=== PATIENT | male | born 1935 | race Caucasian/White ===

== ENCOUNTER 2016-09-14 10:20 | Outpatient (CLI) | payer MEDICARE, OTHER | END 2016-09-14 10:21 | disposition home or self-care (01) | DX: I10 Essential (primary) hypertension (principal); R73.09 Other abnormal glucose; Z12.5 Encounter for screening for malignant neoplasm of prostate; E78.5 Hyperlipidemia, unspecified | CPT/HCPCS: 36415; 80053; 80061; 83036; G0103 ==

== ENCOUNTER 2017-01-28 09:53 | Emergency (ER) | payer MEDICARE, OTHER ==
[2017-01-28] MEDS ORDERED: OXYMETAZOLINE NASAL SPRAY NAS ONE (10:00)
[2017-01-28] MEDS ORDERED: LIDOCAINE-EPINEPH-TETRACAINE 3 ML SYRINGE TOP ONE (10:06)
--- NOTE | 2017-01-28 10:15 | ED Physician Documentation ---
PD HPI HEENT - Stated complaint Stated Complaint: NOSE BLEED - Chief complaint Chief Complaint: Heent - History obtained from History obtained from: Patient, Family - History of Present Illness Timing - onset: Enter time (854), Today Timing - duration: Hours Timing - details: Gradual onset, Still present Location: Nose Improves: Other (pressure) Worsens: Everything Associated symptoms: No: Fever, Congestion, Rhinorrhea, Trismus, Unable to swallow, Swollen nodes, Facial swelling, Headache, Cough Similar symptoms before: Has not had sx before Recently seen: Clinic (had a PT check last week.) - Additional information Additional information: 82 y/o male was straining to urinate and his nose started to bleed. He is on coumadin and the bleeding has been difficult to control. Review of Systems Constitutional: denies: Fever, Chills Eyes: denies: Decreased vision Ears: denies: Ear pain Nose: reports: Epistaxis. denies: Congestion Throat: denies: Sore throat Cardiac: denies: Chest pain / pressure Respiratory: denies: Dyspnea, Cough GI: denies: Nausea, Vomiting : denies: Dysuria Skin: denies: Rash Musculoskeletal: denies: Neck pain, Back pain PD PAST MEDICAL HISTORY - Past Medical History Cardiovascular: High cholesterol, Deep vein thrombosis, Pulmonary embolism Neuro: None GI: GERD : Other HEENT: Other Psych: Depression, Anxiety - Past Surgical History Past Surgical History: Yes Ortho: Other - Present Medications Home Medications: Ambulatory Orders Medication Instructions Recorded Confirmed Cholecalciferol (Vitamin D3) 5,000 unit PO DAILY 02/08/13 01/28/17 [Vitamin D] Gabapentin [Neurontin] 600 mg PO QPM 02/08/13 01/28/17 Simvastatin [Zocor] 20 mg PO HS 02/08/13 01/28/17 Warfarin Sodium [Coumadin] 4 mg PO DAILY 02/08/13 01/28/17 Anagrelide HCl 0.5 mg PO BID 06/19/13 01/28/17 Ascorbic Acid [Vitamin C] 100 mg PO DAILY 09/03/15 01/28/17 Ferrous Gluconate 256 mg PO DAILY 09/03/15 01/28/17 Fexofenadine HCl [Marlene Allergy] 180 mg PO DAILY 09/03/15 01/28/17 Fluticasone [Flonase] 1 spray LOUIS BID 09/03/15 01/28/17 - Allergies Allergies/Adverse Reactions: Allergies Allergy/AdvReac Type Severity Reaction Status Date / Time amoxicillin [Amoxicillin] Allergy Intermediate Rash Verified 01/28/17 10:04 cavilon Allergy Mild Rash Uncoded 01/28/17 10:04 - Social History Does the pt smoke?: No Smoking Status: Never smoker Does the pt drink ETOH?: Yes Does the pt have substance abuse?: No - Immunizations Immunizations are current?: No - POLST Patient has POLST: No PD ED PE NORMAL - Vitals Vital signs reviewed: Yes (hypertensive ) - General General: No acute distress, Well developed/nourished - HEENT HEENT: Atraumatic, PERRL, EOMI, Other (There is bleeding from the left anterior nares from the septum. There is oozing of blood ) - Neck Neck: Supple, no meningeal sign, No bony TTP - Respiratory Respiratory: No respiratory distress - Derm Derm: Normal color, Warm and dry, No rash - Extremities Extremities: No deformity, No edema - Neuro Neuro: No motor deficit, No sensory deficit - Psych Psych: Normal mood, Normal affect Results - Vitals Vitals: Vital Signs - 24 hr 01/28/17 01/28/17 09:59 11:33 Temperature 35.8 C L Heart Rate 80 81 Respiratory 16 12 Rate Blood Pressure 168/82 H 126/72 O2 Saturation 95 97 Oxygen O2 Source Room air - Labs Labs: Laboratory Tests 01/28/17 10:25 Whole Blood INR 2.1 H Whole blood INR is 2.1 Procedures - Epistaxis Site: Left, Anterior Preparation: Afrin, Clamp / pressure applied, Other (LET packing followed by unsuccessful AgNO3 cautery) Treatment: Silver Nitrate, Anterior rhinorocket Other: Observed - no bleeding, Pt tolerated well, O2 sat WNL PD MEDICAL DECISION MAKING - ED course Complexity details: reviewed results, re-evaluated patient, considered differential, d/w patient, d/w family ED course: 82 y/o male with left anterior septal epistaxis has failed AgNO3 cautery and a Rhino-rocket is placed. He will need this removed tomorrow. Departure - Departure Disposition: 01 Home, Self Care Clinical Impression: Epistaxis Condition: Stable Instructions: ED Nosebleed, ED Nasal Packing Anterior Removable Follow-Up: Michael Foley MD [Primary Care Provider] - Comments: Follow up tomorrow morning for removal of the packing. Discharge Date/Time: 01/28/17 11:48
[2017-01-28 11:33] VITALS: BP 126/72
== END 2017-01-28 11:48 | disposition home or self-care (01) ==
LOC: ED 09:53
DX: R04.0 Epistaxis (principal); Z86.711 Personal history of pulmonary embolism; Z86.718 Personal history of other venous thrombosis and embolism; Z79.01 Long term (current) use of anticoagulants; E78.00 Pure hypercholesterolemia, unspecified; K21.9 Gastro-esophageal reflux disease without esophagitis
CPT/HCPCS: 30903; 85610; 99283; A9270

== ENCOUNTER 2017-01-29 08:35 | Emergency (ER) | payer MEDICARE, OTHER ==
[2017-01-29 08:43] VITALS: BP 159/81
--- NOTE | 2017-01-29 08:45 | ED Physician Documentation ---
PD HPI HEENT - Stated complaint Stated Complaint: F/U NOSE BLEED - History obtained from History obtained from: Patient - Additional information Additional information: Patient is an 82-year-old male who was seen here yesterday with anterior epistaxis. An anterior pack was placed, and he was advised to return today for removal of the packing. The packing came out spontaneously last night, so he presents for reevaluation. He denies any bleeding since the packing dislodged. He is on Coumadin, and his INR yesterday was 2.1. Review of Systems Constitutional: denies: Fever Nose: denies: Congestion, Epistaxis Throat: denies: Sore throat Respiratory: denies: Dyspnea GI: denies: Nausea, Vomiting Neurologic: denies: Headache PD PAST MEDICAL HISTORY - Past Medical History Cardiovascular: High cholesterol, Deep vein thrombosis, Pulmonary embolism Neuro: None GI: GERD : Other HEENT: Other Psych: Depression, Anxiety - Past Surgical History Past Surgical History: Yes Ortho: Other - Present Medications Home Medications: Ambulatory Orders Medication Instructions Recorded Confirmed Cholecalciferol (Vitamin D3) 5,000 unit PO DAILY 02/08/13 01/28/17 [Vitamin D] Gabapentin [Neurontin] 600 mg PO QPM 02/08/13 01/28/17 Simvastatin [Zocor] 20 mg PO HS 02/08/13 01/28/17 Warfarin Sodium [Coumadin] 4 mg PO DAILY 02/08/13 01/28/17 Anagrelide HCl 0.5 mg PO BID 06/19/13 01/28/17 Ascorbic Acid [Vitamin C] 100 mg PO DAILY 09/03/15 01/28/17 Ferrous Gluconate 256 mg PO DAILY 09/03/15 01/28/17 Fexofenadine HCl [Marlene Allergy] 180 mg PO DAILY 09/03/15 01/28/17 Fluticasone [Flonase] 1 spray LOUIS BID 09/03/15 01/28/17 - Allergies Allergies/Adverse Reactions: Allergies Allergy/AdvReac Type Severity Reaction Status Date / Time amoxicillin [Amoxicillin] Allergy Intermediate Rash Verified 01/29/17 08:43 cavilon Allergy Mild Rash Uncoded 01/29/17 08:43 - Social History Does the pt smoke?: No Smoking Status: Never smoker Does the pt drink ETOH?: Yes Does the pt have substance abuse?: No - Immunizations Immunizations are current?: No - POLST Patient has POLST: No PD ED PE NORMAL - Vitals Vital signs reviewed: Yes (Hypertensive initially.) - General General: Alert and oriented X 3, Well developed/nourished - HEENT HEENT: Atraumatic, EOMI, Pharynx benign, Other (Nasal mucosa is intact with no bleeding or clots at this time.) - Cardiac Cardiac: RRR - Respiratory Respiratory: No respiratory distress Results - Vitals Vitals: Vital Signs - 24 hr 01/29/17 08:38 Temperature 36.1 C L Heart Rate 75 Respiratory 20 Rate Blood Pressure 159/81 H O2 Saturation 99 Oxygen O2 Source Room air PD MEDICAL DECISION MAKING - ED course Complexity details: considered differential, d/w patient ED course: Recheck of the patient's nasal mucosa after having a nasal pack placed yesterday for left anterior epistaxis, reveals no ongoing bleeding or any blood clots in the nares. No further treatment is clinically indicated at this time. I discussed with the patient ongoing care, as well as potentially worrisome signs or symptoms that should prompt reevaluation in the emergency department. Departure - Departure Disposition: 01 Home, Self Care Clinical Impression: Encounter for wound re-check Condition: Stable Instructions: Nosebleed Follow-Up: Michael Foley MD [Provider Admit Priv/Credential] - Comments: Avoid activity such as heavy lifting or straining, that can cause increase pressure in the blood vessels of your nose for the next 3 days. You can apply antibiotic ointment to the nasal mucosa, using a cotton-tipped swab. Return to the emergency department if you develop recurrent bleeding that does not stop within 15 minutes of applying pressure. You had high blood pressure while in the emergency department today. It is common for people to experience high blood pressure in the emergency department , and it does not necessarily mean that you need to be on antihypertensives medication. However it is advisable for you to follow up with your primary physician within the next week or 2 to have your blood pressure rechecked. Discharge Date/Time: 01/29/17 08:50
== END 2017-01-29 08:50 | disposition home or self-care (01) ==
LOC: ED 08:35
DX: Z09 Encounter for follow-up examination after completed treatment for conditions other than malignant neoplasm (principal); Z87.898 Personal history of other specified conditions; R03.0 Elevated blood-pressure reading, without diagnosis of hypertension; Z79.01 Long term (current) use of anticoagulants
CPT/HCPCS: 30903; 99282; 99283

== ENCOUNTER 2017-01-29 21:49 | Emergency (ER) | payer MEDICARE, OTHER ==
--- NOTE | 2017-01-29 21:53 | ED Physician Documentation ---
PD HPI HEENT - Stated complaint Stated Complaint: NOSE BLEED - History obtained from History obtained from: Patient - History of Present Illness Timing - onset: Yesterday Timing - details: Abrupt onset, Intermittant Pain level now: 0 Location: Nose Improves: Other (stopped subsequent to ED packing (placed yesterday), but restarted tonight) Worsens: Other (no apparent inciting or exacerbating factors) Similar symptoms before: Has not had sx before Recently seen: Emergency Dept - Additional information Additional information: spontaneous epistaxis left nare yesterday. He is on coumadin for h/o DVT and PE , recent INR was 2.1. He was T+R from this ED yesterday after the left nare was packed. He returned this morning for recheck, by which time the packing had dislodged. He had no bleeding on the f/u visit this morning, but left nare epistaxis restarted this evening and resumes as soon as he releases pressure. Review of Systems Nose: reports: Epistaxis. denies: Rhinorrhea / runny nose, Congestion, Sinus pressure / pain Throat: reports: Reviewed and negative PD PAST MEDICAL HISTORY - Past Medical History Cardiovascular: High cholesterol, Deep vein thrombosis, Pulmonary embolism Neuro: None GI: GERD : Other HEENT: Other Psych: Depression, Anxiety - Past Surgical History Past Surgical History: Yes Ortho: Other - Present Medications Home Medications: Ambulatory Orders Medication Instructions Recorded Confirmed Cholecalciferol (Vitamin D3) 5,000 unit PO DAILY 02/08/13 01/29/17 [Vitamin D] Gabapentin [Neurontin] 600 mg PO QPM 02/08/13 01/29/17 Simvastatin [Zocor] 20 mg PO HS 02/08/13 01/29/17 Warfarin Sodium [Coumadin] 4 mg PO DAILY 02/08/13 01/29/17 Anagrelide HCl 0.5 mg PO BID 06/19/13 01/29/17 Ascorbic Acid [Vitamin C] 100 mg PO DAILY 09/03/15 01/29/17 Ferrous Gluconate 256 mg PO DAILY 09/03/15 01/29/17 Fexofenadine HCl [Marlene Allergy] 180 mg PO DAILY 09/03/15 01/29/17 Fluticasone [Flonase] 1 spray LOUIS BID 09/03/15 01/29/17 - Allergies Allergies/Adverse Reactions: Allergies Allergy/AdvReac Type Severity Reaction Status Date / Time amoxicillin [Amoxicillin] Allergy Intermediate Rash Verified 01/29/17 08:43 cavilon Allergy Mild Rash Uncoded 01/29/17 08:43 - Social History Does the pt smoke?: No Smoking Status: Never smoker Does the pt drink ETOH?: Yes Does the pt have substance abuse?: No - Immunizations Immunizations are current?: No - POLST Patient has POLST: No PD ED PE NORMAL - Vitals Vital signs reviewed: Yes - General General: Alert and oriented X 3, No acute distress, Well developed/nourished PD ED PE EXPANDED - HEENT HEENT: Left nares epistaxis (active epistaxis with visualized source on anterior septum, pulsation to bleeding s/o arterial bleeding) Results - Vitals Vitals: Vital Signs - 24 hr 01/29/17 01/29/17 21:53 23:16 Temperature 36.1 C L Heart Rate 84 82 Respiratory 16 16 Rate Blood Pressure 187/86 H 164/87 H O2 Saturation 95 98 Oxygen O2 Source Room air Procedures - Epistaxis Site: Left Preparation: Afrin, Lidocaine, Clamp / pressure applied Treatment: Silver Nitrate, Anterior rhinorocket, Other (silver nitrate applied x 3 without hemostasis) Other: Observed - no bleeding, Pt tolerated well PD MEDICAL DECISION MAKING - ED course Complexity details: reviewed old records, re-evaluated patient (On reevaluation after packing, there is no evidence of ongoing bleeding and he was thus discharged with the packing in place. I d/w patient option of contacting PMD Wednesday and either being seen in the office (if feasable) or referred to ENT, but patient repeatedly says he prefers coming to ED for removal), considered differential, d/w patient Departure - Departure Disposition: 01 Home, Self Care Clinical Impression: Epistaxis Condition: Good Instructions: ED Nosebleed Follow-Up: Michael Foley MD [Primary Care Provider] - Comments: Return to the emergency department in 2-3 days for removal of the packing. Discharge Date/Time: 01/29/17 23:16
[2017-01-29] MEDS ORDERED: OXYMETAZOLINE NASAL SPRAY NAS STA (22:03)
[2017-01-29] MEDS ORDERED: LIDOCAINE VISCOUS 2% 15 ML UDC MM STA (22:03)
[2017-01-29] MEDS ORDERED: TRANEXAMIC ACID 1,000 MG/10 ML VIAL NAS STA (22:04)
[2017-01-29] MEDS ORDERED: LIDOCAINE VISCOUS 2% 15 ML UDC MM ONE (22:06)
[2017-01-29] MEDS ORDERED: OXYMETAZOLINE NASAL SPRAY NAS ONE (22:07)
[2017-01-29] MEDS ORDERED: TRANEXAMIC ACID 1,000 MG/10 ML VIAL ONE (22:07)
[2017-01-29 23:17] VITALS: BP 164/87
== END 2017-01-29 23:16 | disposition home or self-care (01) ==
LOC: ED 21:49
DX: R04.0 Epistaxis (principal); Z79.01 Long term (current) use of anticoagulants; Z86.718 Personal history of other venous thrombosis and embolism; Z86.711 Personal history of pulmonary embolism
CPT/HCPCS: 30903; 99283; A9270

== ENCOUNTER 2017-01-31 14:32 | Emergency (ER) | payer MEDICARE, OTHER ==
[2017-01-31 14:38] VITALS: BP 142/79
--- NOTE | 2017-01-31 14:54 | ED Physician Documentation ---
PD TRA HEENT - Stated complaint Stated Complaint: NOSE BALLOON REMOVAL - Chief complaint Chief Complaint: Heent - History obtained from History obtained from: Patient, Family - History of Present Illness Timing - onset: How many days ago (4) Timing - duration: Days (4) Timing - details: Gradual onset, Now resolved Location: Nose Improves: Other (Rhino Rocket) Associated symptoms: No: Fever, Congestion, Rhinorrhea, Trismus, Unable to swallow, Swollen nodes, Facial swelling, Headache, Cough Recently seen: Emergency Dept (This is the fourth visit for this patient for this nosebleed. He had a Rhino Rocket placed the first visit this came out and the bleeding was resolved on the second visit and then he had rebleeding later that day and had a third visit. He has now had the Rhino Rocket in place for 2 days and has not had any further bleeding.) - Additional information Additional information: 82-year-old male on Coumadin doing well with a Rhino Rocket in place for epistaxis. Review of Systems Constitutional: denies: Fever Eyes: denies: Decreased vision Ears: denies: Ear pain Nose: reports: Epistaxis Respiratory: denies: Cough GI: denies: Vomiting PD PAST MEDICAL HISTORY - Past Medical History Past Medical History: Yes Cardiovascular: High cholesterol, Deep vein thrombosis, Pulmonary embolism Neuro: None GI: GERD : Other HEENT: Other Psych: Depression, Anxiety - Past Surgical History Past Surgical History: Yes Ortho: Other - Present Medications Home Medications: Ambulatory Orders Medication Instructions Recorded Confirmed Cholecalciferol (Vitamin D3) 5,000 unit PO DAILY 02/08/13 01/31/17 [Vitamin D] Gabapentin [Neurontin] 600 mg PO QPM 02/08/13 01/31/17 Simvastatin [Zocor] 20 mg PO HS 02/08/13 01/31/17 Warfarin Sodium [Coumadin] 4 mg PO DAILY 02/08/13 01/31/17 Anagrelide HCl 0.5 mg PO BID 06/19/13 01/31/17 Ascorbic Acid [Vitamin C] 100 mg PO DAILY 09/03/15 01/31/17 Ferrous Gluconate 256 mg PO DAILY 09/03/15 01/31/17 Fexofenadine HCl [Marlene Allergy] 180 mg PO DAILY 09/03/15 01/31/17 Fluticasone [Flonase] 1 spray LOUIS BID 09/03/15 01/31/17 - Allergies Allergies/Adverse Reactions: Allergies Allergy/AdvReac Type Severity Reaction Status Date / Time amoxicillin [Amoxicillin] Allergy Intermediate Rash Verified 01/29/17 08:43 cavilon Allergy Mild Rash Uncoded 01/29/17 08:43 - Social History Does the pt smoke?: No Smoking Status: Never smoker Does the pt drink ETOH?: Yes Does the pt have substance abuse?: No - Immunizations Immunizations are current?: No - POLST Patient has POLST: No PD ED PE NORMAL - Vitals Vital signs reviewed: Yes (Hypertensive) - General General: No acute distress, Well developed/nourished - HEENT HEENT: Atraumatic, PERRL, Other (The Rhino Rocket is removed there is no blood on the rocket and the nasal mucosa is without signs of bleeding.) - Neck Neck: Supple, no meningeal sign - Respiratory Respiratory: No respiratory distress - Derm Derm: Normal color, Warm and dry, No rash - Extremities Extremities: No deformity, No edema - Neuro Neuro: No motor deficit, No sensory deficit - Psych Psych: Normal mood, Normal affect Results - Vitals Vitals: Vital Signs - 24 hr 01/31/17 01/31/17 14:36 14:40 Temperature 36.6 C Heart Rate 84 Respiratory 18 Rate Blood Pressure 142/79 H O2 Saturation 96 Oxygen O2 Source Room air PD MEDICAL DECISION MAKING - ED course Complexity details: reviewed old records, considered differential, d/w patient, d/w family ED course: 82-year-old male with anterior septal epistaxis has had a recent Rhino Rocket placed and bleeding is now resolved the Rhino Rocket is removed. Departure - Departure Disposition: 01 Home, Self Care Clinical Impression: Epistaxis Condition: Stable Instructions: ED Nosebleed Follow-Up: Michael Foley MD [Primary Care Provider] -
== END 2017-01-31 15:01 | disposition home or self-care (01) ==
LOC: ED 14:32
DX: R04.0 Epistaxis (principal); Z79.01 Long term (current) use of anticoagulants; Z86.718 Personal history of other venous thrombosis and embolism
CPT/HCPCS: 99282; 99283

== ENCOUNTER 2017-02-04 12:05 | Outpatient (CLI) | payer MEDICARE, OTHER ==
[2017-02-04 19:22] LABS: BASOPHILS # (AUTO) 0.2 10^3/uL (0.0-0.1); BASOPHILS % (AUTO) 1.2 %; EOSINOPHILS # (AUTO) 0.3 10^3/uL (0.0-0.7); EOSINOPHILS % (AUTO) 2.2 %; HCT - HEMATOCRIT 38.7 % (42.0-52.0); HGB - HEMOGLOBIN 12.5 g/dL (14.0-18.0); LYMPHOCYTES # (AUTO) 2.1 10^3/uL (1.5-3.5); LYMPHOCYTES % (AUTO) 14.4 %; MEAN CORPUSCULAR HEMOGLOBIN 31.4 pg (27.0-31.0); MEAN CORPUSCULAR HGB CONC 32.3 g/dL (32.0-36.0); MEAN CORPUSCULAR VOLUME 97.1 fL (80.0-94.0); MEAN PLATELET VOLUME 9.4 fL (7.4-11.4); MONOCYTES % (AUTO) 7.1 %; NEUTROPHILS # (AUTO) 10.9 10^3/uL (1.5-6.6); NEUTROPHILS % (AUTO) 75.1 %; NUCLEATED RED BLOOD CELLS AUTO 0.1 /100WBC; RED BLOOD COUNT 3.99 10^6/uL (4.70-6.10); RED CELL DISTRIBUTION WIDTH 17.5 % (12.0-15.0); UNCORRECTED WHITE BLOOD COUNT 14.4 x10^3/uL; WHITE BLOOD COUNT 14.4 x10^3/uL (4.8-10.8)
[2017-02-04 19:45] LABS: ALBUMIN/GLOBULIN RATIO 1.5 (1.0-2.2); BILIRUBIN,TOTAL 0.7 mg/dL (0.2-1.0); CALCIUM 8.9 mg/dL (8.5-10.3); CREATININE 1.5 mg/dL (0.6-1.2); TOTAL PROTEIN 6.8 g/dL (6.7-8.2)
[2017-02-04 19:51] LABS: PLATELET ESTIMATE, MANUAL INCREASED (>450,000) (NORMAL); PLATELET MORPHOLOGY NORMAL APPEARANCE (NORMAL)
== END 2017-02-04 12:06 | disposition home or self-care (01) ==
LOC: LAB.WCP 12:05
PROVIDERS: ATTEND Family Medicine
DX: D69.2 Other nonthrombocytopenic purpura (principal)
CPT/HCPCS: 36415; 80053; 81001; 85025

== ENCOUNTER 2017-09-07 21:33 | Emergency (ER) | payer MEDICARE, OTHER ==
--- NOTE | 2017-09-07 21:58 | ED Physician Documentation ---
PD HPI HEENT - Stated complaint Stated Complaint: NOSE BLEED - Chief complaint Chief Complaint: Heent - History obtained from History obtained from: Patient - History of Present Illness Timing - onset: How many hours ago (1-2), Today Timing - duration: Hours (1-2) Timing - details: Abrupt onset (just bent over in bathroom and started dripping blood. No noseblowing nor injury.) Location: Nose (bleeding right nostril) Associated symptoms: No: Fever, Congestion, Rhinorrhea, Headache, Cough Similar symptoms before: Diagnosis (nosebleed other side in the past year. No recent problem.) Recently seen: Not recently seen Review of Systems Constitutional: denies: Fever, Chills Nose: denies: Rhinorrhea / runny nose, Congestion Throat: denies: Sore throat Cardiac: denies: Chest pain / pressure Respiratory: denies: Dyspnea, Cough GI: denies: Vomiting, Diarrhea, Bloody / black stool Musculoskeletal: denies: Neck pain, Back pain Neurologic: denies: Generalized weakness, Near syncope Endocrine: reports: Easy bruising / bleeding. denies: Weight loss PD PAST MEDICAL HISTORY - Past Medical History Cardiovascular: High cholesterol, Deep vein thrombosis, Pulmonary embolism Neuro: None GI: GERD : Other HEENT: Other Psych: Depression, Anxiety - Past Surgical History Past Surgical History: Yes Ortho: Other - Present Medications Home Medications: Ambulatory Orders Medication Instructions Recorded Confirmed Cholecalciferol (Vitamin D3) 5,000 unit PO DAILY 02/08/13 03/15/17 [Vitamin D] Gabapentin [Neurontin] 600 mg PO QPM 02/08/13 03/15/17 Simvastatin [Zocor] 20 mg PO HS 02/08/13 03/15/17 Warfarin Sodium [Coumadin] 4 mg PO DAILY 02/08/13 03/15/17 Anagrelide HCl 0.5 mg PO BID 06/19/13 03/15/17 Ascorbic Acid [Vitamin C] 100 mg PO DAILY 09/03/15 03/15/17 Ferrous Gluconate 256 mg PO DAILY 09/03/15 03/15/17 Fexofenadine HCl [Marlene Allergy] 180 mg PO DAILY 09/03/15 03/15/17 Fluticasone [Flonase] 1 spray LOUIS BID 09/03/15 03/15/17 traMADol [Ultram] 50 mg PO Q4-6H PRN #15 tablet 09/09/17 - Allergies Allergies/Adverse Reactions: Allergies Allergy/AdvReac Type Severity Reaction Status Date / Time amoxicillin [Amoxicillin] Allergy Intermediate Rash Verified 09/09/17 16:38 cavilon Allergy Mild Rash Uncoded 09/07/17 21:42 - Social History Does the pt smoke?: No Smoking Status: Never smoker Does the pt drink ETOH?: Yes Does the pt have substance abuse?: No - Immunizations Immunizations are current?: No - POLST Patient has POLST: No PD ED PE NORMAL - Vitals Vital signs reviewed: Yes - General General: Alert and oriented X 3, No acute distress, Well developed/nourished - HEENT HEENT: Pharynx benign, Other (some blood from right nostril. Nose clamp in place. ) - Neck Neck: Supple, no meningeal sign, No adenopathy - Cardiac Cardiac: RRR, No murmur - Respiratory Respiratory: Clear bilaterally - Derm Derm: Normal color, Warm and dry - Extremities Extremities: No deformity, No tenderness to palpate, Normal ROM s pain, No edema - Neuro Neuro: Alert and oriented X 3, No motor deficit, Normal speech Results - Vitals Vitals: Oxygen O2 Source Room air - Labs Labs: Laboratory Tests 09/07/17 22:11 Whole Blood INR 1.9 H Procedures - Epistaxis Site: Right Preparation: Clots removed, Afrin, Lidocaine, Clamp / pressure applied Treatment: Silver Nitrate, Packing inserted Other: Pt tolerated well, O2 sat WNL, Other (did not stop completely so repacked and used TXA as well, with subsequent stopping of the bleeding.) PD MEDICAL DECISION MAKING - ED course Complexity details: reviewed results, considered differential, d/w patient Departure - Departure Disposition: Home, Self Care Clinical Impression: Epistaxis, Anticoagulant long-term use Condition: Stable Record reviewed to determine appropriate education?: Yes Instructions: ED Nosebleed Follow-Up: Michael Foley MD [Primary Care Provider] - [facility] [Provider Group] Comments: Leave the packing in until morning if he can. Return if persistent bleeding again. 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 Hold your Coumadin for a day. Discharge Date/Time: 09/08/17 00:20
[2017-09-07] MEDS ORDERED: OXYMETAZOLINE NASAL SPRAY NAS STA (22:02)
[2017-09-07] MEDS ORDERED: TRANEXAMIC ACID 1,000 MG/10 ML VIAL NAS STA (23:13)
[2017-09-08 00:20] VITALS: BP 163/79
== END 2017-09-08 00:20 | disposition home or self-care (01) ==
LOC: ED 21:33
DX: R04.0 Epistaxis (principal); Z86.711 Personal history of pulmonary embolism; Z86.718 Personal history of other venous thrombosis and embolism; Z79.01 Long term (current) use of anticoagulants; E78.00 Pure hypercholesterolemia, unspecified; K21.9 Gastro-esophageal reflux disease without esophagitis
CPT/HCPCS: 30901; 85610; 99283; A9270

== ENCOUNTER 2017-09-09 16:31 | Emergency (ER) | payer MEDICARE, OTHER ==
[2017-09-09 16:40] VITALS: BP 146/73
--- NOTE | 2017-09-09 17:00 | ED Physician Documentation ---
PD HPI HEENT FB - Chief complaint Chief Complaint: Heent - History obtained from History obtained from: Patient - History of Present Illness Timing - onset: Other (He is here as instructed for nasal tampon removal. He has no specific complaints except for chronic pain of the ball of the right foot , No sinus pain.) - Additional information Additional information: His only specific complaint is pain at the bottom of the right fifth metatarsal which is not new. He often takes Motrin for this and we discussed that he should probably not be taking Motrin frequently since he is on warfarin. There is no infectious symptoms to speak of, no rhinorrhea, sore throat, cough. Review of Systems Constitutional: denies: Fever, Chills Nose: denies: Rhinorrhea / runny nose, Congestion, Sinus pressure / pain Throat: denies: Sore throat Respiratory: denies: Cough PD PAST MEDICAL HISTORY - Past Medical History Cardiovascular: High cholesterol, Deep vein thrombosis, Pulmonary embolism Neuro: None GI: GERD : Other HEENT: Other Psych: Depression, Anxiety - Past Surgical History Past Surgical History: Yes Ortho: Other - Present Medications Home Medications: Ambulatory Orders Medication Instructions Recorded Confirmed Cholecalciferol (Vitamin D3) 5,000 unit PO DAILY 02/08/13 03/15/17 [Vitamin D] Gabapentin [Neurontin] 600 mg PO QPM 02/08/13 03/15/17 Simvastatin [Zocor] 20 mg PO HS 02/08/13 03/15/17 Warfarin Sodium [Coumadin] 4 mg PO DAILY 02/08/13 03/15/17 Anagrelide HCl 0.5 mg PO BID 06/19/13 03/15/17 Ascorbic Acid [Vitamin C] 100 mg PO DAILY 09/03/15 03/15/17 Ferrous Gluconate 256 mg PO DAILY 09/03/15 03/15/17 Fexofenadine HCl [Marlene Allergy] 180 mg PO DAILY 09/03/15 03/15/17 Fluticasone [Flonase] 1 spray [place] BID 09/03/15 03/15/17 traMADol [Ultram] 50 mg PO Q4-6H PRN #15 tablet 09/09/17 - Allergies Allergies/Adverse Reactions: Allergies Allergy/AdvReac Type Severity Reaction Status Date / Time amoxicillin [Amoxicillin] Allergy Intermediate Rash Verified 09/09/17 16:38 cavilon Allergy Mild Rash Uncoded 09/07/17 21:42 - Social History Does the pt smoke?: No Smoking Status: Never smoker Does the pt drink ETOH?: Yes Does the pt have substance abuse?: No - Immunizations Immunizations are current?: No - POLST Patient has POLST: No PD ED PE NORMAL - Vitals Vital signs reviewed: Yes - General General: Alert and oriented X 3, No acute distress - HEENT HEENT: Pharynx benign, Other (There is a Rhino Rocket in place in the right nares, it was removed without issue and there was no epistaxis) - Neck Neck: Supple, no meningeal sign, No bony TTP - Extremities Extremities: Other (Generally poor circulation in the feet, no evidence of gout or infection in the feet.) - Neuro Neuro: Alert and oriented X 3, Normal speech - Psych Psych: Normal mood, Normal affect Results - Vitals Vitals: Vital Signs - 24 hr 09/09/17 16:34 Temperature 38 C H Heart Rate 94 Respiratory 18 Rate Blood Pressure 146/73 H O2 Saturation 95 Oxygen O2 Source Room air PD MEDICAL DECISION MAKING - ED course ED course: Note made of a low-grade fever, however he does not have any infectious symptoms. Watchful waiting was advised. Departure - Departure Disposition: Home, Self Care Clinical Impression: Encounter for removal of nasal packing, Right foot pain Condition: Good Record reviewed to determine appropriate education?: Yes Instructions: Nosebleed Prescriptions: traMADol [Ultram] 50 mg PO Q4-6H PRN #15 tablet PRN Reason: Pain Comments: Follow-up with your physician on Wednesday for recheck. Return if worse or if your fever gets higher or if he develop new symptoms. Your blood pressure was elevated today on check into the emergency department. This does not mean that you have hypertension, it is a common phenomenon to come to the emergency department and have elevated blood pressure. I recommend that you see your primary care physician within the week to have it rechecked when you are feeling better.
== END 2017-09-09 17:07 | disposition home or self-care (01) ==
LOC: ED 16:31
DX: Z48.00 Encounter for change or removal of nonsurgical wound dressing (principal); M79.671 Pain in right foot; R03.0 Elevated blood-pressure reading, without diagnosis of hypertension; Z86.718 Personal history of other venous thrombosis and embolism; Z86.711 Personal history of pulmonary embolism
CPT/HCPCS: 99283

== ENCOUNTER 2018-01-21 16:13 | Outpatient (CLI) | payer MEDICARE, OTHER ==
--- NOTE | 2018-01-22 10:26 | Ultrasound Report ---
Procedure Date: 01/21/2018 Accession Number: [id number] / [id number] Procedure: US - Duplex Lwr Ext Arterial Bilat CPT Code: FULL RESULT: EXAM: Bilateral Lower Extremity Arterial Doppler Ultrasound EXAM DATE: 01/21/2018 05:48 PM. CLINICAL HISTORY: Peripheral vascular disease. COMPARISON: None. TECHNIQUE: Real-time sonographic vascular imaging was performed by the jazz singer, utilizing color-flow, Doppler flow, and spectral analysis. Multiple hotel services sales representative static images were saved for review. FINDINGS: Right and left lower extremity arteries are patent with normal Doppler wave patterns. No evidence of right or left lower extremity arterial occlusion or significant stenosis. Right Leg: Z OS MAINFRAME SYSTEMS PROGRAMMER: PSV 170 cm/sec. Triphasic waveform. PSFA: PSV 118 cm/sec. Triphasic waveform. MSFA: PSV 116 cm/sec. Triphasic waveform. DSFA: PSV 142 cm/sec. Triphasic waveform. PFA: PSV 107 cm/sec. Biphasic waveform. POP: PSV 75 cm/sec. Triphasic waveform. YUN: PSV 162 cm/sec. Triphasic waveform. MEDICINE TECHNOLOGIST: PSV 120 cm/sec. Triphasic waveform. PER: PSV 71 cm/sec. Biphasic waveform. DPA: PSV 71 cm/sec. Biphasic waveform. Left Leg: Z OS MAINFRAME SYSTEMS PROGRAMMER: PSV 195 cm/sec. Triphasic waveform. PSFA: PSV 186 cm/sec. Triphasic waveform. MSFA: PSV 120 cm/sec. Triphasic waveform. DSFA: PSV 124 cm/sec. Triphasic waveform. PFA: PSV 160 cm/sec. Biphasic waveform. POP: PSV 113 cm/sec. Triphasic waveform. YUN: PSV 138 cm/sec. Biphasic waveform. MEDICINE TECHNOLOGIST: PSV 108 cm/sec. Triphasic waveform. PER: PSV 69 cm/sec. Biphasic waveform. DPA: PSV 167 cm/sec. Biphasic waveform. IMPRESSION: 1. Normal lower extremity bilateral arterial Doppler study. No evidence of significant arterial stenosis or occlusion. RADIA
== END 2018-01-21 16:14 | disposition home or self-care (01) ==
LOC: DI 16:13
PROVIDERS: ATTEND Family Medicine
DX: I73.9 Peripheral vascular disease, unspecified (principal)
CPT/HCPCS: 93925

== ENCOUNTER 2018-03-16 08:00 | Outpatient (CLI) | payer MEDICARE, OTHER ==
[2018-03-16 19:22] LABS: BASOPHILS # (AUTO) 0.2 10^3/uL (0.0-0.1); BASOPHILS % (AUTO) 1.9 %; EOSINOPHILS # (AUTO) 0.2 10^3/uL (0.0-0.7); EOSINOPHILS % (AUTO) 1.9 %; HEMOGLOBIN A1C 0.52 g/dL; HEMOGLOBIN A1C % 5.8 % (4.6-6.2); HGB - HEMOGLOBIN 12.9 g/dL (14.0-18.0); LYMPHOCYTES # (AUTO) 1.5 10^3/uL (1.5-3.5); MEAN CORPUSCULAR HEMOGLOBIN 31.9 pg (27.0-31.0); MEAN CORPUSCULAR HGB CONC 33.4 g/dL (32.0-36.0); MEAN CORPUSCULAR VOLUME 95.7 fL (80.0-94.0); MEAN PLATELET VOLUME 9.7 fL (7.4-11.4); MONOCYTES # (AUTO) 0.7 10^3/uL (0.0-1.0); NEUTROPHILS % (AUTO) 73.2 %; PLT - PLATELET COUNT 396 10^3/uL (130-450); RED BLOOD COUNT 4.02 10^6/uL (4.70-6.10); RED CELL DISTRIBUTION WIDTH 17.9 % (12.0-15.0); WHITE BLOOD COUNT 9.6 x10^3/uL (4.8-10.8)
[2018-03-16 19:25] LABS: ALBUMIN 3.7 g/dL (3.2-5.5); ALBUMIN/GLOBULIN RATIO 1.3 (1.0-2.2); ALKALINE PHOSPHATASE 43 IU/L (42-121); ALT ALANINE AMINOTRANSFERASE 15 IU/L (10-60); AST ASPARTATE AMINOTRANSFERASE 17 IU/L (10-42); BILIRUBIN,TOTAL 0.9 mg/dL (0.2-1.0); BUN - BLOOD UREA NITROGEN 24 mg/dL (6-20); CALCIUM 8.7 mg/dL (8.5-10.3); CARBON DIOXIDE - CO2 23 mmol/L (21-32); CHLORIDE 108 mmol/L (101-111); CHOL/HDL RATIO 3.8 (<5.0); CHOLESTEROL 126 mg/dL; CREATININE 1.4 mg/dL (0.6-1.2); GFR - MDRD 48 (>89); GLUCOSE 99 mg/dL (70-100); HDL CHOLESTEROL 33 mg/dL; LDL CHOLESTEROL,CALCULATED 51 mg/dL; LDL/HDL RATIO 1.5 (<3.6); SODIUM 138 mmol/L (135-145); TOTAL PROTEIN 6.5 g/dL (6.7-8.2); VLDL CHOLESTEROL 42 mg/dL
== END 2018-03-16 08:01 | disposition home or self-care (01) ==
LOC: LAB.WCP 08:00
PROVIDERS: ATTEND Family Medicine
DX: D47.3 Essential (hemorrhagic) thrombocythemia (principal); C61 Malignant neoplasm of prostate; I80.209 Phlebitis and thrombophlebitis of unspecified deep vessels of unspecified lower extremity; R32 Unspecified urinary incontinence; R73.01 Impaired fasting glucose
CPT/HCPCS: 36415; 80053; 80061; 83036; 83721; 84153; 85025

== ENCOUNTER 2018-10-20 08:00 | Outpatient (CLI) | payer MEDICARE, OTHER | END 2018-10-20 23:59 | disposition home or self-care (01) | LOC: LAB.WCP 08:00 | PROVIDERS: ATTEND Family Medicine | DX: I80.209 Phlebitis and thrombophlebitis of unspecified deep vessels of unspecified lower extremity (principal); Z79.01 Long term (current) use of anticoagulants ==

== ENCOUNTER 2018-10-21 08:00 | Outpatient (CLI) | payer MEDICARE, OTHER ==
[2018-10-21 13:00] LABS: BASOPHILS # (AUTO) 0.1 10^3/uL (0.0-0.1); BASOPHILS % (AUTO) 1.4 %; EOSINOPHILS # (AUTO) 0.2 10^3/uL (0.0-0.7); EOSINOPHILS % (AUTO) 2.2 %; LYMPHOCYTES # (AUTO) 1.5 10^3/uL (1.5-3.5); LYMPHOCYTES % (AUTO) 16.3 %; MEAN CORPUSCULAR HEMOGLOBIN 31.9 pg (27.0-31.0); MEAN CORPUSCULAR HGB CONC 33.5 g/dL (32.0-36.0); MEAN CORPUSCULAR VOLUME 95.4 fL (80.0-94.0); MEAN PLATELET VOLUME 10.2 fL (7.4-11.4); MONOCYTES # (AUTO) 0.8 10^3/uL (0.0-1.0); MONOCYTES % (AUTO) 8.4 %; NEUTROPHILS # (AUTO) 6.5 10^3/uL (1.5-6.6); NEUTROPHILS % (AUTO) 71.7 %; PLT - PLATELET COUNT 364 10^3/uL (130-450); RED BLOOD COUNT 3.75 10^6/uL (4.70-6.10); RED CELL DISTRIBUTION WIDTH 17.9 % (12.0-15.0)
[2018-10-21 13:15] LABS: ALBUMIN 3.7 g/dL (3.2-5.5); ALBUMIN/GLOBULIN RATIO 1.4 (1.0-2.2); ALKALINE PHOSPHATASE 44 IU/L (42-121); ALT ALANINE AMINOTRANSFERASE 15 IU/L (10-60); AST ASPARTATE AMINOTRANSFERASE 15 IU/L (10-42); BILIRUBIN,TOTAL 0.6 mg/dL (0.2-1.0); BUN - BLOOD UREA NITROGEN 29 mg/dL (6-20); CHOL/HDL RATIO 3.3 (<5.0); CHOLESTEROL 110 mg/dL; CREATININE 1.7 mg/dL (0.6-1.2); GFR - MDRD 38 (>89); HDL CHOLESTEROL 33 mg/dL; LDL CHOLESTEROL,CALCULATED 47 mg/dL; LDL/HDL RATIO 1.4 (<3.6); TOTAL PROTEIN 6.3 g/dL (6.7-8.2); VLDL CHOLESTEROL 30 mg/dL
[2018-10-21 13:53] LABS: CALCIUM 8.6 mg/dL (8.5-10.3); CARBON DIOXIDE - CO2 24 mmol/L (21-32); CHLORIDE 111 mmol/L (101-111); GLUCOSE 103 mg/dL (70-100); SODIUM 142 mmol/L (135-145)
[2018-10-21 14:26] LABS: PLATELET ESTIMATE, MANUAL NORMAL (130-450,000) (NORMAL); PLATELET MORPHOLOGY RARE GIANT PLATELETS (NORMAL)
== END 2018-10-21 23:59 | disposition home or self-care (01) ==
LOC: LAB.WCP 08:00
PROVIDERS: ATTEND Family Medicine
DX: E78.5 Hyperlipidemia, unspecified (principal)
CPT/HCPCS: 36415; 80053; 80061; 83721; 84443; 85025

== ENCOUNTER 2018-11-17 08:00 | Outpatient (CLI) | payer MEDICARE, OTHER | END 2018-11-17 23:59 | disposition home or self-care (01) | LOC: LAB.WCP 08:00 | PROVIDERS: ATTEND Family Medicine | DX: I80.9 Phlebitis and thrombophlebitis of unspecified site (principal); Z79.01 Long term (current) use of anticoagulants; Z86.711 Personal history of pulmonary embolism ==

== ENCOUNTER 2018-12-02 08:00 | Outpatient (CLI) | payer MEDICARE, OTHER | END 2018-12-02 08:01 | disposition home or self-care (01) | LOC: LAB.WCP 08:00 | PROVIDERS: ATTEND Family Medicine | DX: I80.9 Phlebitis and thrombophlebitis of unspecified site (principal); Z79.01 Long term (current) use of anticoagulants; Z86.711 Personal history of pulmonary embolism | CPT/HCPCS: 81025 ==

== ENCOUNTER 2018-12-30 08:00 | Outpatient (CLI) | payer MEDICARE, OTHER | END 2018-12-30 23:59 | disposition home or self-care (01) | LOC: LAB.WCP 08:00 | PROVIDERS: ATTEND Family Medicine | DX: I80.9 Phlebitis and thrombophlebitis of unspecified site (principal); Z79.01 Long term (current) use of anticoagulants; Z86.711 Personal history of pulmonary embolism ==

== ENCOUNTER 2019-01-06 08:00 | Outpatient (CLI) | payer MEDICARE, OTHER ==
[2019-01-06 18:58] LABS: CALCIUM 8.4 mg/dL (8.5-10.3); CREATININE 1.8 mg/dL (0.6-1.2)
== END 2019-01-06 23:59 | disposition home or self-care (01) ==
LOC: LAB.WCP 08:00
PROVIDERS: ATTEND Family Medicine
DX: N18.3 Chronic kidney disease, stage 3 (moderate) (principal)
CPT/HCPCS: 36415; 80048

== ENCOUNTER 2019-01-13 08:00 | Outpatient (CLI) | payer MEDICARE, OTHER | END 2019-01-13 08:01 | disposition home or self-care (01) | LOC: LAB.WCP 08:00 | PROVIDERS: ATTEND Family Medicine | DX: I80.209 Phlebitis and thrombophlebitis of unspecified deep vessels of unspecified lower extremity (principal); Z79.01 Long term (current) use of anticoagulants; Z86.711 Personal history of pulmonary embolism ==

== ENCOUNTER 2019-01-16 11:59 | Outpatient (CLI) | payer MEDICARE, OTHER ==
[2019-01-16 19:52] LABS: HB2 TOTAL 13.6 g/dL; HEMOGLOBIN A1C 0.58 g/dL; HEMOGLOBIN A1C % 6.1 % (4.6-6.2)
[2019-01-16 20:32] LABS: CREATININE 1.5 mg/dL (0.6-1.2)
== END 2019-01-16 12:00 | disposition home or self-care (01) ==
LOC: LAB.WCP 11:59
PROVIDERS: ATTEND Family Medicine
DX: N18.3 Chronic kidney disease, stage 3 (moderate) (principal); E78.5 Hyperlipidemia, unspecified; R73.03 Prediabetes
CPT/HCPCS: 36415; 80048; 83036

== ENCOUNTER 2019-02-01 08:00 | Outpatient (CLI) | payer MEDICARE, OTHER ==
[2019-02-01 19:21] LABS: CREATININE 1.6 mg/dL (0.6-1.2)
== END 2019-02-01 23:59 | disposition home or self-care (01) ==
LOC: LAB.WCP 08:00
PROVIDERS: ATTEND Family Medicine
DX: N18.3 Chronic kidney disease, stage 3 (moderate) (principal)
CPT/HCPCS: 36415; 80048

== ENCOUNTER 2019-02-13 08:00 | Outpatient (CLI) | payer MEDICARE, OTHER | END 2019-02-13 08:01 | disposition home or self-care (01) | LOC: LAB.WCP 08:00 | PROVIDERS: ATTEND Physician Assistant Medical | DX: I80.209 Phlebitis and thrombophlebitis of unspecified deep vessels of unspecified lower extremity (principal); Z79.01 Long term (current) use of anticoagulants; Z86.711 Personal history of pulmonary embolism ==

== ENCOUNTER 2019-02-21 08:00 | Outpatient (CLI) | payer MEDICARE, OTHER | END 2019-02-21 08:01 | disposition home or self-care (01) | LOC: LAB.WCP 08:00 | PROVIDERS: ATTEND Family Medicine | DX: I80.209 Phlebitis and thrombophlebitis of unspecified deep vessels of unspecified lower extremity (principal); Z86.711 Personal history of pulmonary embolism; Z79.01 Long term (current) use of anticoagulants ==

== ENCOUNTER 2019-02-28 08:00 | Outpatient (CLI) | payer MEDICARE, OTHER | END 2019-02-28 08:01 | disposition home or self-care (01) | LOC: LAB.WCP 08:00 | PROVIDERS: ATTEND Family Medicine | DX: I80.209 Phlebitis and thrombophlebitis of unspecified deep vessels of unspecified lower extremity (principal); Z79.01 Long term (current) use of anticoagulants; Z86.711 Personal history of pulmonary embolism ==

== ENCOUNTER 2019-03-14 08:00 | Outpatient (CLI) | payer MEDICARE, OTHER | END 2019-03-14 23:59 | disposition home or self-care (01) | LOC: LAB.WCP 08:00 | PROVIDERS: ATTEND Family Medicine | DX: I80.209 Phlebitis and thrombophlebitis of unspecified deep vessels of unspecified lower extremity (principal); Z79.01 Long term (current) use of anticoagulants; Z86.711 Personal history of pulmonary embolism ==

== ENCOUNTER 2019-04-12 08:00 | Outpatient (CLI) | payer MEDICARE, OTHER | END 2019-04-12 23:59 | disposition home or self-care (01) | LOC: LAB.WCP 08:00 | PROVIDERS: ATTEND Family Medicine | DX: I80.209 Phlebitis and thrombophlebitis of unspecified deep vessels of unspecified lower extremity (principal); Z79.01 Long term (current) use of anticoagulants ==

== ENCOUNTER 2019-05-10 08:00 | Outpatient (CLI) | payer MEDICARE, OTHER | END 2019-05-10 23:59 | disposition home or self-care (01) | LOC: LAB.WCP 08:00 | PROVIDERS: ATTEND Family Medicine | DX: I80.9 Phlebitis and thrombophlebitis of unspecified site (principal); Z79.01 Long term (current) use of anticoagulants; Z86.711 Personal history of pulmonary embolism ==

== ENCOUNTER 2019-05-24 08:00 | Outpatient (CLI) | payer MEDICARE, OTHER | END 2019-05-24 23:59 | disposition home or self-care (01) | LOC: LAB.WCP 08:00 | PROVIDERS: ATTEND Physician Assistant Medical | DX: I80.209 Phlebitis and thrombophlebitis of unspecified deep vessels of unspecified lower extremity (principal); Z79.01 Long term (current) use of anticoagulants; Z86.711 Personal history of pulmonary embolism ==

== ENCOUNTER 2019-05-31 08:00 | Outpatient (CLI) | payer MEDICARE, OTHER | END 2019-05-31 23:59 | disposition home or self-care (01) | LOC: LAB.WCP 08:00 | PROVIDERS: ATTEND Family Medicine | DX: I80.209 Phlebitis and thrombophlebitis of unspecified deep vessels of unspecified lower extremity (principal); Z79.01 Long term (current) use of anticoagulants; Z86.711 Personal history of pulmonary embolism ==

== ENCOUNTER 2019-06-14 08:00 | Outpatient (CLI) | payer MEDICARE, OTHER | END 2019-06-14 23:59 | disposition home or self-care (01) | LOC: LAB.WCP 08:00 | PROVIDERS: ATTEND Family Medicine | DX: Z79.01 Long term (current) use of anticoagulants (principal); I80.209 Phlebitis and thrombophlebitis of unspecified deep vessels of unspecified lower extremity; Z86.711 Personal history of pulmonary embolism ==

== ENCOUNTER 2019-06-28 08:00 | Outpatient (CLI) | payer MEDICARE, OTHER | END 2019-06-28 23:59 | disposition home or self-care (01) | LOC: LAB.WCP 08:00 | PROVIDERS: ATTEND Family Medicine | DX: I80.209 Phlebitis and thrombophlebitis of unspecified deep vessels of unspecified lower extremity (principal); Z79.01 Long term (current) use of anticoagulants ==

== ENCOUNTER 2019-07-05 08:00 | Outpatient (CLI) | payer MEDICARE, OTHER | END 2019-07-05 23:59 | disposition home or self-care (01) | LOC: LAB.WCP 08:00 | PROVIDERS: ATTEND Family Medicine | DX: Z79.01 Long term (current) use of anticoagulants (principal); I80.209 Phlebitis and thrombophlebitis of unspecified deep vessels of unspecified lower extremity; Z86.711 Personal history of pulmonary embolism ==

== ENCOUNTER 2019-07-19 08:00 | Outpatient (CLI) | payer MEDICARE, OTHER | END 2019-07-19 23:59 | disposition home or self-care (01) | LOC: LAB.WCP 08:00 | PROVIDERS: ATTEND Family Medicine | DX: I80.209 Phlebitis and thrombophlebitis of unspecified deep vessels of unspecified lower extremity (principal); Z79.01 Long term (current) use of anticoagulants; Z86.711 Personal history of pulmonary embolism ==

== ENCOUNTER 2019-07-21 10:32 | Outpatient (CLI) | payer MEDICARE, OTHER ==
[2019-07-21 18:53] LABS: BASOPHILS # (AUTO) 0.1 10^3/uL (0.0-0.1); EOSINOPHILS # (AUTO) 0.2 10^3/uL (0.0-0.7); EOSINOPHILS % (AUTO) 1.8 %; HGB - HEMOGLOBIN 11.4 g/dL (14.0-18.0); LYMPHOCYTES # (AUTO) 1.4 10^3/uL (1.5-3.5); LYMPHOCYTES % (AUTO) 16.8 %; MEAN CORPUSCULAR HGB CONC 30.1 g/dL (32.0-36.0); MEAN PLATELET VOLUME 11.6 fL (7.4-11.4); MONOCYTES # (AUTO) 0.7 10^3/uL (0.0-1.0); MONOCYTES % (AUTO) 7.9 %; NEUTROPHILS # (AUTO) 5.9 10^3/uL (1.5-6.6); PLT - PLATELET COUNT 356 10^3/uL (130-450); RED BLOOD COUNT 3.68 10^6/uL (4.70-6.10); WHITE BLOOD COUNT 8.2 x10^3/uL (4.8-10.8)
[2019-07-21 19:20] LABS: ALBUMIN 3.7 g/dL (3.2-5.5); ALBUMIN/GLOBULIN RATIO 1.3 (1.0-2.2); BILIRUBIN,TOTAL 0.6 mg/dL (0.2-1.0); CALCIUM 8.5 mg/dL (8.5-10.3); CREATININE 1.5 mg/dL (0.6-1.2); TOTAL PROTEIN 6.6 g/dL (6.7-8.2)
== END 2019-07-21 23:59 | disposition home or self-care (01) ==
LOC: LAB.WCP 10:32
PROVIDERS: ATTEND Family Medicine
DX: E11.22 Type 2 diabetes mellitus with diabetic chronic kidney disease (principal); N18.3 Chronic kidney disease, stage 3 (moderate); I13.10 Hypertensive heart and chronic kidney disease without heart failure, with stage 1 through stage 4 chronic kidney disease, or unspecified chronic kidney disease; I80.209 Phlebitis and thrombophlebitis of unspecified deep vessels of unspecified lower extremity
CPT/HCPCS: 36415; 80053; 85025

== ENCOUNTER 2019-08-16 08:00 | Outpatient (CLI) | payer MEDICARE, OTHER | END 2019-08-16 23:59 | disposition home or self-care (01) | LOC: LAB.WCP 08:00 | PROVIDERS: ATTEND Family Medicine | DX: Z79.01 Long term (current) use of anticoagulants (principal); I82.409 Acute embolism and thrombosis of unspecified deep veins of unspecified lower extremity; Z86.711 Personal history of pulmonary embolism ==

== ENCOUNTER 2019-09-04 08:00 | Outpatient (CLI) | payer MEDICARE, OTHER | END 2019-09-04 23:59 | disposition home or self-care (01) | LOC: LAB.WCP 08:00 | PROVIDERS: ATTEND Physician Assistant Medical | DX: Z79.01 Long term (current) use of anticoagulants (principal); Z86.711 Personal history of pulmonary embolism; I82.409 Acute embolism and thrombosis of unspecified deep veins of unspecified lower extremity ==

== ENCOUNTER 2019-10-02 08:00 | Outpatient (CLI) | payer MEDICARE, OTHER | END 2019-10-02 23:59 | disposition home or self-care (01) | LOC: LAB.WCP 08:00 | PROVIDERS: ATTEND Physician Assistant Medical | DX: I82.409 Acute embolism and thrombosis of unspecified deep veins of unspecified lower extremity (principal); Z79.01 Long term (current) use of anticoagulants; Z86.711 Personal history of pulmonary embolism ==

== ENCOUNTER 2019-10-12 09:59 | Outpatient (CLI) | payer MEDICARE, OTHER ==
[2019-10-12 12:26] LABS: BASOPHILS # (AUTO) 0.1 10^3/uL (0.0-0.1); EOSINOPHILS # (AUTO) 0.2 10^3/uL (0.0-0.7); EOSINOPHILS % (AUTO) 1.5 %; HGB - HEMOGLOBIN 12.1 g/dL (14.0-18.0); LYMPHOCYTES # (AUTO) 1.6 10^3/uL (1.5-3.5); MEAN CORPUSCULAR HEMOGLOBIN 32.6 pg (27.0-31.0); MEAN CORPUSCULAR HGB CONC 32.1 g/dL (32.0-36.0); MEAN CORPUSCULAR VOLUME 101.6 fL (80.0-94.0); MEAN PLATELET VOLUME 11.9 fL (7.4-11.4); MONOCYTES # (AUTO) 0.8 10^3/uL (0.0-1.0); MONOCYTES % (AUTO) 7.7 %; NEUTROPHILS % (AUTO) 73.9 %; PLT - PLATELET COUNT 387 10^3/uL (130-450); RED BLOOD COUNT 3.71 10^6/uL (4.70-6.10); RED CELL DISTRIBUTION WIDTH 16.5 % (12.0-15.0); WHITE BLOOD COUNT 10.8 x10^3/uL (4.8-10.8)
[2019-10-12 12:39] LABS: HB2 TOTAL 12.9 g/dL; HEMOGLOBIN A1C 0.54 g/dL
[2019-10-12 12:43] LABS: ALBUMIN 3.8 g/dL (3.2-5.5); ALBUMIN/GLOBULIN RATIO 1.5 (1.0-2.2); BILIRUBIN,TOTAL 0.3 mg/dL (0.2-1.0); CALCIUM 8.5 mg/dL (8.5-10.3); CREATININE 1.4 mg/dL (0.6-1.2); TOTAL PROTEIN 6.4 g/dL (6.7-8.2)
[2019-10-12 12:47] LABS: CREATININE,URINE 285.9 mg/dL; MICROALBUM/CREATININE RATIO,UR 39.9 ug/mg (<30.0); MICROALBUMIN,URINE 11.4 mg/dL (0-300.0)
== END 2019-10-12 23:59 | disposition home or self-care (01) ==
LOC: LAB.WCP 09:59
PROVIDERS: ATTEND Family Medicine
DX: R73.09 Other abnormal glucose (principal); I10 Essential (primary) hypertension; I82.409 Acute embolism and thrombosis of unspecified deep veins of unspecified lower extremity; D47.3 Essential (hemorrhagic) thrombocythemia
CPT/HCPCS: 36415; 80053; 82043; 82570; 83036; 85025

== ENCOUNTER 2019-10-30 08:00 | Outpatient (CLI) | payer MEDICARE, OTHER | END 2019-10-30 23:59 | disposition home or self-care (01) | LOC: LAB.WCP 08:00 | PROVIDERS: ATTEND Family Medicine | DX: I82.409 Acute embolism and thrombosis of unspecified deep veins of unspecified lower extremity (principal); Z79.01 Long term (current) use of anticoagulants ==

== ENCOUNTER 2019-11-27 08:00 | Outpatient (CLI) | payer MEDICARE, OTHER | END 2019-11-27 23:59 | disposition home or self-care (01) | LOC: LAB.WCP 08:00 | PROVIDERS: ATTEND Family Medicine | DX: I82.409 Acute embolism and thrombosis of unspecified deep veins of unspecified lower extremity (principal); Z79.01 Long term (current) use of anticoagulants; Z86.711 Personal history of pulmonary embolism ==

== ENCOUNTER 2019-12-25 08:00 | Outpatient (CLI) | payer MEDICARE, OTHER | END 2019-12-25 23:59 | disposition home or self-care (01) | LOC: LAB.WCP 08:00 | PROVIDERS: ATTEND Family Medicine | DX: I80.209 Phlebitis and thrombophlebitis of unspecified deep vessels of unspecified lower extremity (principal); Z79.01 Long term (current) use of anticoagulants; Z53.9 Procedure and treatment not carried out, unspecified reason ==

== ENCOUNTER 2020-01-22 08:00 | Outpatient (CLI) | payer MEDICARE, OTHER | END 2020-01-22 23:59 | disposition home or self-care (01) | LOC: LAB.WCP 08:00 | PROVIDERS: ATTEND Family Medicine | DX: I82.409 Acute embolism and thrombosis of unspecified deep veins of unspecified lower extremity (principal); Z79.01 Long term (current) use of anticoagulants; Z86.711 Personal history of pulmonary embolism ==

== ENCOUNTER 2020-02-19 08:00 | Outpatient (CLI) | payer MEDICARE, OTHER | END 2020-02-19 23:59 | disposition home or self-care (01) | LOC: LAB.WCP 08:00 | PROVIDERS: ATTEND Family Medicine | DX: I80.209 Phlebitis and thrombophlebitis of unspecified deep vessels of unspecified lower extremity (principal); Z86.711 Personal history of pulmonary embolism; Z79.01 Long term (current) use of anticoagulants ==

== ENCOUNTER 2020-03-11 08:00 | Outpatient (CLI) | payer MEDICARE, OTHER | END 2020-03-11 23:59 | disposition home or self-care (01) | LOC: LAB.WCP 08:00 | PROVIDERS: ATTEND Family Medicine | DX: I82.409 Acute embolism and thrombosis of unspecified deep veins of unspecified lower extremity (principal); Z79.01 Long term (current) use of anticoagulants; Z86.711 Personal history of pulmonary embolism ==

== ENCOUNTER 2020-04-09 08:00 | Outpatient (CLI) | payer MEDICARE, OTHER | END 2020-04-09 23:59 | disposition home or self-care (01) | LOC: LAB.WCP 08:00 | PROVIDERS: ATTEND Family Medicine | DX: I82.409 Acute embolism and thrombosis of unspecified deep veins of unspecified lower extremity (principal); Z79.01 Long term (current) use of anticoagulants ==

== ENCOUNTER 2020-05-07 08:00 | Outpatient (CLI) | payer MEDICARE, OTHER | END 2020-05-07 23:59 | disposition home or self-care (01) | LOC: LAB.WCP 08:00 | PROVIDERS: ATTEND Family Medicine | DX: Z79.01 Long term (current) use of anticoagulants (principal) ==

== ENCOUNTER 2020-06-04 08:00 | Outpatient (CLI) | payer MEDICARE, OTHER | END 2020-06-04 23:59 | disposition home or self-care (01) | LOC: LAB.WCP 08:00 | PROVIDERS: ATTEND Family Medicine | DX: Z79.01 Long term (current) use of anticoagulants (principal) ==

== ENCOUNTER 2020-06-10 08:00 | Outpatient (CLI) | payer MEDICARE, OTHER | END 2020-06-10 23:59 | disposition home or self-care (01) | LOC: LAB.WCP 08:00 | PROVIDERS: ATTEND Nurse Practitioner Family | DX: Z79.01 Long term (current) use of anticoagulants (principal) ==

== ENCOUNTER 2020-06-24 08:00 | Outpatient (CLI) | payer MEDICARE, OTHER | END 2020-06-24 23:59 | disposition home or self-care (01) | LOC: LAB.WCP 08:00 | PROVIDERS: ATTEND Internal Medicine | DX: Z79.01 Long term (current) use of anticoagulants (principal) ==

== ENCOUNTER 2020-07-22 08:00 | Outpatient (CLI) | payer MEDICARE, OTHER | END 2020-07-22 23:59 | disposition home or self-care (01) | LOC: LAB.WCP 08:00 | PROVIDERS: ATTEND Internal Medicine | DX: Z79.01 Long term (current) use of anticoagulants (principal) ==

== ENCOUNTER 2020-08-13 10:39 | Outpatient (CLI) | payer MEDICARE, OTHER ==
[2020-08-13 18:57] LABS: BASOPHILS # (AUTO) 0.1 10^3/uL (0.0-0.1); BASOPHILS % (AUTO) 1.1 %; EOSINOPHILS # (AUTO) 0.2 10^3/uL (0.0-0.7); EOSINOPHILS % (AUTO) 2.1 %; HCT - HEMATOCRIT 37.1 % (42.0-52.0); LYMPHOCYTES # (AUTO) 1.4 10^3/uL (1.5-3.5); LYMPHOCYTES % (AUTO) 17.3 %; MEAN CORPUSCULAR HEMOGLOBIN 32.5 pg (27.0-31.0); MEAN CORPUSCULAR HGB CONC 32.3 g/dL (32.0-36.0); MEAN CORPUSCULAR VOLUME 100.5 fL (80.0-94.0); MEAN PLATELET VOLUME 11.7 fL (7.4-11.4); MONOCYTES # (AUTO) 0.6 10^3/uL (0.0-1.0); MONOCYTES % (AUTO) 7.7 %; NEUTROPHILS # (AUTO) 5.7 10^3/uL (1.5-6.6); NEUTROPHILS % (AUTO) 71.1 %; PLT - PLATELET COUNT 369 10^3/uL (130-450); RED BLOOD COUNT 3.69 10^6/uL (4.70-6.10); RED CELL DISTRIBUTION WIDTH 16.3 % (12.0-15.0); WHITE BLOOD COUNT 8.1 x10^3/uL (4.8-10.8)
[2020-08-13 19:36] LABS: ALBUMIN 3.9 g/dL (3.2-5.5); ALBUMIN/GLOBULIN RATIO 1.5 (1.0-2.2); ALKALINE PHOSPHATASE 58 IU/L (42-121); ALT ALANINE AMINOTRANSFERASE 14 IU/L (10-60); AST ASPARTATE AMINOTRANSFERASE 16 IU/L (10-42); BILIRUBIN,TOTAL 0.5 mg/dL (0.2-1.0); BUN - BLOOD UREA NITROGEN 26 mg/dL (6-20); CALCIUM 8.8 mg/dL (8.5-10.3); CARBON DIOXIDE - CO2 25 mmol/L (21-32); CHLORIDE 110 mmol/L (101-111); CHOL/HDL RATIO 3.3 (<5.0); CHOLESTEROL 124 mg/dL; CREATININE 1.3 mg/dL (0.6-1.2); GFR - MDRD 52 (>89); GLUCOSE 96 mg/dL (70-100); HDL CHOLESTEROL 38 mg/dL; LDL CHOLESTEROL,CALCULATED 49 mg/dL; LDL/HDL RATIO 1.3 (<3.6); POTASSIUM 4.7 mmol/L (3.5-5.0); SODIUM 141 mmol/L (135-145); TOTAL PROTEIN 6.5 g/dL (6.7-8.2); TRIGLYCERIDES 186 mg/dL; VLDL CHOLESTEROL 37 mg/dL
[2020-08-13 20:54] LABS: BILIRUBIN,URINE NEGATIVE (NEGATIVE); GLUCOSE, URINE (UA) NEGATIVE (NEGATIVE); KETONES,URINE (UA) NEGATIVE (NEGATIVE); LEUKOCYTE ESTERASE, URINE LARGE (NEGATIVE); NITRITE,URINE POSITIVE (NEGATIVE); OCCULT BLOOD,URINE NEGATIVE (NEGATIVE); PH,URINE 5.5 PH (5.0-7.5); PROTEIN,URINE TRACE mg/dL (NEGATIVE); UROBILINOGEN,URINE 0.2 (NORMAL) E.U./dL (NORMAL)
[2020-08-13 20:55] LABS: CLARITY,URINE HAZY (CLEAR)
[2020-08-13 21:01] LABS: RBC,URINE 0-5 /HPF (0-5); WBC,URINE >25 /HPF (0-3)
[2020-08-13 21:02] LABS: BACTERIA,URINE Moderate /HPF (None Seen); SQUAMOUS EPITHELIAL CELL,UR NONE SEEN (<= Few)
== END 2020-08-13 23:59 | disposition home or self-care (01) ==
LOC: LAB.WCP 10:39
PROVIDERS: ATTEND Family Medicine
DX: N18.30 Chronic kidney disease, stage 3 unspecified (principal); I25.10 Atherosclerotic heart disease of native coronary artery without angina pectoris
CPT/HCPCS: 36415; 80053; 80061; 81001; 83721; 85025; 87086; 87181

== ENCOUNTER 2020-08-14 08:00 | Outpatient (CLI) | payer MEDICARE, OTHER | END 2020-08-14 23:59 | disposition home or self-care (01) | LOC: LAB.WCP 08:00 | PROVIDERS: ATTEND Nurse Practitioner | DX: Z79.01 Long term (current) use of anticoagulants (principal) ==

== ENCOUNTER 2020-08-19 08:00 | Outpatient (CLI) | payer MEDICARE, OTHER | END 2020-08-19 23:59 | disposition home or self-care (01) | LOC: LAB.WCP 08:00 | PROVIDERS: ATTEND Internal Medicine | DX: Z79.01 Long term (current) use of anticoagulants (principal) ==

== ENCOUNTER 2020-09-10 13:35 | Outpatient (CLI) | payer MEDICARE, OTHER | END 2020-09-10 13:36 | disposition short-term general hospital (02) | LOC: EMS 13:35 | PROVIDERS: ATTEND Surgery | DX: R07.9 Chest pain, unspecified (principal) | CPT/HCPCS: A0425; A0427 ==

== ENCOUNTER 2020-09-23 08:00 | Outpatient (CLI) | payer MEDICARE, OTHER | END 2020-09-23 23:59 | disposition home or self-care (01) | LOC: LAB.WCP 08:00 | PROVIDERS: ATTEND Internal Medicine | DX: I80.209 Phlebitis and thrombophlebitis of unspecified deep vessels of unspecified lower extremity (principal) ==

== ENCOUNTER 2020-09-30 08:00 | Outpatient (CLI) | payer MEDICARE, OTHER | END 2020-09-30 23:59 | disposition home or self-care (01) | LOC: LAB.WCP 08:00 | PROVIDERS: ATTEND Internal Medicine | DX: I80.209 Phlebitis and thrombophlebitis of unspecified deep vessels of unspecified lower extremity (principal); Z79.01 Long term (current) use of anticoagulants; Z86.711 Personal history of pulmonary embolism ==

== ENCOUNTER 2020-10-30 08:00 | Outpatient (CLI) | payer MEDICARE, OTHER | END 2020-10-30 23:59 | disposition home or self-care (01) | LOC: LAB.WCP 08:00 | PROVIDERS: ATTEND Internal Medicine | DX: I80.209 Phlebitis and thrombophlebitis of unspecified deep vessels of unspecified lower extremity (principal); Z79.01 Long term (current) use of anticoagulants; Z86.711 Personal history of pulmonary embolism ==

== ENCOUNTER 2020-11-29 08:00 | Outpatient (CLI) | payer MEDICARE, OTHER | END 2020-11-29 23:59 | disposition home or self-care (01) | LOC: LAB.WCP 08:00 | PROVIDERS: ATTEND Internal Medicine | DX: I80.209 Phlebitis and thrombophlebitis of unspecified deep vessels of unspecified lower extremity (principal); Z79.01 Long term (current) use of anticoagulants; Z86.711 Personal history of pulmonary embolism ==

== ENCOUNTER 2020-12-06 08:00 | Outpatient (CLI) | payer MEDICARE, OTHER | END 2020-12-06 23:59 | disposition home or self-care (01) | LOC: LAB.WCP 08:00 | PROVIDERS: ATTEND Internal Medicine | DX: I80.209 Phlebitis and thrombophlebitis of unspecified deep vessels of unspecified lower extremity (principal); Z86.711 Personal history of pulmonary embolism; Z79.01 Long term (current) use of anticoagulants ==

== ENCOUNTER 2020-12-20 08:00 | Outpatient (CLI) | payer MEDICARE, OTHER | END 2020-12-20 23:59 | disposition home or self-care (01) | LOC: LAB.F 08:00 | PROVIDERS: ATTEND Internal Medicine | DX: I80.209 Phlebitis and thrombophlebitis of unspecified deep vessels of unspecified lower extremity (principal); Z79.01 Long term (current) use of anticoagulants; Z86.711 Personal history of pulmonary embolism ==

== ENCOUNTER 2021-01-15 08:00 | Outpatient (CLI) | payer MEDICARE, OTHER | END 2021-01-15 23:59 | disposition home or self-care (01) | LOC: LAB.WCP 08:00 | PROVIDERS: ATTEND Internal Medicine | DX: I80.209 Phlebitis and thrombophlebitis of unspecified deep vessels of unspecified lower extremity (principal); Z79.01 Long term (current) use of anticoagulants; Z86.711 Personal history of pulmonary embolism ==

== ENCOUNTER 2021-02-12 08:00 | Outpatient (CLI) | payer MEDICARE, OTHER | END 2021-02-12 23:59 | disposition home or self-care (01) | LOC: LAB.WCP 08:00 | PROVIDERS: ATTEND Internal Medicine | DX: Z79.01 Long term (current) use of anticoagulants (principal); I80.209 Phlebitis and thrombophlebitis of unspecified deep vessels of unspecified lower extremity; Z86.711 Personal history of pulmonary embolism ==

== ENCOUNTER 2021-02-26 08:00 | Outpatient (CLI) | payer MEDICARE, OTHER | END 2021-02-26 23:59 | disposition home or self-care (01) | LOC: LAB.WCP 08:00 | PROVIDERS: ATTEND Internal Medicine | DX: I80.209 Phlebitis and thrombophlebitis of unspecified deep vessels of unspecified lower extremity (principal); Z79.01 Long term (current) use of anticoagulants; Z86.711 Personal history of pulmonary embolism ==

== ENCOUNTER 2021-03-19 08:00 | Outpatient (CLI) | payer MEDICARE, OTHER | END 2021-03-19 23:59 | disposition home or self-care (01) | LOC: LAB.WCP 08:00 | PROVIDERS: ATTEND Internal Medicine | DX: I80.209 Phlebitis and thrombophlebitis of unspecified deep vessels of unspecified lower extremity (principal); Z79.01 Long term (current) use of anticoagulants; Z86.711 Personal history of pulmonary embolism ==

== ENCOUNTER 2021-04-02 08:00 | Outpatient (CLI) | payer MEDICARE, OTHER | END 2021-04-02 23:59 | disposition home or self-care (01) | LOC: LAB.N 08:00 | PROVIDERS: ATTEND Nurse Practitioner | DX: I80.209 Phlebitis and thrombophlebitis of unspecified deep vessels of unspecified lower extremity (principal); Z79.01 Long term (current) use of anticoagulants; Z86.711 Personal history of pulmonary embolism ==

== ENCOUNTER 2021-04-16 08:00 | Outpatient (CLI) | payer MEDICARE, OTHER | END 2021-04-16 23:59 | disposition home or self-care (01) | LOC: LAB.WCP 08:00 | PROVIDERS: ATTEND Nurse Practitioner | DX: I80.209 Phlebitis and thrombophlebitis of unspecified deep vessels of unspecified lower extremity (principal); Z79.01 Long term (current) use of anticoagulants; Z86.711 Personal history of pulmonary embolism ==

== ENCOUNTER 2021-06-13 08:00 | Outpatient (CLI) | payer MEDICARE, OTHER | END 2021-06-13 23:59 | disposition home or self-care (01) | LOC: LAB.WCP 08:00 | PROVIDERS: ATTEND Nurse Practitioner | DX: I80.209 Phlebitis and thrombophlebitis of unspecified deep vessels of unspecified lower extremity (principal); Z79.01 Long term (current) use of anticoagulants; Z86.711 Personal history of pulmonary embolism ==

== ENCOUNTER 2021-07-11 08:00 | Outpatient (CLI) | payer MEDICARE, OTHER | END 2021-07-11 23:59 | disposition home or self-care (01) | LOC: LAB.N 08:00 | PROVIDERS: ATTEND Nurse Practitioner | DX: G45.9 Transient cerebral ischemic attack, unspecified (principal); I80.209 Phlebitis and thrombophlebitis of unspecified deep vessels of unspecified lower extremity; Z79.01 Long term (current) use of anticoagulants; Z86.711 Personal history of pulmonary embolism ==

== ENCOUNTER 2021-07-18 08:00 | Outpatient (CLI) | payer MEDICARE, OTHER | END 2021-07-18 23:59 | disposition home or self-care (01) | LOC: LAB.N 08:00 | PROVIDERS: ATTEND Nurse Practitioner | DX: I80.209 Phlebitis and thrombophlebitis of unspecified deep vessels of unspecified lower extremity (principal); Z79.01 Long term (current) use of anticoagulants; Z86.711 Personal history of pulmonary embolism; G45.9 Transient cerebral ischemic attack, unspecified ==

== ENCOUNTER 2021-08-20 08:00 | Outpatient (CLI) | payer MEDICARE, OTHER | END 2021-08-20 23:59 | disposition home or self-care (01) | LOC: LAB.N 08:00 | PROVIDERS: ATTEND Nurse Practitioner | DX: I80.209 Phlebitis and thrombophlebitis of unspecified deep vessels of unspecified lower extremity (principal); Z79.01 Long term (current) use of anticoagulants; Z86.711 Personal history of pulmonary embolism ==

== ENCOUNTER 2021-08-29 14:20 | Outpatient (CLI) | payer MEDICARE, OTHER | END 2021-08-29 14:21 | disposition critical access hospital (66) | LOC: EMS 14:20 | DX: R53.81 Other malaise (principal); R53.83 Other fatigue | CPT/HCPCS: A0425; A0429 ==

== ENCOUNTER 2021-08-29 14:35 | Emergency (ER) | payer MEDICARE, OTHER ==
[2021-08-29 15:01] LABS: BASOPHILS % (AUTO) 0.2 %; HCT - HEMATOCRIT 24.3 % (42.0-52.0); LYMPHOCYTES # (AUTO) 0.9 10^3/uL (1.5-3.5); LYMPHOCYTES % (AUTO) 15.2 %; MEAN CORPUSCULAR HEMOGLOBIN 32.7 pg (27.0-31.0); MEAN CORPUSCULAR HGB CONC 32.9 g/dL (32.0-36.0); MEAN CORPUSCULAR VOLUME 99.2 fL (80.0-94.0); MEAN PLATELET VOLUME 12.2 fL (7.4-11.4); MONOCYTES # (AUTO) 0.6 10^3/uL (0.0-1.0); MONOCYTES % (AUTO) 11.1 %; NEUTROPHILS # (AUTO) 4.1 10^3/uL (1.5-6.6); NEUTROPHILS % (AUTO) 72.4 %; NRBC ABSOLUTE COUNT (AUTO) 0.07 x10^3/uL; NUCLEATED RED BLOOD CELLS AUTO 1.3 /100WBC; PLT - PLATELET COUNT 322 10^3/uL (130-450); RED BLOOD COUNT 2.45 10^6/uL (4.70-6.10); RED CELL DISTRIBUTION WIDTH 16.6 % (12.0-15.0); WHITE BLOOD COUNT 5.6 x10^3/uL (4.8-10.8)
--- NOTE | 2021-08-29 15:10 | ED Physician Documentation ---
History of Present Illness - Stated complaint Stated Complaint: GENERAL WEAKNESS - Additonal information Additional information: 86-year-old male presents to the emergency department for evaluation of 3 to 4 days generalized malaise, fatigue weakness. Subjective fevers at home. Minimal cough. Also reporting abdominal pain. Patient does have a history of recurrent DVT and pulmonary embolism since 1995. He is on lifelong warfarin. Also has a history of prostate cancer in 2008 status post prostatectomy. He did have urinary incontinence and has a chronic indwelling Watt catheter. He also has a known history of chronic kidney disease as well as anemia. He is not yet v accinated for COVID-19. Review of Systems Constitutional: reports: Chills, Myalgias, Fatigue Eyes: reports: Reviewed and negative Nose: reports: Reviewed and negative Throat: reports: Reviewed and negative Cardiac: denies: Chest pain / pressure, Palpitations, Pedal edema, Calf pain Respiratory: reports: Dyspnea, Cough GI: reports: Abdominal Pain. denies: Nausea, Vomiting : reports: Unable to Void (Chronic indwelling Watt catheter.) Skin: reports: Reviewed and negative Musculoskeletal: reports: Reviewed and negative PD PAST MEDICAL HISTORY - Past Medical History Cardiovascular: High cholesterol, Deep vein thrombosis, Pulmonary embolism GI: GERD : Other HEENT: Other Psych: Depression, Anxiety - Past Surgical History Past Surgical History: Yes Ortho: Other - Present Medications Home Medications: Ambulatory Orders Medication Instructions Recorded Confirmed Cholecalciferol (Vitamin D3) 5,000 unit PO DAILY 02/08/13 07/14/21 [Vitamin D] Gabapentin [Neurontin] 600 mg PO QPM 02/08/13 07/14/21 Simvastatin [Zocor] 20 mg PO HS 02/08/13 07/14/21 Warfarin Sodium [Coumadin] 4 mg PO DAILY 02/08/13 07/14/21 Anagrelide HCl 0.5 mg PO BID 06/19/13 07/14/21 Ascorbic Acid [Vitamin C] 100 mg PO DAILY 09/03/15 07/14/21 Ferrous Gluconate 256 mg PO DAILY 09/03/15 07/14/21 Fexofenadine HCl [Marlene Allergy] 180 mg PO DAILY 09/03/15 07/14/21 Fluticasone [Flonase] 1 spray [place] BID 09/03/15 07/14/21 traMADol [Ultram] 50 mg PO Q4-6H PRN #15 tablet 09/09/17 07/14/21 Cefpodoxime Proxetil [Vantin] 100 mg PO Q12H #14 tablet 08/29/21 - Allergies Allergies/Adverse Reactions: Allergies Allergy/AdvReac Type Severity Reaction Status Date / Time amoxicillin [Amoxicillin] Allergy Intermediate Rash Verified 11/11/20 09:58 cavilon Allergy Mild Rash Uncoded 11/11/20 09:58 - Social History Does the pt smoke?: No Smoking Status: Never smoker Does the pt drink ETOH?: Yes Does the pt have substance abuse?: No - Immunizations Immunizations are current?: No - POLST Patient has POLST: No PD ED PE EXPANDED - General General: Alert, No acute distress, Well developed/nourished - Cardiac Cardiac: Regular Rate, Radial strong equal, Pedal strong equal, Cap refill < 2 sec. No: Murmur Present - Respiratory Respiratory: Clear to ausultation zane, Decreased breath sounds (Decreased breath sounds left lower lateral lung.) - Abdomen Abdomen: Normal Bowel sounds. No: Tender to palpation - Male Male : Other (Chronic indwelling Watt catheter. Yellow urine with large amount of sediment.) - Extremities Extremities: Normal, Pedal Pulses Present, Other (Generalized bruising on arms and legs without skin tears or lacerations.). No: Deformity, Tenderness - Neuro Neuro: Alert and Oriented X 3, CNII-XII intact - GCS Eye Opening: Spontaneous Motor: Obeys Commands Verbal: Oriented Total: 15 Results - Vitals Vitals: Vital Signs - 24 hr 08/29/21 08/29/21 08/29/21 14:59 15:02 16:42 Temperature 36.6 C Heart Rate 90 90 86 Respiratory 20 20 18 Rate Blood Pressure 136/65 H 139/53 H 146/62 H O2 Saturation 96 96 97 08/29/21 18:00 Temperature Heart Rate 106 H Respiratory 18 Rate Blood Pressure 158/67 H O2 Saturation 98 Oxygen O2 Source Room air - EKG (time done) 1500 Rate: Rate (enter#) (89) Rhythm: NSR [place]: Other Intervals: LBBB Ischemia: Normal ST segments, Non specific changes Compare to prior EKG: Unchanged from prior EKG Computer interpretation: Agree with computer - Labs Labs: Laboratory Tests 08/29/21 08/29/21 08/29/21 14:50 14:50 14:50 WBC 5.6 RBC 2.45 L Hgb 8.0 L Hct 24.3 L MCV 99.2 H MCH 32.7 H MCHC 32.9 RDW 16.6 H Plt Count 322 MPV 12.2 H Neut # (Auto) 4.1 Lymph # (Auto) 0.9 L Knott # (Auto) 0.6 Eos # (Auto) 0.0 Baso # (Auto) 0.0 Absolute Nucleated RBC 0.07 Nucleated RBC % 1.3 PT INR Sodium 140 Potassium 4.2 Chloride 109 Carbon Dioxide 17 L Anion Gap 14.0 H BUN 60 H Creatinine 1.6 H Estimated GFR (MDRD) 41 L Glucose 168 H Lactic Acid Calcium 8.4 L Total Bilirubin 0.5 AST 22 ALT 19 Alkaline Phosphatase 49 Troponin I High Sens 26.8 H* Total Protein 5.7 L Albumin 3.3 Globulin 2.4 Albumin/Globulin Ratio 1.4 Lipase 26 Urine Color Urine Clarity Urine pH Ur Specific [place] Urine Protein Urine Glucose (UA) Urine Ketones Urine Occult Blood Urine Nitrite Urine Bilirubin Urine Urobilinogen Ur Leukocyte Esterase Urine RBC Urine WBC Ur Squamous Epith Cells Urine Bacteria Ur Microscopic Review Urine Culture Comments Nasal Adenovirus (PCR) Nasal B. parapertussis DNA (PCR) Nasal Coronavir 229E PCR Nasal Coronavir HKU1 PCR Nasal Coronavir NL63 PCR Nasal Coronavir OC43 PCR Nasal Enterovir/Rhinovir PCR Nasal Influenza B PCR Nasal Influenza A PCR Nasal Parainfluen 1 PCR Nasal Parainfluen 2 PCR Nasal Parainfluen 3 PCR Nasal Parainfluen 4 PCR Nasal RSV (PCR) Nasal B.pertussis DNA PCR Nasal C.pneumoniae (PCR) Louis Human Metapneumo PCR Nasal M.pneumoniae (PCR) Nasal SARS-CoV-2 (PCR) 08/29/21 08/29/21 08/29/21 14:50 14:50 16:20 WBC RBC Hgb Hct MCV MCH MCHC RDW Plt Count MPV Neut # (Auto) Lymph # (Auto) Knott # (Auto) Eos # (Auto) Baso # (Auto) Absolute Nucleated RBC Nucleated RBC % PT 38.1 H INR 3.4 H Sodium Potassium Chloride Carbon Dioxide Anion Gap BUN Creatinine Estimated GFR (MDRD) Glucose Lactic Acid 1.2 Calcium Total Bilirubin AST ALT Alkaline Phosphatase Troponin I High Sens Total Protein Albumin Globulin Albumin/Globulin Ratio Lipase Urine Color Urine Clarity Urine pH Ur Specific [place] Urine Protein Urine Glucose (UA) Urine Ketones Urine Occult Blood Urine Nitrite Urine Bilirubin Urine Urobilinogen Ur Leukocyte Esterase Urine RBC Urine WBC Ur Squamous Epith Cells Urine Bacteria Ur Microscopic Review Urine Culture Comments Nasal Adenovirus (PCR) NOT DETECTED Nasal B. parapertussis DNA (PCR) NOT DETECTED Nasal Coronavir 229E PCR NOT DETECTED Nasal Coronavir HKU1 PCR NOT DETECTED Nasal Coronavir NL63 PCR NOT DETECTED Nasal Coronavir OC43 PCR NOT DETECTED Nasal Enterovir/Rhinovir PCR NOT DETECTED Nasal Influenza B PCR NOT DETECTED Nasal Influenza A PCR NOT DETECTED Nasal Parainfluen 1 PCR NOT DETECTED Nasal Parainfluen 2 PCR NOT DETECTED Nasal Parainfluen 3 PCR NOT DETECTED Nasal Parainfluen 4 PCR NOT DETECTED Nasal RSV (PCR) NOT DETECTED Nasal B.pertussis DNA PCR NOT DETECTED Nasal C.pneumoniae (PCR) NOT DETECTED Louis Human Metapneumo PCR NOT DETECTED Nasal M.pneumoniae (PCR) NOT DETECTED Nasal SARS-CoV-2 (PCR) DETECTED A 08/29/21 16:50 WBC RBC Hgb Hct MCV MCH MCHC RDW Plt Count MPV Neut # (Auto) Lymph # (Auto) Knott # (Auto) Eos # (Auto) Baso # (Auto) Absolute Nucleated RBC Nucleated RBC % PT INR Sodium Potassium Chloride Carbon Dioxide Anion Gap BUN Creatinine Estimated GFR (MDRD) Glucose Lactic Acid Calcium Total Bilirubin AST ALT Alkaline Phosphatase Troponin I High Sens Total Protein Albumin Globulin Albumin/Globulin Ratio Lipase Urine Color YELLOW Urine Clarity CLOUDY Urine pH 5.5 Ur Specific [place] 1.020 Urine Protein 30 H Urine Glucose (UA) NEGATIVE Urine Ketones 15 H Urine Occult Blood LARGE H Urine Nitrite POSITIVE H Urine Bilirubin NEGATIVE Urine Urobilinogen 0.2 (NORMAL) Ur Leukocyte Esterase MODERATE H Urine RBC 6-10 H Urine WBC 11-25 H Ur Squamous Epith Cells NONE SEEN Urine Bacteria Moderate H Ur Microscopic Review INDICATED Urine Culture Comments INDICATED Nasal Adenovirus (PCR) Nasal B. parapertussis DNA (PCR) Nasal Coronavir 229E PCR Nasal Coronavir HKU1 PCR Nasal Coronavir NL63 PCR Nasal Coronavir OC43 PCR Nasal Enterovir/Rhinovir PCR Nasal Influenza B PCR Nasal Influenza A PCR Nasal Parainfluen 1 PCR Nasal Parainfluen 2 PCR Nasal Parainfluen 3 PCR Nasal Parainfluen 4 PCR Nasal RSV (PCR) Nasal B.pertussis DNA PCR Nasal C.pneumoniae (PCR) Louis Human Metapneumo PCR Nasal M.pneumoniae (PCR) Nasal SARS-CoV-2 (PCR) - Rads (name of study) CXR Radiology: Final report received (No acute process) PD MEDICAL DECISION MAKING - ED course Complexity details: reviewed results, re-evaluated patient, considered differential, d/w patient ED course: 86-year-old male presents emergency department for evaluation of 3 to 4 days weakness, malaise fatigue mild cough. He is not yet vaccinated for COVID-19. 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 He also has a chronic indwelling Watt catheter. Is followed by our hematology clinic for thrombocytopenia and a history of prostate cancer. Screening labs are notable for mild leukocytosis. He also has a markedly elevated BUN at 60 and a mildly elevated creatinine. He does appear somewhat dehydrated. He was repleted with 2 L of crystalloid here in the emergency department. EKG showed an unchanged left bundle branch block. His troponin was mildly elevated at 26; elevation likely secondary to mild CKD Chest x-ray was without acute focal findings. His Watt catheter was exchanged in the emergency department and a new urine was sent which was consistent with infection. Patient was given a gram of ceftriaxone here in the emergency department. Unfortunately COVID testing was positive. This is the most likely cause for his constellation of symptoms. Minimal abdominal pain was elicited therefore CT imaging was deferred. Patient is feeling improved after the crystalloid. He is stable for discharge home. Advise close follow-up with primary care doctor encouraged increased hydration at home. Otherwise emergent return precautions were discussed for worsening symptoms. Departure - Departure Disposition: 01 Home, Self Care Clinical Impression: COVID-19, Dehydration Anemia Qualifiers: Anemia type: unspecified type Qualified Code(s): D64.9 - Anemia, unspecified UTI (urinary tract infection) Qualifiers: Urinary tract infection type: catheter-associated UTI Indwelling urinary catheter type: indwelling urethral catheter Encounter type: initial encounter Qualified Code(s): T83.511A - Infection and inflammatory reaction due to indwelling urethral catheter, initial encounter Condition: Stable Record reviewed to determine appropriate education?: Yes Instructions: ED Dehydration Ch, ED Infec Bladder Cystitis Male Ch Prescriptions: Cefpodoxime Proxetil [Vantin] 100 mg PO Q12H #14 tablet Comments: Gil you are seen in the emergency department today for 3 to 4 days of feeling very unwell, you reported fatigue body aches and a mild cough. Your testing in the emergency department has shown that you are very dehydrated. We did give you 2 L of IV fluids which seems to have helped. However you have tested positive for COVID-19. Your chest x-ray is normal and does not show pneumonia. We did change your Watt catheter today. However it also looks like you probably have a urinary tract infection. [place] In [place] there is no specific treatment for COVID-19. It is important that you stay well-hydrated. I expected that you will have fatigue and body aches. These typically last 1 to 2 weeks. It is okay to continue to take your other medications previously prescribed by your primary doctor. Return to the emergency department if you have fevers higher than 103, uncontrolled vomiting, sudden severe chest pain or shortness of air. Any family members that live with you should presume that they are also COVID- positive so continuing to quarantine for at least 5 days from onset of symptoms is important.
[2021-08-29 15:16] LABS: ALBUMIN 3.3 g/dL (3.2-5.5); ALBUMIN/GLOBULIN RATIO 1.4 (1.0-2.2); BILIRUBIN,TOTAL 0.5 mg/dL (0.2-1.0); CALCIUM 8.4 mg/dL (8.5-10.3); CREATININE 1.6 mg/dL (0.6-1.2); POTASSIUM 4.2 mmol/L (3.5-5.0); TOTAL PROTEIN 5.7 g/dL (6.7-8.2)
[2021-08-29 15:18] LABS: INR 3.4 (0.8-1.2); PT - PROTHROMBIN TIME 38.1 secs (9.9-12.6)
[2021-08-29] MEDS ORDERED: SODIUM CHLORIDE 0.9% 1,000 ML IV STA ×2 (15:22→16:46)
[2021-08-29 16:09] LABS: CORONAVIRUS 229E-RESP PCR NOT DETECTED; CORONAVIRUS HKU1-RESP PCR NOT DETECTED; CORONAVIRUS NL63-RESP PCR NOT DETECTED; CORONAVIRUS OC43-RESP PCR NOT DETECTED
[2021-08-29 16:12] LABS: SARS-CoV-2 -RESP PCR PANEL DETECTED
[2021-08-29 16:14] LABS: B. PARAPERTUSSIS- RESP PCR PAN NOT DETECTED; B. PERTUSSIS- RESP PCR PANEL NOT DETECTED; C. PNEUMONIAE- RESP PCR PANEL NOT DETECTED; HUMAN METAPNEUMOVIRUS NOT DETECTED; INFLUENZA A- RESP PCR PANEL NOT DETECTED; INFLUENZA B - RESP PCR PANEL NOT DETECTED; M. PNEUMONIAE- RESP PCR PANEL NOT DETECTED; PARAINFLUENZA VIRUS 1 NOT DETECTED; PARAINFLUENZA VIRUS 2 NOT DETECTED; PARAINFLUENZA VIRUS 3 NOT DETECTED; PARAINFLUENZA VIRUS 4 NOT DETECTED; RHINOVIRUS/ENTEROVIRUS NOT DETECTED; RSV- RESP PCR PANEL NOT DETECTED
--- NOTE | 2021-08-29 16:49 | XRAY Report ---
PROCEDURE: Chest 1 View X-Ray INDICATIONS: chest pain TECHNIQUE: One view of the chest was acquired. COMPARISON: No pertinent prior study FINDINGS: Surgical changes and devices: None. Lungs and pleura: No pleural effusions or pneumothorax. Lungs are clear. Mediastinum: Mediastinal contours appear normal. Heart size is normal. Bones and chest wall: No suspicious bony lesions. Overlying soft tissues appear unremarkable. IMPRESSION: No acute cardiopulmonary process demonstrated radiographically. Reviewed by: Zachary Carrizales MD on 08/29/2021 4:48 PM [facility] Approved by: Zachary Carrizales MD on 08/29/2021 4:48 PM [facility] Station ID: [id number]
[2021-08-29 17:04] LABS: BILIRUBIN,URINE NEGATIVE (NEGATIVE); GLUCOSE, URINE (UA) NEGATIVE (NEGATIVE); KETONES,URINE (UA) 15 mg/dL (NEGATIVE); LEUKOCYTE ESTERASE, URINE MODERATE (NEGATIVE); NITRITE,URINE POSITIVE (NEGATIVE); OCCULT BLOOD,URINE LARGE (NEGATIVE); PH,URINE 5.5 PH (5.0-7.5); PROTEIN,URINE 30 mg/dL (NEGATIVE); UROBILINOGEN,URINE 0.2 (NORMAL) E.U./dL (NORMAL)
[2021-08-29 17:08] LABS: CLARITY,URINE CLOUDY (CLEAR)
[2021-08-29 17:13] LABS: BACTERIA,URINE Moderate /HPF (None Seen); SQUAMOUS EPITHELIAL CELL,UR NONE SEEN (<= Few)
[2021-08-29] MEDS ORDERED: cefTRIAXone 1 GM VIAL IVP STA (17:44)
[2021-08-29 18:10] VITALS: BP 158/67
== END 2021-08-29 18:55 | disposition home or self-care (01) ==
LOC: EDUNIT# → ED 14:35
DX: U07.1 COVID-19 (principal); T83.511A Infection and inflammatory reaction due to indwelling urethral catheter, initial encounter; E86.0 Dehydration; Z79.01 Long term (current) use of anticoagulants; Z86.718 Personal history of other venous thrombosis and embolism; D64.9 Anemia, unspecified
CPT/HCPCS: 0202U; 36415; 80053; 81001; 81003; 83605; 83690; 84484; 85025; 85610; 87086; 87181; 93005; 96361; 96374; 99283

== ENCOUNTER 2021-09-05 14:54 | Outpatient (CLI) | payer MEDICARE, OTHER | END 2021-09-05 14:55 | disposition critical access hospital (66) | LOC: EMS 14:54 | DX: U07.1 COVID-19 (principal) | CPT/HCPCS: A0425; A0429 ==

== ENCOUNTER 2021-09-05 15:13 | Inpatient (IN) | payer MEDICARE, OTHER ==
--- NOTE | 2021-09-05 15:33 | ED Physician Documentation ---
PD HPI DYSPNEA - Stated complaint Stated Complaint: BREATHING DIFFICULTY - Chief complaint Chief Complaint: Resp - History obtained from History obtained from: Patient, EMS - Additional information Additional information: 86-year-old gentleman with history of prostate cancer, anticoagulation with warfarin for history of recurrent DVT and PE who is not vaccinated for Covid. He was seen by my partner exactly week ago for about 3 days of malaise and fatigue and found to have COVID and a catheter associated UTI noting that he has a chronic indwelling Watt. He was anemic with a hemoglobin of 8, and that is well off his baseline which is usually 11-12. His INR was 3.4. Chemistries notable for acute kidney injury with a BUN of 60 and a creatinine of 1.6, his baseline creatinine varies between 1.2 and 1.5. His urine subsequently grew staph aureus. He had been placed on Cefpodoxime, he returns today with persistent symptoms and now shortness of breath dizziness and dry mouth. He is a generally vague and poor historian, initially stating that he has no medical problems despite the problems stated above. When asked what he was told about his diagnosis when he was here previously, he says he was told that "I was cured." Review of Systems Ten Systems: 10 systems reviewed and negative Constitutional: reports: Myalgias, Fatigue Respiratory: reports: Dyspnea, Cough GI: denies: Abdominal Pain, Nausea, Vomiting, Diarrhea PD PAST MEDICAL HISTORY - Past Medical History Cardiovascular: High cholesterol, Deep vein thrombosis, Pulmonary embolism GI: GERD : Other HEENT: Other Psych: Depression, Anxiety - Past Surgical History Past Surgical History: Yes Ortho: Other - Present Medications Home Medications: Ambulatory Orders Medication Instructions Recorded Confirmed Cholecalciferol (Vitamin D3) 5,000 unit PO DAILY 02/08/13 07/14/21 [Vitamin D] Gabapentin [Neurontin] 600 mg PO QPM 02/08/13 07/14/21 Simvastatin [Zocor] 20 mg PO HS 02/08/13 07/14/21 Warfarin Sodium [Coumadin] 4 mg PO DAILY 02/08/13 07/14/21 Anagrelide HCl 0.5 mg PO BID 06/19/13 07/14/21 Ascorbic Acid [Vitamin C] 100 mg PO DAILY 09/03/15 07/14/21 Ferrous Gluconate 256 mg PO DAILY 09/03/15 07/14/21 Fexofenadine HCl [Marlene Allergy] 180 mg PO DAILY 09/03/15 07/14/21 Fluticasone [Flonase] 1 spray LOUIS BID 09/03/15 07/14/21 traMADol [Ultram] 50 mg PO Q4-6H PRN #15 tablet 09/09/17 07/14/21 Cefpodoxime Proxetil [Vantin] 100 mg PO Q12H #14 tablet 08/29/21 - Allergies Allergies/Adverse Reactions: Allergies Allergy/AdvReac Type Severity Reaction Status Date / Time amoxicillin [Amoxicillin] Allergy Intermediate Rash Verified 09/05/21 15:21 cavilon Allergy Mild Rash Uncoded 09/05/21 15:21 - Social History Does the pt smoke?: No Smoking Status: Never smoker Does the pt drink ETOH?: Yes Does the pt have substance abuse?: No - Immunizations Immunizations are current?: No - POLST Patient has POLST: No PD ED PE NORMAL - Vitals Vital signs reviewed: Yes - General General: No acute distress, Well developed/nourished, Other (Seems to have some short-term memory difficulties. He is cantankerous.) - HEENT HEENT: PERRL, EOMI - Neck Neck: Supple, no meningeal sign, No bony TTP - Cardiac Cardiac: RRR, No murmur - Respiratory Respiratory: No respiratory distress, Clear bilaterally - Abdomen Abdomen: Normal bowel sounds, Soft, Non tender - Back Back: No CVA TTP, No spinal TTP - Derm Derm: Normal color, Warm and dry - Extremities Extremities: No edema, No calf tenderness / cord - Neuro Neuro: porcelain mixer 2-12 intact, Normal speech Eye Opening: Spontaneous Motor: Obeys Commands Verbal: Confused GCS Score: 14 Results - Vitals Vitals: Vital Signs - 24 hr 09/05/21 09/05/21 09/05/21 15:18 15:24 15:54 Temperature 37.4 C Heart Rate 106 H 105 H 111 H Respiratory 23 23 26 H Rate Blood Pressure 124/64 124/64 116/62 O2 Saturation 88 L 94 92 09/05/21 09/05/21 16:33 17:00 Temperature Heart Rate 100 108 H Respiratory 24 19 Rate Blood Pressure 114/76 109/80 O2 Saturation 99 93 Oxygen O2 Source Nasal cannula - Labs Labs: Laboratory Tests 09/05/21 09/05/21 09/05/21 15:43 15:43 15:43 WBC 5.9 RBC 2.44 L Hgb 7.8 L Hct 25.0 L MCV 102.5 H MCH 32.0 H MCHC 31.2 L RDW 17.8 H Plt Count 331 MPV 12.2 H Neut # (Auto) 4.6 Lymph # (Auto) 0.9 L Briscoe # (Auto) 0.3 Eos # (Auto) 0.0 Baso # (Auto) 0.0 Absolute Nucleated RBC 0.13 Nucleated RBC % 2.2 PT 36.0 H INR 3.2 H Sodium 153 H Potassium 4.8 Chloride 120 H* Carbon Dioxide 20 L Anion Gap 13.0 BUN 59 H Creatinine 2.4 H Estimated GFR (MDRD) 26 L Glucose 109 H Lactic Acid Calcium 8.6 Phosphorus 4.6 Magnesium 2.9 H Total Bilirubin 0.8 AST 32 ALT 21 Alkaline Phosphatase 46 Total Protein 6.5 L Albumin 3.3 Globulin 3.2 Albumin/Globulin Ratio 1.0 Urine Color Urine Clarity Urine pH Ur Specific Worley Urine Protein Urine Glucose (UA) Urine Ketones Urine Occult Blood Urine Nitrite Urine Bilirubin Urine Urobilinogen Ur Leukocyte Esterase Ur Microscopic Review Urine Culture Comments 09/05/21 09/05/21 15:43 16:14 WBC RBC Hgb Hct MCV MCH MCHC RDW Plt Count MPV Neut # (Auto) Lymph # (Auto) Briscoe # (Auto) Eos # (Auto) Baso # (Auto) Absolute Nucleated RBC Nucleated RBC % PT INR Sodium Potassium Chloride Carbon Dioxide Anion Gap BUN Creatinine Estimated GFR (MDRD) Glucose Lactic Acid 1.2 Calcium Phosphorus Magnesium Total Bilirubin AST ALT Alkaline Phosphatase Total Protein Albumin Globulin Albumin/Globulin Ratio Urine Color YELLOW Urine Clarity CLEAR Urine pH 5.5 Ur Specific Worley 1.020 Urine Protein TRACE Urine Glucose (UA) NEGATIVE Urine Ketones TRACE Urine Occult Blood TRACE-LYSE Urine Nitrite NEGATIVE Urine Bilirubin NEGATIVE Urine Urobilinogen 0.2 (NORMAL) Ur Leukocyte Esterase NEGATIVE Ur Microscopic Review NOT INDICATED Urine Culture Comments NOT INDICATED PD MEDICAL DECISION MAKING - ED course ED course: 86-year-old gentleman with recent diagnosis of COVID presents by ambulance with worsening symptoms and room air saturations of 88%. He has poor insight into his illness. We did discuss CODE STATUS and he would like to be full code. His x-ray is worsening. He also has evidence of worsening renal function with significant hyperchloremia and hypernatremia for which he was started on a D5 half-normal saline drip at 200 mL an hour. I updated his by phone and spoke with the hospitalist for admission at 4:44 PM. Departure - Departure Disposition: [facility] DC/Xfer Clinical Impression: COVID-19, Hypoxemia, Anticoagulant long-term use, RUDDY (acute kidney injury), Hyperchloremia, Hypernatremia Condition: Serious Discharge Date/Time: 09/05/21 18:30
[2021-09-05 15:54] LABS: BASOPHILS % (AUTO) 0.2 %; HGB - HEMOGLOBIN 7.8 g/dL (14.0-18.0); LYMPHOCYTES # (AUTO) 0.9 10^3/uL (1.5-3.5); LYMPHOCYTES % (AUTO) 14.4 %; MEAN CORPUSCULAR HGB CONC 31.2 g/dL (32.0-36.0); MEAN CORPUSCULAR VOLUME 102.5 fL (80.0-94.0); MEAN PLATELET VOLUME 12.2 fL (7.4-11.4); MONOCYTES # (AUTO) 0.3 10^3/uL (0.0-1.0); MONOCYTES % (AUTO) 5.6 %; NEUTROPHILS # (AUTO) 4.6 10^3/uL (1.5-6.6); NEUTROPHILS % (AUTO) 78.6 %; NRBC ABSOLUTE COUNT (AUTO) 0.13 x10^3/uL; NUCLEATED RED BLOOD CELLS AUTO 2.2 /100WBC; PLT - PLATELET COUNT 331 10^3/uL (130-450); RED BLOOD COUNT 2.44 10^6/uL (4.70-6.10); RED CELL DISTRIBUTION WIDTH 17.8 % (12.0-15.0); WHITE BLOOD COUNT 5.9 x10^3/uL (4.8-10.8)
[2021-09-05 16:00] LABS: INR 3.2 (0.8-1.2)
[2021-09-05 16:10] LABS: ALBUMIN 3.3 g/dL (3.2-5.5); BILIRUBIN,TOTAL 0.8 mg/dL (0.2-1.0); CALCIUM 8.6 mg/dL (8.5-10.3); CREATININE 2.4 mg/dL (0.6-1.2); MAGNESIUM 2.9 mg/dL (1.7-2.8); PHOSPHORUS 4.6 mg/dL (2.5-4.6); POTASSIUM 4.8 mmol/L (3.5-5.0); TOTAL PROTEIN 6.5 g/dL (6.7-8.2)
[2021-09-05 16:28] LABS: BILIRUBIN,URINE NEGATIVE (NEGATIVE); GLUCOSE, URINE (UA) NEGATIVE (NEGATIVE); KETONES,URINE (UA) TRACE mg/dL (NEGATIVE); LEUKOCYTE ESTERASE, URINE NEGATIVE (NEGATIVE); NITRITE,URINE NEGATIVE (NEGATIVE); OCCULT BLOOD,URINE TRACE-LYSE (NEGATIVE); PH,URINE 5.5 PH (5.0-7.5); PROTEIN,URINE TRACE mg/dL (NEGATIVE); UROBILINOGEN,URINE 0.2 (NORMAL) E.U./dL (NORMAL)
[2021-09-05 16:29] LABS: CLARITY,URINE CLEAR (CLEAR)
--- NOTE | 2021-09-05 16:30 | XRAY Report ---
PROCEDURE: Chest 1 View X-Ray INDICATIONS: Dyspnoea covid TECHNIQUE: One view of the chest was acquired. COMPARISON: 08/29/2021 chest x-ray FINDINGS: Surgical changes and devices: None. Lungs and pleura: No pleural effusions or pneumothorax. Perihilar increased interstitial markings an d hazy airspace opacity in the left lung base. Findings are nonspecific but would be consistent with infection in the appropriate clinical setting. Mediastinum: Mediastinal contours appear normal. Heart size is normal. Bones and chest wall: No suspicious bony lesions. Overlying soft tissues appear unremarkable. IMPRESSION: Perihilar increased interstitial markings and left basilar airspace opacities, nonspecific but consis tent with infectious process in the appropriate clinical setting. Both findings new from 08/29/2021 ex am. Reviewed by: Zachary Carrizales MD on 09/05/2021 4:28 PM PST Approved by: Zachary Carrizales MD on 09/05/2021 4:28 PM PST Station ID: [id number]
[2021-09-05] MEDS ORDERED: DEXTROSE 5%-0.45% NACL 1,000 ML IV STA (16:34)
[2021-09-05] MEDS ORDERED: ONDANSETRON 4 MG/2 ML VIAL IVP PRN (17:12)
[2021-09-05] MEDS ORDERED: ACETAMINOPHEN 325 MG TABLET PO PRN (17:12)
[2021-09-05] MEDS ORDERED: ALBUTEROL 1 PUFF INH PRN ×2 (17:21→17:54)
--- NOTE | 2021-09-05 17:23 | HISTORY & PHYSICAL EXAMINATION ---
Chief Complaint - Chief Complaint Chief Complaint: SOB, dizziness History of Present Illness - Admitted From Admitted From:: medical floor - History Obtained From Records Reviewed: [facility], ER notes History obtained from: pt Exam Limitations: poor historian - History of Present Illness HPI Comment/Other: This is a 86-year-old gentleman with a medical history significant of prostate cancer, Essential thrombocythemia, chronic indwelling Watt, CKD, chronic anemia, anticoagulation with warfarin for history of recurrent DVT and PE who present ER complain of shortness of breath. pt was not vaccinated for Covid. he was test positive for Covid at 08/29/21. pt is a poor historian. Patient was brought in by EMS. pt report he felt short of air for past several days. Per EMS patient does not use oxygen at baseline. He denies chest pain. pt visited ER a week ago for malaise and fatigue. At the time pt was found to have UTI as well. pt was prescribed antibiotics for home. Pt continue to have shortness of breath, dry cough and dry mouth. In the ER patient is afebrile but patient present tachycardia, tachypnea, 88% oxygen saturation on room air. Routine laboratory tests significantly show patient had hemoglobin 7.8, platelets 330, INR is 3.2, Sodium 153, Chloride 120, creatinine 2.4, BUN 59, Urinalysis is clear. pt hope to have full code. History - Past Medical History Cardiovascular: reports: High cholesterol, Deep vein thrombosis, Pulmonary embo lism GI: reports: GERD : reports: Other HEENT: reports: Other Psych: reports: Depression, Anxiety MRSA Hx?: No - Past Surgical History Ortho: reports: Other - Family & Social History Family History Comment/Other: poor historian, could not provide - POLST Patient has POLST: No Meds/Allgy - Home Medications Home Medications: Ambulatory Orders Medication Instructions Recorded Confirmed Cholecalciferol (Vitamin D3) 5,000 unit PO DAILY 02/08/13 07/14/21 [Vitamin D] Gabapentin [Neurontin] 600 mg PO QPM 02/08/13 07/14/21 Simvastatin [Zocor] 20 mg PO HS 02/08/13 07/14/21 Warfarin Sodium [Coumadin] 4 mg PO DAILY 02/08/13 07/14/21 Anagrelide HCl 0.5 mg PO BID 06/19/13 07/14/21 Ascorbic Acid [Vitamin C] 100 mg PO DAILY 09/03/15 07/14/21 Ferrous Gluconate 256 mg PO DAILY 09/03/15 07/14/21 Fexofenadine HCl [Marlene Allergy] 180 mg PO DAILY 09/03/15 07/14/21 Fluticasone [Flonase] 1 spray LOUIS BID 09/03/15 07/14/21 traMADol [Ultram] 50 mg PO Q4-6H PRN #15 tablet 09/09/17 07/14/21 Cefpodoxime Proxetil [Vantin] 100 mg PO Q12H #14 tablet 08/29/21 - Allergies Allergies/Adverse Reactions: Allergies Allergy/AdvReac Type Severity Reaction Status Date / Time amoxicillin [Amoxicillin] Allergy Intermediate Rash Verified 09/05/21 15:21 cavilon Allergy Mild Rash Uncoded 09/05/21 15:21 Review of Systems - Constitutional Constitutional: denies: Fever, Chills - Cardiovascular Cariovascular: reports: Exertional dyspnea, Decr. exercise tolerance. denies: Chest pain - Respiratory Respiratory: reports: Cough, SOB with exertion. denies: Sputum production - Gastrointestinal Gastrointestinal: denies: Abdominal pain, Diarrhea, Nausea, Vomiting - Neurological Neurological: reports: Dizziness. denies: Focal weakness, Numbness, Seizures, Incoordination Exam - Vital Signs Vital Signs: Vital Signs x48h Temp Pulse Resp BP Pulse Ox 09/05/21 16:33 100 24 114/76 99 09/05/21 15:54 111 H 26 H 116/62 92 09/05/21 15:24 105 H 23 124/64 94 09/05/21 15:18 37.4 C 106 H 23 124/64 88 L - Physical Exam General Appearance: positive: No acute distress, Alert. negative: Lethargic Eyes Bilateral: positive: Normal inspection, No lid inflammation ENT: positive: ENT inspection nml, Dry mucous membranes Neck: positive: Nml inspection, Trachea midline. negative: Tracheal deviation Respiratory: positive: Chest non-tender, No respiratory distress, Rales Cardiovascular: positive: Regular rate & rhythm, Tachycardia. negative: Bradycardia, Systolic murmur Peripheral Pulses: positive: 2+ Abdomen: positive: Non-tender, Nml bowel sounds, No distention. negative: Tenderness Back: positive: Nml inspection Skin: positive: No rash, Warm, Dry. negative: Cyanosis Extremities: positive: Non-tender, Full ROM, No pedal edema Neurologic/Psychiatric: positive: Sensation nml. negative: Weakness, Sensory loss, Facial droop, Slurred/abnml speech, Depressed mood/affect Conclusion/Plan - Problem List (1) Respiratory failure with hypoxia Conclusion/Plan: Patient had a 88% oxygen saturation on room air,Patient was COVID-19 positive. Chest x-ray show increased interstitial marking and left basilar airspace opacities, Consistent with infection process. We will treated COVID-19 with Remdesivir, decatron, heparin.Supplemental oxygen as needed (2) Pneumonia due to COVID-19 virus Conclusion/Plan: Patient COVID-19 test is positive, chest x-ray reveal pneumonia with infection process. We will treat patient for COVID-19 as above, supplemental oxygen as needed. (3) RUDDY (acute kidney injury) Conclusion/Plan: Patient creatinine 2.4, patient baseline creatinine 1.6. pt present dehydration. IVF and lab monitor, avoid nephrotoxic agents. 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 INR today is 3.2. We will daily check PT/INR, we will resume Coumadin as indicated. - Lab Results Fish Bones: 09/05/21 15:43 09/05/21 15:43 Core Measures - Anticipated LOS I expect patient to be DC'd or transferred within 96 hours.: Yes - DVT/VTE - Prophylaxis VTE/DVT Device ordered at admit?: Yes VTE/DVT Prophylaxis med ordered at admit?: Yes
[2021-09-05] MEDS ORDERED: DEXTROSE 5%-0.45% NACL 1,000 ML IV SCH (18:00)
[2021-09-05 19:50] LABS: ABSOLUTE RETICS # AUTO 0.065 10^6/uL (0.020-0.110); RED BLOOD COUNT 2.18 10^6/uL (4.70-6.10); RETICULOCYTE COUNT % (AUTO) 2.99 % (0.5-2.3)
[2021-09-05] MEDS: DEXTROSE 5%-0.45% NACL 1,000 ML IV SCH (19:50)
[2021-09-05] MEDS: NYSTATIN POWDER 15 GM TOP SCH ×2 (19:51→22:54)
[2021-09-05] MEDS: DEXAMETHASONE 10 MG/ML VIAL IVP SCH (19:51)
[2021-09-05] MEDS: HEPARIN 5,000 UNIT/ML VIAL SUBQ SCH (20:12)
[2021-09-05 20:20] LABS: FERRITIN 686.8 ng/mL (23.9-336.2)
[2021-09-05 20:37] LABS: % IRON SATURATION 17 % (20-50); IRON 31 ug/dL (45-182); TOTAL IRON BINDING CAPACITY 181 ug/dL (250-450); TRANSFERRIN 129 mg/dL (180-329)
[2021-09-05 21:10] LABS: CORONAVIRUS 229E-RESP PCR NOT DETECTED; CORONAVIRUS HKU1-RESP PCR NOT DETECTED; CORONAVIRUS NL63-RESP PCR NOT DETECTED; CORONAVIRUS OC43-RESP PCR NOT DETECTED
[2021-09-05 21:12] LABS: HUMAN METAPNEUMOVIRUS NOT DETECTED; INFLUENZA A- RESP PCR PANEL NOT DETECTED; INFLUENZA B - RESP PCR PANEL NOT DETECTED; PARAINFLUENZA VIRUS 1 NOT DETECTED; PARAINFLUENZA VIRUS 2 NOT DETECTED; PARAINFLUENZA VIRUS 3 NOT DETECTED; PARAINFLUENZA VIRUS 4 NOT DETECTED; RHINOVIRUS/ENTEROVIRUS NOT DETECTED; SARS-CoV-2 -RESP PCR PANEL DETECTED
[2021-09-05 21:13] LABS: B. PARAPERTUSSIS- RESP PCR PAN NOT DETECTED; B. PERTUSSIS- RESP PCR PANEL NOT DETECTED; C. PNEUMONIAE- RESP PCR PANEL NOT DETECTED; M. PNEUMONIAE- RESP PCR PANEL NOT DETECTED; RSV- RESP PCR PANEL NOT DETECTED
[2021-09-06] MEDS: DEXTROSE 5%-0.45% NACL 1,000 ML IV SCH (02:23)
[2021-09-06] MEDS: SODIUM CHLORIDE FLUSH 0.9% 10 ML SYRINGE IVP SCH ×3 (04:52→17:24)
[2021-09-06 06:11] LABS: CALCIUM 7.5 mg/dL (8.5-10.3); CREATININE 2.3 mg/dL (0.6-1.2); POTASSIUM 4.6 mmol/L (3.5-5.0)
[2021-09-06 06:23] LABS: INR 3.8 (0.8-1.2); PT - PROTHROMBIN TIME 42.3 secs (9.9-12.6)
[2021-09-06 07:38] LABS: LYMPHOCYTES % (AUTO) 10.2 %; MEAN CORPUSCULAR HEMOGLOBIN 31.7 pg (27.0-31.0); MEAN CORPUSCULAR HGB CONC 31.1 g/dL (32.0-36.0); MEAN CORPUSCULAR VOLUME 102.2 fL (80.0-94.0); MEAN PLATELET VOLUME 12.7 fL (7.4-11.4); MONOCYTES % (AUTO) 4.1 %; NEUTROPHILS % (AUTO) 84.3 %; PLT - PLATELET COUNT 232 10^3/uL (130-450); RED BLOOD COUNT 1.86 10^6/uL (4.70-6.10); RED CELL DISTRIBUTION WIDTH 17.4 % (12.0-15.0); WHITE BLOOD COUNT 2.9 x10^3/uL (4.8-10.8)
[2021-09-06 07:49] LABS: HGB - HEMOGLOBIN 5.9 g/dL (14.0-18.0)
[2021-09-06 07:50] LABS: ABNORMAL LYMPHS % (MANUAL) 0 %; BAND NEUTROPHILS % (MANUAL) 0 %
[2021-09-06] MEDS ORDERED: PHYTONADIONE 10 MG/ML AMP SUBQ ONE (08:12)
[2021-09-06 08:37] LABS: BASOPHILS % (MANUAL) 1 %; LYMPHOCYTES # (MANUAL) 0.3 10^3/uL (1.5-3.5); LYMPHOCYTES % (MANUAL) 12 %; MONOCYTES # (MANUAL) 0.1 10^3/uL (0.0-1.0); NEUTROPHILS # (MANUAL) 2.4 10^3/uL (1.5-6.6); NUCLEATED RBC (MANUAL) 1 %; PLATELET MORPHOLOGY 1+ LARGE PLATELETS (NORMAL)
[2021-09-06 08:38] LABS: DIFFERENTIAL COMMENT MANUAL DIFFERENTIAL; PLATELET ESTIMATE, MANUAL NORMAL (130-450,000) (NORMAL)
[2021-09-06] MEDS ORDERED: REMDESIVIR 100MG VIAL 200 MG in SODIUM CHLORIDE 0.9% 250 ML IV ONE (09:00)
[2021-09-06] MEDS ORDERED: PHYTONADIONE INJ (ADULT) 5 MG in SODIUM CHLORIDE 0.9% 50 ML IV ONE (09:30)
[2021-09-06] MEDS: DEXAMETHASONE 10 MG/ML VIAL IVP SCH (09:50)
[2021-09-06] MEDS: NYSTATIN POWDER 15 GM TOP SCH ×2 (09:51→20:43)
[2021-09-06] MEDS: HEPARIN 5,000 UNIT/ML VIAL SUBQ SCH ×2 (10:52→20:43)
--- NOTE | 2021-09-06 11:43 | PROVIDER PROGRESS NOTE ---
Subjective - Prog Note Date Prog Note Date: 09/06/21 - Subjective Pt reports feeling: No change Subjective: Pt reports he slept all right overnight. Is requiring 4.5L of oxygen currently. Found to have low hemoglobin and supratherapeutic INR today, will need to be transfused with 2 units pRBCs and receive vitamin K. Denied chest pain, palpitations, dizziness, or shortness of breath. Denies other concerns. Objective - Vital Signs/Intake & Output Reviewed Vital Signs: Yes Vital Signs: Vital Signs x48h Temp Pulse Resp BP Pulse Ox 09/06/21 08:00 36.4 C L 62 24 120/49 L 84 L Intake & Output: Intake & Output 09/03/21 09/04/21 09/05/21 09/06/21 23:59 23:59 23:59 23:59 Intake Total 2118.75 Output Total 0 250 Balance 0 1868.75 - Objective General Appearance: positive: No acute distress, Alert Eyes Bilateral: positive: Normal inspection, Conjunctivae nml, No scleral icterus ENT: positive: Dry mucous membranes Neck: positive: Nml inspection Respiratory: positive: Chest non-tender, No respiratory distress, Rales Cardiovascular: positive: Regular rate & rhythm, No murmur Peripheral Pulses: 2+ Dorsalis pedis (R), 2+ Dorsalis pedis (L) Abdomen: positive: Non-tender, No organomegaly, Nml bowel sounds, No distention Skin: positive: Pallor Extremities: positive: Non-tender, Full ROM, Nml appearance, No pedal edema Neurologic/Psychiatric: positive: Oriented x3, Other (Hard of hearing but oriented x3) - Lab Results Fish Bones: 09/06/21 06:55 09/06/21 05:17 Other Labs: Lab Results x24hrs 09/06/21 09/06/21 09/06/21 Range/Units 08:45 06:55 06:55 WBC 2.9 L (4.8-10.8) x10^3/uL RBC 1.86 L (4.70-6.10) 10^6/uL Hgb 5.9 L* (14.0-18.0) g/dL Hct 19.0 L* (42.0-52.0) % MCV 102.2 H (80.0-94.0) fL MCH 31.7 H (27.0-31.0) pg MCHC 31.1 L (32.0-36.0) g/dL RDW 17.4 H (12.0-15.0) % Plt Count 232 (130-450) 10^3/uL MPV 12.7 H (7.4-11.4) fL Reticulocyte % (Auto) (0.5-2.3) % Neut # (Auto) Not Reportable (1.5-6.6) 10^3/uL Lymph # (Auto) Not Reportable (1.5-3.5) 10^3/uL Tama # (Auto) Not Reportable (0.0-1.0) 10^3/uL Eos # (Auto) Not Reportable (0.0-0.7) 10^3/uL Baso # (Auto) Not Reportable (0.0-0.1) 10^3/uL Absolute Nucleated RBC Not Reportable x10^3/uL Total Counted 100 Band Neuts % (Manual) 0 (0 - 10) % Abnorm Lymph % (Manual) 0 % Nucleated RBC % Not Reportable /100WBC Neutrophils # (Manual) 2.4 (1.5-6.6) 10^3/uL Lymphocytes # (Manual) 0.3 L (1.5-3.5) 10^3/uL Monocytes # (Manual) 0.1 (0.0-1.0) 10^3/uL Eosinophils # (Manual) 0.0 (0-0.7) 10^3/uL Basophils # (Manual) 0.0 (0-0.1) 10^3/uL Nucleated RBCs 1 % Differential Comment MANUAL DIFFERENTIAL Platelet Estimate NORMAL (130-450,000) (NORMAL) Platelet Morphology 1+ LARGE PLATELETS (NORMAL) RBC Morph Micro Appear 2+ ANISOCYTOSIS (NORMAL) Absolute Retic (0.020-0.110) 10^6/uL PT (9.9-12.6) secs INR (0.8-1.2) Sodium (135-145) mmol/L Potassium (3.5-5.0) mmol/L Chloride (101-111) mmol/L Carbon Dioxide (21-32) mmol/L Anion Gap (6-13) BUN (6-20) mg/dL Creatinine (0.6-1.2) mg/dL Estimated GFR (MDRD) (>89) Glucose (70-100) mg/dL Lactic Acid (0.5-2.2) mmol/L Calcium (8.5-10.3) mg/dL Phosphorus (2.5-4.6) mg/dL Magnesium (1.7-2.8) mg/dL Iron (45-182) ug/dL TIBC (250-450) ug/dL % Saturation (20-50) % Transferrin (180-329) mg/dL Ferritin (23.9-336.2) ng/mL Total Bilirubin (0.2-1.0) mg/dL AST (10-42) IU/L ALT (10-60) IU/L Alkaline Phosphatase (42-121) IU/L Lactate Dehydrogenase (91-225) IU/L Total Protein (6.7-8.2) g/dL Albumin (3.2-5.5) g/dL Globulin (2.1-4.2) g/dL Albumin/Globulin Ratio (1.0-2.2) Vitamin B12 (180-914) pg/mL Urine Color Urine Clarity (CLEAR) Urine pH (5.0-7.5) PH Ur Specific Hayes (1.002-1.030) Urine Protein (NEGATIVE) mg/dL Urine Glucose (UA) (NEGATIVE) mg/dL Urine Ketones (NEGATIVE) mg/dL Urine Occult Blood (NEGATIVE) Urine Nitrite (NEGATIVE) Urine Bilirubin (NEGATIVE) Urine Urobilinogen (NORMAL) E.U./dL Ur Leukocyte Esterase (NEGATIVE) Ur Microscopic Review Urine Culture Comments Nasal Adenovirus (PCR) Nasal B. parapertussis DNA (PCR) Nasal Coronavir 229E PCR Nasal Coronavir HKU1 PCR Nasal Coronavir NL63 PCR Nasal Coronavir OC43 PCR Nasal Enterovir/Rhinovir PCR Nasal Influenza B PCR Nasal Influenza A PCR Nasal Parainfluen 1 PCR Nasal Parainfluen 2 PCR Nasal Parainfluen 3 PCR Nasal Parainfluen 4 PCR Nasal RSV (PCR) Nasal B.pertussis DNA PCR Nasal C.pneumoniae (PCR) Guilherme Human Metapneumo PCR Nasal M.pneumoniae (PCR) Nasal SARS-CoV-2 (PCR) Blood Type A NEGATIVE Blood Type Recheck A NEGATIVE Antibody Screen NEGATIVE Crossmatch IS Only See Detail 09/06/21 09/06/21 09/05/21 Range/Units 05:17 05:17 20:09 WBC (4.8-10.8) x10^3/uL RBC (4.70-6.10) 10^6/uL Hgb (14.0-18.0) g/dL Hct (42.0-52.0) % MCV (80.0-94.0) fL MCH (27.0-31.0) pg MCHC (32.0-36.0) g/dL RDW (12.0-15.0) % Plt Count (130-450) 10^3/uL MPV (7.4-11.4) fL Reticulocyte % (Auto) (0.5-2.3) % Neut # (Auto) (1.5-6.6) 10^3/uL Lymph # (Auto) (1.5-3.5) 10^3/uL Tama # (Auto) (0.0-1.0) 10^3/uL Eos # (Auto) (0.0-0.7) 10^3/uL Baso # (Auto) (0.0-0.1) 10^3/uL Absolute Nucleated RBC x10^3/uL Total Counted Band Neuts % (Manual) (0 - 10) % Abnorm Lymph % (Manual) % Nucleated RBC % /100WBC Neutrophils # (Manual) (1.5-6.6) 10^3/uL Lymphocytes # (Manual) (1.5-3.5) 10^3/uL Monocytes # (Manual) (0.0-1.0) 10^3/uL Eosinophils # (Manual) (0-0.7) 10^3/uL Basophils # (Manual) (0-0.1) 10^3/uL Nucleated RBCs % Differential Comment Platelet Estimate (NORMAL) Platelet Morphology (NORMAL) RBC Morph Micro Appear (NORMAL) Absolute Retic (0.020-0.110) 10^6/uL PT 42.3 H (9.9-12.6) secs INR 3.8 H (0.8-1.2) Sodium 144 (135-145) mmol/L Potassium 4.6 (3.5-5.0) mmol/L Chloride 115 H (101-111) mmol/L Carbon Dioxide 19 L (21-32) mmol/L Anion Gap 10.0 (6-13) BUN 61 H (6-20) mg/dL Creatinine 2.3 H (0.6-1.2) mg/dL Estimated GFR (MDRD) 27 L (>89) Glucose 268 H (70-100) mg/dL Lactic Acid (0.5-2.2) mmol/L Calcium 7.5 L (8.5-10.3) mg/dL Phosphorus (2.5-4.6) mg/dL Magnesium (1.7-2.8) mg/dL Iron (45-182) ug/dL TIBC (250-450) ug/dL % Saturation (20-50) % Transferrin (180-329) mg/dL Ferritin (23.9-336.2) ng/mL Total Bilirubin (0.2-1.0) mg/dL AST (10-42) IU/L ALT (10-60) IU/L Alkaline Phosphatase (42-121) IU/L Lactate Dehydrogenase (91-225) IU/L Total Protein (6.7-8.2) g/dL Albumin (3.2-5.5) g/dL Globulin (2.1-4.2) g/dL Albumin/Globulin Ratio (1.0-2.2) Vitamin B12 (180-914) pg/mL Urine Color Urine Clarity (CLEAR) Urine pH (5.0-7.5) PH Ur Specific Hayes (1.002-1.030) Urine Protein (NEGATIVE) mg/dL Urine Glucose (UA) (NEGATIVE) mg/dL Urine Ketones (NEGATIVE) mg/dL Urine Occult Blood (NEGATIVE) Urine Nitrite (NEGATIVE) Urine Bilirubin (NEGATIVE) Urine Urobilinogen (NORMAL) E.U./dL Ur Leukocyte Esterase (NEGATIVE) Ur Microscopic Review Urine Culture Comments Nasal Adenovirus (PCR) NOT DETECTED Nasal B. parapertussis DNA (PCR) NOT DETECTED Nasal Coronavir 229E PCR NOT DETECTED Nasal Coronavir HKU1 PCR NOT DETECTED Nasal Coronavir NL63 PCR NOT DETECTED Nasal Coronavir OC43 PCR NOT DETECTED Nasal Enterovir/Rhinovir PCR NOT DETECTED Nasal Influenza B PCR NOT DETECTED Nasal Influenza A PCR NOT DETECTED Nasal Parainfluen 1 PCR NOT DETECTED Nasal Parainfluen 2 PCR NOT DETECTED Nasal Parainfluen 3 PCR NOT DETECTED Nasal Parainfluen 4 PCR NOT DETECTED Nasal RSV (PCR) NOT DETECTED Nasal B.pertussis DNA PCR NOT DETECTED Nasal C.pneumoniae (PCR) NOT DETECTED Guilherme Human Metapneumo PCR NOT DETECTED Nasal M.pneumoniae (PCR) NOT DETECTED Nasal SARS-CoV-2 (PCR) DETECTED A Blood Type Blood Type Recheck Antibody Screen Crossmatch IS Only 09/05/21 09/05/21 09/05/21 Range/Units 19:36 19:36 19:36 WBC (4.8-10.8) x10^3/uL RBC (4.70-6.10) 10^6/uL Hgb (14.0-18.0) g/dL Hct (42.0-52.0) % MCV (80.0-94.0) fL MCH (27.0-31.0) pg MCHC (32.0-36.0) g/dL RDW (12.0-15.0) % Plt Count (130-450) 10^3/uL MPV (7.4-11.4) fL Reticulocyte % (Auto) (0.5-2.3) % Neut # (Auto) (1.5-6.6) 10^3/uL Lymph # (Auto) (1.5-3.5) 10^3/uL Tama # (Auto) (0.0-1.0) 10^3/uL Eos # (Auto) (0.0-0.7) 10^3/uL Baso # (Auto) (0.0-0.1) 10^3/uL Absolute Nucleated RBC x10^3/uL Total Counted Band Neuts % (Manual) (0 - 10) % Abnorm Lymph % (Manual) % Nucleated RBC % /100WBC Neutrophils # (Manual) (1.5-6.6) 10^3/uL Lymphocytes # (Manual) (1.5-3.5) 10^3/uL Monocytes # (Manual) (0.0-1.0) 10^3/uL Eosinophils # (Manual) (0-0.7) 10^3/uL Basophils # (Manual) (0-0.1) 10^3/uL Nucleated RBCs % Differential Comment Platelet Estimate (NORMAL) Platelet Morphology (NORMAL) RBC Morph Micro Appear (NORMAL) Absolute Retic (0.020-0.110) 10^6/uL PT (9.9-12.6) secs INR (0.8-1.2) Sodium (135-145) mmol/L Potassium (3.5-5.0) mmol/L Chloride (101-111) mmol/L Carbon Dioxide (21-32) mmol/L Anion Gap (6-13) BUN (6-20) mg/dL Creatinine (0.6-1.2) mg/dL Estimated GFR (MDRD) (>89) Glucose (70-100) mg/dL Lactic Acid (0.5-2.2) mmol/L Calcium (8.5-10.3) mg/dL Phosphorus (2.5-4.6) mg/dL Magnesium (1.7-2.8) mg/dL Iron 31 L (45-182) ug/dL TIBC 181 L (250-450) ug/dL % Saturation 17 L (20-50) % Transferrin 129 L (180-329) mg/dL Ferritin 686.8 H (23.9-336.2) ng/mL Total Bilirubin (0.2-1.0) mg/dL AST (10-42) IU/L ALT (10-60) IU/L Alkaline Phosphatase (42-121) IU/L Lactate Dehydrogenase 335 H (91-225) IU/L Total Protein (6.7-8.2) g/dL Albumin (3.2-5.5) g/dL Globulin (2.1-4.2) g/dL Albumin/Globulin Ratio (1.0-2.2) Vitamin B12 1270 H (180-914) pg/mL Urine Color Urine Clarity (CLEAR) Urine pH (5.0-7.5) PH Ur Specific Hayes (1.002-1.030) Urine Protein (NEGATIVE) mg/dL Urine Glucose (UA) (NEGATIVE) mg/dL Urine Ketones (NEGATIVE) mg/dL Urine Occult Blood (NEGATIVE) Urine Nitrite (NEGATIVE) Urine Bilirubin (NEGATIVE) Urine Urobilinogen (NORMAL) E.U./dL Ur Leukocyte Esterase (NEGATIVE) Ur Microscopic Review Urine Culture Comments Nasal Adenovirus (PCR) Nasal B. parapertussis DNA (PCR) Nasal Coronavir 229E PCR Nasal Coronavir HKU1 PCR Nasal Coronavir NL63 PCR Nasal Coronavir OC43 PCR Nasal Enterovir/Rhinovir PCR Nasal Influenza B PCR Nasal Influenza A PCR Nasal Parainfluen 1 PCR Nasal Parainfluen 2 PCR Nasal Parainfluen 3 PCR Nasal Parainfluen 4 PCR Nasal RSV (PCR) Nasal B.pertussis DNA PCR Nasal C.pneumoniae (PCR) Guilherme Human Metapneumo PCR Nasal M.pneumoniae (PCR) Nasal SARS-CoV-2 (PCR) Blood Type Blood Type Recheck Antibody Screen Crossmatch IS Only 09/05/21 09/05/21 09/05/21 Range/Units 19:36 16:14 15:43 WBC (4.8-10.8) x10^3/uL RBC 2.18 L (4.70-6.10) 10^6/uL Hgb (14.0-18.0) g/dL Hct (42.0-52.0) % MCV (80.0-94.0) fL MCH (27.0-31.0) pg MCHC (32.0-36.0) g/dL RDW (12.0-15.0) % Plt Count (130-450) 10^3/uL MPV (7.4-11.4) fL Reticulocyte % (Auto) 2.99 H (0.5-2.3) % Neut # (Auto) (1.5-6.6) 10^3/uL Lymph # (Auto) (1.5-3.5) 10^3/uL Tama # (Auto) (0.0-1.0) 10^3/uL Eos # (Auto) (0.0-0.7) 10^3/uL Baso # (Auto) (0.0-0.1) 10^3/uL Absolute Nucleated RBC x10^3/uL Total Counted Band Neuts % (Manual) (0 - 10) % Abnorm Lymph % (Manual) % Nucleated RBC % /100WBC Neutrophils # (Manual) (1.5-6.6) 10^3/uL Lymphocytes # (Manual) (1.5-3.5) 10^3/uL Monocytes # (Manual) (0.0-1.0) 10^3/uL Eosinophils # (Manual) (0-0.7) 10^3/uL Basophils # (Manual) (0-0.1) 10^3/uL Nucleated RBCs % Differential Comment Platelet Estimate (NORMAL) Platelet Morphology (NORMAL) RBC Morph Micro Appear (NORMAL) Absolute Retic 0.065 (0.020-0.110) 10^6/uL PT (9.9-12.6) secs INR (0.8-1.2) Sodium (135-145) mmol/L Potassium (3.5-5.0) mmol/L Chloride (101-111) mmol/L Carbon Dioxide (21-32) mmol/L Anion Gap (6-13) BUN (6-20) mg/dL Creatinine (0.6-1.2) mg/dL Estimated GFR (MDRD) (>89) Glucose (70-100) mg/dL Lactic Acid 1.2 (0.5-2.2) mmol/L Calcium (8.5-10.3) mg/dL Phosphorus (2.5-4.6) mg/dL Magnesium (1.7-2.8) mg/dL Iron (45-182) ug/dL TIBC (250-450) ug/dL % Saturation (20-50) % Transferrin (180-329) mg/dL Ferritin (23.9-336.2) ng/mL Total Bilirubin (0.2-1.0) mg/dL AST (10-42) IU/L ALT (10-60) IU/L Alkaline Phosphatase (42-121) IU/L Lactate Dehydrogenase (91-225) IU/L Total Protein (6.7-8.2) g/dL Albumin (3.2-5.5) g/dL Globulin (2.1-4.2) g/dL Albumin/Globulin Ratio (1.0-2.2) Vitamin B12 (180-914) pg/mL Urine Color YELLOW Urine Clarity CLEAR (CLEAR) Urine pH 5.5 (5.0-7.5) PH Ur Specific Hayes 1.020 (1.002-1.030) Urine Protein TRACE (NEGATIVE) mg/dL Urine Glucose (UA) NEGATIVE (NEGATIVE) mg/dL Urine Ketones TRACE (NEGATIVE) mg/dL Urine Occult Blood TRACE-LYSE (NEGATIVE) Urine Nitrite NEGATIVE (NEGATIVE) Urine Bilirubin NEGATIVE (NEGATIVE) Urine Urobilinogen 0.2 (NORMAL) (NORMAL) E.U./dL Ur Leukocyte Esterase NEGATIVE (NEGATIVE) Ur Microscopic Review NOT INDICATED Urine Culture Comments NOT INDICATED Nasal Adenovirus (PCR) Nasal B. parapertussis DNA (PCR) Nasal Coronavir 229E PCR Nasal Coronavir HKU1 PCR Nasal Coronavir NL63 PCR Nasal Coronavir OC43 PCR Nasal Enterovir/Rhinovir PCR Nasal Influenza B PCR Nasal Influenza A PCR Nasal Parainfluen 1 PCR Nasal Parainfluen 2 PCR Nasal Parainfluen 3 PCR Nasal Parainfluen 4 PCR Nasal RSV (PCR) Nasal B.pertussis DNA PCR Nasal C.pneumoniae (PCR) Guilherme Human Metapneumo PCR Nasal M.pneumoniae (PCR) Nasal SARS-CoV-2 (PCR) Blood Type Blood Type Recheck Antibody Screen Crossmatch IS Only 09/05/21 09/05/21 09/05/21 Range/Units 15:43 15:43 15:43 WBC 5.9 (4.8-10.8) x10^3/uL RBC 2.44 L (4.70-6.10) 10^6/uL Hgb 7.8 L (14.0-18.0) g/dL Hct 25.0 L (42.0-52.0) % MCV 102.5 H (80.0-94.0) fL MCH 32.0 H (27.0-31.0) pg MCHC 31.2 L (32.0-36.0) g/dL RDW 17.8 H (12.0-15.0) % Plt Count 331 (130-450) 10^3/uL MPV 12.2 H (7.4-11.4) fL Reticulocyte % (Auto) (0.5-2.3) % Neut # (Auto) 4.6 (1.5-6.6) 10^3/uL Lymph # (Auto) 0.9 L (1.5-3.5) 10^3/uL Tama # (Auto) 0.3 (0.0-1.0) 10^3/uL Eos # (Auto) 0.0 (0.0-0.7) 10^3/uL Baso # (Auto) 0.0 (0.0-0.1) 10^3/uL Absolute Nucleated RBC 0.13 x10^3/uL Total Counted Band Neuts % (Manual) (0 - 10) % Abnorm Lymph % (Manual) % Nucleated RBC % 2.2 /100WBC Neutrophils # (Manual) (1.5-6.6) 10^3/uL Lymphocytes # (Manual) (1.5-3.5) 10^3/uL Monocytes # (Manual) (0.0-1.0) 10^3/uL Eosinophils # (Manual) (0-0.7) 10^3/uL Basophils # (Manual) (0-0.1) 10^3/uL Nucleated RBCs % Differential Comment Platelet Estimate (NORMAL) Platelet Morphology (NORMAL) RBC Morph Micro Appear (NORMAL) Absolute Retic (0.020-0.110) 10^6/uL PT 36.0 H (9.9-12.6) secs INR 3.2 H (0.8-1.2) Sodium 153 H (135-145) mmol/L Potassium 4.8 (3.5-5.0) mmol/L Chloride 120 H* (101-111) mmol/L Carbon Dioxide 20 L (21-32) mmol/L Anion Gap 13.0 (6-13) BUN 59 H (6-20) mg/dL Creatinine 2.4 H (0.6-1.2) mg/dL Estimated GFR (MDRD) 26 L (>89) Glucose 109 H (70-100) mg/dL Lactic Acid (0.5-2.2) mmol/L Calcium 8.6 (8.5-10.3) mg/dL Phosphorus 4.6 (2.5-4.6) mg/dL Magnesium 2.9 H (1.7-2.8) mg/dL Iron (45-182) ug/dL TIBC (250-450) ug/dL % Saturation (20-50) % Transferrin (180-329) mg/dL Ferritin (23.9-336.2) ng/mL Total Bilirubin 0.8 (0.2-1.0) mg/dL AST 32 (10-42) IU/L ALT 21 (10-60) IU/L Alkaline Phosphatase 46 (42-121) IU/L Lactate Dehydrogenase (91-225) IU/L Total Protein 6.5 L (6.7-8.2) g/dL Albumin 3.3 (3.2-5.5) g/dL Globulin 3.2 (2.1-4.2) g/dL Albumin/Globulin Ratio 1.0 (1.0-2.2) Vitamin B12 (180-914) pg/mL Urine Color Urine Clarity (CLEAR) Urine pH (5.0-7.5) PH Ur Specific Hayes (1.002-1.030) Urine Protein (NEGATIVE) mg/dL Urine Glucose (UA) (NEGATIVE) mg/dL Urine Ketones (NEGATIVE) mg/dL Urine Occult Blood (NEGATIVE) Urine Nitrite (NEGATIVE) Urine Bilirubin (NEGATIVE) Urine Urobilinogen (NORMAL) E.U./dL Ur Leukocyte Esterase (NEGATIVE) Ur Microscopic Review Urine Culture Comments Nasal Adenovirus (PCR) Nasal B. parapertussis DNA (PCR) Nasal Coronavir 229E PCR Nasal Coronavir HKU1 PCR Nasal Coronavir NL63 PCR Nasal Coronavir OC43 PCR Nasal Enterovir/Rhinovir PCR Nasal Influenza B PCR Nasal Influenza A PCR Nasal Parainfluen 1 PCR Nasal Parainfluen 2 PCR Nasal Parainfluen 3 PCR Nasal Parainfluen 4 PCR Nasal RSV (PCR) Nasal B.pertussis DNA PCR Nasal C.pneumoniae (PCR) Guilherme Human Metapneumo PCR Nasal M.pneumoniae (PCR) Nasal SARS-CoV-2 (PCR) Blood Type Blood Type Recheck Antibody Screen Crossmatch IS Only ABX Reporting Has patient been on IV antibiotics over the past 48 hours?: Yes Assessment/Plan - Problem List (1) Respiratory failure with hypoxia Impression: On admission, Patient had a 88% oxygen saturation on room air and was COVID-19 positive. Chest x-ray showed increased interstitial marking and left basilar airspace opacities, consistent with infection process. Receiving treatment with Remdesivir, decatron, heparin. Supplemental oxygen as needed, currently receiving 4.5L. Qualifiers: Chronicity: acute Qualified Code(s): J96.01 - Acute respiratory failure with hypoxia (2) Pneumonia due to COVID-19 virus Impression: Tested positive for COVID on 08/29 per admission H&P. Reportedly brought to the ER for SOB and fatigue. Receiving treatment with Remdesvir, Decadron, Heparin and supplemental oxygen. (3) RUDDY (acute kidney injury) Impression: Per admission notes his baseline creatinine is 1.6. It was 2.4 on admission, down to 2.3 today. This is likely due to dehydration. Will continue treating with IVF and avoid nephrotoxic agents. Strict I/Os. (4) Hypernatremia Impression: On admission Na was 153. He was dehydrated and had dry mucus membranes. Has been receiving IVF with D51/2NS. Continues to have dry mucus membranes but his Na was down to 144 today. Will continue to rehydrate with fluids and monitor the sodium daily. (5) Anemia Impression: Has a history of chronic anemia and chronic kidney disease. Hemoglobin 7.8 yesterday. Today it was 5.9. He was transfused for 2 units of blood and a hemoglobin will be checked post transfusion. He was asymptomatic, denying chest pain, dizziness, or palpitations. Anemia study done yesterday revealed iron of 31, TIBC 181, %saturation 17, and feritin 129. It appears he takes iron supplements at home, once his medications have been reconciled by pharmacy will plan to restart home meds. Will continue to monitor daily. Qualifiers: Anemia type: unspecified type Qualified Code(s): D64.9 - Anemia, unsp ecified (6) Hx of deep venous thrombosis Impression: Pt has a hx of DVT and is on Coumadin. Supratherapeutic INR of 3.8 today, up from 3.2 yesterday. Vitamin K was ordered, will recheck the INR. plan to resume anticoagulation when no longer supratherapeutic. (7) Supratherapeutic INR Impression: Pt has a hx of DVT and takes Coumadin at home, with a likely preferred INR of 2- 3. He was 3.2 on admission and the coumadin was held. Today the INR was 3.8 and he was given Vitamin K. Will recheck the levels tomorrow and continue to monitor.
[2021-09-06 20:07] LABS: HCT - HEMATOCRIT 26.2 % (42.0-52.0); HGB - HEMOGLOBIN 8.5 g/dL (14.0-18.0); LYMPHOCYTES # (AUTO) 0.4 10^3/uL (1.5-3.5); LYMPHOCYTES % (AUTO) 11.8 %; MEAN CORPUSCULAR HEMOGLOBIN 30.8 pg (27.0-31.0); MEAN CORPUSCULAR HGB CONC 32.4 g/dL (32.0-36.0); MEAN CORPUSCULAR VOLUME 94.9 fL (80.0-94.0); MEAN PLATELET VOLUME 12.1 fL (7.4-11.4); MONOCYTES # (AUTO) 0.2 10^3/uL (0.0-1.0); MONOCYTES % (AUTO) 6.9 %; NEUTROPHILS # (AUTO) 2.6 10^3/uL (1.5-6.6); NEUTROPHILS % (AUTO) 79.4 %; NRBC ABSOLUTE COUNT (AUTO) 0.09 x10^3/uL; NUCLEATED RED BLOOD CELLS AUTO 2.8 /100WBC; PLT - PLATELET COUNT 222 10^3/uL (130-450); RED BLOOD COUNT 2.76 10^6/uL (4.70-6.10); RED CELL DISTRIBUTION WIDTH 19.3 % (12.0-15.0); WHITE BLOOD COUNT 3.2 x10^3/uL (4.8-10.8)
[2021-09-07] MEDS: SODIUM CHLORIDE FLUSH 0.9% 10 ML SYRINGE IVP SCH ×3 (02:04→20:36)
[2021-09-07 05:34] LABS: INR 1.3 (0.8-1.2); PT - PROTHROMBIN TIME 14.6 secs (9.9-12.6)
[2021-09-07 05:37] LABS: BASOPHILS % (AUTO) 0.2 %; HCT - HEMATOCRIT 28.7 % (42.0-52.0); HGB - HEMOGLOBIN 9.2 g/dL (14.0-18.0); LYMPHOCYTES % (AUTO) 12.1 %; MEAN CORPUSCULAR HEMOGLOBIN 30.1 pg (27.0-31.0); MEAN CORPUSCULAR HGB CONC 32.1 g/dL (32.0-36.0); MEAN CORPUSCULAR VOLUME 93.8 fL (80.0-94.0); MEAN PLATELET VOLUME 12.3 fL (7.4-11.4); MONOCYTES % (AUTO) 7.2 %; NEUTROPHILS % (AUTO) 79.1 %; PLT - PLATELET COUNT 217 10^3/uL (130-450); RED BLOOD COUNT 3.06 10^6/uL (4.70-6.10); RED CELL DISTRIBUTION WIDTH 19.8 % (12.0-15.0); WHITE BLOOD COUNT 4.3 x10^3/uL (4.8-10.8)
[2021-09-07 05:40] LABS: ABNORMAL LYMPHS % (MANUAL) 0 %; BAND NEUTROPHILS % (MANUAL) 0 %
[2021-09-07 05:42] LABS: CREATININE 1.9 mg/dL (0.6-1.2); POTASSIUM 4.6 mmol/L (3.5-5.0)
[2021-09-07 06:03] LABS: LYMPHOCYTES # (MANUAL) 0.6 10^3/uL (1.5-3.5); LYMPHOCYTES % (MANUAL) 13 %; MONOCYTES # (MANUAL) 0.3 10^3/uL (0.0-1.0); NEUTROPHILS # (MANUAL) 3.4 10^3/uL (1.5-6.6); NUCLEATED RBC (MANUAL) 3 %
[2021-09-07 06:05] LABS: DIFFERENTIAL COMMENT MANUAL DIFFERENTIAL; PLATELET ESTIMATE, MANUAL NORMAL (130-450,000) (NORMAL); PLATELET MORPHOLOGY 1+ LARGE PLATELETS (NORMAL); WBC MORPHOLOGY (MULTIPLE) NORMAL APPEARANCE (NORMAL)
--- NOTE | 2021-09-07 07:27 | PROVIDER PROGRESS NOTE ---
Subjective - Prog Note Date Prog Note Date: 09/07/21 - Subjective Pt reports feeling: No change Subjective: Pt reports he slept well overnight and feels "fine". Difficult to elicit ROS as he had difficulty hearing me and refused to wear his hearing aids. Denies chest pain, abdominal pain, or feeling short of breath. Is currently requiring 4.5L of NC to maintain saturations. Objective - Vital Signs/Intake & Output Reviewed Vital Signs: Yes Vital Signs: Vital Signs x48h Pulse Resp BP Pulse Ox 09/07/21 00:00 51 L 22 116/52 L 97 Intake & Output: Intake & Output 09/04/21 09/05/21 09/06/21 09/07/21 23:59 23:59 23:59 23:59 Intake Total 5319.25 Output Total 0 750 600 Balance 0 4569.25 -600 - Objective General Appearance: positive: No acute distress, Alert Eyes Bilateral: positive: Normal inspection, PERRL, Conjunctivae nml, No scleral icterus ENT: positive: ENT inspection nml, No signs of dehydration Neck: positive: Nml inspection Respiratory: positive: Chest non-tender, No respiratory distress, Rales Cardiovascular: positive: Regular rate & rhythm, No murmur Peripheral Pulses: 2+ Dorsalis pedis (R), 2+ Dorsalis pedis (L) Abdomen: positive: Non-tender, No organomegaly, Nml bowel sounds, No distention Rectal: positive: Non-tender, Stool - heme POS Skin: positive: Color nml, No rash, Warm, Dry Extremities: positive: Non-tender, Full ROM, Nml appearance, No pedal edema Neurologic/Psychiatric: positive: Oriented x3 - Lab Results Fish Bones: 09/07/21 15:30 09/07/21 04:30 Other Labs: Lab Results x24hrs 09/07/21 09/07/21 09/07/21 Range/Units 04:30 04:30 04:30 WBC 4.3 L (4.8-10.8) x10^3/uL RBC 3.06 L (4.70-6.10) 10^6/uL Hgb 9.2 L (14.0-18.0) g/dL Hct 28.7 L (42.0-52.0) % MCV 93.8 (80.0-94.0) fL MCH 30.1 (27.0-31.0) pg MCHC 32.1 (32.0-36.0) g/dL RDW 19.8 H (12.0-15.0) % Plt Count 217 (130-450) 10^3/uL MPV 12.3 H (7.4-11.4) fL Neut # (Auto) Not Reportable Lymph # (Auto) Not Reportable [place] # (Auto) Not Reportable Eos # (Auto) Not Reportable Baso # (Auto) Not Reportable Absolute Nucleated RBC Not Reportable Total Counted 100 Band Neuts % (Manual) 0 (0 - 10) % Abnorm Lymph % (Manual) 0 % Nucleated RBC % Not Reportable Neutrophils # (Manual) 3.4 (1.5-6.6) 10^3/uL Lymphocytes # (Manual) 0.6 L (1.5-3.5) 10^3/uL Monocytes # (Manual) 0.3 (0.0-1.0) 10^3/uL Eosinophils # (Manual) 0.0 (0-0.7) 10^3/uL Basophils # (Manual) 0.0 (0-0.1) 10^3/uL Nucleated RBCs 3 % Differential Comment MANUAL DIFFERENTIAL WBC Morphology NORMAL APPEARANCE (NORMAL) Platelet Estimate NORMAL (130-450,000) (NORMAL) Platelet Morphology 1+ LARGE PLATELETS (NORMAL) RBC Morph Micro Appear 2+ ANISOCYTOSIS (NORMAL) PT 14.6 H (9.9-12.6) secs INR 1.3 H (0.8-1.2) Sodium 149 H (135-145) mmol/L Potassium 4.6 (3.5-5.0) mmol/L Chloride 118 H (101-111) mmol/L Carbon Dioxide 18 L (21-32) mmol/L Anion Gap 13.0 (6-13) BUN 59 H (6-20) mg/dL Creatinine 1.9 H (0.6-1.2) mg/dL Estimated GFR (MDRD) 34 L (>89) Glucose 162 H (70-100) mg/dL Calcium 8.0 L (8.5-10.3) mg/dL Blood Type Blood Type Recheck Antibody Screen Crossmatch IS Only 01/29/22 01/29/22 01/29/22 Range/Units 20:00 08:45 06:55 WBC 3.2 L (4.8-10.8) x10^3/uL RBC 2.76 L (4.70-6.10) 10^6/uL Hgb 8.5 L (14.0-18.0) g/dL Hct 26.2 L (42.0-52.0) % MCV 94.9 H (80.0-94.0) fL MCH 30.8 (27.0-31.0) pg MCHC 32.4 (32.0-36.0) g/dL RDW 19.3 H (12.0-15.0) % Plt Count 222 (130-450) 10^3/uL MPV 12.1 H (7.4-11.4) fL Neut # (Auto) 2.6 Lymph # (Auto) 0.4 L [place] # (Auto) 0.2 Eos # (Auto) 0.0 Baso # (Auto) 0.0 Absolute Nucleated RBC 0.09 Total Counted Band Neuts % (Manual) (0 - 10) % Abnorm Lymph % (Manual) % Nucleated RBC % 2.8 Neutrophils # (Manual) (1.5-6.6) 10^3/uL Lymphocytes # (Manual) (1.5-3.5) 10^3/uL Monocytes # (Manual) (0.0-1.0) 10^3/uL Eosinophils # (Manual) (0-0.7) 10^3/uL Basophils # (Manual) (0-0.1) 10^3/uL Nucleated RBCs % Differential Comment WBC Morphology (NORMAL) Platelet Estimate (NORMAL) Platelet Morphology (NORMAL) RBC Morph Micro Appear (NORMAL) PT (9.9-12.6) secs INR (0.8-1.2) Sodium (135-145) mmol/L Potassium (3.5-5.0) mmol/L Chloride (101-111) mmol/L Carbon Dioxide (21-32) mmol/L Anion Gap (6-13) BUN (6-20) mg/dL Creatinine (0.6-1.2) mg/dL Estimated GFR (MDRD) (>89) Glucose (70-100) mg/dL Calcium (8.5-10.3) mg/dL Blood Type A NEGATIVE Blood Type Recheck A NEGATIVE Antibody Screen NEGATIVE Crossmatch IS Only See Detail 09/06/21 Range/Units 06:55 WBC 2.9 L (4.8-10.8) x10^3/uL RBC 1.86 L (4.70-6.10) 10^6/uL Hgb 5.9 L* (14.0-18.0) g/dL Hct 19.0 L* (42.0-52.0) % MCV 102.2 H (80.0-94.0) fL MCH 31.7 H (27.0-31.0) pg MCHC 31.1 L (32.0-36.0) g/dL RDW 17.4 H (12.0-15.0) % Plt Count 232 (130-450) 10^3/uL MPV 12.7 H (7.4-11.4) fL Neut # (Auto) Not Reportable Lymph # (Auto) Not Reportable [place] # (Auto) Not Reportable Eos # (Auto) Not Reportable Baso # (Auto) Not Reportable Absolute Nucleated RBC Not Reportable Total Counted 100 Band Neuts % (Manual) 0 (0 - 10) % Abnorm Lymph % (Manual) 0 % Nucleated RBC % Not Reportable Neutrophils # (Manual) 2.4 (1.5-6.6) 10^3/uL Lymphocytes # (Manual) 0.3 L (1.5-3.5) 10^3/uL Monocytes # (Manual) 0.1 (0.0-1.0) 10^3/uL Eosinophils # (Manual) 0.0 (0-0.7) 10^3/uL Basophils # (Manual) 0.0 (0-0.1) 10^3/uL Nucleated RBCs 1 % Differential Comment MANUAL DIFFERENTIAL WBC Morphology (NORMAL) Platelet Estimate NORMAL (130-450,000) (NORMAL) Platelet Morphology 1+ LARGE PLATELETS (NORMAL) RBC Morph Micro Appear 2+ ANISOCYTOSIS (NORMAL) PT (9.9-12.6) secs INR (0.8-1.2) Sodium (135-145) mmol/L Potassium (3.5-5.0) mmol/L Chloride (101-111) mmol/L Carbon Dioxide (21-32) mmol/L Anion Gap (6-13) BUN (6-20) mg/dL Creatinine (0.6-1.2) mg/dL Estimated GFR (MDRD) (>89) Glucose (70-100) mg/dL Calcium (8.5-10.3) mg/dL Blood Type Blood Type Recheck Antibody Screen Crossmatch IS Only Assessment/Plan - Problem List (1) Respiratory failure with hypoxia Impression: On admission, Patient had a 88% oxygen saturation on room air and was COVID-19 positive. Chest x-ray showed increased interstitial marking and left basilar airspace opacities, consistent with infection process. Receiving treatment with Remdesivir, decatron, heparin. Supplemental oxygen as needed, currently receiving 4.5L. Qualifiers: Chronicity: acute Qualified Code(s): J96.01 - Acute respiratory failure with hypoxia (2) Pneumonia due to COVID-19 virus Impression: Tested positive for COVID on 08/29 per admission H&P. Reportedly brought to the ER for SOB and fatigue. Receiving treatment with Remdesvir, Decadron, Heparin and supplemental oxygen. WBC 4 today, afebrile. (3) GI bleed Impression: A stool sample has been pending since admission to assess for occult blood. Today he had a bowel movement that was noted to be black and possibly bloody and a sample was able to be sent to the lab. It was noted to be hemoccult positive. He has had 2 bowel movements of similar appearance today. This morning he reported to nursing he was a little dizzy, on my assessment he reported he felt "fine". His hemoglobin this morning was 9.2, I will have another H&H drawn at 1500 today. I have started medical management with Protonix IV BID. Pt was also given an octreotide bolus and started on a drip. He has had no other signs of bleeding, no further stools or epistaxis. His vitals have been hemodynamically stable, with HR in the 60s and BP 135/66. Denies chest pain, palpitations, abdominal pain, shortness of breath or light-headedness. Per General Surgery consult (appreciation to Dr. Welch for seeing this patient), will plan to continue medical management with IV Protonix and Octreotide and continue to monitor and consider EGD or c-scope if he has further evidence of bleeding (he is high risk so preference is medical management if there are no active signs of bleeding and he is hemodynamically stable). (4) RUDDY (acute kidney injury) Impression: Per admission notes his baseline creatinine is 1.6. It was 2.4 on admission, down to 1.9 today. This is likely due to dehydration. Will continue treating with IVF and avoid nephrotoxic agents. Strict I/Os. (5) Hypernatremia Impression: On admission Na was 153. It was down to 144 yesterday but is slightly elevated again today to 149. Continues to have slightly dry mucus membranes, will encourage oral intake. D51/2NS not currently compatible with his octreotide drip so will see if this comes down or needs another IV line for IVF and in the meantime encourage him to maintain hydration. Will continue to monitor daily. (6) Anemia Impression: Has a history of chronic anemia and chronic kidney disease. Hemoglobin 5.9 yesterday and he was transfused 2 units. On recheck post-infusion the hemoglobin was 9.2. He was asymptomatic, denying chest pain, dizziness, or palpitations. Per discussion with General Surgery the 5.9 may have been hemidilutional given how well he corrected post transfusion. Anemia study done 09/05 revealed iron of 31, TIBC 181, %saturation 17, and feritin 129. It appears he takes iron supplements at home, once his medications have been reconciled by pharmacy will plan to restart home meds. Will continue to monitor daily. Qualifiers: Anemia type: unspecified type Qualified Code(s): D64.9 - Anemia, unspecified (7) Hx of deep venous thrombosis Impression: Pt has a hx of DVT and is on Coumadin. Supratherapeutic INR of 3.8 09/06, given vitamin K and today it is 1.3. With his age and weight his goal INR should be 2-3, however today he was noted to have blood in the stool and Coumadin will need to be stopped for a minimum of 1 month. SCDs were ordered for DVT prophylaxis. (8) Supratherapeutic INR Impression: Resolved. INR was 3.8 yesterday, however after vitamin K administration it is now 1.3.
[2021-09-07] MEDS ORDERED: PANTOPRAZOLE 40 MG VIAL IVP SCH (09:00)
[2021-09-07] MEDS ORDERED: OCTREOTIDE 100 MCG/ML VIAL IVP STA (09:08)
[2021-09-07 09:41] LABS: FECAL OCCULT BLOOD (FIT) POSITIVE (NEGATIVE)
--- NOTE | 2021-09-07 09:45 | CONSULTATION NOTE ---
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 He was supratherapeutic on his coumadin with INR 3, now reversed. Yesterday am he had Hgb drop from 7.8 to 5.9, though with similar drop in WBC and Plts. He was given 2 u PRBCs with response in hgb to ~9. Per nursing, he had a dark, possibly bloody BM this am. Currently normotensive and not tachycardic. Does say he feels a little dizzy. Denies prior episodes of bloody or dark BMs. No emesis/hematemesis, no abdominal pain. Says he has never had ulcer disease to his knowledge; also denies ever having a colonoscopy. While interviewing the pt he had a dark brown BM, no pilar blood, not classic melena appearance. History - Past Medical History Cardiovascular: reports: High cholesterol, Deep vein thrombosis, Pulmonary embolism Respiratory: reports: None Neuro: reports: None Endocrine/Autoimmune: reports: None GI: reports: GERD : reports: Other HEENT: reports: Other Psych: reports: Depression, Anxiety Musculoskeletal: reports: None Derm: reports: None MRSA Hx?: No - Past Surgical History Ortho: reports: Other /[employer]PER[employer]: reports: Other (? prostatectomy) - Family & Social History Family History Comment/Other: poor historian, could not provide - POLST Patient has POLST: No Meds/Allgy - Home Medications Home Medications: Ambulatory Orders Medication Instructions Recorded Confirmed Cholecalciferol (Vitamin D3) 5,000 unit PO DAILY 02/08/13 07/14/21 [Vitamin D] Gabapentin [Neurontin] 600 mg PO QPM 02/08/13 07/14/21 Simvastatin [Zocor] 20 mg PO HS 02/08/13 07/14/21 Warfarin Sodium [Coumadin] 4 mg PO DAILY 02/08/13 07/14/21 Anagrelide HCl 0.5 mg PO BID 06/19/13 07/14/21 Ascorbic Acid [Vitamin C] 100 mg PO DAILY 09/03/15 07/14/21 Ferrous Gluconate 256 mg PO DAILY 09/03/15 07/14/21 Fexofenadine HCl [Marlene Allergy] 180 mg PO DAILY 09/03/15 07/14/21 Fluticasone [Flonase] 1 spray [place] BID 09/03/15 07/14/21 traMADol [Ultram] 50 mg PO Q4-6H PRN #15 tablet 09/09/17 07/14/21 Cefpodoxime Proxetil [Vantin] 100 mg PO Q12H #14 tablet 08/29/21 - Allergies Allergies/Adverse Reactions: Allergies Allergy/AdvReac Type Severity Reaction Status Date / Time amoxicillin [Amoxicillin] Allergy Intermediate Rash Verified 09/05/21 15:21 dimethicone AdvReac Mild Rash Verified 09/07/21 08:57 [From Cav[employer] Durable Barrier] Review of Systems - Constitutional Constitutional: reports: Fatigue - Cardiovascular Cariovascular: denies: Chest pain - Respiratory Respiratory: reports: Cough, SOB at rest, SOB with exertion - Gastrointestinal Gastrointestinal: reports: Black stools. denies: Abdominal pain, Diarrhea, Rectal bleeding, Bloody stools, Nausea, Vomiting, Bile emesis, Pilar blood emesis, Coffee grounds emesis - Hematologic/Lymphatic Hematologic/Lymphatic: reports: Bruising - All Other Systems All Other Systems: reports: Reviewed and negative Exam - Vital Signs Reviewed Vital Signs: Yes - Physical Exam General Appearance: positive: Alert, Mild distress Eyes Bilateral: positive: EOMI Respiratory: positive: Other (slightly short of breath, especially with activity, on NC) Cardiovascular: positive: Regular rate & rhythm Abdomen: positive: Non-tender, No distention Rectal: positive: Other (deferred, did examine stool he had during interview) Skin: positive: Warm, Dry Extremities: positive: No pedal edema Neurologic/Psychiatric: positive: Oriented x3 Conclusion and Plan - Lab Results Laboratory Results 09/07/21 04:30: PT 14.6 H, INR 1.3 H 09/07/21 04:30: Sodium 149 H, Potassium 4.6, Chloride 118 H, Carbon Dioxide 18 L, Anion Gap 13.0, BUN 59 H, Creatinine 1.9 H, Estimated GFR (MDRD) 34 L, Glucose 162 H, Calcium 8.0 L 09/07/21 04:30: WBC 4.3 L, RBC 3.06 L, Hgb 9.2 L, Hct 28.7 L, MCV 93.8, MCH 30.1, MCHC 32.1, RDW 19.8 H, Plt Count 217, MPV 12.3 H, Neut # (Auto) Not Reportable, Lymph # (Auto) Not Reportable, [place] # (Auto) Not Reportable, Eos # (Auto) Not Reportable, Baso # (Auto) Not Reportable, Absolute Nucleated RBC Not Reportable, Total Counted 100, Band Neuts % (Manual) 0, Abnorm Lymph % (Manual) 0, Nucleated RBC % Not Reportable, Neutrophils # (Manual) 3.4, Lymphocytes # (Manual) 0.6 L, Monocytes # (Manual) 0.3, Eosinophils # (Manual) 0.0, Basophils # (Manual) 0.0, Nucleated RBCs 3, Differential Comment MANUAL DIFFERENTIAL, WBC Morphology NORMAL APPEARANCE, Platelet Estimate NORMAL (130-450,000), Platelet Morphology 1+ LARGE PLATELETS, RBC Morph Micro Appear 2+ ANISOCYTOSIS 09/06/21 20:00: WBC 3.2 L, RBC 2.76 L, Hgb 8.5 L, Hct 26.2 L, MCV 94.9 H, MCH 30.8, MCHC 32.4, RDW 19.3 H, Plt Count 222, MPV 12.1 H, Neut # (Auto) 2.6, Lymph # (Auto) 0.4 L, [place] # (Auto) 0.2, Eos # (Auto) 0.0, Baso # (Auto) 0.0, Absolute Nucleated RBC 0.09, Nucleated RBC % 2.8 09/06/21 08:45: Blood Type A NEGATIVE, Antibody Screen NEGATIVE, Crossmatch IS Only See Detail 09/06/21 06:55: Blood Type Recheck A NEGATIVE 09/06/21 06:55: WBC 2.9 L, RBC 1.86 L, Hgb 5.9 L*, Hct 19.0 L*, MCV 102.2 H, MCH 31.7 H, MCHC 31.1 L, RDW 17.4 H, Plt Count 232, MPV 12.7 H, Neut # (Auto) Not Reportable, Lymph # (Auto) Not Reportable, [place] # (Auto) Not Reportable, Eos # (Auto) Not Reportable, Baso # (Auto) Not Reportable, Absolute Nucleated RBC Not Reportable, Total Counted 100, Band Neuts % (Manual) 0, Abnorm Lymph % (Manual) 0, Nucleated RBC % Not Reportable, Neutrophils # (Manual) 2.4, Lymphocytes # (Manual) 0.3 L, Monocytes # (Manual) 0.1, Eosinophils # (Manual) 0.0, Basophils # (Manual) 0.0, Nucleated RBCs 1, Differential Comment MANUAL DIFFERENTIAL, Platelet Estimate NORMAL (130-450,000), Platelet Morphology 1+ LARGE PLATELETS, RBC Morph Micro Appear 2+ ANISOCYTOSIS 09/06/21 05:17: PT 42.3 H, INR 3.8 H 09/06/21 05:17: Sodium 144, Potassium 4.6, Chloride 115 H, Carbon Dioxide 19 L, Anion Gap 10.0, BUN 61 H, Creatinine 2.3 H, Estimated GFR (MDRD) 27 L, Glucose 268 H, Calcium 7.5 L 09/05/21 20:09: Nasal Adenovirus (PCR) NOT DETECTED, Nasal B. parapertussis DNA (PCR) NOT DETECTED, Nasal Coronavir 229E PCR NOT DETECTED, Nasal Coronavir HKU1 PCR NOT DETECTED, Nasal Coronavir NL63 PCR NOT DETECTED, Nasal Coronavir OC43 PCR NOT DETECTED, Nasal Enterovir/Rhinovir PCR NOT DETECTED, Nasal Influenza B PCR NOT DETECTED, Nasal Influenza A PCR NOT DETECTED, Nasal Parainfluen 1 PCR NOT DETECTED, Nasal Parainfluen 2 PCR NOT DETECTED, Nasal Parainfluen 3 PCR NOT DETECTED, Nasal Parainfluen 4 PCR NOT DETECTED, Nasal RSV (PCR) NOT DETECTED, Nasal B.pertussis DNA PCR NOT DETECTED, Nasal C.pneumoniae (PCR) NOT DETECTED, Louis Human Metapneumo PCR NOT DETECTED, Nasal M.pneumoniae (PCR) NOT DETECTED, Nasal SARS-CoV-2 (PCR) DETECTED A 09/05/21 19:36: Lactate Dehydrogenase 335 H 09/05/21 19:36: Ferritin 686.8 H, Vitamin B12 1270 H 09/05/21 19:36: Iron 31 L, TIBC 181 L, % Saturation 17 L, Transferrin 129 L 09/05/21 19:36: RBC 2.18 L, Reticulocyte % (Auto) 2.99 H, Absolute Retic 0.065 09/05/21 16:14: Urine Color YELLOW, Urine Clarity CLEAR, Urine pH 5.5, Ur Specific [place] 1.020, Urine Protein TRACE, Urine Glucose (UA) NEGATIVE, Urine Ketones TRACE, Urine Occult Blood TRACE-LYSE, Urine Nitrite NEGATIVE, Urine Bilirubin NEGATIVE, Urine Urobilinogen 0.2 (NORMAL), Ur Leukocyte Esterase NEGATIVE, Ur Microscopic Review NOT INDICATED, Urine Culture Comments NOT INDICATED 09/05/21 15:43: Lactic Acid 1.2 09/05/21 15:43: Sodium 153 H, Potassium 4.8, Chloride 120 H*, Carbon Dioxide 20 L, Anion Gap 13.0, BUN 59 H, Creatinine 2.4 H, Estimated GFR (MDRD) 26 L, Glucose 109 H, Calcium 8.6, Phosphorus 4.6, Magnesium 2.9 H, Total Bilirubin 0.8, AST 32, ALT 21, Alkaline Phosphatase 46, Total Protein 6.5 L, Albumin 3.3, Globulin 3.2, Albumin/Globulin Ratio 1.0 09/05/21 15:43: PT 36.0 H, INR 3.2 H 09/05/21 15:43: WBC 5.9, RBC 2.44 L, Hgb 7.8 L, Hct 25.0 L, MCV 102.5 H, MCH 32.0 H, MCHC 31.2 L, RDW 17.8 H, Plt Count 331, MPV 12.2 H, Neut # (Auto) 4.6, Lymph # (Auto) 0.9 L, [place] # (Auto) 0.3, Eos # (Auto) 0.0, Baso # (Auto) 0.0, Absolute Nucleated RBC 0.13, Nucleated RBC % 2.2 - Plan Plan: Pt is an 86-year-old gentleman with a medical history significant of prostate cancer, Essential thrombocythemia, chronic indwelling Watt, CKD, chronic anemia, 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 Unclear if having GI bleed; regardless seems to have stopped; possibly related to being supratherapeutic on coumadin. Currently HDS, responded appropriately to transfusion, coumadin now reversed with normal INR, last BM dark but not frankly bloody or melenic, possibly some old blood. - favor medical management for now with IV protonix and octreotide - hemoccult test pending - would hold off on investigation with EGD or c-scope in this high risk patient at this point, will re-visit if has further evidence of bleeding Discussed with Medicine attending. Chivo Welch MD General Surgery
[2021-09-07] MEDS: PANTOPRAZOLE 40 MG VIAL IVP SCH ×2 (10:44→20:36)
[2021-09-07] MEDS: DEXAMETHASONE 10 MG/ML VIAL IVP SCH (10:44)
[2021-09-07] MEDS: REMDESIVIR 100MG VIAL 100 MG in SODIUM CHLORIDE 0.9% 100ML 100 ML IV SCH (10:45)
[2021-09-07] MEDS: NYSTATIN POWDER 15 GM TOP SCH ×2 (10:45→20:36)
[2021-09-07] MEDS: OCTREOTIDE 500 MCG in SODIUM CHLORIDE 0.9% 100ML 99 ML IV SCH (11:32)
[2021-09-07 15:42] LABS: HCT - HEMATOCRIT 30.5 % (42.0-52.0); HGB - HEMOGLOBIN 9.6 g/dL (14.0-18.0)
[2021-09-08] MEDS: SODIUM CHLORIDE FLUSH 0.9% 10 ML SYRINGE IVP SCH ×3 (03:36→15:55)
[2021-09-08 05:25] LABS: BASOPHILS % (AUTO) 0.2 %; HCT - HEMATOCRIT 30.5 % (42.0-52.0); HGB - HEMOGLOBIN 9.6 g/dL (14.0-18.0); LYMPHOCYTES # (AUTO) 0.4 10^3/uL (1.5-3.5); LYMPHOCYTES % (AUTO) 7.5 %; MEAN CORPUSCULAR HEMOGLOBIN 30.1 pg (27.0-31.0); MEAN CORPUSCULAR HGB CONC 31.5 g/dL (32.0-36.0); MEAN CORPUSCULAR VOLUME 95.6 fL (80.0-94.0); MEAN PLATELET VOLUME 12.3 fL (7.4-11.4); MONOCYTES # (AUTO) 0.4 10^3/uL (0.0-1.0); MONOCYTES % (AUTO) 6.4 %; NEUTROPHILS # (AUTO) 4.8 10^3/uL (1.5-6.6); NEUTROPHILS % (AUTO) 84.7 %; NRBC ABSOLUTE COUNT (AUTO) 0.04 x10^3/uL; NUCLEATED RED BLOOD CELLS AUTO 0.7 /100WBC; PLT - PLATELET COUNT 232 10^3/uL (130-450); RED BLOOD COUNT 3.19 10^6/uL (4.70-6.10); RED CELL DISTRIBUTION WIDTH 19.4 % (12.0-15.0); WHITE BLOOD COUNT 5.6 x10^3/uL (4.8-10.8)
[2021-09-08 05:28] LABS: INR 1.4 (0.8-1.2); PT - PROTHROMBIN TIME 15.7 secs (9.9-12.6)
[2021-09-08 05:29] LABS: CALCIUM 7.9 mg/dL (8.5-10.3); CREATININE 2.1 mg/dL (0.6-1.2); POTASSIUM 5.2 mmol/L (3.5-5.0)
[2021-09-08] MEDS: OCTREOTIDE 500 MCG in SODIUM CHLORIDE 0.9% 100ML 99 ML IV SCH (07:51)
[2021-09-08] MEDS: DEXAMETHASONE 10 MG/ML VIAL IVP SCH (07:53)
[2021-09-08] MEDS: NYSTATIN POWDER 15 GM TOP SCH ×2 (07:54→20:28)
[2021-09-08] MEDS: PANTOPRAZOLE 40 MG VIAL IVP SCH ×2 (07:54→20:28)
[2021-09-08] MEDS: REMDESIVIR 100MG VIAL 100 MG in SODIUM CHLORIDE 0.9% 100ML 100 ML IV SCH (10:53)
--- NOTE | 2021-09-08 14:47 | PROVIDER PROGRESS NOTE ---
Subjective - General Admit Date: 09/05/21 - Review of Systems All Other Systems: positive: Reviewed and negative - Other Other Information/Narrative: Last BM yesterday at 4pm and non bloody. Hgb stable at 9.6 x2. Objective - Patient Data Reviewed Vital Signs: Yes Vital Signs: Vital Signs x48h Temp Pulse Pulse Resp BP Pulse Ox 09/08/21 14:08 67 17 133/64 H 98 09/08/21 08:00 93 09/08/21 07:37 63 19 147/58 H 91 L 09/08/21 07:34 36.2 C L 65 16 96 Intake & Output: Intake and Output Totals x24h 09/06/21 09/07/21 09/08/21 23:59 23:59 23:59 Intake Total 5319.25 740 680 Output Total 750 1070 950 Balance 4569.25 -330 -270 - Lab Results Lab Results: 09/08/21 04:55 09/08/21 04:55 Other Lab Results: Lab Results x24hrs 09/08/21 09/08/21 09/08/21 Range/Units 04:55 04:55 04:55 WBC 5.6 (4.8-10.8) x10^3/uL RBC 3.19 L (4.70-6.10) 10^6/uL Hgb 9.6 L (14.0-18.0) g/dL Hct 30.5 L (42.0-52.0) % MCV 95.6 H (80.0-94.0) fL MCH 30.1 (27.0-31.0) pg MCHC 31.5 L (32.0-36.0) g/dL RDW 19.4 H (12.0-15.0) % Plt Count 232 (130-450) 10^3/uL MPV 12.3 H (7.4-11.4) fL Neut # (Auto) 4.8 (1.5-6.6) 10^3/uL Lymph # (Auto) 0.4 L (1.5-3.5) 10^3/uL [place] # (Auto) 0.4 (0.0-1.0) 10^3/uL Eos # (Auto) 0.0 (0.0-0.7) 10^3/uL Baso # (Auto) 0.0 (0.0-0.1) 10^3/uL Absolute Nucleated RBC 0.04 x10^3/uL Nucleated RBC % 0.7 /100WBC PT 15.7 H (9.9-12.6) secs INR 1.4 H (0.8-1.2) Sodium 149 H (135-145) mmol/L Potassium 5.2 H (3.5-5.0) mmol/L Chloride 119 H (101-111) mmol/L Carbon Dioxide 18 L (21-32) mmol/L Anion Gap 12.0 (6-13) BUN 63 H (6-20) mg/dL Creatinine 2.1 H (0.6-1.2) mg/dL Estimated GFR (MDRD) 30 L (>89) Glucose 227 H (70-100) mg/dL Calcium 7.9 L (8.5-10.3) mg/dL 09/07/21 Range/Units 15:30 WBC (4.8-10.8) x10^3/uL RBC (4.70-6.10) 10^6/uL Hgb 9.6 L (14.0-18.0) g/dL Hct 30.5 L (42.0-52.0) % MCV (80.0-94.0) fL MCH (27.0-31.0) pg MCHC (32.0-36.0) g/dL RDW (12.0-15.0) % Plt Count (130-450) 10^3/uL MPV (7.4-11.4) fL Neut # (Auto) (1.5-6.6) 10^3/uL Lymph # (Auto) (1.5-3.5) 10^3/uL [place] # (Auto) (0.0-1.0) 10^3/uL Eos # (Auto) (0.0-0.7) 10^3/uL Baso # (Auto) (0.0-0.1) 10^3/uL Absolute Nucleated RBC x10^3/uL Nucleated RBC % /100WBC PT (9.9-12.6) secs INR (0.8-1.2) Sodium (135-145) mmol/L Potassium (3.5-5.0) mmol/L Chloride (101-111) mmol/L Carbon Dioxide (21-32) mmol/L Anion Gap (6-13) BUN (6-20) mg/dL Creatinine (0.6-1.2) mg/dL Estimated GFR (MDRD) (>89) Glucose (70-100) mg/dL Calcium (8.5-10.3) mg/dL - Current Medications Current Medications: Current Medications Generic Name Dose Route Start Last Admin Trade Name Freq PRN Reason Stop Dose Admin Albuterol 2 puffs 09/05/21 17:54 09/05/21 18:21 Albuterol 1 Puff INH 2 puffs Q6H PRN Administration Shortness of Air/Wheezing Dexamethasone 6 mg 09/05/21 20:00 09/08/21 07:53 Dexamethasone 10 Mg/Ml Vial IVP 6 mg DAILY DARLYN Administration Remdesivir 100 mg/ Sodium 100 mls @ 200 mls/hr 09/07/21 09:00 09/08/21 11:25 Chloride IV 09/10/21 09:29 Infused DAILY DARLYN Infusion Octreotide Acetate 500 mcg/ 100 mls @ 5 mls/hr 09/07/21 11:00 09/08/21 07:51 Sodium Chloride IV 25 mcg/hr .Q20H DARLYN 5 mls/hr Administration 25 MCG/HR Nystatin 1 applic 09/05/21 19:02 09/08/21 07:54 Nystatin Powder 15 Gm TOP 1 applic BID DARLYN Administration Pantoprazole Sodium 40 mg 09/07/21 10:00 09/08/21 07:54 Pantoprazole 40 Mg Vial IVP 40 mg BID DARLYN Administration Sodium Chloride 10 ml 09/06/21 01:00 09/08/21 07:54 Sodium Chloride Flush 0.9% 10 Ml Syringe IVP 20 ml 0100,0900,1700 DARLYN Administration - Physical Exam General Appearance: positive: No acute distress Abdomen: positive: Non-tender Impression/Plan - Problem List Problem List: 86yo man with history of prostate cancer, essential thrombocythemia, chronic indwelling eddy, CKD, chronic anemia, anticoagulation with warfarin for recurrent DVT/PE, who presented with COVID-19 infection and then developed acute blood loss anemia while supratherapeutic on warfarin. Hgb went from 7.8 to 5.9, but overcorrected to 9.6 with 2 units pRBCs and has now been stable with recheck at 9.6. Remains hemodynamically stable. Recommend holding coumadin at this time and follow up in general surgery clinic for outpatient upper and lower endoscopy. Please feel free to call with any questions. Mike Galvan MD [phone]
[2021-09-08] MEDS: INSULIN ASPART 300 UNIT/3 ML PEN SUBQ SCH ×2 (17:01→20:28)
--- NOTE | 2021-09-08 18:56 | PROVIDER PROGRESS NOTE ---
Assessment/Plan - Problem List (1) Respiratory failure with hypoxia Qualifiers: Chronicity: acute Qualified Code(s): J96.01 - Acute respiratory failure with hypoxia Assessment/Plan: At admission, patient had a 88% oxygen saturation on room air and was COVID-19 positive. Chest x-ray showed increased interstitial marking and left basilar airspace opacities, consistent with infection process. Receiving treatment with Remdesivir, decadron, heparin. Supplemental oxygen as needed to keep sats >90% (2) Pneumonia due to COVID-19 virus Impression: Tested positive for COVID on 08/29 per admission H&P. Reportedly brought to the ER for SOB and fatigue. Receiving treatment with Remdesvir, Decadron, Heparin and supplemental oxygen. (3) GI bleed Impression: A stool sample for occult blood was noted to be hemoccult positive. He reported to nursing he was a little dizzy Protonix IV BID has been started. Pt was seen in Consult by Gen Surg yesterday and was started on Octreotide bolus and drip. Per General Surgery consult (Dr. Welch saw the patient), will plan to continue medical management with IV Protonix Today, the other Gen Surg advised stopping Octreotide drip. Will continue to monitor and consider EGD or colonoscope if he has further evidence of bleeding (he is high risk so preference is medical management if there are no active signs of bleeding and he is hemodynamically stable). (4) RUDDY (acute kidney injury) Impression: Per admission notes his baseline creatinine is 1.6. It was 2.4 on admission,improving daily. This is likely due to dehydration. Will continue treating with IVF and avoid nephrotoxic agents. Strict I/Os. (5) Hypernatremia Impression: On admission Na was elevated and he had slightly dry mucus membranes Ciontinue IVF and in the meantime encourage him to maintain hydration. Will continue to monitor BMP daily. (6) Anemia Impression: Has a history of chronic anemia and chronic kidney disease. Hemoglobin 5.9 and he was transfused 2 units. On recheck post-infusion the hemoglobin was 9.2. He was asymptomatic, denying chest pain, dizziness, or palpitations. Anemia study done 09/05 revealed iron of 31, TIBC 181, %saturation 17, and feritin 129. It appears he takes iron supplements at home. Will restart home meds. Will continue to monitor CBC daily. Qualifiers: Anemia type: unspecified type Qualified Code(s): D64.9 - Anemia, unspecif ied (7) Hx of deep venous thrombosis Impression: Pt has a hx of DVT and was on Coumadin. With his GI bleed\, anticioagulants have been stopped. (8) Supratherapeutic INR Impression: Resolved. INR was 3.8 yesterday, however after vitamin K administration it is now 1.3. - Current Meds Current Meds: Current Medications Generic Name Dose Route Start Last Admin Trade Name Freq PRN Reason Stop Dose Admin Albuterol 2 puffs 09/05/21 17:54 09/05/21 18:21 Albuterol 1 Puff INH 2 puffs Q6H PRN Administration Shortness of Air/Wheezing Dexamethasone 6 mg 09/05/21 20:00 09/08/21 07:53 Dexamethasone 10 Mg/Ml Vial IVP 6 mg DAILY DARLYN Administration Remdesivir 100 mg/ Sodium 100 mls @ 200 mls/hr 09/07/21 09:00 09/08/21 11:25 Chloride IV 09/10/21 09:29 Infused DAILY DARLYN Infusion Insulin Aspart 1 - 5 unit 09/08/21 17:00 09/08/21 17:01 Insulin Aspart 300 Unit/3 Ml Pen SUBQ 4 unit 0800,1200,1700,2100 DARLYN Administration Protocol Nystatin 1 applic 09/05/21 19:02 09/08/21 07:54 Nystatin Powder 15 Gm TOP 1 applic BID DARLYN Administration Pantoprazole Sodium 40 mg 09/07/21 10:00 09/08/21 07:54 Pantoprazole 40 Mg Vial IVP 40 mg BID DARLYN Administration Sodium Chloride 10 ml 09/06/21 01:00 09/08/21 15:55 Sodium Chloride Flush 0.9% 10 Ml Syringe IVP 10 ml 0100,0900,1700 DARLYN Administration - Lab Result Fish Bone Diagrams: 09/08/21 04:55 09/08/21 04:55 - Additional Planning My Orders: My Active Orders 09/08/21 16:09 Miscellaenous Nursing Order [RC] QSHIFT 09/08/21 16:10 Blood Glucose Checks - Eating [RC] 0800,1200,1700,2100 Initiate Hypoglycemia Protocol [RC] .protocol 09/08/21 17:00 Insulin Aspart [NovoLOG] 1 - 5 unit SUBQ 0800,1200,1700,2100 09/09/21 05:00 HEMOGLOBIN A1c% [CHEM] DAILYLAB Objective Vital Signs: Vital Signs - 24 hr 09/08/21 09/08/21 09/08/21 00:00 07:34 07:37 Temperature 36.2 C L 36.2 C L Heart Rate 65 Heart Rate [ 65 63 Monitoring electrodes] Respiratory 16 16 19 Rate Blood Pressure 138/65 H 147/58 H [Right Brachial artery] O2 Saturation 96 96 91 L 09/08/21 09/08/21 09/08/21 08:00 14:08 15:53 Temperature 36.3 C L Heart Rate Heart Rate [ 67 66 Monitoring electrodes] Respiratory 17 18 Rate Blood Pressure 133/64 H 150/61 H [Right Brachial artery] O2 Saturation 93 98 95 Oxygen O2 Source Nasal cannula I&O (Last 24 Hrs): Intake and Output Totals x24h 09/06/21 09/07/21 09/08/21 23:59 23:59 23:59 Intake Total 5319.25 740 680 Output Total 750 1070 950 Balance 4569.25 330 -945 General: Alert ((visit done remotely due to Covid)) HEENT: Mucous membr. moist/pink Neck: Supple Neuro: Alert Cardiovascular: Regular rate Respiratory: No respiratory distress (when on O2 suppl) Abdomen: Soft Extremities: No edema - Results Results: Laboratory Results WBC 5.6 x10^3/uL (4.8-10.8) 09/08/21 04:55 RBC 3.19 10^6/uL (4.70-6.10) L 09/08/21 04:55 Hgb 9.6 g/dL (14.0-18.0) L 09/08/21 04:55 Hct 30.5 % (42.0-52.0) L 09/08/21 04:55 MCV 95.6 fL (80.0-94.0) H 09/08/21 04:55 MCH 30.1 pg (27.0-31.0) 09/08/21 04:55 MCHC 31.5 g/dL (32.0-36.0) L 09/08/21 04:55 RDW 19.4 % (12.0-15.0) H 09/08/21 04:55 Plt Count 232 10^3/uL (130-450) 09/08/21 04:55 MPV 12.3 fL (7.4-11.4) H 09/08/21 04:55 Reticulocyte % (Auto) 2.99 % (0.5-2.3) H 09/05/21 19:36 Neut # (Auto) 4.8 10^3/uL (1.5-6.6) 09/08/21 04:55 Lymph # (Auto) 0.4 10^3/uL (1.5-3.5) L 09/08/21 04:55 [place] # (Auto) 0.4 10^3/uL (0.0-1.0) 09/08/21 04:55 Eos # (Auto) 0.0 10^3/uL (0.0-0.7) 09/08/21 04:55 Baso # (Auto) 0.0 10^3/uL (0.0-0.1) 09/08/21 04:55 Absolute Nucleated RBC 0.04 x10^3/uL 09/08/21 04:55 Total Counted 100 09/07/21 04:30 Band Neuts % (Manual) 0 % (0-10) 09/07/21 04:30 Abnorm Lymph % (Manual) 0 % 09/07/21 04:30 Nucleated RBC % 0.7 /100WBC 09/08/21 04:55 Neutrophils # (Manual) 3.4 10^3/uL (1.5-6.6) 09/07/21 04:30 Lymphocytes # (Manual) 0.6 10^3/uL (1.5-3.5) L 09/07/21 04:30 Monocytes # (Manual) 0.3 10^3/uL (0.0-1.0) 09/07/21 04:30 Eosinophils # (Manual) 0.0 10^3/uL (0-0.7) 09/07/21 04:30 Basophils # (Manual) 0.0 10^3/uL (0-0.1) 09/07/21 04:30 Nucleated RBCs 3 % 09/07/21 04:30 Differential Comment MANUAL DIFFERENTIAL 09/07/21 04:30 WBC Morphology NORMAL APPEARANCE (NORMAL) 09/07/21 04:30 Platelet Estimate NORMAL (130-450,000) (NORMAL) 09/07/21 04:30 Platelet Morphology 1+ LARGE PLATELETS (NORMAL) 09/07/21 04:30 RBC Morph Micro Appear 2+ HYPOCHROMASIA (NORMAL) 2+ OVALOCYTES (NORMAL) 2+ ANISOCYTOSIS (NORMAL) 09/07/21 04:30 RBC Morph Micro Appear 2+ HYPOCHROMASIA (NORMAL) 2+ OVALOCYTES (NORMAL) 2+ ANISOCYTOSIS (NORMAL) 09/07/21 04:30 RBC Morph Micro Appear 2+ HYPOCHROMASIA (NORMAL) 2+ OVALOCYTES (NORMAL) 2+ ANISOCYTOSIS (NORMAL) 09/07/21 04:30 Absolute Retic 0.065 10^6/uL (0.020-0.110) 09/05/21 19:36 PT 15.7 secs (9.9-12.6) H 09/08/21 04:55 INR 1.4 (0.8-1.2) H 09/08/21 04:55 Sodium 149 mmol/L (135-145) H 09/08/21 04:55 Potassium 5.2 mmol/L (3.5-5.0) H 09/08/21 04:55 Chloride 119 mmol/L (101-111) H 09/08/21 04:55 Carbon Dioxide 18 mmol/L (21-32) L 09/08/21 04:55 Anion Gap 12.0 (6-13) 09/08/21 04:55 BUN 63 mg/dL (6-20) H 09/08/21 04:55 Creatinine 2.1 mg/dL (0.6-1.2) H 09/08/21 04:55 Estimated GFR (MDRD) 30 (>89) L 09/08/21 04:55 Glucose 227 mg/dL (70-100) H 09/08/21 04:55 Lactic Acid 1.2 mmol/L (0.5-2.2) 09/05/21 15:43 Calcium 7.9 mg/dL (8.5-10.3) L 09/08/21 04:55 Phosphorus 4.6 mg/dL (2.5-4.6) 09/05/21 15:43 Magnesium 2.9 mg/dL (1.7-2.8) H 09/05/21 15:43 Iron 31 ug/dL (45-182) L 09/05/21 19:36 TIBC 181 ug/dL (250-450) L 09/05/21 19:36 % Saturation 17 % (20-50) L 09/05/21 19:36 Transferrin 129 mg/dL (180-329) L 09/05/21 19:36 Ferritin 686.8 ng/mL (23.9-336.2) H 09/05/21 19:36 Total Bilirubin 0.8 mg/dL (0.2-1.0) 09/05/21 15:43 AST 32 IU/L (10-42) 09/05/21 15:43 ALT 21 IU/L (10-60) 09/05/21 15:43 Alkaline Phosphatase 46 IU/L (42-121) 09/05/21 15:43 Lactate Dehydrogenase 335 IU/L (91-225) H 09/05/21 19:36 Total Protein 6.5 g/dL (6.7-8.2) L 09/05/21 15:43 Albumin 3.3 g/dL (3.2-5.5) 09/05/21 15:43 Globulin 3.2 g/dL (2.1-4.2) 09/05/21 15:43 Albumin/Globulin Ratio 1.0 (1.0-2.2) 09/05/21 15:43 Vitamin B12 1270 pg/mL (180-914) H 09/05/21 19:36 Urine Color YELLOW 09/05/21 16:14 Urine Clarity CLEAR (CLEAR) 09/05/21 16:14 Urine pH 5.5 PH (5.0-7.5) 09/05/21 16:14 Ur Specific [place] 1.020 (1.002-1.030) 09/05/21 16:14 Urine Protein TRACE mg/dL (NEGATIVE) 09/05/21 16:14 Urine Glucose (UA) NEGATIVE mg/dL (NEGATIVE) 09/05/21 16:14 Urine Ketones TRACE mg/dL (NEGATIVE) 09/05/21 16:14 Urine Occult Blood TRACE-LYSE (NEGATIVE) 09/05/21 16:14 Urine Nitrite NEGATIVE (NEGATIVE) 09/05/21 16:14 Urine Bilirubin NEGATIVE (NEGATIVE) 09/05/21 16:14 Urine Urobilinogen 0.2 (NORMAL) E.U./dL (NORMAL) 09/05/21 16:14 Ur Leukocyte Esterase NEGATIVE (NEGATIVE) 09/05/21 16:14 Ur Microscopic Review NOT INDICATED 09/05/21 16:14 Urine Culture Comments NOT INDICATED 09/05/21 16:14 Nasal Adenovirus (PCR) NOT DETECTED 09/05/21 20:09 Nasal B. parapertussis DNA (PCR) NOT DETECTED 09/05/21 20:09 Nasal Coronavir 229E PCR NOT DETECTED 09/05/21 20:09 Nasal Coronavir HKU1 PCR NOT DETECTED 09/05/21 20:09 Nasal Coronavir NL63 PCR NOT DETECTED 09/05/21 20:09 Nasal Coronavir OC43 PCR NOT DETECTED 09/05/21 20:09 Nasal Enterovir/Rhinovir PCR NOT DETECTED 09/05/21 20:09 Nasal Influenza B PCR NOT DETECTED 09/05/21 20:09 Nasal Influenza A PCR NOT DETECTED 09/05/21 20:09 Nasal Parainfluen 1 PCR NOT DETECTED 09/05/21 20:09 Nasal Parainfluen 2 PCR NOT DETECTED 09/05/21 20:09 Nasal Parainfluen 3 PCR NOT DETECTED 09/05/21 20:09 Nasal Parainfluen 4 PCR NOT DETECTED 09/05/21 20:09 Nasal RSV (PCR) NOT DETECTED 09/05/21 20:09 Nasal B.pertussis DNA PCR NOT DETECTED 09/05/21 20:09 Nasal C.pneumoniae (PCR) NOT DETECTED 09/05/21 20:09 [place] Human Metapneumo PCR NOT DETECTED 09/05/21 20:09 Nasal M.pneumoniae (PCR) NOT DETECTED 09/05/21 20:09 Nasal SARS-CoV-2 (PCR) DETECTED A 09/05/21 20:09 Stl Occult Blood (IFOB) POSITIVE (NEGATIVE) A 09/07/21 07:50 Blood Type A NEGATIVE 09/06/21 08:45 Blood Type Recheck A NEGATIVE 09/06/21 06:55 Antibody Screen NEGATIVE 09/06/21 08:45 Crossmatch IS Only See Detail 09/06/21 08:45
[2021-09-08] MEDS: SODIUM CHLORIDE FLUSH 0.9% 10 ML SYRINGE IVP PRN (20:28)
[2021-09-09] MEDS: SODIUM CHLORIDE FLUSH 0.9% 10 ML SYRINGE IVP SCH ×3 (02:22→16:07)
[2021-09-09 05:23] LABS: BASOPHILS % (AUTO) 0.1 %; HCT - HEMATOCRIT 31.3 % (42.0-52.0); HGB - HEMOGLOBIN 9.9 g/dL (14.0-18.0); MEAN CORPUSCULAR HEMOGLOBIN 30.6 pg (27.0-31.0); MEAN CORPUSCULAR HGB CONC 31.6 g/dL (32.0-36.0); MEAN CORPUSCULAR VOLUME 96.6 fL (80.0-94.0); MEAN PLATELET VOLUME 12.5 fL (7.4-11.4); MONOCYTES % (AUTO) 5.1 %; NEUTROPHILS % (AUTO) 87.8 %; PLT - PLATELET COUNT 218 10^3/uL (130-450); RED BLOOD COUNT 3.24 10^6/uL (4.70-6.10); RED CELL DISTRIBUTION WIDTH 18.7 % (12.0-15.0)
[2021-09-09 05:26] LABS: ABNORMAL LYMPHS % (MANUAL) 0 %; BAND NEUTROPHILS % (MANUAL) 0 %
[2021-09-09 05:27] LABS: INR 1.5 (0.8-1.2); PT - PROTHROMBIN TIME 16.2 secs (9.9-12.6)
[2021-09-09 05:32] LABS: CALCIUM 7.8 mg/dL (8.5-10.3); CREATININE 1.9 mg/dL (0.6-1.2); POTASSIUM 4.9 mmol/L (3.5-5.0)
[2021-09-09 05:49] LABS: LYMPHOCYTES # (MANUAL) 0.4 10^3/uL (1.5-3.5); LYMPHOCYTES % (MANUAL) 6 %; MONOCYTES # (MANUAL) 0.4 10^3/uL (0.0-1.0); NEUTROPHILS # (MANUAL) 6.2 10^3/uL (1.5-6.6)
[2021-09-09 05:51] LABS: DIFFERENTIAL COMMENT MANUAL DIFFERENTIAL; PLATELET ESTIMATE, MANUAL NORMAL (130-450,000) (NORMAL); PLATELET MORPHOLOGY NORMAL APPEARANCE (NORMAL); WBC MORPHOLOGY (MULTIPLE) NORMAL APPEARANCE (NORMAL)
--- NOTE | 2021-09-09 07:48 | PROVIDER PROGRESS NOTE ---
Subjective - General Admit Date: 09/05/21 - Review of Systems All Other Systems: positive: Reviewed and negative - Other Other Information/Narrative: BM yesterday dark-stained but no further bleeding, and Hgb stable at 9.6 -> 9.6 -> 9.9. Off octreotide gtt and continuing PPI BID. Objective - Patient Data Reviewed Vital Signs: Yes Vital Signs: Vital Signs x48h Temp Pulse Resp BP Pulse Ox 09/09/21 04:56 36.8 C 62 18 148/67 H 95 09/09/21 00:00 36.4 C L 59 L 20 146/57 H 96 Intake & Output: Intake and Output Totals x24h 09/07/21 09/08/21 09/09/21 23:59 23:59 23:59 Intake Total 740 680 300 Output Total 1070 1200 500 Balance -330 -520 -200 - Lab Results Lab Results: 09/09/21 04:50 09/09/21 04:50 Other Lab Results: Lab Results x24hrs 09/09/21 09/09/21 09/09/21 Range/Units 04:50 04:50 04:50 WBC 7.0 (4.8-10.8) x10^3/uL RBC 3.24 L (4.70-6.10) 10^6/uL Hgb 9.9 L (14.0-18.0) g/dL Hct 31.3 L (42.0-52.0) % MCV 96.6 H (80.0-94.0) fL MCH 30.6 (27.0-31.0) pg MCHC 31.6 L (32.0-36.0) g/dL RDW 18.7 H (12.0-15.0) % Plt Count 218 (130-450) 10^3/uL MPV 12.5 H (7.4-11.4) fL Neut # (Auto) Not Reportable Lymph # (Auto) Not Reportable [place] # (Auto) Not Reportable Eos # (Auto) Not Reportable Baso # (Auto) Not Reportable Absolute Nucleated RBC Not Reportable Total Counted 100 Band Neuts % (Manual) 0 (0 - 10) % Abnorm Lymph % (Manual) 0 % Nucleated RBC % Not Reportable Neutrophils # (Manual) 6.2 (1.5-6.6) 10^3/uL Lymphocytes # (Manual) 0.4 L (1.5-3.5) 10^3/uL Monocytes # (Manual) 0.4 (0.0-1.0) 10^3/uL Eosinophils # (Manual) 0.0 (0-0.7) 10^3/uL Basophils # (Manual) 0.0 (0-0.1) 10^3/uL Differential Comment MANUAL DIFFERENTIAL WBC Morphology NORMAL APPEARANCE (NORMAL) Platelet Estimate NORMAL (130-450,000) (NORMAL) Platelet Morphology NORMAL APPEARANCE (NORMAL) RBC Morph Micro Appear 1+ ANISOCYTOSIS (NORMAL) PT 16.2 H (9.9-12.6) secs INR 1.5 H (0.8-1.2) Sodium 144 (135-145) mmol/L Potassium 4.9 (3.5-5.0) mmol/L Chloride 115 H (101-111) mmol/L Carbon Dioxide 20 L (21-32) mmol/L Anion Gap 9.0 (6-13) BUN 64 H (6-20) mg/dL Creatinine 1.9 H (0.6-1.2) mg/dL Estimated GFR (MDRD) 34 L (>89) Glucose 194 H (70-100) mg/dL Calcium 7.8 L (8.5-10.3) mg/dL - Current Medications Current Medications: Current Medications Generic Name Dose Route Start Last Admin Trade Name Freq PRN Reason Stop Dose Admin Albuterol 2 puffs 09/05/21 17:54 09/05/21 18:21 Albuterol 1 Puff INH 2 puffs Q6H PRN Administration Shortness of Air/Wheezing Dexamethasone 6 mg 09/05/21 20:00 09/08/21 07:53 Dexamethasone 10 Mg/Ml Vial IVP 6 mg DAILY DARLYN Administration Remdesivir 100 mg/ Sodium 100 mls @ 200 mls/hr 09/07/21 09:00 09/08/21 11:25 Chloride IV 09/10/21 09:29 Infused DAILY DARLYN Infusion Insulin Aspart 1 - 5 unit 09/08/21 17:00 09/08/21 20:28 Insulin Aspart 300 Unit/3 Ml Pen SUBQ 1 unit 0800,1200,1700,2100 DARLYN Administration Protocol Nystatin 1 applic 09/05/21 19:02 09/08/21 20:28 Nystatin Powder 15 Gm TOP 1 applic BID DARLYN Administration Pantoprazole Sodium 40 mg 09/07/21 10:00 09/08/21 20:28 Pantoprazole 40 Mg Vial IVP 40 mg BID DARLYN Administration Sodium Chloride 10 ml 09/05/21 17:12 09/08/21 20:28 Sodium Chloride Flush 0.9% 10 Ml Syringe IVP 10 ml PRN PRN Administration NEEDED PER PROVIDER ORDERS Sodium Chloride 10 ml 09/06/21 01:00 09/09/21 02:22 Sodium Chloride Flush 0.9% 10 Ml Syringe IVP Not Given 0100,0900,1700 DARLYN - Physical Exam General Appearance: positive: No acute distress Respiratory: positive: Other (Breathing comfortably on nasal cannula) Abdomen: positive: Non-tender Impression/Plan - Problem List Problem List: 86yo man with prostate cancer, essential thrombocythemia, chronic indwelling eddy, CKD, chronic anemia, anticoagulation with warfarin for recurrent DVT/PE, who presented with COVID-19 infection and then developed acute blood loss anemia while supratherapeutic on warfarin. Hgb went from 7.8 to 5.9, then overcorrected to 9.6 with 2 units pRBCs and has now been stable with recheck at 9.6 and 9.9. Recommend holding coumadin, continue PPI BID, and f/u in general surgery clinic for outpatient upper and lower endoscopy. Mike Galvan MD [phone]
[2021-09-09] MEDS: DEXAMETHASONE 10 MG/ML VIAL IVP SCH (08:14)
[2021-09-09] MEDS: INSULIN ASPART 300 UNIT/3 ML PEN SUBQ SCH ×3 (08:14→21:39)
[2021-09-09] MEDS: PANTOPRAZOLE 40 MG VIAL IVP SCH ×2 (08:15→21:38)
[2021-09-09] MEDS: NYSTATIN POWDER 15 GM TOP SCH ×2 (08:15→21:38)
[2021-09-09] MEDS: REMDESIVIR 100MG VIAL 100 MG in SODIUM CHLORIDE 0.9% 100ML 100 ML IV SCH (10:37)
[2021-09-09] MEDS: DEXTROSE 5%-0.45% NACL 1,000 ML IV SCH ×2 (10:37→21:38)
[2021-09-09 11:22] LABS: ESTIMATED AVERAGE GLUCOSE 114 mg/dL (70-100); HEMOGLOBIN A1c% 5.6 % (4.27-6.07)
--- NOTE | 2021-09-09 13:40 | PROVIDER PROGRESS NOTE ---
Assessment/Plan - Problem List (1) Respiratory failure with hypoxia Qualifiers: Chronicity: acute Qualified Code(s): J96.01 - Acute respiratory failure with hypoxia Assessment/Plan: 09/09 pt still need 4 liter of O2 and have 96% O2 sats continue treatment with Remdesivir, decadron, hold his blood thinner because of GI bleeding. Supplemental oxygen as needed (2) Pneumonia due to COVID-19 virus Impression: as the above, continue treatment with Remdesvir, Decadron, supplemental oxygen as needed. (3) GI bleed Impression: HGB is slight elevated now. pt was found to have GI bleed, his blood thinner was hold. pt had two units of blood transfusion. pt was consulted for GI surgeon, recommend for medical management. pt was treated with Protonix IV. continue H&H, continue protonic, hold blood thinner now. followup with GI surgeon (4) RUDDY (acute kidney injury) Impression: creatinine is 1.9, improved. continue IVF gently, continue lab monitor, avoid nephrotoxic agents. (5) Hypernatremia Impression: Sodium is 144 now. continue gently D5 1/2 NS. it is likely hypovolmia and hypernatremia. Will continue to monitor BMP daily. (6) Anemia slight elevated HGB now. it is likely combination of chronic anemia, acute blood loss from GI bleed, continue home iron pill and lab monitor (7) Hx of deep venous thrombosis Impression: Pt has a hx of DVT and was on Coumadin. With his GI bleed, anticioagulants have been hold. (8) Supratherapeutic INR Impression: Resolved. INR was 3.8 yesterday, however after vitamin K administration it is now 1.3. (5) Anemia Qualifiers: Anemia type: unspecified type Qualified Code(s): D64.9 - Anemia, unspecified - Current Meds Current Meds: Current Medications Generic Name Dose Route Start Last Admin Trade Name Freq PRN Reason Stop Dose Admin Albuterol 2 puffs 09/05/21 17:54 09/05/21 18:21 Albuterol 1 Puff INH 2 puffs Q6H PRN Administration Shortness of Air/Wheezing Dexamethasone 6 mg 09/05/21 20:00 09/09/21 08:14 Dexamethasone 10 Mg/Ml Vial IVP 6 mg DAILY DARLYN Administration Remdesivir 100 mg/ Sodium 100 mls @ 200 mls/hr 09/07/21 09:00 09/09/21 11:15 Chloride IV 09/10/21 09:29 Infused DAILY DARLYN Infusion Dextrose/Sodium Chloride 1,000 mls @ 83.333 mls/hr 09/09/21 09:00 09/09/21 10:37 D5.45ns IV 09/10/21 08:59 83.333 mls/hr .Q12H DARLYN Administration Insulin Aspart 1 - 5 unit 09/08/21 17:00 09/09/21 12:00 Insulin Aspart 300 Unit/3 Ml Pen SUBQ 2 unit 0800,1200,1700,2100 DARLYN Administration Protocol Nystatin 1 applic 09/05/21 19:02 09/09/21 08:15 Nystatin Powder 15 Gm TOP 1 applic BID DARLYN Administration Pantoprazole Sodium 40 mg 09/07/21 10:00 09/09/21 08:15 Pantoprazole 40 Mg Vial IVP 40 mg BID DARLYN Administration Sodium Chloride 10 ml 09/05/21 17:12 09/08/21 20:28 Sodium Chloride Flush 0.9% 10 Ml Syringe IVP 10 ml PRN PRN Administration NEEDED PER PROVIDER ORDERS Sodium Chloride 10 ml 09/06/21 01:00 09/09/21 08:15 Sodium Chloride Flush 0.9% 10 Ml Syringe IVP 20 ml 0100,0900,1700 DARLYN Administration - Lab Result Fish Bone Diagrams: 09/09/21 04:50 09/09/21 04:50 - Additional Planning My Orders: My Active Orders 09/09/21 09:00 Dextrose 5%-0.45% NaCl [D5.45ns] 1,000 ml IV 83.333 mls/hr 09/09/21 21:00 Atorvastatin [Lipitor] 10 mg PO QPM Fluticasone [Flonase] 1 sprays [place] BID Gabapentin [Neurontin] 300 mg PO BID 09/10/21 05:00 BMP - BASIC METABOLIC PANEL [CHEM] DAILYLAB CBC - COMP BLD CT W/AUTO DIFF [HEME] DAILYLAB PT WITH INR [COAG] DAILYLAB 09/10/21 08:00 Ferrous Sulfate [Feosol] 325 mg PO DAILYWM 09/10/21 09:00 Metoprolol Succinate [Toprol Xl] 50 mg PO DAILY amLODIPine [Norvasc] 5 mg PO DAILY lisinopriL [Zestril] 2.5 mg PO DAILY 09/11/21 05:00 BMP - BASIC METABOLIC PANEL [CHEM] DAILYLAB CBC - COMP BLD CT W/AUTO DIFF [HEME] DAILYLAB PT WITH INR [COAG] DAILYLAB 09/12/21 05:00 BMP - BASIC METABOLIC PANEL [CHEM] DAILYLAB CBC - COMP BLD CT W/AUTO DIFF [HEME] DAILYLAB PT WITH INR [COAG] DAILYLAB 09/13/21 05:00 BMP - BASIC METABOLIC PANEL [CHEM] DAILYLAB CBC - COMP BLD CT W/AUTO DIFF [HEME] DAILYLAB PT WITH INR [COAG] DAILYLAB Subjective - Subjective Patient Reports: Resting Comfortably Objective Vital Signs: Vital Signs - 24 hr 09/08/21 09/08/21 09/08/21 14:08 15:53 20:24 Temperature 36.3 C L 36.6 C Heart Rate [ 67 66 62 Monitoring electrodes] Respiratory 17 18 18 Rate Blood Pressure 133/64 H 150/61 H 155/65 H [Right Brachial artery] Blood Pressure [Right Radial artery] O2 Saturation 98 95 94 09/09/21 09/09/21 09/09/21 00:00 04:56 07:48 Temperature 36.4 C L 36.8 C Heart Rate [ 59 L 62 57 L Monitoring electrodes] Respiratory 20 18 18 Rate Blood Pressure [Right Brachial artery] Blood Pressure 146/57 H 148/67 H 148/59 H [Right Radial artery] O2 Saturation 96 95 90 L 09/09/21 11:48 Temperature 36.2 C L Heart Rate [ 56 L Monitoring electrodes] Respiratory 20 Rate Blood Pressure [Right Brachial artery] Blood Pressure 147/57 H [Right Radial artery] O2 Saturation 96 Oxygen O2 Source Nasal cannula I&O (Last 24 Hrs): Intake and Output Totals x24h 09/07/21 09/08/21 09/09/21 23:59 23:59 23:59 Intake Total 740 680 830 Output Total 1070 1200 975 Balance -330 -520 -145 General: Alert, No acute distress HEENT: Atraumatic Neck: Supple Lymphatic: no adenopathy Neuro: Alert, Non Focal Cardiovascular: Regular rate, Normal S1, Normal S2 Respiratory: Chest non-tender, No respiratory distress Abdomen: Normal bowel sounds, Soft Extremities: Normal pulses - Results Results: Laboratory Results WBC 7.0 x10^3/uL (4.8-10.8) 09/09/21 04:50 RBC 3.24 10^6/uL (4.70-6.10) L 09/09/21 04:50 Hgb 9.9 g/dL (14.0-18.0) L 09/09/21 04:50 Hct 31.3 % (42.0-52.0) L 09/09/21 04:50 MCV 96.6 fL (80.0-94.0) H 09/09/21 04:50 MCH 30.6 pg (27.0-31.0) 09/09/21 04:50 MCHC 31.6 g/dL (32.0-36.0) L 09/09/21 04:50 RDW 18.7 % (12.0-15.0) H 09/09/21 04:50 Plt Count 218 10^3/uL (130-450) 09/09/21 04:50 MPV 12.5 fL (7.4-11.4) H 09/09/21 04:50 Reticulocyte % (Auto) 2.99 % (0.5-2.3) H 09/05/21 19:36 Neut # (Auto) Not Reportable 09/09/21 04:50 Lymph # (Auto) Not Reportable 09/09/21 04:50 [place] # (Auto) Not Reportable 09/09/21 04:50 Eos # (Auto) Not Reportable 09/09/21 04:50 Baso # (Auto) Not Reportable 09/09/21 04:50 Absolute Nucleated RBC Not Reportable 09/09/21 04:50 Total Counted 100 09/09/21 04:50 Band Neuts % (Manual) 0 % (0-10) 09/09/21 04:50 Abnorm Lymph % (Manual) 0 % 09/09/21 04:50 Nucleated RBC % Not Reportable 09/09/21 04:50 Neutrophils # (Manual) 6.2 10^3/uL (1.5-6.6) 09/09/21 04:50 Lymphocytes # (Manual) 0.4 10^3/uL (1.5-3.5) L 09/09/21 04:50 Monocytes # (Manual) 0.4 10^3/uL (0.0-1.0) 09/09/21 04:50 Eosinophils # (Manual) 0.0 10^3/uL (0-0.7) 09/09/21 04:50 Basophils # (Manual) 0.0 10^3/uL (0-0.1) 09/09/21 04:50 Nucleated RBCs 3 % 09/07/21 04:30 Differential Comment MANUAL DIFFERENTIAL 09/09/21 04:50 WBC Morphology NORMAL APPEARANCE (NORMAL) 09/09/21 04:50 Platelet Estimate NORMAL (130-450,000) (NORMAL) 09/09/21 04:50 Platelet Morphology NORMAL APPEARANCE (NORMAL) 09/09/21 04:50 RBC Morph Micro Appear 2+ HYPOCHROMASIA (NORMAL) 1+ OVALOCYTES (NORMAL) 1+ ANISOCYTOSIS (NORMAL) 09/09/21 04:50 RBC Morph Micro Appear 2+ HYPOCHROMASIA (NORMAL) 1+ OVALOCYTES (NORMAL) 1+ ANISOCYTOSIS (NORMAL) 09/09/21 04:50 RBC Morph Micro Appear 2+ HYPOCHROMASIA (NORMAL) 1+ OVALOCYTES (NORMAL) 1+ ANISOCYTOSIS (NORMAL) 09/09/21 04:50 Absolute Retic 0.065 10^6/uL (0.020-0.110) 09/05/21 19:36 PT 16.2 secs (9.9-12.6) H 09/09/21 04:50 INR 1.5 (0.8-1.2) H 09/09/21 04:50 Sodium 144 mmol/L (135-145) 09/09/21 04:50 Potassium 4.9 mmol/L (3.5-5.0) 09/09/21 04:50 Chloride 115 mmol/L (101-111) H 09/09/21 04:50 Carbon Dioxide 20 mmol/L (21-32) L 09/09/21 04:50 Anion Gap 9.0 (6-13) 09/09/21 04:50 BUN 64 mg/dL (6-20) H 09/09/21 04:50 Creatinine 1.9 mg/dL (0.6-1.2) H 09/09/21 04:50 Estimated GFR (MDRD) 34 (>89) L 09/09/21 04:50 Glucose 194 mg/dL (70-100) H 09/09/21 04:50 Estimat Average Glucose 114 mg/dL (70-100) H 09/09/21 04:50 Hemoglobin A1c % 5.6 % (4.27-6.07) 09/09/21 04:50 Lactic Acid 1.2 mmol/L (0.5-2.2) 09/05/21 15:43 Calcium 7.8 mg/dL (8.5-10.3) L 09/09/21 04:50 Phosphorus 4.6 mg/dL (2.5-4.6) 09/05/21 15:43 Magnesium 2.9 mg/dL (1.7-2.8) H 09/05/21 15:43 Iron 31 ug/dL (45-182) L 09/05/21 19:36 TIBC 181 ug/dL (250-450) L 09/05/21 19:36 % Saturation 17 % (20-50) L 09/05/21 19:36 Transferrin 129 mg/dL (180-329) L 09/05/21 19:36 Ferritin 686.8 ng/mL (23.9-336.2) H 09/05/21 19:36 Total Bilirubin 0.8 mg/dL (0.2-1.0) 09/05/21 15:43 AST 32 IU/L (10-42) 09/05/21 15:43 ALT 21 IU/L (10-60) 09/05/21 15:43 Alkaline Phosphatase 46 IU/L (42-121) 09/05/21 15:43 Lactate Dehydrogenase 335 IU/L (91-225) H 09/05/21 19:36 Total Protein 6.5 g/dL (6.7-8.2) L 09/05/21 15:43 Albumin 3.3 g/dL (3.2-5.5) 09/05/21 15:43 Globulin 3.2 g/dL (2.1-4.2) 09/05/21 15:43 Albumin/Globulin Ratio 1.0 (1.0-2.2) 09/05/21 15:43 Vitamin B12 1270 pg/mL (180-914) H 09/05/21 19:36 Urine Color YELLOW 09/05/21 16:14 Urine Clarity CLEAR (CLEAR) 09/05/21 16:14 Urine pH 5.5 PH (5.0-7.5) 09/05/21 16:14 Ur Specific [place] 1.020 (1.002-1.030) 09/05/21 16:14 Urine Protein TRACE mg/dL (NEGATIVE) 09/05/21 16:14 Urine Glucose (UA) NEGATIVE mg/dL (NEGATIVE) 09/05/21 16:14 Urine Ketones TRACE mg/dL (NEGATIVE) 09/05/21 16:14 Urine Occult Blood TRACE-LYSE (NEGATIVE) 09/05/21 16:14 Urine Nitrite NEGATIVE (NEGATIVE) 09/05/21 16:14 Urine Bilirubin NEGATIVE (NEGATIVE) 09/05/21 16:14 Urine Urobilinogen 0.2 (NORMAL) E.U./dL (NORMAL) 09/05/21 16:14 Ur Leukocyte Esterase NEGATIVE (NEGATIVE) 09/05/21 16:14 Ur Microscopic Review NOT INDICATED 09/05/21 16:14 Urine Culture Comments NOT INDICATED 09/05/21 16:14 Nasal Adenovirus (PCR) NOT DETECTED 09/05/21 20:09 Nasal B. parapertussis DNA (PCR) NOT DETECTED 09/05/21 20:09 Nasal Coronavir 229E PCR NOT DETECTED 09/05/21 20:09 Nasal Coronavir HKU1 PCR NOT DETECTED 09/05/21 20:09 Nasal Coronavir NL63 PCR NOT DETECTED 09/05/21 20:09 Nasal Coronavir OC43 PCR NOT DETECTED 09/05/21 20:09 Nasal Enterovir/Rhinovir PCR NOT DETECTED 09/05/21 20:09 Nasal Influenza B PCR NOT DETECTED 09/05/21 20:09 Nasal Influenza A PCR NOT DETECTED 09/05/21 20:09 Nasal Parainfluen 1 PCR NOT DETECTED 09/05/21 20:09 Nasal Parainfluen 2 PCR NOT DETECTED 09/05/21 20:09 Nasal Parainfluen 3 PCR NOT DETECTED 09/05/21 20:09 Nasal Parainfluen 4 PCR NOT DETECTED 09/05/21 20:09 Nasal RSV (PCR) NOT DETECTED 09/05/21 20:09 Nasal B.pertussis DNA PCR NOT DETECTED 09/05/21 20:09 Nasal C.pneumoniae (PCR) NOT DETECTED 09/05/21 20:09 Louis Human Metapneumo PCR NOT DETECTED 09/05/21 20:09 Nasal M.pneumoniae (PCR) NOT DETECTED 09/05/21 20:09 Nasal SARS-CoV-2 (PCR) DETECTED A 09/05/21 20:09 Stl Occult Blood (IFOB) POSITIVE (NEGATIVE) A 09/07/21 07:50 Blood Type A NEGATIVE 09/06/21 08:45 Blood Type Recheck A NEGATIVE 09/06/21 06:55 Antibody Screen NEGATIVE 09/06/21 08:45 Crossmatch IS Only See Detail 09/06/21 08:45 ABX Reporting Has patient been on IV antibiotics over the past 48 hours?: No Current Medications - Current Medications Current Medications: Active Medications Acetaminophen (Acetaminophen 325 Mg Tablet) 650 mg PO Q4HR PRN PRN Reason: Pain 1 to 4 Albuterol (Albuterol 1 Puff) 2 puffs INH Q6H PRN PRN Reason: Shortness of Air/Wheezing Last Admin: 09/05/21 18:21 Dose: 2 puffs Amlodipine Besylate (Amlodipine 5 Mg Tablet) 5 mg PO DAILY [facility] Atorvastatin Calcium (Atorvastatin 10 Mg Tablet) 10 mg PO QPM [facility] Dexamethasone (Dexamethasone 10 Mg/Ml Vial) 6 mg IVP DAILY [facility] Last Admin: 09/09/21 08:14 Dose: 6 mg Ferrous Sulfate (Ferrous Sulfate 325 Mg Tablet) 325 mg PO DAILYWM [facility] Fluticasone Propionate (Fluticasone Nasal [place]) 1 sprays [place] BID [facility] Gabapentin (Gabapentin 300 Mg Capsule) 300 mg PO BID [facility] Remdesivir 100 mg/ Sodium (Chloride) 100 mls @ 200 mls/hr IV DAILY [facility] Stop: 09/10/21 09:29 Last Infusion: 09/09/21 11:15 Dose: Infused Dextrose/Sodium Chloride (D5.45ns) 1,000 mls @ 83.333 mls/hr IV .Q12H [facility] Stop: 09/10/21 08:59 Last Admin: 09/09/21 10:37 Dose: 83.333 mls/hr Insulin Aspart (Insulin Aspart 300 Unit/3 Ml Pen) 1 - 5 unit SUBQ 0800,1200,1700,2100 [facility]; Protocol Last Admin: 09/09/21 12:00 Dose: 2 unit Lisinopril (Lisinopril 5 Mg Tablet) 2.5 mg PO DAILY [facility] Metoprolol Succinate (Metoprolol Succinate 50 Mg Tablet) 50 mg PO DAILY [facility] Nystatin (Nystatin Powder 15 Gm) 1 applic TOP BID [facility] Last Admin: 09/09/21 08:15 Dose: 1 applic Ondansetron HCl (Ondansetron 4 Mg/2 Ml Vial) 4 mg IVP Q6HR PRN PRN Reason: Nausea / Vomiting Pantoprazole Sodium (Pantoprazole 40 Mg Vial) 40 mg IVP BID [facility] Last Admin: 09/09/21 08:15 Dose: 40 mg Sodium Chloride (Sodium Chloride Flush 0.9% 10 Ml Syringe) 10 ml IVP PRN PRN PRN Reason: NEEDED PER PROVIDER ORDERS Last Admin: 09/08/21 20:28 Dose: 10 ml Sodium Chloride (Sodium Chloride Flush 0.9% 10 Ml Syringe) 10 ml IVP 0100,0900,1700 [facility] Last Admin: 09/09/21 08:15 Dose: 20 ml Gabapentin [Neurontin] 300 mg PO BID 02/08/13 Warfarin Sodium [Coumadin] 4 mg PO DAILY 02/08/13 Anagrelide HCl 0.5 mg PO BID 06/19/13 Fluticasone [Flonase] 1 spray [place] BID 09/03/15 Aspirin EC [Ecotrin] 81 mg PO DAILY 09/07/21 Ferrous Sulfate 325 mg PO DAILY 09/07/21 Lisinopril [Zestril] 2.5 mg PO DAILY 09/07/21 Metoprolol Succinate [Toprol Xl] 50 mg PO DAILY 09/07/21 Rosuvastatin Calcium [Crestor] 5 mg PO QPM 09/07/21 amLODIPine [Norvasc] 5 mg PO DAILY 09/07/21
[2021-09-09 15:26] LABS: HCT - HEMATOCRIT 31.4 % (42.0-52.0); HGB - HEMOGLOBIN 9.9 g/dL (14.0-18.0)
[2021-09-09] MEDS ORDERED: INSULIN ASPART 300 UNIT/3 ML PEN SUBQ SCH (17:00)
--- NOTE | 2021-09-09 18:46 | XRAY Report ---
PROCEDURE: Chest 1 View X-Ray INDICATIONS: sob TECHNIQUE: One view of the chest was acquired. COMPARISON: Chest radiographs 09/05/2021 FINDINGS: Surgical changes and devices: None. Lungs and pleura: Low lung volumes are noted bilaterally. Opacities in the left mid and lower lung zo cameron are suspicious for pneumonia. Mildly increased lung markings in the right lung may be secondary t o atelectasis or airspace opacities. Mediastinum: Mediastinal contours appear normal. Heart size is normal. Bones and chest wall: No suspicious bony lesions. Overlying soft tissues appear unremarkable. IMPRESSION: Left lower lobe opacities appear worse when compared to the exam from 09/05/2021, suspicious for worse carole pneumonia. Reviewed by: Jose Bennett MD on 09/09/2021 6:44 PM PST Approved by: Jose Bennett MD on 09/09/2021 6:44 PM PST Station ID: [id number]
[2021-09-09] MEDS: GABAPENTIN 300 MG CAPSULE PO SCH (21:37)
[2021-09-09] MEDS: ATORVASTATIN 10 MG TABLET PO SCH (21:37)
[2021-09-09] MEDS: FLUTICASONE NASAL SPRAY NAS SCH (21:37)
[2021-09-09] MEDS: SODIUM CHLORIDE FLUSH 0.9% 10 ML SYRINGE IVP PRN (21:38)
[2021-09-10] MEDS: SODIUM CHLORIDE FLUSH 0.9% 10 ML SYRINGE IVP SCH ×3 (00:34→17:06)
[2021-09-10 05:36] LABS: BASOPHILS % (AUTO) 0.1 %; HCT - HEMATOCRIT 29.4 % (42.0-52.0); HGB - HEMOGLOBIN 9.4 g/dL (14.0-18.0); LYMPHOCYTES # (AUTO) 0.3 10^3/uL (1.5-3.5); LYMPHOCYTES % (AUTO) 4.3 %; MEAN CORPUSCULAR HEMOGLOBIN 30.6 pg (27.0-31.0); MEAN CORPUSCULAR VOLUME 95.8 fL (80.0-94.0); MEAN PLATELET VOLUME 12.5 fL (7.4-11.4); MONOCYTES # (AUTO) 0.4 10^3/uL (0.0-1.0); MONOCYTES % (AUTO) 5.2 %; NEUTROPHILS # (AUTO) 6.6 10^3/uL (1.5-6.6); NEUTROPHILS % (AUTO) 88.9 %; NRBC ABSOLUTE COUNT (AUTO) 0.03 x10^3/uL; NUCLEATED RED BLOOD CELLS AUTO 0.4 /100WBC; PLT - PLATELET COUNT 198 10^3/uL (130-450); RED BLOOD COUNT 3.07 10^6/uL (4.70-6.10); RED CELL DISTRIBUTION WIDTH 18.6 % (12.0-15.0); WHITE BLOOD COUNT 7.5 x10^3/uL (4.8-10.8)
[2021-09-10 05:45] LABS: CALCIUM 7.4 mg/dL (8.5-10.3); CREATININE 1.6 mg/dL (0.6-1.2); POTASSIUM 4.6 mmol/L (3.5-5.0)
[2021-09-10] MEDS ORDERED: AZITHROMYCIN 250 MG TABLET PO STA (07:51)
[2021-09-10] MEDS: GABAPENTIN 300 MG CAPSULE PO SCH ×2 (08:16→21:07)
[2021-09-10] MEDS: FERROUS SULFATE 325 MG TABLET PO SCH (08:16)
[2021-09-10] MEDS: INSULIN ASPART 300 UNIT/3 ML PEN SUBQ SCH ×4 (08:17→21:08)
[2021-09-10] MEDS: CHOLECALCIFEROL 25 MCG TABLET PO SCH (08:17)
[2021-09-10] MEDS: cefTRIAXone 1 GM in SODIUM CHLORIDE 0.9% MINIBAG 100 ML IV SCH (08:17)
[2021-09-10] MEDS: DEXAMETHASONE 10 MG/ML VIAL IVP SCH (08:17)
[2021-09-10] MEDS: NYSTATIN POWDER 15 GM TOP SCH ×2 (08:18→21:08)
[2021-09-10] MEDS: FLUTICASONE NASAL SPRAY NAS SCH ×2 (08:18→21:08)
[2021-09-10] MEDS: PANTOPRAZOLE 40 MG VIAL IVP SCH ×2 (08:18→21:07)
[2021-09-10] MEDS: amLODIPine 5 MG TABLET PO SCH (08:34)
[2021-09-10] MEDS: lisinopriL 5 MG TABLET PO SCH (08:34)
[2021-09-10] MEDS ORDERED: METOPROLOL SUCCINATE 50 MG TABLET PO SCH (09:00)
[2021-09-10] MEDS: REMDESIVIR 100MG VIAL 100 MG in SODIUM CHLORIDE 0.9% 100ML 100 ML IV SCH (10:11)
[2021-09-10] MEDS: SACCHAROMYCES BOULARDII 250 MG CAPSULE PO SCH ×2 (10:14→17:19)
[2021-09-10] MEDS ORDERED: FUROSEMIDE 20 MG TABLET PO SCH (11:00)
[2021-09-10] MEDS ORDERED: FUROSEMIDE 20 MG/2 ML VIAL IVP SCH (11:00)
--- NOTE | 2021-09-10 14:36 | PROVIDER PROGRESS NOTE ---
Assessment/Plan - Problem List (1) Respiratory failure with hypoxia Qualifiers: Chronicity: acute Qualified Code(s): J96.01 - Acute respiratory failure with hypoxia Assessment/Plan: 09/10 pt was on 5 Liter oxygen and have 96% oxygen saturation, slight worsening. CXR reveal worsening pneumonia. plan: add antibiotics and probiotics, continue treatment with Remdesivir, decadron, hold his blood thinner because of GI bleeding. Supplemental oxygen as needed, add once Lasix. 09/09 pt still need 4 liter of O2 and have 96% O2 sats continue treatment with Remdesivir, decadron, hold his blood thinner because of GI bleeding. Supplemental oxygen as needed (2) Pneumonia due to COVID-19 virus Impression: 09/30 as the above, add antibiotics and probiotics, and continue treatment with Remdesvir, Decadron, supplemental oxygen as needed. (3) GI bleed Impression: 09/30 HGB is stable, continue Protonix, hold blood thinner, and continue lab monitor HGB is slight elevated now. pt was found to have GI bleed, his blood thinner was hold. pt had two units of blood transfusion. pt was consulted for GI surgeon, recommend for medical management. pt was treated with Protonix IV. continue H&H, continue protonic, hold blood thinner now. followup with GI surgeon (4) RUDDY (acute kidney injury) Impression: 09/30 improved, creatinine is 1.6 as pt's baseline, continue lab monitor, avoid nephrotoxic agents. creatinine is 1.9, improved. continue IVF gently, continue lab monitor, avoid nephrotoxic agents. (5) Hypernatremia Impression: 09/30 Sodium is 141, resolved. Sodium is 144 now. continue gently D5 1/2 NS. it is likely hypovolmia and hypernatremia. Will continue to monitor BMP daily. (6) Anemia slight elevated HGB now. it is likely combination of chronic anemia, acute blood loss from GI bleed, continue home iron pill and lab monitor (7) Hx of deep venous thrombosis Impression: Pt has a hx of DVT and was on Coumadin. With his GI bleed, anticioagulants have been hold. (8) Supratherapeutic INR Impression: Resolved. INR was 3.8 yesterday, however after vitamin K administration it is now 1.3. (5) Anemia Qualifiers: Anemia type: unspecified type Qualified Code(s): D64.9 - Anemia, unspecified - Current Meds Current Meds: Current Medications Generic Name Dose Route Start Last Admin Trade Name Yajaira PRN Reason Stop Dose Admin Acetaminophen 650 mg 09/05/21 17:12 09/10/21 10:12 Acetaminophen 325 Mg Tablet PO 650 mg Q4HR PRN Administration Pain 1 to 4 Albuterol 2 puffs 09/05/21 17:54 09/05/21 18:21 Albuterol 1 Puff INH 2 puffs Q6H PRN Administration Shortness of Air/Wheezing Amlodipine Besylate 5 mg 09/10/21 09:00 09/10/21 08:34 Amlodipine 5 Mg Tablet PO 5 mg DAILY DARLYN Administration Atorvastatin Calcium 10 mg 09/09/21 21:00 09/09/21 21:37 Atorvastatin 10 Mg Tablet PO 10 mg QPM DARLYN Administration Cholecalciferol 50 mcg 09/10/21 09:00 09/10/21 08:17 Cholecalciferol 25 Mcg Tablet PO 50 mcg DAILY DARLYN Administration Dexamethasone 6 mg 09/05/21 20:00 09/10/21 08:17 Dexamethasone 10 Mg/Ml Vial IVP 6 mg DAILY DARLYN Administration Ferrous Sulfate 325 mg 09/10/21 08:00 09/10/21 08:16 Ferrous Sulfate 325 Mg Tablet PO 325 mg DAILYWM DARLYN Administration Fluticasone Propionate 1 sprays 09/09/21 21:00 09/10/21 08:18 Fluticasone Nasal [place] 2 spray BID DARLYN Administration Gabapentin 300 mg 09/09/21 21:00 09/10/21 08:16 Gabapentin 300 Mg Capsule PO 300 mg BID DARLYN Administration Ceftriaxone Sodium 1 gm/ 100 mls @ 200 mls/hr 09/10/21 09:00 09/10/21 09:00 Sodium Chloride IV 09/14/21 09:29 Infused DAILY DARLYN Infusion Lisinopril 2.5 mg 09/10/21 09:00 09/10/21 08:34 Lisinopril 5 Mg Tablet PO 2.5 mg DAILY DARLYN Administration Nystatin 1 applic 09/05/21 19:02 09/10/21 08:18 Nystatin Powder 15 Gm TOP 1 applic BID DARLYN Administration Pantoprazole Sodium 40 mg 09/07/21 10:00 09/10/21 08:18 Pantoprazole 40 Mg Vial IVP 40 mg BID DARLYN Administration Saccharomyces Boulardii 250 mg 09/10/21 08:00 09/10/21 10:14 Saccharomyces Boulardii 250 Mg Capsule PO 250 mg BIDWM DARLYN Administration Sodium Chloride 10 ml 09/05/21 17:12 09/09/21 21:38 Sodium Chloride Flush 0.9% 10 Ml Syringe IVP 10 ml PRN PRN Administration NEEDED PER PROVIDER ORDERS Sodium Chloride 10 ml 09/06/21 01:00 09/10/21 08:20 Sodium Chloride Flush 0.9% 10 Ml Syringe IVP 10 ml 0100,0900,1700 DARLYN Administration - Lab Result Fish Bone Diagrams: 09/10/21 04:48 09/10/21 04:48 - Additional Planning My Orders: My Active Orders 09/09/21 21:00 Atorvastatin [Lipitor] 10 mg PO QPM Fluticasone [Flonase] 1 sprays [place] BID Gabapentin [Neurontin] 300 mg PO BID 09/10/21 08:00 Ferrous Sulfate [Feosol] 325 mg PO DAILYWM Saccharomyces Boulardii [Florastor] 250 mg PO BIDWM 09/10/21 09:00 Cholecalciferol [Vitamin D3] 50 mcg PO DAILY amLODIPine [Norvasc] 5 mg PO DAILY cefTRIAXone [Rocephin] 1 gm Sodium Chloride 0.9% Minibag [Normal Saline 0.9% Minibag] 100 ml IV DAILY lisinopriL [Zestril] 2.5 mg PO DAILY 09/11/21 05:00 BMP - BASIC METABOLIC PANEL [CHEM] DAILYLAB CBC - COMP BLD CT W/AUTO DIFF [HEME] DAILYLAB 09/11/21 09:00 Azithromycin [Zithromax] 250 mg PO DAILY 09/12/21 05:00 BMP - BASIC METABOLIC PANEL [CHEM] DAILYLAB CBC - COMP BLD CT W/AUTO DIFF [HEME] DAILYLAB 09/13/21 05:00 BMP - BASIC METABOLIC PANEL [CHEM] DAILYLAB CBC - COMP BLD CT W/AUTO DIFF [HEME] DAILYLAB Subjective - Subjective Patient Reports: Resting Comfortably Objective Vital Signs: Vital Signs - 24 hr 09/09/21 09/09/21 09/10/21 16:00 20:25 00:54 Temperature 36.6 C 36.6 C 36.5 C Heart Rate [ Activity] Heart Rate [ 61 70 69 Monitoring electrodes] Heart Rate [ Sitting] Heart Rate [ Supine] Respiratory 18 18 18 Rate Blood Pressure [Activity] Blood Pressure [Left Brachial artery] Blood Pressure 162/59 H 157/66 H 149/61 H [Right Radial artery] Blood Pressure [Sitting] Blood Pressure [Supine] O2 Saturation 94 97 96 09/10/21 09/10/21 09/10/21 05:00 08:35 10:29 Temperature 36.2 C L 36.6 C Heart Rate [ Activity] Heart Rate [ 61 66 Monitoring electrodes] Heart Rate [ Sitting] Heart Rate [ Supine] Respiratory 18 20 Rate Blood Pressure [Activity] Blood Pressure [Left Brachial artery] Blood Pressure 150/63 H 115/56 L [Right Radial artery] Blood Pressure [Sitting] Blood Pressure [Supine] O2 Saturation 92 93 09/10/21 09/10/21 11:40 11:49 Temperature Heart Rate [ 83 Activity] Heart Rate [ 67 Monitoring electrodes] Heart Rate [ 87 Sitting] Heart Rate [ 67 Supine] Respiratory 20 Rate Blood Pressure 94/51 L [Activity] Blood Pressure 124/61 [Left Brachial artery] Blood Pressure [Right Radial artery] Blood Pressure 105/75 [Sitting] Blood Pressure 124/61 [Supine] O2 Saturation 96 Oxygen O2 Source Nasal cannula I&O (Last 24 Hrs): Intake and Output Totals x24h 09/08/21 09/09/21 09/10/21 23:59 23:59 23:59 Intake Total 680 9035.339 0615.8 Output Total 1200 1375 1100 Balance -520 493.052 905.8 General: Alert, No acute distress HEENT: Atraumatic Neck: Supple Lymphatic: no adenopathy Neuro: Alert, Non Focal Cardiovascular: Regular rate, Normal S1, Normal S2 Respiratory: Chest non-tender, No respiratory distress Abdomen: Normal bowel sounds, Soft Extremities: Normal pulses - Results Results: Laboratory Results WBC 7.5 x10^3/uL (4.8-10.8) 09/10/21 04:48 RBC 3.07 10^6/uL (4.70-6.10) L 09/10/21 04:48 Hgb 9.4 g/dL (14.0-18.0) L 09/10/21 04:48 Hct 29.4 % (42.0-52.0) L 09/10/21 04:48 MCV 95.8 fL (80.0-94.0) H 09/10/21 04:48 MCH 30.6 pg (27.0-31.0) 09/10/21 04:48 MCHC 32.0 g/dL (32.0-36.0) 09/10/21 04:48 RDW 18.6 % (12.0-15.0) H 09/10/21 04:48 Plt Count 198 10^3/uL (130-450) 09/10/21 04:48 MPV 12.5 fL (7.4-11.4) H 09/10/21 04:48 Reticulocyte % (Auto) 2.99 % (0.5-2.3) H 09/05/21 19:36 Neut # (Auto) 6.6 10^3/uL (1.5-6.6) 09/10/21 04:48 Lymph # (Auto) 0.3 10^3/uL (1.5-3.5) L 09/10/21 04:48 [place] # (Auto) 0.4 10^3/uL (0.0-1.0) 09/10/21 04:48 Eos # (Auto) 0.0 10^3/uL (0.0-0.7) 09/10/21 04:48 Baso # (Auto) 0.0 10^3/uL (0.0-0.1) 09/10/21 04:48 Absolute Nucleated RBC 0.03 x10^3/uL 09/10/21 04:48 Total Counted 100 09/09/21 04:50 Band Neuts % (Manual) 0 % (0-10) 09/09/21 04:50 Abnorm Lymph % (Manual) 0 % 09/09/21 04:50 Nucleated RBC % 0.4 /100WBC 09/10/21 04:48 Neutrophils # (Manual) 6.2 10^3/uL (1.5-6.6) 09/09/21 04:50 Lymphocytes # (Manual) 0.4 10^3/uL (1.5-3.5) L 09/09/21 04:50 Monocytes # (Manual) 0.4 10^3/uL (0.0-1.0) 09/09/21 04:50 Eosinophils # (Manual) 0.0 10^3/uL (0-0.7) 09/09/21 04:50 Basophils # (Manual) 0.0 10^3/uL (0-0.1) 09/09/21 04:50 Nucleated RBCs 3 % 09/07/21 04:30 Differential Comment MANUAL DIFFERENTIAL 09/09/21 04:50 WBC Morphology NORMAL APPEARANCE (NORMAL) 09/09/21 04:50 Platelet Estimate NORMAL (130-450,000) (NORMAL) 09/09/21 04:50 Platelet Morphology NORMAL APPEARANCE (NORMAL) 09/09/21 04:50 RBC Morph Micro Appear 2+ HYPOCHROMASIA (NORMAL) 1+ OVALOCYTES (NORMAL) 1+ ANISOCYTOSIS (NORMAL) 09/09/21 04:50 RBC Morph Micro Appear 2+ HYPOCHROMASIA (NORMAL) 1+ OVALOCYTES (NORMAL) 1+ ANISOCYTOSIS (NORMAL) 09/09/21 04:50 RBC Morph Micro Appear 2+ HYPOCHROMASIA (NORMAL) 1+ OVALOCYTES (NORMAL) 1+ ANISOCYTOSIS (NORMAL) 09/09/21 04:50 Absolute Retic 0.065 10^6/uL (0.020-0.110) 09/05/21 19:36 PT 16.2 secs (9.9-12.6) H 09/09/21 04:50 INR 1.5 (0.8-1.2) H 09/09/21 04:50 Sodium 141 mmol/L (135-145) 09/10/21 04:48 Potassium 4.6 mmol/L (3.5-5.0) 09/10/21 04:48 Chloride 115 mmol/L (101-111) H 09/10/21 04:48 Carbon Dioxide 18 mmol/L (21-32) L 09/10/21 04:48 Anion Gap 8.0 (6-13) 09/10/21 04:48 BUN 55 mg/dL (6-20) H 09/10/21 04:48 Creatinine 1.6 mg/dL (0.6-1.2) H 09/10/21 04:48 Estimated GFR (MDRD) 41 (>89) L 09/10/21 04:48 Glucose 189 mg/dL (70-100) H 09/10/21 04:48 Estimat Average Glucose 114 mg/dL (70-100) H 09/09/21 04:50 Hemoglobin A1c % 5.6 % (4.27-6.07) 09/09/21 04:50 Lactic Acid 1.2 mmol/L (0.5-2.2) 09/05/21 15:43 Calcium 7.4 mg/dL (8.5-10.3) L 09/10/21 04:48 Phosphorus 4.6 mg/dL (2.5-4.6) 09/05/21 15:43 Magnesium 2.4 mg/dL (1.7-2.8) 09/10/21 04:48 Iron 31 ug/dL (45-182) L 09/05/21 19:36 TIBC 181 ug/dL (250-450) L 09/05/21 19:36 % Saturation 17 % (20-50) L 09/05/21 19:36 Transferrin 129 mg/dL (180-329) L 09/05/21 19:36 Ferritin 686.8 ng/mL (23.9-336.2) H 09/05/21 19:36 Total Bilirubin 0.8 mg/dL (0.2-1.0) 09/05/21 15:43 AST 32 IU/L (10-42) 09/05/21 15:43 ALT 21 IU/L (10-60) 09/05/21 15:43 Alkaline Phosphatase 46 IU/L (42-121) 09/05/21 15:43 Lactate Dehydrogenase 335 IU/L (91-225) H 09/05/21 19:36 Total Protein 6.5 g/dL (6.7-8.2) L 09/05/21 15:43 Albumin 3.3 g/dL (3.2-5.5) 09/05/21 15:43 Globulin 3.2 g/dL (2.1-4.2) 09/05/21 15:43 Albumin/Globulin Ratio 1.0 (1.0-2.2) 09/05/21 15:43 Vitamin B12 1270 pg/mL (180-914) H 09/05/21 19:36 Urine Color YELLOW 09/05/21 16:14 Urine Clarity CLEAR (CLEAR) 09/05/21 16:14 Urine pH 5.5 PH (5.0-7.5) 09/05/21 16:14 Ur Specific [place] 1.020 (1.002-1.030) 09/05/21 16:14 Urine Protein TRACE mg/dL (NEGATIVE) 09/05/21 16:14 Urine Glucose (UA) NEGATIVE mg/dL (NEGATIVE) 09/05/21 16:14 Urine Ketones TRACE mg/dL (NEGATIVE) 09/05/21 16:14 Urine Occult Blood TRACE-LYSE (NEGATIVE) 09/05/21 16:14 Urine Nitrite NEGATIVE (NEGATIVE) 09/05/21 16:14 Urine Bilirubin NEGATIVE (NEGATIVE) 09/05/21 16:14 Urine Urobilinogen 0.2 (NORMAL) E.U./dL (NORMAL) 09/05/21 16:14 Ur Leukocyte Esterase NEGATIVE (NEGATIVE) 09/05/21 16:14 Ur Microscopic Review NOT INDICATED 09/05/21 16:14 Urine Culture Comments NOT INDICATED 09/05/21 16:14 Nasal Adenovirus (PCR) NOT DETECTED 09/05/21 20:09 Nasal B. parapertussis DNA (PCR) NOT DETECTED 09/05/21 20:09 Nasal Coronavir 229E PCR NOT DETECTED 09/05/21 20:09 Nasal Coronavir HKU1 PCR NOT DETECTED 09/05/21 20:09 Nasal Coronavir NL63 PCR NOT DETECTED 09/05/21 20:09 Nasal Coronavir OC43 PCR NOT DETECTED 09/05/21 20:09 Nasal Enterovir/Rhinovir PCR NOT DETECTED 09/05/21 20:09 Nasal Influenza B PCR NOT DETECTED 09/05/21 20:09 Nasal Influenza A PCR NOT DETECTED 09/05/21 20:09 Nasal Parainfluen 1 PCR NOT DETECTED 09/05/21 20:09 Nasal Parainfluen 2 PCR NOT DETECTED 09/05/21 20:09 Nasal Parainfluen 3 PCR NOT DETECTED 09/05/21 20:09 Nasal Parainfluen 4 PCR NOT DETECTED 09/05/21 20:09 Nasal RSV (PCR) NOT DETECTED 09/05/21 20:09 Nasal B.pertussis DNA PCR NOT DETECTED 09/05/21 20:09 Nasal C.pneumoniae (PCR) NOT DETECTED 09/05/21 20:09 Louis Human Metapneumo PCR NOT DETECTED 09/05/21 20:09 Nasal M.pneumoniae (PCR) NOT DETECTED 09/05/21 20:09 Nasal SARS-CoV-2 (PCR) DETECTED A 09/05/21 20:09 Stl Occult Blood (IFOB) POSITIVE (NEGATIVE) A 09/07/21 07:50 Blood Type A NEGATIVE 09/06/21 08:45 Blood Type Recheck A NEGATIVE 09/06/21 06:55 Antibody Screen NEGATIVE 09/06/21 08:45 Crossmatch IS Only See Detail 09/06/21 08:45 ABX Reporting Has patient been on IV antibiotics over the past 48 hours?: Yes Current Medications - Current Medications Current Medications: Active Medications Acetaminophen (Acetaminophen 325 Mg Tablet) 650 mg PO Q4HR PRN PRN Reason: Pain 1 to 4 Last Admin: 09/10/21 10:12 Dose: 650 mg Albuterol (Albuterol 1 Puff) 2 puffs INH Q6H PRN PRN Reason: Shortness of Air/Wheezing Last Admin: 09/05/21 18:21 Dose: 2 puffs Amlodipine Besylate (Amlodipine 5 Mg Tablet) 5 mg PO DAILY [facility] Last Admin: 09/10/21 08:34 Dose: 5 mg Atorvastatin Calcium (Atorvastatin 10 Mg Tablet) 10 mg PO QPM [facility] Last Admin: 09/09/21 21:37 Dose: 10 mg Azithromycin (Azithromycin 250 Mg Tablet) 250 mg PO DAILY [facility] Stop: 09/14/21 09:01 Cholecalciferol (Cholecalciferol 25 Mcg Tablet) 50 mcg PO DAILY [facility] Last Admin: 09/10/21 08:17 Dose: 50 mcg Dexamethasone (Dexamethasone 10 Mg/Ml Vial) 6 mg IVP DAILY [facility] Last Admin: 09/10/21 08:17 Dose: 6 mg Ferrous Sulfate (Ferrous Sulfate 325 Mg Tablet) 325 mg PO DAILYWM [facility] Last Admin: 09/10/21 08:16 Dose: 325 mg Fluticasone Propionate (Fluticasone Nasal [place]) 1 sprays [place] BID [facility] Last Admin: 09/10/21 08:18 Dose: 2 spray Gabapentin (Gabapentin 300 Mg Capsule) 300 mg PO BID [facility] Last Admin: 09/10/21 08:16 Dose: 300 mg Ceftriaxone Sodium 1 gm/ (Sodium Chloride) 100 mls @ 200 mls/hr IV DAILY [facility] Stop: 09/14/21 09:29 Last Infusion: 09/10/21 09:00 Dose: Infused Insulin Aspart (Insulin Aspart 300 Unit/3 Ml Pen) 3 - 11 unit SUBQ 0800,1200,1700,2100 [facility]; Protocol Lisinopril (Lisinopril 5 Mg Tablet) 2.5 mg PO DAILY [facility] Last Admin: 09/10/21 08:34 Dose: 2.5 mg Nystatin (Nystatin Powder 15 Gm) 1 applic TOP BID [facility] Last Admin: 09/10/21 08:18 Dose: 1 applic Ondansetron HCl (Ondansetron 4 Mg/2 Ml Vial) 4 mg IVP Q6HR PRN PRN Reason: Nausea / Vomiting Pantoprazole Sodium (Pantoprazole 40 Mg Vial) 40 mg IVP BID [facility] Last Admin: 09/10/21 08:18 Dose: 40 mg Saccharomyces Boulardii (Saccharomyces Boulardii 250 Mg Capsule) 250 mg PO BIDWM [facility] Last Admin: 09/10/21 10:14 Dose: 250 mg Sodium Chloride (Sodium Chloride Flush 0.9% 10 Ml Syringe) 10 ml IVP PRN PRN PRN Reason: NEEDED PER PROVIDER ORDERS Last Admin: 09/09/21 21:38 Dose: 10 ml Sodium Chloride (Sodium Chloride Flush 0.9% 10 Ml Syringe) 10 ml IVP 0100,0900,1700 [facility] Last Admin: 09/10/21 08:20 Dose: 10 ml Gabapentin [Neurontin] 300 mg PO BID 02/08/13 Warfarin Sodium [Coumadin] 4 mg PO DAILY 02/08/13 Anagrelide HCl 0.5 mg PO BID 06/19/13 Fluticasone [Flonase] 1 spray [place] BID 09/03/15 Aspirin EC [Ecotrin] 81 mg PO DAILY 09/07/21 Ferrous Sulfate 325 mg PO DAILY 09/07/21 Lisinopril [Zestril] 2.5 mg PO DAILY 09/07/21 Metoprolol Succinate [Toprol Xl] 50 mg PO DAILY 09/07/21 Rosuvastatin Calcium [Crestor] 5 mg PO QPM 09/07/21 amLODIPine [Norvasc] 5 mg PO DAILY 09/07/21
[2021-09-10] MEDS: ATORVASTATIN 10 MG TABLET PO SCH (21:07)
[2021-09-11] MEDS: SODIUM CHLORIDE FLUSH 0.9% 10 ML SYRINGE IVP SCH ×3 (03:46→17:32)
[2021-09-11 04:48] LABS: BASOPHILS % (AUTO) 0.1 %; HCT - HEMATOCRIT 29.2 % (42.0-52.0); HGB - HEMOGLOBIN 9.4 g/dL (14.0-18.0); LYMPHOCYTES # (AUTO) 0.4 10^3/uL (1.5-3.5); LYMPHOCYTES % (AUTO) 4.2 %; MEAN CORPUSCULAR HEMOGLOBIN 30.7 pg (27.0-31.0); MEAN CORPUSCULAR HGB CONC 32.2 g/dL (32.0-36.0); MEAN CORPUSCULAR VOLUME 95.4 fL (80.0-94.0); MEAN PLATELET VOLUME 12.2 fL (7.4-11.4); MONOCYTES # (AUTO) 0.4 10^3/uL (0.0-1.0); MONOCYTES % (AUTO) 4.7 %; NEUTROPHILS # (AUTO) 7.4 10^3/uL (1.5-6.6); NEUTROPHILS % (AUTO) 89.5 %; NRBC ABSOLUTE COUNT (AUTO) 0.03 x10^3/uL; NUCLEATED RED BLOOD CELLS AUTO 0.4 /100WBC; PLT - PLATELET COUNT 198 10^3/uL (130-450); RED BLOOD COUNT 3.06 10^6/uL (4.70-6.10); RED CELL DISTRIBUTION WIDTH 18.6 % (12.0-15.0); WHITE BLOOD COUNT 8.3 x10^3/uL (4.8-10.8)
[2021-09-11 04:53] LABS: CALCIUM 7.4 mg/dL (8.5-10.3); CREATININE 1.9 mg/dL (0.6-1.2); POTASSIUM 4.9 mmol/L (3.5-5.0)
[2021-09-11] MEDS: DEXAMETHASONE 10 MG/ML VIAL IVP SCH (09:41)
[2021-09-11] MEDS: SODIUM CHLORIDE 0.9% 1,000 ML IV SCH ×2 (09:54→23:21)
[2021-09-11] MEDS: INSULIN ASPART 300 UNIT/3 ML PEN SUBQ SCH ×4 (10:29→20:42)
[2021-09-11] MEDS: cefTRIAXone 1 GM in SODIUM CHLORIDE 0.9% MINIBAG 100 ML IV SCH (10:44)
[2021-09-11] MEDS: FERROUS SULFATE 325 MG TABLET PO SCH (12:40)
[2021-09-11] MEDS: lisinopriL 5 MG TABLET PO SCH (12:41)
[2021-09-11] MEDS: PRENATAL VITAMIN TABLET PO SCH (12:41)
[2021-09-11] MEDS: amLODIPine 5 MG TABLET PO SCH (12:41)
[2021-09-11] MEDS: AZITHROMYCIN 250 MG TABLET PO SCH (12:41)
[2021-09-11] MEDS: CHOLECALCIFEROL 25 MCG TABLET PO SCH (12:43)
[2021-09-11] MEDS: GABAPENTIN 300 MG CAPSULE PO SCH ×2 (12:44→20:30)
[2021-09-11] MEDS: SACCHAROMYCES BOULARDII 250 MG CAPSULE PO SCH ×2 (12:44→17:25)
[2021-09-11] MEDS: PANTOPRAZOLE 40 MG VIAL IVP SCH (12:52)
[2021-09-11] MEDS: FLUTICASONE NASAL SPRAY NAS SCH ×2 (13:20→20:30)
[2021-09-11] MEDS: NYSTATIN POWDER 15 GM TOP SCH ×2 (13:22→20:30)
--- NOTE | 2021-09-11 13:49 | PROVIDER PROGRESS NOTE ---
Assessment/Plan - Problem List (1) Respiratory failure with hypoxia Qualifiers: Chronicity: acute Qualified Code(s): J96.01 - Acute respiratory failure with hypoxia Assessment/Plan: / stable, pt has no acute respiratory distress but he still need 5 liter of O2 now to have 94% O2 sats. will continue finish Covid 19 treatment course, continue antibiotics and add probiotics. Supplemental oxygen as needed 09/10 pt was on 5 Liter oxygen and have 96% oxygen saturation, slight worsening. CXR reveal worsening pneumonia. plan: add antibiotics and probiotics, continue treatment with Remdesivir, decadron, hold his blood thinner because of GI bleeding. Supplemental oxygen as needed, add once Lasix. 09/09 pt still need 4 liter of O2 and have 96% O2 sats continue treatment with Remdesivir, decadron, hold his blood thinner because of GI bleeding. Supplemental oxygen as needed (2) Pneumonia due to COVID-19 virus Impression: 09/30 as the above, add antibiotics and probiotics, and continue treatment with Remdesvir, Decadron, supplemental oxygen as needed. (3) GI bleed Impression: 09/30 HGB is stable, continue Protonix, hold blood thinner, and continue lab monitor HGB is slight elevated now. pt was found to have GI bleed, his blood thinner was hold. pt had two units of blood transfusion. pt was consulted for GI surgeon, recommend for medical management. pt was treated with Protonix IV. continue H&H, continue protonic, hold blood thinner now. followup with GI surgeon (4) RUDDY (acute kidney injury) Impression: 09/11 creatinine is 1.9 slight elevated, add gently IVF for pt, it is likely caused by pt's poor oral fluid intake, discuss with nurse increase pt's fluid oral intake 09/10 improved, creatinine is 1.6 as pt's baseline, continue lab monitor, avoid nephrotoxic agents. creatinine is 1.9, improved. continue IVF gently, continue lab monitor, avoid nephrotoxic agents. (5) Hypernatremia Impression: 09/30 Sodium is 141, resolved. Sodium is 144 now. continue gently D5 1/2 NS. it is likely hypovolmia and hypernatremia. Will continue to monitor BMP daily. (6) Anemia slight elevated HGB now. it is likely combination of chronic anemia, acute blood loss from GI bleed, continue home iron pill and lab monitor (7) Hx of deep venous thrombosis Impression: Pt has a hx of DVT and was on Coumadin. With his GI bleed, anticioagulants have been hold. (8) Supratherapeutic INR Impression: Resolved. INR was 3.8 yesterday, however after vitamin K administration it is now 1.3. (5) Anemia Qualifiers: Anemia type: unspecified type Qualified Code(s): D64.9 - Anemia, unspecified - Current Meds Current Meds: Current Medications Generic Name Dose Route Start Last Admin Trade Name Freq PRN Reason Stop Dose Admin Acetaminophen 650 mg 09/05/21 17:12 09/10/21 10:12 Acetaminophen 325 Mg Tablet PO 650 mg Q4HR PRN Administration Pain 1 to 4 Albuterol 2 puffs 09/05/21 17:54 09/05/21 18:21 Albuterol 1 Puff INH 2 puffs Q6H PRN Administration Shortness of Air/Wheezing Amlodipine Besylate 5 mg 09/10/21 09:00 09/11/21 12:41 Amlodipine 5 Mg Tablet PO 5 mg DAILY DARLYN Administration Atorvastatin Calcium 10 mg 09/09/21 21:00 09/10/21 21:07 Atorvastatin 10 Mg Tablet PO 10 mg QPM DARLYN Administration Azithromycin 250 mg 09/11/21 09:00 09/11/21 12:41 Azithromycin 250 Mg Tablet PO 09/14/21 09:01 250 mg DAILY DARLYN Administration Cholecalciferol 50 mcg 09/10/21 09:00 09/11/21 12:43 Cholecalciferol 25 Mcg Tablet PO 50 mcg DAILY DARLYN Administration Dexamethasone 6 mg 09/05/21 20:00 09/11/21 09:41 Dexamethasone 10 Mg/Ml Vial IVP 6 mg DAILY DARLYN Administration Ferrous Sulfate 325 mg 09/10/21 08:00 09/11/21 12:40 Ferrous Sulfate 325 Mg Tablet PO 325 mg DAILYWM DARLYN Administration Fluticasone Propionate 1 sprays 09/09/21 21:00 09/11/21 13:20 Fluticasone Nasal [place] 1 spray BID DARLYN Administration Gabapentin 300 mg 09/09/21 21:00 09/11/21 12:44 Gabapentin 300 Mg Capsule PO 300 mg BID DARLYN Administration Ceftriaxone Sodium 1 gm/ 100 mls @ 200 mls/hr 09/10/21 09:00 09/11/21 11:15 Sodium Chloride IV 09/14/21 09:29 Infused DAILY DARLYN Infusion Sodium Chloride 1,000 mls @ 83.333 mls/hr 09/11/21 08:00 09/11/21 09:54 Normal Saline 0.9% IV 09/12/21 07:59 83.333 mls/hr .Q12H DARLYN Administration Insulin Aspart 3 - 11 unit 09/10/21 17:00 09/11/21 13:18 Insulin Aspart 300 Unit/3 Ml Pen SUBQ 5 unit 0800,1200,1700,2100 DARLYN Administration Protocol Lisinopril 2.5 mg 09/10/21 09:00 09/11/21 12:41 Lisinopril 5 Mg Tablet PO 2.5 mg DAILY DARLYN Administration Nystatin 1 applic 09/05/21 19:02 09/11/21 13:22 Nystatin Powder 15 Gm TOP 1 applic BID DARLYN Administration Multivit/Folic Acid/Iron 1 tab 09/11/21 09:00 09/11/21 12:41 Vitamin Tablet PO 1 tab DAILYWM DARLYN Administration Saccharomyces Boulardii 250 mg 09/10/21 08:00 09/11/21 12:44 Saccharomyces Boulardii 250 Mg Capsule PO 250 mg BIDWM DARLYN Administration Sodium Chloride 10 ml 09/05/21 17:12 09/09/21 21:38 Sodium Chloride Flush 0.9% 10 Ml Syringe IVP 10 ml PRN PRN Administration NEEDED PER PROVIDER ORDERS Sodium Chloride 10 ml 09/06/21 01:00 09/11/21 09:42 Sodium Chloride Flush 0.9% 10 Ml Syringe IVP 10 ml 0100,0900,1700 DARLYN Administration - Lab Result Fish Bone Diagrams: 09/11/21 04:12 09/11/21 04:12 - Additional Planning My Orders: My Active Orders 09/11/21 08:00 Sodium Chloride 0.9% [Normal Saline 0.9%] 1,000 ml IV 83.333 mls/hr 09/11/21 09:00 Azithromycin [Zithromax] 250 mg PO DAILY Vitamin [Trinatal Rx 1] 1 tab PO DAILYWM 09/11/21 16:00 Pantoprazole [Protonix] 40 mg PO BIDAC 09/12/21 05:00 BMP - BASIC METABOLIC PANEL [CHEM] DAILYLAB CBC - COMP BLD CT W/AUTO DIFF [HEME] DAILYLAB 09/13/21 05:00 BMP - BASIC METABOLIC PANEL [CHEM] DAILYLAB CBC - COMP BLD CT W/AUTO DIFF [HEME] DAILYLAB Subjective - Subjective Patient Reports: Resting Comfortably Objective Vital Signs: Vital Signs - 24 hr 09/10/21 09/10/21 09/10/21 16:43 20:27 23:29 Temperature 36.6 C 36.5 C 36.7 C Heart Rate [ 60 67 64 Monitoring electrodes] Respiratory 20 18 18 Rate Blood Pressure 121/46 L [Right Brachial artery] Blood Pressure 124/57 L 119/55 L [Right Radial artery] O2 Saturation 97 95 97 09/11/21 09/11/21 09/11/21 05:00 08:28 12:06 Temperature 36.5 C 36.7 C 36.4 C L Heart Rate [ 59 L 62 64 Monitoring electrodes] Respiratory 18 20 20 Rate Blood Pressure [Right Brachial artery] Blood Pressure 122/54 L 131/50 H 128/54 L [Right Radial artery] O2 Saturation 93 91 L 94 Oxygen O2 Source Nasal cannula I&O (Last 24 Hrs): Intake and Output Totals x24h 09/09/21 09/10/21 09/11/21 23:59 23:59 23:59 Intake Total 1869.731 8593.8 780 Output Total 1375 2100 800 Balance 493.052 -94.2 -20 General: Alert, Cooperative, No acute distress HEENT: Atraumatic Neck: Supple Lymphatic: no adenopathy Neuro: Alert, Non Focal Cardiovascular: Regular rate, Normal S1, Normal S2 Respiratory: Chest non-tender, No respiratory distress Abdomen: Normal bowel sounds, Soft Extremities: Normal pulses - Results Results: Laboratory Results WBC 8.3 x10^3/uL (4.8-10.8) 09/11/21 04:12 RBC 3.06 10^6/uL (4.70-6.10) L 09/11/21 04:12 Hgb 9.4 g/dL (14.0-18.0) L 09/11/21 04:12 Hct 29.2 % (42.0-52.0) L 09/11/21 04:12 MCV 95.4 fL (80.0-94.0) H 09/11/21 04:12 MCH 30.7 pg (27.0-31.0) 09/11/21 04:12 MCHC 32.2 g/dL (32.0-36.0) 09/11/21 04:12 RDW 18.6 % (12.0-15.0) H 09/11/21 04:12 Plt Count 198 10^3/uL (130-450) 09/11/21 04:12 MPV 12.2 fL (7.4-11.4) H 09/11/21 04:12 Reticulocyte % (Auto) 2.99 % (0.5-2.3) H 09/05/21 19:36 Neut # (Auto) 7.4 10^3/uL (1.5-6.6) H 09/11/21 04:12 Lymph # (Auto) 0.4 10^3/uL (1.5-3.5) L 09/11/21 04:12 [place] # (Auto) 0.4 10^3/uL (0.0-1.0) 09/11/21 04:12 Eos # (Auto) 0.0 10^3/uL (0.0-0.7) 09/11/21 04:12 Baso # (Auto) 0.0 10^3/uL (0.0-0.1) 09/11/21 04:12 Absolute Nucleated RBC 0.03 x10^3/uL 09/11/21 04:12 Total Counted 100 09/09/21 04:50 Band Neuts % (Manual) 0 % (0-10) 09/09/21 04:50 Abnorm Lymph % (Manual) 0 % 09/09/21 04:50 Nucleated RBC % 0.4 /100WBC 09/11/21 04:12 Neutrophils # (Manual) 6.2 10^3/uL (1.5-6.6) 09/09/21 04:50 Lymphocytes # (Manual) 0.4 10^3/uL (1.5-3.5) L 09/09/21 04:50 Monocytes # (Manual) 0.4 10^3/uL (0.0-1.0) 09/09/21 04:50 Eosinophils # (Manual) 0.0 10^3/uL (0-0.7) 09/09/21 04:50 Basophils # (Manual) 0.0 10^3/uL (0-0.1) 09/09/21 04:50 Nucleated RBCs 3 % 09/07/21 04:30 Differential Comment MANUAL DIFFERENTIAL 09/09/21 04:50 WBC Morphology NORMAL APPEARANCE (NORMAL) 09/09/21 04:50 Platelet Estimate NORMAL (130-450,000) (NORMAL) 09/09/21 04:50 Platelet Morphology NORMAL APPEARANCE (NORMAL) 09/09/21 04:50 RBC Morph Micro Appear 2+ HYPOCHROMASIA (NORMAL) 1+ OVALOCYTES (NORMAL) 1+ ANISOCYTOSIS (NORMAL) 09/09/21 04:50 RBC Morph Micro Appear 2+ HYPOCHROMASIA (NORMAL) 1+ OVALOCYTES (NORMAL) 1+ ANISOCYTOSIS (NORMAL) 09/09/21 04:50 RBC Morph Micro Appear 2+ HYPOCHROMASIA (NORMAL) 1+ OVALOCYTES (NORMAL) 1+ ANISOCYTOSIS (NORMAL) 09/09/21 04:50 Absolute Retic 0.065 10^6/uL (0.020-0.110) 09/05/21 19:36 PT 16.2 secs (9.9-12.6) H 09/09/21 04:50 INR 1.5 (0.8-1.2) H 09/09/21 04:50 Sodium 138 mmol/L (135-145) 09/11/21 04:12 Potassium 4.9 mmol/L (3.5-5.0) 09/11/21 04:12 Chloride 112 mmol/L (101-111) H 09/11/21 04:12 Carbon Dioxide 18 mmol/L (21-32) L 09/11/21 04:12 Anion Gap 8.0 (6-13) 09/11/21 04:12 BUN 58 mg/dL (6-20) H 09/11/21 04:12 Creatinine 1.9 mg/dL (0.6-1.2) H 09/11/21 04:12 Estimated GFR (MDRD) 34 (>89) L 09/11/21 04:12 Glucose 199 mg/dL (70-100) H 09/11/21 04:12 Estimat Average Glucose 114 mg/dL (70-100) H 09/09/21 04:50 Hemoglobin A1c % 5.6 % (4.27-6.07) 09/09/21 04:50 Lactic Acid 1.2 mmol/L (0.5-2.2) 09/05/21 15:43 Calcium 7.4 mg/dL (8.5-10.3) L 09/11/21 04:12 Phosphorus 4.6 mg/dL (2.5-4.6) 09/05/21 15:43 Magnesium 2.4 mg/dL (1.7-2.8) 09/10/21 04:48 Iron 31 ug/dL (45-182) L 09/05/21 19:36 TIBC 181 ug/dL (250-450) L 09/05/21 19:36 % Saturation 17 % (20-50) L 09/05/21 19:36 Transferrin 129 mg/dL (180-329) L 09/05/21 19:36 Ferritin 686.8 ng/mL (23.9-336.2) H 09/05/21 19:36 Total Bilirubin 0.8 mg/dL (0.2-1.0) 09/05/21 15:43 AST 32 IU/L (10-42) 09/05/21 15:43 ALT 21 IU/L (10-60) 09/05/21 15:43 Alkaline Phosphatase 46 IU/L (42-121) 09/05/21 15:43 Lactate Dehydrogenase 335 IU/L (91-225) H 09/05/21 19:36 Total Protein 6.5 g/dL (6.7-8.2) L 09/05/21 15:43 Albumin 3.3 g/dL (3.2-5.5) 09/05/21 15:43 Globulin 3.2 g/dL (2.1-4.2) 09/05/21 15:43 Albumin/Globulin Ratio 1.0 (1.0-2.2) 09/05/21 15:43 Vitamin B12 1270 pg/mL (180-914) H 09/05/21 19:36 Urine Color YELLOW 09/05/21 16:14 Urine Clarity CLEAR (CLEAR) 09/05/21 16:14 Urine pH 5.5 PH (5.0-7.5) 09/05/21 16:14 Ur Specific [place] 1.020 (1.002-1.030) 09/05/21 16:14 Urine Protein TRACE mg/dL (NEGATIVE) 09/05/21 16:14 Urine Glucose (UA) NEGATIVE mg/dL (NEGATIVE) 09/05/21 16:14 Urine Ketones TRACE mg/dL (NEGATIVE) 09/05/21 16:14 Urine Occult Blood TRACE-LYSE (NEGATIVE) 09/05/21 16:14 Urine Nitrite NEGATIVE (NEGATIVE) 09/05/21 16:14 Urine Bilirubin NEGATIVE (NEGATIVE) 09/05/21 16:14 Urine Urobilinogen 0.2 (NORMAL) E.U./dL (NORMAL) 09/05/21 16:14 Ur Leukocyte Esterase NEGATIVE (NEGATIVE) 09/05/21 16:14 Ur Microscopic Review NOT INDICATED 09/05/21 16:14 Urine Culture Comments NOT INDICATED 09/05/21 16:14 Nasal Adenovirus (PCR) NOT DETECTED 09/05/21 20:09 Nasal B. parapertussis DNA (PCR) NOT DETECTED 09/05/21 20:09 Nasal Coronavir 229E PCR NOT DETECTED 09/05/21 20:09 Nasal Coronavir HKU1 PCR NOT DETECTED 09/05/21 20:09 Nasal Coronavir NL63 PCR NOT DETECTED 09/05/21 20:09 Nasal Coronavir OC43 PCR NOT DETECTED 09/05/21 20:09 Nasal Enterovir/Rhinovir PCR NOT DETECTED 09/05/21 20:09 Nasal Influenza B PCR NOT DETECTED 09/05/21 20:09 Nasal Influenza A PCR NOT DETECTED 09/05/21 20:09 Nasal Parainfluen 1 PCR NOT DETECTED 09/05/21 20:09 Nasal Parainfluen 2 PCR NOT DETECTED 09/05/21 20:09 Nasal Parainfluen 3 PCR NOT DETECTED 09/05/21 20:09 Nasal Parainfluen 4 PCR NOT DETECTED 09/05/21 20:09 Nasal RSV (PCR) NOT DETECTED 09/05/21 20:09 Nasal B.pertussis DNA PCR NOT DETECTED 09/05/21 20:09 Nasal C.pneumoniae (PCR) NOT DETECTED 09/05/21 20:09 Louis Human Metapneumo PCR NOT DETECTED 09/05/21 20:09 Nasal M.pneumoniae (PCR) NOT DETECTED 09/05/21 20:09 Nasal SARS-CoV-2 (PCR) DETECTED A 09/05/21 20:09 Stl Occult Blood (IFOB) POSITIVE (NEGATIVE) A 09/07/21 07:50 Blood Type A NEGATIVE 09/06/21 08:45 Blood Type Recheck A NEGATIVE 09/06/21 06:55 Antibody Screen NEGATIVE 09/06/21 08:45 Crossmatch IS Only See Detail 09/06/21 08:45 ABX Reporting Has patient been on IV antibiotics over the past 48 hours?: Yes Current Medications - Current Medications Current Medications: Active Medications Acetaminophen (Acetaminophen 325 Mg Tablet) 650 mg PO Q4HR PRN PRN Reason: Pain 1 to 4 Last Admin: 09/10/21 10:12 Dose: 650 mg Albuterol (Albuterol 1 Puff) 2 puffs INH Q6H PRN PRN Reason: Shortness of Air/Wheezing Last Admin: 09/05/21 18:21 Dose: 2 puffs Amlodipine Besylate (Amlodipine 5 Mg Tablet) 5 mg PO DAILY [facility] Last Admin: 09/11/21 12:41 Dose: 5 mg Atorvastatin Calcium (Atorvastatin 10 Mg Tablet) 10 mg PO QPM [facility] Last Admin: 09/10/21 21:07 Dose: 10 mg Azithromycin (Azithromycin 250 Mg Tablet) 250 mg PO DAILY [facility] Stop: 09/14/21 09:01 Last Admin: 09/11/21 12:41 Dose: 250 mg Cholecalciferol (Cholecalciferol 25 Mcg Tablet) 50 mcg PO DAILY [facility] Last Admin: 09/11/21 12:43 Dose: 50 mcg Dexamethasone (Dexamethasone 10 Mg/Ml Vial) 6 mg IVP DAILY [facility] Last Admin: 09/11/21 09:41 Dose: 6 mg Ferrous Sulfate (Ferrous Sulfate 325 Mg Tablet) 325 mg PO DAILYWM [facility] Last Admin: 09/11/21 12:40 Dose: 325 mg Fluticasone Propionate (Fluticasone Nasal [place]) 1 sprays [place] BID [facility] Last Admin: 09/11/21 13:20 Dose: 1 spray Gabapentin (Gabapentin 300 Mg Capsule) 300 mg PO BID [facility] Last Admin: 09/11/21 12:44 Dose: 300 mg Ceftriaxone Sodium 1 gm/ (Sodium Chloride) 100 mls @ 200 mls/hr IV DAILY [facility] Stop: 09/14/21 09:29 Last Infusion: 09/11/21 11:15 Dose: Infused Sodium Chloride (Normal Saline 0.9%) 1,000 mls @ 83.333 mls/hr IV .Q12H [facility] Stop: 09/12/21 07:59 Last Admin: 09/11/21 09:54 Dose: 83.333 mls/hr Insulin Aspart (Insulin Aspart 300 Unit/3 Ml Pen) 3 - 11 unit SUBQ 0800,1200,1700,2100 [facility]; Protocol Last Admin: 09/11/21 13:18 Dose: 5 unit Lisinopril (Lisinopril 5 Mg Tablet) 2.5 mg PO DAILY [facility] Last Admin: 09/11/21 12:41 Dose: 2.5 mg Nystatin (Nystatin Powder 15 Gm) 1 applic TOP BID [facility] Last Admin: 09/11/21 13:22 Dose: 1 applic Ondansetron HCl (Ondansetron 4 Mg/2 Ml Vial) 4 mg IVP Q6HR PRN PRN Reason: Nausea / Vomiting Pantoprazole Sodium (Pantoprazole 40 Mg Tablet) 40 mg PO BIDAC [facility] Multivit/Folic Acid/Iron ( Vitamin Tablet) 1 tab PO DAILYWM [facility] Last Admin: 09/11/21 12:41 Dose: 1 tab Saccharomyces Boulardii (Saccharomyces Boulardii 250 Mg Capsule) 250 mg PO BIDWM [facility] Last Admin: 09/11/21 12:44 Dose: 250 mg Sodium Chloride (Sodium Chloride Flush 0.9% 10 Ml Syringe) 10 ml IVP PRN PRN PRN Reason: NEEDED PER PROVIDER ORDERS Last Admin: 09/09/21 21:38 Dose: 10 ml Sodium Chloride (Sodium Chloride Flush 0.9% 10 Ml Syringe) 10 ml IVP 0100,0900,1700 [facility] Last Admin: 09/11/21 09:42 Dose: 10 ml Gabapentin [Neurontin] 300 mg PO BID 02/08/13 Warfarin Sodium [Coumadin] 4 mg PO DAILY 02/08/13 Anagrelide HCl 0.5 mg PO BID 06/19/13 Fluticasone [Flonase] 1 spray [place] BID 09/03/15 Aspirin EC [Ecotrin] 81 mg PO DAILY 09/07/21 Ferrous Sulfate 325 mg PO DAILY 09/07/21 Lisinopril [Zestril] 2.5 mg PO DAILY 09/07/21 Metoprolol Succinate [Toprol Xl] 50 mg PO DAILY 09/07/21 Rosuvastatin Calcium [Crestor] 5 mg PO QPM 09/07/21 amLODIPine [Norvasc] 5 mg PO DAILY 09/07/21
[2021-09-11] MEDS: PANTOPRAZOLE 40 MG TABLET PO SCH (17:25)
[2021-09-11] MEDS: dexAMETHasone 4 MG TABLET PO SCH (18:26)
[2021-09-11] MEDS: ATORVASTATIN 10 MG TABLET PO SCH (20:30)
[2021-09-12] MEDS: SODIUM CHLORIDE FLUSH 0.9% 10 ML SYRINGE IVP SCH ×3 (00:20→17:07)
[2021-09-12 05:46] LABS: HCT - HEMATOCRIT 28.2 % (42.0-52.0); HGB - HEMOGLOBIN 8.8 g/dL (14.0-18.0); LYMPHOCYTES # (AUTO) 0.3 10^3/uL (1.5-3.5); LYMPHOCYTES % (AUTO) 3.3 %; MEAN CORPUSCULAR HEMOGLOBIN 30.2 pg (27.0-31.0); MEAN CORPUSCULAR HGB CONC 31.2 g/dL (32.0-36.0); MEAN CORPUSCULAR VOLUME 96.9 fL (80.0-94.0); MEAN PLATELET VOLUME 12.9 fL (7.4-11.4); MONOCYTES # (AUTO) 0.2 10^3/uL (0.0-1.0); MONOCYTES % (AUTO) 2.2 %; NEUTROPHILS # (AUTO) 7.9 10^3/uL (1.5-6.6); NEUTROPHILS % (AUTO) 93.1 %; NRBC ABSOLUTE COUNT (AUTO) 0.02 x10^3/uL; NUCLEATED RED BLOOD CELLS AUTO 0.2 /100WBC; PLT - PLATELET COUNT 170 10^3/uL (130-450); RED BLOOD COUNT 2.91 10^6/uL (4.70-6.10); RED CELL DISTRIBUTION WIDTH 18.8 % (12.0-15.0); WHITE BLOOD COUNT 8.5 x10^3/uL (4.8-10.8)
[2021-09-12 05:47] LABS: CALCIUM 7.5 mg/dL (8.5-10.3); CREATININE 1.7 mg/dL (0.6-1.2)
[2021-09-12] MEDS: PANTOPRAZOLE 40 MG TABLET PO SCH ×2 (06:07→17:06)
[2021-09-12] MEDS: FERROUS SULFATE 325 MG TABLET PO SCH (10:23)
[2021-09-12] MEDS: FLUTICASONE NASAL SPRAY NAS SCH ×2 (10:23→21:31)
[2021-09-12] MEDS: SACCHAROMYCES BOULARDII 250 MG CAPSULE PO SCH ×2 (10:24→17:06)
[2021-09-12] MEDS: lisinopriL 5 MG TABLET PO SCH (10:24)
[2021-09-12] MEDS: GABAPENTIN 300 MG CAPSULE PO SCH ×2 (10:24→21:31)
[2021-09-12] MEDS: AZITHROMYCIN 250 MG TABLET PO SCH (10:24)
[2021-09-12] MEDS: PRENATAL VITAMIN TABLET PO SCH (10:25)
[2021-09-12] MEDS: amLODIPine 5 MG TABLET PO SCH (10:25)
[2021-09-12] MEDS: CHOLECALCIFEROL 25 MCG TABLET PO SCH (10:25)
[2021-09-12] MEDS: INSULIN ASPART 300 UNIT/3 ML PEN SUBQ SCH ×4 (10:27→21:32)
[2021-09-12] MEDS: NYSTATIN POWDER 15 GM TOP SCH ×2 (10:29→21:32)
[2021-09-12] MEDS: cefTRIAXone 1 GM in SODIUM CHLORIDE 0.9% MINIBAG 100 ML IV SCH (10:33)
--- NOTE | 2021-09-12 12:36 | PROVIDER PROGRESS NOTE ---
Assessment/Plan - Problem List (1) Respiratory failure with hypoxia Qualifiers: Chronicity: acute Qualified Code(s): J96.01 - Acute respiratory failure with hypoxia Assessment/Plan: 09/12 pt has 92% O2 sat on 5 liter of O2, pt did not present acute respiratory distress with O2 supplement. pt finished Remdesivir, will continue finish Decatron and Lovenox, continue antibiotics with probiotics supplement. 09/11 stable, pt has no acute respiratory distress but he still need 5 liter of O2 now to have 94% O2 sats. will continue finish Covid 19 treatment course, continue antibiotics and add probiotics. Supplemental oxygen as needed 09/10 pt was on 5 Liter oxygen and have 96% oxygen saturation, slight worsening. CXR reveal worsening pneumonia. plan: add antibiotics and probiotics, continue treatment with Remdesivir, decadron, hold his blood thinner because of GI bleeding. Supplemental oxygen as needed, add once Lasix. 09/09 pt still need 4 liter of O2 and have 96% O2 sats continue treatment with Remdesivir, decadron, hold his blood thinner because of GI bleeding. Supplemental oxygen as needed (2) Pneumonia due to COVID-19 virus Impression: 09/30 as the above, add antibiotics and probiotics, and continue treatment with Remdesvir, Decadron, supplemental oxygen as needed. (3) GI bleed Impression: 09/12 HGB is 8.8, recheck H&H, pt's coumadin was hold, surgeon was consulted before but no procedure was done. continue H&H, continue iron supplement, if HGB continue drop, then will order occult stool check again. 09/30 HGB is stable, continue Protonix, hold blood thinner, and continue lab monitor HGB is slight elevated now. pt was found to have GI bleed, his blood thinner was hold. pt had two units of blood transfusion. pt was consulted for GI surgeon, recommend for medical management. pt was treated with Protonix IV. continue H&H, continue protonic, hold blood thinner now. followup with GI surgeon (4) RUDDY (acute kidney injury) Impression: 09/12 creatinine 1.7, improved, encourage pt drink, give one liter of fluid, and continue lab monitor 09/11 creatinine is 1.9 slight elevated, add gently IVF for pt, it is likely caused by pt's poor oral fluid intake, discuss with nurse increase pt's fluid oral intake 2/2 improved, creatinine is 1.6 as pt's baseline, continue lab monitor, avoid nephrotoxic agents. creatinine is 1.9, improved. continue IVF gently, continue lab monitor, avoid nephrotoxic agents. (5) Hypernatremia Impression: 09/30 Sodium is 141, resolved. Sodium is 144 now. continue gently D5 1/2 NS. it is likely hypovolmia and hypernatremia. Will continue to monitor BMP daily. (6) Anemia slight elevated HGB now. it is likely combination of chronic anemia, acute blood loss from GI bleed, continue home iron pill and lab monitor (7) Hx of deep venous thrombosis Impression: Pt has a hx of DVT and was on Coumadin. With his GI bleed, anticioagulants have been hold. (5) Anemia Qualifiers: Anemia type: unspecified type Qualified Code(s): D64.9 - Anemia, unspecified - Current Meds Current Meds: Current Medications Generic Name Dose Route Start Last Admin Trade Name Freq PRN Reason Stop Dose Admin Acetaminophen 650 mg 09/05/21 17:12 09/10/21 10:12 Acetaminophen 325 Mg Tablet PO 650 mg Q4HR PRN Administration Pain 1 to 4 Albuterol 2 puffs 09/05/21 17:54 09/05/21 18:21 Albuterol 1 Puff INH 2 puffs Q6H PRN Administration Shortness of Air/Wheezing Amlodipine Besylate 5 mg 09/10/21 09:00 09/12/21 10:25 Amlodipine 5 Mg Tablet PO 5 mg DAILY DARLYN Administration Atorvastatin Calcium 10 mg 09/09/21 21:00 09/11/21 20:30 Atorvastatin 10 Mg Tablet PO 10 mg QPM DARLYN Administration Azithromycin 250 mg 09/11/21 09:00 09/12/21 10:24 Azithromycin 250 Mg Tablet PO 09/14/21 09:01 250 mg DAILY DARLYN Administration Cholecalciferol 50 mcg 09/10/21 09:00 09/12/21 10:25 Cholecalciferol 25 Mcg Tablet PO 50 mcg DAILY DARLYN Administration Dexamethasone 6 mg 09/11/21 18:00 09/11/21 18:26 Dexamethasone 4 Mg Tablet PO 09/14/21 18:01 6 mg QD DARLYN Administration Ferrous Sulfate 325 mg 09/10/21 08:00 09/12/21 10:23 Ferrous Sulfate 325 Mg Tablet PO 325 mg DAILYWM DARLYN Administration Fluticasone Propionate 1 sprays 09/09/21 21:00 09/12/21 10:23 Fluticasone Nasal [place] 1 spray BID DARLYN Administration Gabapentin 300 mg 09/09/21 21:00 09/12/21 10:24 Gabapentin 300 Mg Capsule PO 300 mg BID DARLYN Administration Ceftriaxone Sodium 1 gm/ 100 mls @ 200 mls/hr 09/10/21 09:00 09/12/21 11:19 Sodium Chloride IV 09/14/21 09:29 Infused DAILY DARLYN Infusion Insulin Aspart 3 - 11 unit 09/10/21 17:00 09/12/21 10:27 Insulin Aspart 300 Unit/3 Ml Pen SUBQ 5 unit 0800,1200,1700,2100 DARLYN Administration Protocol Lisinopril 2.5 mg 09/10/21 09:00 09/12/21 10:24 Lisinopril 5 Mg Tablet PO 2.5 mg DAILY DARLYN Administration Nystatin 1 applic 09/05/21 19:02 09/12/21 10:29 Nystatin Powder 15 Gm TOP 1 applic BID DARLYN Administration Pantoprazole Sodium 40 mg 09/11/21 16:00 09/12/21 06:07 Pantoprazole 40 Mg Tablet PO 40 mg BIDAC DARLYN Administration Multivit/Folic Acid/Iron 1 tab 09/11/21 09:00 09/12/21 10:25 Vitamin Tablet PO 1 tab DAILYWM DARLYN Administration Saccharomyces Boulardii 250 mg 09/10/21 08:00 09/12/21 10:24 Saccharomyces Boulardii 250 Mg Capsule PO 250 mg BIDWM DARLYN Administration Sodium Chloride 10 ml 09/05/21 17:12 09/09/21 21:38 Sodium Chloride Flush 0.9% 10 Ml Syringe IVP 10 ml PRN PRN Administration NEEDED PER PROVIDER ORDERS Sodium Chloride 10 ml 09/06/21 01:00 09/12/21 10:31 Sodium Chloride Flush 0.9% 10 Ml Syringe IVP 10 ml 0100,0900,1700 DARLYN Administration - Lab Result Fish Bone Diagrams: 09/12/21 05:15 09/12/21 05:15 - Additional Planning My Orders: My Active Orders 09/11/21 16:00 Pantoprazole [Protonix] 40 mg PO BIDAC 09/11/21 18:00 dexAMETHasone [Decadron] 6 mg PO QD 09/12/21 13:00 NS 0.9% @ 83.333 mls/hr Sodium Chloride 0.9% [Normal Saline 0.9%] 1,000 ml IV 83.333 mls/hr 09/12/21 14:00 H&H [HEMOGLOBIN AND HEMATOCRIT] [HEME] Timed 09/13/21 05:00 BMP - BASIC METABOLIC PANEL [CHEM] DAILYLAB CBC - COMP BLD CT W/AUTO DIFF [HEME] DAILYLAB Subjective - Subjective Patient Reports: Resting Comfortably Objective Vital Signs: Vital Signs - 24 hr 09/11/21 09/11/21 09/12/21 17:00 21:00 01:00 Temperature 36.7 C 36.5 C Heart Rate [ 63 62 55 L Monitoring electrodes] Respiratory 24 23 20 Rate Blood Pressure [Left Brachial artery] Blood Pressure 138/59 H 98/72 128/60 [Right Brachial artery] O2 Saturation 96 97 94 09/12/21 09/12/21 06:15 08:45 Temperature 36.5 C 36.6 C Heart Rate [ 65 68 Monitoring electrodes] Respiratory 18 20 Rate Blood Pressure 132/52 H 148/52 H [Left Brachial artery] Blood Pressure [Right Brachial artery] O2 Saturation 95 92 Oxygen O2 Source Nasal cannula I&O (Last 24 Hrs): Intake and Output Totals x24h 09/10/21 09/11/21 09/12/21 23:59 23:59 23:59 Intake Total 2005.8 3145 670 Output Total 2100 1825 500 Balance -94.2 1320 170 General: Alert, Cooperative, No acute distress HEENT: Atraumatic Neck: Supple Lymphatic: no adenopathy Neuro: Alert, Non Focal Cardiovascular: Regular rate Respiratory: Chest non-tender, No respiratory distress Abdomen: Normal bowel sounds, Soft Extremities: Normal pulses - Results Results: Laboratory Results WBC 8.5 x10^3/uL (4.8-10.8) 09/12/21 05:15 RBC 2.91 10^6/uL (4.70-6.10) L 09/12/21 05:15 Hgb 8.8 g/dL (14.0-18.0) L 09/12/21 05:15 Hct 28.2 % (42.0-52.0) L 09/12/21 05:15 MCV 96.9 fL (80.0-94.0) H 09/12/21 05:15 MCH 30.2 pg (27.0-31.0) 09/12/21 05:15 MCHC 31.2 g/dL (32.0-36.0) L 09/12/21 05:15 RDW 18.8 % (12.0-15.0) H 09/12/21 05:15 Plt Count 170 10^3/uL (130-450) 09/12/21 05:15 MPV 12.9 fL (7.4-11.4) H 09/12/21 05:15 Reticulocyte % (Auto) 2.99 % (0.5-2.3) H 09/05/21 19:36 Neut # (Auto) 7.9 10^3/uL (1.5-6.6) H 09/12/21 05:15 Lymph # (Auto) 0.3 10^3/uL (1.5-3.5) L 09/12/21 05:15 [place] # (Auto) 0.2 10^3/uL (0.0-1.0) 09/12/21 05:15 Eos # (Auto) 0.0 10^3/uL (0.0-0.7) 09/12/21 05:15 Baso # (Auto) 0.0 10^3/uL (0.0-0.1) 09/12/21 05:15 Absolute Nucleated RBC 0.02 x10^3/uL 09/12/21 05:15 Total Counted 100 09/09/21 04:50 Band Neuts % (Manual) 0 % (0-10) 09/09/21 04:50 Abnorm Lymph % (Manual) 0 % 09/09/21 04:50 Nucleated RBC % 0.2 /100WBC 09/12/21 05:15 Neutrophils # (Manual) 6.2 10^3/uL (1.5-6.6) 09/09/21 04:50 Lymphocytes # (Manual) 0.4 10^3/uL (1.5-3.5) L 09/09/21 04:50 Monocytes # (Manual) 0.4 10^3/uL (0.0-1.0) 09/09/21 04:50 Eosinophils # (Manual) 0.0 10^3/uL (0-0.7) 09/09/21 04:50 Basophils # (Manual) 0.0 10^3/uL (0-0.1) 09/09/21 04:50 Nucleated RBCs 3 % 09/07/21 04:30 Differential Comment MANUAL DIFFERENTIAL 09/09/21 04:50 WBC Morphology NORMAL APPEARANCE (NORMAL) 09/09/21 04:50 Platelet Estimate NORMAL (130-450,000) (NORMAL) 09/09/21 04:50 Platelet Morphology NORMAL APPEARANCE (NORMAL) 09/09/21 04:50 RBC Morph Micro Appear 2+ HYPOCHROMASIA (NORMAL) 1+ OVALOCYTES (NORMAL) 1+ ANISOCYTOSIS (NORMAL) 09/09/21 04:50 RBC Morph Micro Appear 2+ HYPOCHROMASIA (NORMAL) 1+ OVALOCYTES (NORMAL) 1+ ANISOCYTOSIS (NORMAL) 09/09/21 04:50 RBC Morph Micro Appear 2+ HYPOCHROMASIA (NORMAL) 1+ OVALOCYTES (NORMAL) 1+ ANISOCYTOSIS (NORMAL) 09/09/21 04:50 Absolute Retic 0.065 10^6/uL (0.020-0.110) 09/05/21 19:36 PT 16.2 secs (9.9-12.6) H 09/09/21 04:50 INR 1.5 (0.8-1.2) H 09/09/21 04:50 Sodium 140 mmol/L (135-145) 09/12/21 05:15 Potassium 5.0 mmol/L (3.5-5.0) 09/12/21 05:15 Chloride 115 mmol/L (101-111) H 09/12/21 05:15 Carbon Dioxide 17 mmol/L (21-32) L 09/12/21 05:15 Anion Gap 8.0 (6-13) 09/12/21 05:15 BUN 49 mg/dL (6-20) H 09/12/21 05:15 Creatinine 1.7 mg/dL (0.6-1.2) H 09/12/21 05:15 Estimated GFR (MDRD) 38 (>89) L 09/12/21 05:15 Glucose 186 mg/dL (70-100) H 09/12/21 05:15 Estimat Average Glucose 114 mg/dL (70-100) H 09/09/21 04:50 Hemoglobin A1c % 5.6 % (4.27-6.07) 09/09/21 04:50 Lactic Acid 1.2 mmol/L (0.5-2.2) 09/05/21 15:43 Calcium 7.5 mg/dL (8.5-10.3) L 09/12/21 05:15 Phosphorus 4.6 mg/dL (2.5-4.6) 09/05/21 15:43 Magnesium 2.4 mg/dL (1.7-2.8) 09/10/21 04:48 Iron 31 ug/dL (45-182) L 09/05/21 19:36 TIBC 181 ug/dL (250-450) L 09/05/21 19:36 % Saturation 17 % (20-50) L 09/05/21 19:36 Transferrin 129 mg/dL (180-329) L 09/05/21 19:36 Ferritin 686.8 ng/mL (23.9-336.2) H 09/05/21 19:36 Total Bilirubin 0.8 mg/dL (0.2-1.0) 09/05/21 15:43 AST 32 IU/L (10-42) 09/05/21 15:43 ALT 21 IU/L (10-60) 09/05/21 15:43 Alkaline Phosphatase 46 IU/L (42-121) 09/05/21 15:43 Lactate Dehydrogenase 335 IU/L (91-225) H 09/05/21 19:36 Total Protein 6.5 g/dL (6.7-8.2) L 09/05/21 15:43 Albumin 3.3 g/dL (3.2-5.5) 09/05/21 15:43 Globulin 3.2 g/dL (2.1-4.2) 09/05/21 15:43 Albumin/Globulin Ratio 1.0 (1.0-2.2) 09/05/21 15:43 Vitamin B12 1270 pg/mL (180-914) H 09/05/21 19:36 Urine Color YELLOW 09/05/21 16:14 Urine Clarity CLEAR (CLEAR) 09/05/21 16:14 Urine pH 5.5 PH (5.0-7.5) 09/05/21 16:14 Ur Specific [place] 1.020 (1.002-1.030) 09/05/21 16:14 Urine Protein TRACE mg/dL (NEGATIVE) 09/05/21 16:14 Urine Glucose (UA) NEGATIVE mg/dL (NEGATIVE) 09/05/21 16:14 Urine Ketones TRACE mg/dL (NEGATIVE) 09/05/21 16:14 Urine Occult Blood TRACE-LYSE (NEGATIVE) 09/05/21 16:14 Urine Nitrite NEGATIVE (NEGATIVE) 09/05/21 16:14 Urine Bilirubin NEGATIVE (NEGATIVE) 09/05/21 16:14 Urine Urobilinogen 0.2 (NORMAL) E.U./dL (NORMAL) 09/05/21 16:14 Ur Leukocyte Esterase NEGATIVE (NEGATIVE) 09/05/21 16:14 Ur Microscopic Review NOT INDICATED 09/05/21 16:14 Urine Culture Comments NOT INDICATED 09/05/21 16:14 Nasal Adenovirus (PCR) NOT DETECTED 09/05/21 20:09 Nasal B. parapertussis DNA (PCR) NOT DETECTED 09/05/21 20:09 Nasal Coronavir 229E PCR NOT DETECTED 09/05/21 20:09 Nasal Coronavir HKU1 PCR NOT DETECTED 09/05/21 20:09 Nasal Coronavir NL63 PCR NOT DETECTED 09/05/21 20:09 Nasal Coronavir OC43 PCR NOT DETECTED 09/05/21 20:09 Nasal Enterovir/Rhinovir PCR NOT DETECTED 09/05/21 20:09 Nasal Influenza B PCR NOT DETECTED 09/05/21 20:09 Nasal Influenza A PCR NOT DETECTED 09/05/21 20:09 Nasal Parainfluen 1 PCR NOT DETECTED 09/05/21 20:09 Nasal Parainfluen 2 PCR NOT DETECTED 09/05/21 20:09 Nasal Parainfluen 3 PCR NOT DETECTED 09/05/21 20:09 Nasal Parainfluen 4 PCR NOT DETECTED 09/05/21 20:09 Nasal RSV (PCR) NOT DETECTED 09/05/21 20:09 Nasal B.pertussis DNA PCR NOT DETECTED 09/05/21 20:09 Nasal C.pneumoniae (PCR) NOT DETECTED 09/05/21 20:09 [place] Human Metapneumo PCR NOT DETECTED 09/05/21 20:09 Nasal M.pneumoniae (PCR) NOT DETECTED 09/05/21 20:09 Nasal SARS-CoV-2 (PCR) DETECTED A 09/05/21 20:09 Stl Occult Blood (IFOB) POSITIVE (NEGATIVE) A 09/07/21 07:50 Blood Type A NEGATIVE 09/06/21 08:45 Blood Type Recheck A NEGATIVE 09/06/21 06:55 Antibody Screen NEGATIVE 09/06/21 08:45 Crossmatch IS Only See Detail 09/06/21 08:45 ABX Reporting Has patient been on IV antibiotics over the past 48 hours?: Yes Current Medications - Current Medications Current Medications: Active Medications Acetaminophen (Acetaminophen 325 Mg Tablet) 650 mg PO Q4HR PRN PRN Reason: Pain 1 to 4 Last Admin: 09/10/21 10:12 Dose: 650 mg Albuterol (Albuterol 1 Puff) 2 puffs INH Q6H PRN PRN Reason: Shortness of Air/Wheezing Last Admin: 09/05/21 18:21 Dose: 2 puffs Amlodipine Besylate (Amlodipine 5 Mg Tablet) 5 mg PO DAILY [facility] Last Admin: 09/12/21 10:25 Dose: 5 mg Atorvastatin Calcium (Atorvastatin 10 Mg Tablet) 10 mg PO QPM [facility] Last Admin: 09/11/21 20:30 Dose: 10 mg Azithromycin (Azithromycin 250 Mg Tablet) 250 mg PO DAILY [facility] Stop: 09/14/21 09:01 Last Admin: 09/12/21 10:24 Dose: 250 mg Cholecalciferol (Cholecalciferol 25 Mcg Tablet) 50 mcg PO DAILY [facility] Last Admin: 09/12/21 10:25 Dose: 50 mcg Dexamethasone (Dexamethasone 4 Mg Tablet) 6 mg PO QD DARLYN Stop: 09/14/21 18:01 Last Admin: 09/11/21 18:26 Dose: 6 mg Ferrous Sulfate (Ferrous Sulfate 325 Mg Tablet) 325 mg PO DAILYWM [facility] Last Admin: 09/12/21 10:23 Dose: 325 mg Fluticasone Propionate (Fluticasone Nasal [place]) 1 sprays [place] BID [facility] Last Admin: 09/12/21 10:23 Dose: 1 spray Gabapentin (Gabapentin 300 Mg Capsule) 300 mg PO BID [facility] Last Admin: 09/12/21 10:24 Dose: 300 mg Ceftriaxone Sodium 1 gm/ (Sodium Chloride) 100 mls @ 200 mls/hr IV DAILY DARLYN Stop: 09/14/21 09:29 Last Infusion: 09/12/21 11:19 Dose: Infused Sodium Chloride (Normal Saline 0.9%) 1,000 mls @ 83.333 mls/hr IV .Q12H [facility] Stop: 09/13/21 00:59 Last Admin: 09/12/21 13:29 Dose: 83.333 mls/hr Insulin Aspart (Insulin Aspart 300 Unit/3 Ml Pen) 3 - 11 unit SUBQ 0800,1200,1700,2100 [facility]; Protocol Last Admin: 09/12/21 12:10 Dose: 9 unit Lisinopril (Lisinopril 5 Mg Tablet) 2.5 mg PO DAILY [facility] Last Admin: 09/12/21 10:24 Dose: 2.5 mg Nystatin (Nystatin Powder 15 Gm) 1 applic TOP BID [facility] Last Admin: 09/12/21 10:29 Dose: 1 applic Ondansetron HCl (Ondansetron 4 Mg/2 Ml Vial) 4 mg IVP Q6HR PRN PRN Reason: Nausea / Vomiting Pantoprazole Sodium (Pantoprazole 40 Mg Tablet) 40 mg PO BIDAC [facility] Last Admin: 09/12/21 06:07 Dose: 40 mg Multivit/Folic Acid/Iron ( Vitamin Tablet) 1 tab PO DAILYWM [facility] Last Admin: 09/12/21 10:25 Dose: 1 tab Saccharomyces Boulardii (Saccharomyces Boulardii 250 Mg Capsule) 250 mg PO BIDWM [facility] Last Admin: 09/12/21 10:24 Dose: 250 mg Sodium Chloride (Sodium Chloride Flush 0.9% 10 Ml Syringe) 10 ml IVP PRN PRN PRN Reason: NEEDED PER PROVIDER ORDERS Last Admin: 09/09/21 21:38 Dose: 10 ml Sodium Chloride (Sodium Chloride Flush 0.9% 10 Ml Syringe) 10 ml IVP 0100,0900,1700 [facility] Last Admin: 09/12/21 10:31 Dose: 10 ml Gabapentin [Neurontin] 300 mg PO BID 02/08/13 Warfarin Sodium [Coumadin] 4 mg PO DAILY 02/08/13 Anagrelide HCl 0.5 mg PO BID 06/19/13 Fluticasone [Flonase] 1 spray [place] BID 09/03/15 Aspirin EC [Ecotrin] 81 mg PO DAILY 09/07/21 Ferrous Sulfate 325 mg PO DAILY 09/07/21 Lisinopril [Zestril] 2.5 mg PO DAILY 09/07/21 Metoprolol Succinate [Toprol Xl] 50 mg PO DAILY 09/07/21 Rosuvastatin Calcium [Crestor] 5 mg PO QPM 09/07/21 amLODIPine [Norvasc] 5 mg PO DAILY 09/07/21
[2021-09-12] MEDS ORDERED: SODIUM CHLORIDE 0.9% 1,000 ML IV SCH (13:00)
[2021-09-12 14:08] LABS: HGB - HEMOGLOBIN 9.8 g/dL (14.0-18.0)
[2021-09-12] MEDS: dexAMETHasone 4 MG TABLET PO SCH (17:25)
[2021-09-12] MEDS: ATORVASTATIN 10 MG TABLET PO SCH (21:31)
[2021-09-13] MEDS: SODIUM CHLORIDE FLUSH 0.9% 10 ML SYRINGE IVP SCH ×3 (00:01→17:02)
[2021-09-13 05:58] LABS: HCT - HEMATOCRIT 26.8 % (42.0-52.0); HGB - HEMOGLOBIN 8.5 g/dL (14.0-18.0); LYMPHOCYTES # (AUTO) 0.3 10^3/uL (1.5-3.5); LYMPHOCYTES % (AUTO) 3.5 %; MEAN CORPUSCULAR HEMOGLOBIN 30.7 pg (27.0-31.0); MEAN CORPUSCULAR HGB CONC 31.7 g/dL (32.0-36.0); MEAN CORPUSCULAR VOLUME 96.8 fL (80.0-94.0); MEAN PLATELET VOLUME 12.4 fL (7.4-11.4); MONOCYTES # (AUTO) 0.4 10^3/uL (0.0-1.0); MONOCYTES % (AUTO) 4.2 %; NEUTROPHILS # (AUTO) 8.1 10^3/uL (1.5-6.6); NEUTROPHILS % (AUTO) 90.5 %; PLT - PLATELET COUNT 161 10^3/uL (130-450); RED BLOOD COUNT 2.77 10^6/uL (4.70-6.10); RED CELL DISTRIBUTION WIDTH 18.8 % (12.0-15.0); WHITE BLOOD COUNT 8.9 x10^3/uL (4.8-10.8)
[2021-09-13] MEDS: PANTOPRAZOLE 40 MG TABLET PO SCH ×2 (06:11→16:40)
[2021-09-13 06:15] LABS: CALCIUM 7.6 mg/dL (8.5-10.3); CREATININE 1.5 mg/dL (0.6-1.2)
[2021-09-13] MEDS: INSULIN ASPART 300 UNIT/3 ML PEN SUBQ SCH ×4 (08:27→21:21)
[2021-09-13] MEDS: FERROUS SULFATE 325 MG TABLET PO SCH (08:27)
[2021-09-13] MEDS: lisinopriL 5 MG TABLET PO SCH (08:28)
[2021-09-13] MEDS: cefTRIAXone 1 GM in SODIUM CHLORIDE 0.9% MINIBAG 100 ML IV SCH (08:28)
[2021-09-13] MEDS: GABAPENTIN 300 MG CAPSULE PO SCH ×2 (08:28→21:21)
[2021-09-13] MEDS: polyethylene glycoL 3350 17 GM PACKET PO SCH (08:28)
[2021-09-13] MEDS: amLODIPine 5 MG TABLET PO SCH (08:28)
[2021-09-13] MEDS: PRENATAL VITAMIN TABLET PO SCH (08:28)
[2021-09-13] MEDS: CHOLECALCIFEROL 25 MCG TABLET PO SCH (08:28)
[2021-09-13] MEDS: AZITHROMYCIN 250 MG TABLET PO SCH (08:28)
[2021-09-13] MEDS: SACCHAROMYCES BOULARDII 250 MG CAPSULE PO SCH ×2 (08:28→17:02)
[2021-09-13] MEDS: NYSTATIN POWDER 15 GM TOP SCH ×2 (08:29→21:22)
[2021-09-13] MEDS: FLUTICASONE NASAL SPRAY NAS SCH ×2 (08:29→21:22)
--- NOTE | 2021-09-13 16:59 | PROVIDER PROGRESS NOTE ---
Subjective - Prog Note Date Prog Note Date: 09/13/21 Prog Note Time: 16:56 - Subjective Subjective: His main complaint is just fatigue. Has no energy to get up and do anything. Denies chest pain, abdominal pain. Appetite is plus minus. He is ambulating with a gait belt and using a walker. He is forgetful, but for the most part oriented. Very tired of being here. Easily tachypneic and would like to go home. Eating 100% of his meals. Current Medications - Current Medications Current Medications: Active Medications Acetaminophen (Acetaminophen 325 Mg Tablet) 650 mg PO Q4HR PRN PRN Reason: Pain 1 to 4 Last Admin: 09/10/21 10:12 Dose: 650 mg Albuterol (Albuterol 1 Puff) 2 puffs INH Q6H PRN PRN Reason: Shortness of Air/Wheezing Last Admin: 09/05/21 18:21 Dose: 2 puffs Amlodipine Besylate (Amlodipine 5 Mg Tablet) 5 mg PO DAILY [facility] Last Admin: 09/13/21 08:28 Dose: 5 mg Atorvastatin Calcium (Atorvastatin 10 Mg Tablet) 10 mg PO QPM [facility] Last Admin: 09/12/21 21:31 Dose: 10 mg Azithromycin (Azithromycin 250 Mg Tablet) 250 mg PO DAILY [facility] Stop: 09/14/21 09:01 Last Admin: 09/13/21 08:28 Dose: 250 mg Cholecalciferol (Cholecalciferol 25 Mcg Tablet) 50 mcg PO DAILY [facility] Last Admin: 09/13/21 08:28 Dose: 50 mcg Dexamethasone (Dexamethasone 4 Mg Tablet) 6 mg PO QD [facility] Stop: 09/14/21 18:01 Last Admin: 09/12/21 17:25 Dose: 6 mg Ferrous Sulfate (Ferrous Sulfate 325 Mg Tablet) 325 mg PO DAILYWM [facility] Last Admin: 09/13/21 08:27 Dose: 325 mg Fluticasone Propionate (Fluticasone Nasal [place]) 1 sprays [place] BID [facility] Last Admin: 09/13/21 08:29 Dose: 1 spray Gabapentin (Gabapentin 300 Mg Capsule) 300 mg PO BID [facility] Last Admin: 09/13/21 08:28 Dose: 300 mg Ceftriaxone Sodium 1 gm/ (Sodium Chloride) 100 mls @ 200 mls/hr IV DAILY [facility] Stop: 09/14/21 09:29 Last Infusion: 09/13/21 10:05 Dose: Infused Insulin Aspart (Insulin Aspart 300 Unit/3 Ml Pen) 3 - 11 unit SUBQ 0800,1200,1700,2100 [facility]; Protocol Last Admin: 09/13/21 17:01 Dose: 7 unit Lisinopril (Lisinopril 5 Mg Tablet) 2.5 mg PO DAILY [facility] Last Admin: 09/13/21 08:28 Dose: 2.5 mg Nystatin (Nystatin Powder 15 Gm) 1 applic TOP BID [facility] Last Admin: 09/13/21 08:29 Dose: 1 applic Ondansetron HCl (Ondansetron 4 Mg/2 Ml Vial) 4 mg IVP Q6HR PRN PRN Reason: Nausea / Vomiting Pantoprazole Sodium (Pantoprazole 40 Mg Tablet) 40 mg PO BIDAC [facility] Last Admin: 09/13/21 16:40 Dose: 40 mg Polyethylene Glycol (Polyethylene Glycol 3350 17 Gm Packet) 17 gm PO DAILY [facility] Last Admin: 09/13/21 08:28 Dose: 17 gm Multivit/Folic Acid/Iron ( Vitamin Tablet) 1 tab PO DAILYWM [facility] Last Admin: 09/13/21 08:28 Dose: 1 tab Saccharomyces Boulardii (Saccharomyces Boulardii 250 Mg Capsule) 250 mg PO BIDWM [facility] Last Admin: 09/13/21 17:02 Dose: 250 mg Sodium Chloride (Sodium Chloride Flush 0.9% 10 Ml Syringe) 10 ml IVP PRN PRN PRN Reason: NEEDED PER PROVIDER ORDERS Last Admin: 09/09/21 21:38 Dose: 10 ml Sodium Chloride (Sodium Chloride Flush 0.9% 10 Ml Syringe) 10 ml IVP 0100,0900,1700 [facility] Last Admin: 09/13/21 17:02 Dose: 20 ml Gabapentin [Neurontin] 300 mg PO BID 02/08/13 Warfarin Sodium [Coumadin] 4 mg PO DAILY 02/08/13 Anagrelide HCl 0.5 mg PO BID 06/19/13 Fluticasone [Flonase] 1 spray [place]OUIS BID 09/03/15 Aspirin EC [Ecotrin] 81 mg PO DAILY 09/07/21 Ferrous Sulfate 325 mg PO DAILY 09/07/21 Lisinopril [Zestril] 2.5 mg PO DAILY 09/07/21 Metoprolol Succinate [Toprol Xl] 50 mg PO DAILY 09/07/21 Rosuvastatin Calcium [Crestor] 5 mg PO QPM 09/07/21 amLODIPine [Norvasc] 5 mg PO DAILY 09/07/21 Objective - Vital Signs/Intake & Output Reviewed Vital Signs: Yes Vital Signs: Vital Signs x48h Temp Pulse Resp BP BP Pulse Ox 09/13/21 16:44 36.6 C 69 20 137/55 H 96 09/13/21 13:00 36.5 C 71 20 107/90 H 92 Intake & Output: Intake & Output 09/10/21 09/11/21 09/12/21 09/13/21 23:59 23:59 23:59 23:59 Intake Total 2005.8 3145 2240 1850 Output Total 2100 1825 1325 1025 Balance -94.2 1320 915 825 - Objective General Appearance: positive: Alert, Mild distress (shortness of breath), Other (Elderly gentleman, looks fatigued, and he just wants to be left alone) Eyes Bilateral: positive: PERRL, EOMI ENT: positive: No signs of dehydration Neck: positive: No JVD. negative: Stiff neck Respiratory: positive: Rales. negative: Wheezes, Rhonchi Cardiovascular: positive: Regular rate & rhythm, Systolic murmur. negative: Gallop/S4, Friction rub Abdomen: positive: Non-tender, No organomegaly, Nml bowel sounds, No distention Skin: positive: Warm, Dry Extremities: positive: Full ROM, No pedal edema Neurologic/Psychiatric: positive: Oriented x3 (He is oriented to person place and time but he is very forgetful. Loses track of the conversation. 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), Motor nml (With generalized weakness.) - Lab Results Fish Bones: 09/13/21 04:40 09/13/21 04:40 Other Labs: Lab Results x24hrs 09/13/21 09/13/21 Range/Units 04:40 04:40 WBC 8.9 (4.8-10.8) x10^3/uL RBC 2.77 L (4.70-6.10) 10^6/uL Hgb 8.5 L (14.0-18.0) g/dL Hct 26.8 L (42.0-52.0) % MCV 96.8 H (80.0-94.0) fL MCH 30.7 (27.0-31.0) pg MCHC 31.7 L (32.0-36.0) g/dL RDW 18.8 H (12.0-15.0) % Plt Count 161 (130-450) 10^3/uL MPV 12.4 H (7.4-11.4) fL Neut # (Auto) 8.1 H (1.5-6.6) 10^3/uL Lymph # (Auto) 0.3 L (1.5-3.5) 10^3/uL [place] # (Auto) 0.4 (0.0-1.0) 10^3/uL Eos # (Auto) 0.0 (0.0-0.7) 10^3/uL Baso # (Auto) 0.0 (0.0-0.1) 10^3/uL Absolute Nucleated RBC 0.00 x10^3/uL Nucleated RBC % 0.0 /100WBC Sodium 139 (135-145) mmol/L Potassium 5.0 (3.5-5.0) mmol/L Chloride 115 H (101-111) mmol/L Carbon Dioxide 18 L (21-32) mmol/L Anion Gap 6.0 (6-13) BUN 45 H (6-20) mg/dL Creatinine 1.5 H (0.6-1.2) mg/dL Estimated GFR (MDRD) 44 L (>89) Glucose 238 H (70-100) mg/dL Calcium 7.6 L (8.5-10.3) mg/dL ABX Reporting Has patient been on IV antibiotics over the past 48 hours?: Yes Assessment/Plan - Problem List (1) Respiratory failure with hypoxia Impression: When he presented to the emergency room who is 88% on room air. He was needing 2 L nasal cannula. Even with remdesivir and steroids his O2 requirement has gone up to 5 L since September 10. He is remained on 5 L. We are awaiting oxygen levels to improve with decreasing O2 nasal cannula delivery. Once he is down to approximately 2 L he might be able to be discharged on nasal cannula. I will dc tele today since doing well. He has significant generalized deconditioning due to being in the hospital. He is working with PT: Pt. is a cooperative, 86 y.o. M, admitted to hospital w/COVID pneumonia and hypoxia; he continues to need 5.0 lit. of O2, n.c. at rest and w/activity; pt. is able to transfer and amb. w/assistance using the walker but, is high risk for falling, showing evidence of leaning, mis-steps and actual LOB during 80 ft. of amb, recovered balance by PT assistance. Pt. will need continued PT working on progressing his activity tolerance w/improved safety/balance; pt. is expected to need trasnfer to SNF prior to d/c home from hospital due to high risk for falling w/o assistance. Continue w/PT in hospital daily. (2) Pneumonia due to COVID-19 virus Impression: He is completed remdesivir and Decadron. He is on supplemental oxygen. At this time we added antibiotics because of rising O2 requirement.Chest x-ray on September 09 had worse left lower lobe opacities when compared to his admission September 05 exam. It was suspicious for worsening pneumonia. As such he was started on azithromycin 2/2 and he completes 3 doses today. Ceftriaxone will be 5 doses and stopped tomorrow. (3) GI bleed Impression: Dark bloody stool September 07. Drop in hemoglobin from 7.8-5.9. Normal blood pressure, not tachycardic. 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 General surgery saw the patient in consultation. It was recommended that we just hold his blood thinner, transfusing 2 units, Protonix IV, but no EGD at this time.Hemoglobin was 9.8 yesterday. 8.5 today. He is on iron supplementation. We will continue to monitor. (4) RUDDY (acute kidney injury) resolved. Impression: Patient's baseline is 1.6. He goes around this number over the course of the hospitalization. He was up to 2.4 on admission. Today he is 1.5. No new orders.Continue to monitor. (5) Hypernatremia Impression: On admit 153. 149 on September 07 and September 08. Normal by September 08. We have change his IV fluid and he is down to 139 today. (6) Acute blood loss anemia. due to UGI bleed. We are monitoring and no need for transfusion today. (7) Hx of deep venous thrombosis Impression: Pt has a hx of DVT and was on Coumadin. With his GI bleed, anticioagulants have been hold.
[2021-09-13] MEDS: dexAMETHasone 4 MG TABLET PO SCH (18:00)
[2021-09-13] MEDS: ATORVASTATIN 10 MG TABLET PO SCH (21:22)
[2021-09-14] MEDS: SODIUM CHLORIDE FLUSH 0.9% 10 ML SYRINGE IVP SCH ×3 (01:00→17:26)
[2021-09-14] MEDS: PANTOPRAZOLE 40 MG TABLET PO SCH ×2 (06:14→17:22)
[2021-09-14] MEDS: polyethylene glycoL 3350 17 GM PACKET PO SCH (08:54)
[2021-09-14] MEDS: FERROUS SULFATE 325 MG TABLET PO SCH (08:55)
[2021-09-14] MEDS: SACCHAROMYCES BOULARDII 250 MG CAPSULE PO SCH ×2 (08:55→17:26)
[2021-09-14] MEDS: GABAPENTIN 300 MG CAPSULE PO SCH ×2 (08:55→20:42)
[2021-09-14] MEDS: CHOLECALCIFEROL 25 MCG TABLET PO SCH (08:55)
[2021-09-14] MEDS: amLODIPine 5 MG TABLET PO SCH (08:56)
[2021-09-14] MEDS: AZITHROMYCIN 250 MG TABLET PO SCH (08:56)
[2021-09-14] MEDS: PRENATAL VITAMIN TABLET PO SCH (08:56)
[2021-09-14] MEDS: lisinopriL 5 MG TABLET PO SCH (08:56)
[2021-09-14] MEDS: FLUTICASONE NASAL SPRAY NAS SCH ×2 (08:58→20:42)
[2021-09-14] MEDS: INSULIN ASPART 300 UNIT/3 ML PEN SUBQ SCH ×4 (08:58→20:43)
[2021-09-14] MEDS: NYSTATIN POWDER 15 GM TOP SCH ×2 (08:59→20:43)
[2021-09-14] MEDS: cefTRIAXone 1 GM in SODIUM CHLORIDE 0.9% MINIBAG 100 ML IV SCH (09:04)
[2021-09-14] MEDS: dexAMETHasone 4 MG TABLET PO SCH (18:03)
--- NOTE | 2021-09-14 19:07 | PROVIDER PROGRESS NOTE ---
Subjective - Prog Note Date Prog Note Date: 09/14/21 Prog Note Time: 19:05 - Subjective Subjective: He is about the same. Today his main complaint is being really cold and he would like another blanket. His oxygen requirement has not diminished. Still on 5 L. No new cough, no chest pain. No abdominal pain. He is getting off Covid precautions today. Current Medications - Current Medications Current Medications: Active Medications Acetaminophen (Acetaminophen 325 Mg Tablet) 650 mg PO Q4HR PRN PRN Reason: Pain 1 to 4 Last Admin: 09/10/21 10:12 Dose: 650 mg Albuterol (Albuterol 1 Puff) 2 puffs INH Q6H PRN PRN Reason: Shortness of Air/Wheezing Last Admin: 09/05/21 18:21 Dose: 2 puffs Amlodipine Besylate (Amlodipine 5 Mg Tablet) 5 mg PO DAILY [facility] Last Admin: 09/14/21 08:56 Dose: 5 mg Atorvastatin Calcium (Atorvastatin 10 Mg Tablet) 10 mg PO QPM [facility] Last Admin: 09/13/21 21:22 Dose: 10 mg Cholecalciferol (Cholecalciferol 25 Mcg Tablet) 50 mcg PO DAILY [facility] Last Admin: 09/14/21 08:55 Dose: 50 mcg Ferrous Sulfate (Ferrous Sulfate 325 Mg Tablet) 325 mg PO DAILYWM [facility] Last Admin: 09/14/21 08:55 Dose: 325 mg Fluticasone Propionate (Fluticasone Nasal [place]) 1 sprays LOUIS BID [facility] Last Admin: 09/14/21 08:58 Dose: 1 spray Gabapentin (Gabapentin 300 Mg Capsule) 300 mg PO BID [facility] Last Admin: 09/14/21 08:55 Dose: 300 mg Insulin Aspart (Insulin Aspart 300 Unit/3 Ml Pen) 3 - 11 unit SUBQ 0800,1200,1700,2100 [facility]; Protocol Last Admin: 09/14/21 17:22 Dose: 5 unit Lisinopril (Lisinopril 5 Mg Tablet) 2.5 mg PO DAILY [facility] Last Admin: 09/14/21 08:56 Dose: 2.5 mg Nystatin (Nystatin Powder 15 Gm) 1 applic TOP BID [facility] Last Admin: 09/14/21 08:59 Dose: 1 applic Ondansetron HCl (Ondansetron 4 Mg/2 Ml Vial) 4 mg IVP Q6HR PRN PRN Reason: Nausea / Vomiting Pantoprazole Sodium (Pantoprazole 40 Mg Tablet) 40 mg PO BIDAC [facility] Last Admin: 09/14/21 17:22 Dose: 40 mg Polyethylene Glycol (Polyethylene Glycol 3350 17 Gm Packet) 17 gm PO DAILY [facility] Last Admin: 09/14/21 08:54 Dose: 17 gm Multivit/Folic Acid/Iron ( Vitamin Tablet) 1 tab PO DAILYWM [facility] Last Admin: 09/14/21 08:56 Dose: 1 tab Saccharomyces Boulardii (Saccharomyces Boulardii 250 Mg Capsule) 250 mg PO BIDWM [facility] Last Admin: 09/14/21 17:26 Dose: 250 mg Sodium Chloride (Sodium Chloride Flush 0.9% 10 Ml Syringe) 10 ml IVP PRN PRN PRN Reason: NEEDED PER PROVIDER ORDERS Last Admin: 09/09/21 21:38 Dose: 10 ml Sodium Chloride (Sodium Chloride Flush 0.9% 10 Ml Syringe) 10 ml IVP 0100,0900,1700 [facility] Last Admin: 09/14/21 17:26 Dose: 10 ml Gabapentin [Neurontin] 300 mg PO BID 02/08/13 Warfarin Sodium [Coumadin] 4 mg PO DAILY 02/08/13 Anagrelide HCl 0.5 mg PO BID 06/19/13 Fluticasone [Flonase] 1 spray LOUIS BID 09/03/15 Aspirin EC [Ecotrin] 81 mg PO DAILY 09/07/21 Ferrous Sulfate 325 mg PO DAILY 09/07/21 Lisinopril [Zestril] 2.5 mg PO DAILY 09/07/21 Metoprolol Succinate [Toprol Xl] 50 mg PO DAILY 09/07/21 Rosuvastatin Calcium [Crestor] 5 mg PO QPM 09/07/21 amLODIPine [Norvasc] 5 mg PO DAILY 09/07/21 Objective - Vital Signs/Intake & Output Reviewed Vital Signs: Yes Vital Signs: Vital Signs x48h Pulse Resp Pulse Ox 09/14/21 16:44 69 20 91 L Intake & Output: Intake & Output 09/11/21 09/12/21 09/13/21 09/14/21 23:59 23:59 23:59 23:59 Intake Total 3145 2240 2540 1230 Output Total 1825 1325 1525 1350 Balance 5066 188 3344 -120 - Objective General Appearance: positive: Alert, Other (Short statured elderly gentleman who looks younger than stated age, no respiratory distress wearing his nasal c annula.) ENT: positive: Pharynx nml Neck: positive: No JVD. negative: Stiff neck Respiratory: positive: No respiratory distress. negative: Wheezes, Rales, Rhonchi Cardiovascular: positive: Regular rate & rhythm Abdomen: positive: Non-tender, No organomegaly, Nml bowel sounds, No distention Skin: positive: Warm, Dry, Pallor Extremities: positive: Full ROM, No pedal edema Neurologic/Psychiatric: positive: CN's nml (2-12), Motor nml, Disoriented to place (sometimes), Disoriented to time - Lab Results Fish Bones: 09/13/21 04:40 09/13/21 04:40 Assessment/Plan - Problem List (1) Respiratory failure with hypoxia Impression: When he presented to the emergency room who is 88% on room air. He was needing 2 L nasal cannula. Even with remdesivir and steroids his O2 requirement has gone up to 5 L since September 10. He is remained on 5 L. We are awaiting oxygen levels to improve with decreasing O2 nasal cannula delivery. Once he is down to approximately 2 L he might be able to be discharged on nasal cannula. No change for today. Still working with PT for deconditioning and off tele. EAting. (2) Pneumonia due to COVID-19 virus Impression: He is completed remdesivir and Decadron. He is on supplemental oxygen. At this time we added antibiotics because of rising O2 requirement.Chest x-ray on September 09 had worse left lower lobe opacities when compared to his admission September 05 exam. It was suspicious for worsening pneumonia. As such he was started on azithromycin 2/2 and he completes 3 doses today. Ceftriaxone will be 5 doses and stopped today (3) GI bleed Impression: Dark bloody stool September 07. Drop in hemoglobin from 7.8-5.9. Normal blood pressure, not tachycardic. 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 General surgery saw the patient in consultation. It was recommended that we just hold his blood thinner, transfusing 2 units, Protonix IV, but no EGD at this time.Hemoglobin was 9.8 yesterday. 8.5 today. He is on iron supplementation. We will continue to monitor. (4) RUDDY (acute kidney injury) resolved. Impression: Patient's baseline is 1.6. He goes around this number over the course of the hospitalization. He was up to 2.4 on admission. On 09/13, he was 1.5. No new orders.Continue to monitor. (5) Hypernatremia Impression: On admit 153. 149 on September 07 and September 08. Normal by September 08. We have change his IV fluid and he is down to 139 on 09/13 (6) Acute blood loss anemia. due to UGI bleed. We are monitoring and no need for transfusion today. (7) Hx of deep venous thrombosis Impression: Pt has a hx of DVT and was on Coumadin. With his GI bleed, anticioagulants have been hold.
[2021-09-14] MEDS: ATORVASTATIN 10 MG TABLET PO SCH (20:42)
[2021-09-15] MEDS: SODIUM CHLORIDE FLUSH 0.9% 10 ML SYRINGE IVP SCH ×3 (03:07→17:28)
[2021-09-15] MEDS: PANTOPRAZOLE 40 MG TABLET PO SCH ×2 (05:52→17:24)
[2021-09-15] MEDS: FERROUS SULFATE 325 MG TABLET PO SCH (09:13)
[2021-09-15] MEDS: INSULIN ASPART 300 UNIT/3 ML PEN SUBQ SCH ×4 (09:13→22:01)
[2021-09-15] MEDS: SACCHAROMYCES BOULARDII 250 MG CAPSULE PO SCH ×2 (09:14→17:27)
[2021-09-15] MEDS: PRENATAL VITAMIN TABLET PO SCH (09:14)
[2021-09-15] MEDS: amLODIPine 5 MG TABLET PO SCH (09:14)
[2021-09-15] MEDS: CHOLECALCIFEROL 25 MCG TABLET PO SCH (09:15)
[2021-09-15] MEDS: lisinopriL 5 MG TABLET PO SCH (09:15)
[2021-09-15] MEDS: FLUTICASONE NASAL SPRAY NAS SCH ×2 (09:15→22:00)
[2021-09-15] MEDS: GABAPENTIN 300 MG CAPSULE PO SCH ×2 (09:15→22:00)
[2021-09-15] MEDS: NYSTATIN POWDER 15 GM TOP SCH ×2 (09:15→22:01)
[2021-09-15] MEDS: polyethylene glycoL 3350 17 GM PACKET PO SCH (09:16)
--- NOTE | 2021-09-15 17:30 | PROVIDER PROGRESS NOTE ---
Progress Note September 15, 2021 17: 25 He continues to be requiring oxygen. Still on 5 L nasal cannula. But he is otherwise stable. He ambulates in the rooms. Eats 100% of his food. Seems a little confused. Daughter has asked that we please have his license looked at by DMV. She is really worried about his driving and doesn't want to be the one to do it. She shared this with social work who then passed on to me. He is otherwise quite stable. Active Medications Acetaminophen (Acetaminophen 325 Mg Tablet) 650 mg PO Q4HR PRN PRN Reason: Pain 1 to 4 Last Admin: 09/10/21 10:12 Dose: 650 mg Albuterol (Albuterol 1 Puff) 2 puffs INH Q6H PRN PRN Reason: Shortness of Air/Wheezing Last Admin: 09/05/21 18:21 Dose: 2 puffs Amlodipine Besylate (Amlodipine 5 Mg Tablet) 5 mg PO DAILY [facility] Last Admin: 09/15/21 09:14 Dose: 5 mg Atorvastatin Calcium (Atorvastatin 10 Mg Tablet) 10 mg PO QPM [facility] Last Admin: 09/14/21 20:42 Dose: 10 mg Cholecalciferol (Cholecalciferol 25 Mcg Tablet) 50 mcg PO DAILY [facility] Last Admin: 09/15/21 09:15 Dose: 50 mcg Ferrous Sulfate (Ferrous Sulfate 325 Mg Tablet) 325 mg PO DAILYWM [facility] Last Admin: 09/15/21 09:13 Dose: 325 mg Fluticasone Propionate (Fluticasone Nasal [place]) 1 sprays [place] BID [facility] Last Admin: 09/15/21 09:15 Dose: 1 spray Gabapentin (Gabapentin 300 Mg Capsule) 300 mg PO BID [facility] Last Admin: 09/15/21 09:15 Dose: 300 mg Insulin Aspart (Insulin Aspart 300 Unit/3 Ml Pen) 3 - 11 unit SUBQ 0800,1200,1700,2100 [facility]; Protocol Last Admin: 09/15/21 17:21 Dose: 9 unit Lisinopril (Lisinopril 5 Mg Tablet) 2.5 mg PO DAILY [facility] Last Admin: 09/15/21 09:15 Dose: 2.5 mg Nystatin (Nystatin Powder 15 Gm) 1 applic TOP BID [facility] Last Admin: 09/15/21 09:15 Dose: 1 applic Ondansetron HCl (Ondansetron 4 Mg/2 Ml Vial) 4 mg IVP Q6HR PRN PRN Reason: Nausea / Vomiting Pantoprazole Sodium (Pantoprazole 40 Mg Tablet) 40 mg PO BIDAC [facility] Last Admin: 09/15/21 17:24 Dose: 40 mg Polyethylene Glycol (Polyethylene Glycol 3350 17 Gm Packet) 17 gm PO DAILY [facility] Last Admin: 09/15/21 09:16 Dose: 17 gm Multivit/Folic Acid/Iron ( Vitamin Tablet) 1 tab PO DAILYWM [facility] Last Admin: 09/15/21 09:14 Dose: 1 tab Saccharomyces Boulardii (Saccharomyces Boulardii 250 Mg Capsule) 250 mg PO BIDWM [facility] Last Admin: 09/15/21 17:27 Dose: 250 mg Sodium Chloride (Sodium Chloride Flush 0.9% 10 Ml Syringe) 10 ml IVP PRN PRN PRN Reason: NEEDED PER PROVIDER ORDERS Last Admin: 09/09/21 21:38 Dose: 10 ml Sodium Chloride (Sodium Chloride Flush 0.9% 10 Ml Syringe) 10 ml IVP 0100,0900,1700 [facility] Last Admin: 09/15/21 17:28 Dose: 10 ml Gabapentin [Neurontin] 300 mg PO BID 02/08/13 Warfarin Sodium [Coumadin] 4 mg PO DAILY 02/08/13 Anagrelide HCl 0.5 mg PO BID 06/19/13 Fluticasone [Flonase] 1 spray [place] BID 09/03/15 Aspirin EC [Ecotrin] 81 mg PO DAILY 09/07/21 Ferrous Sulfate 325 mg PO DAILY 09/07/21 Lisinopril [Zestril] 2.5 mg PO DAILY 09/07/21 Metoprolol Succinate [Toprol Xl] 50 mg PO DAILY 09/07/21 Rosuvastatin Calcium [Crestor] 5 mg PO QPM 09/07/21 amLODIPine [Norvasc] 5 mg PO DAILY 09/07/21 Temperature is 36.3, heart rate 92, blood pressure 124/50, respirations 18. O2 sat 90% on 5 L Short statured elderly white male who looks stated age Neck is supple, shotty adenopathy Lungs have coarse rhonchi but in spite of hypoxemia is not in respiratory distress. He is comfortable sitting in bed, and I watched him get out of bed and walk in his room without tachypnea or fatigue. Regular rate and rhythm Abdomen is slightly protuberant, soft, nontender with normal bowel sounds. He has a Watt catheter. Extremities without edema He walks with a walker. Standby assist with a gait belt. He can be very forgetful. But for the most part he is oriented that he is in the hospital and that he had pneumonia. No labs since September 13. Datasets deliver choice on my part. Assessment/plan 1. Respiratory failure with hypoxia. He presented to the emergency room at 80% on room air. He only needed 2 L nasal cannula. But with his illness and GI bleed he ended up being on 5 L since September 10 and is stayed there. He is otherwise clinically stable and we are waiting for his oxygen requirement to diminish that he can be transition to the next acute care. Telemetry was discontinued September 14. He is deconditioned enough to need physical therapy and [facility]. 2. Pneumonia due to COVID-19 virus. He completed remdesivir and Decadron. We suspected possible worsening secondary pneumonia and he completed azithromycin and is completing ceftriaxone yesterday. 3. Upper GI bleed with dark bloody stools September 07. Transfused 2 units. General surgery does not feel the need for EGD at this time. On iron supplementation and proton pump inhibitor. 4.. Acute kidney injury resolved 5. Hypernatremia resolved 6. History of DVT. He was on Coumadin. But with his GI bleed anticoagulants have been stopped.
[2021-09-15] MEDS: ATORVASTATIN 10 MG TABLET PO SCH (22:00)
[2021-09-16] MEDS: SODIUM CHLORIDE FLUSH 0.9% 10 ML SYRINGE IVP SCH ×3 (03:28→16:50)
[2021-09-16] MEDS: PANTOPRAZOLE 40 MG TABLET PO SCH ×2 (06:26→16:49)
[2021-09-16] MEDS: CHOLECALCIFEROL 25 MCG TABLET PO SCH (08:00)
[2021-09-16] MEDS: FERROUS SULFATE 325 MG TABLET PO SCH (08:00)
[2021-09-16] MEDS: lisinopriL 5 MG TABLET PO SCH (08:01)
[2021-09-16] MEDS: GABAPENTIN 300 MG CAPSULE PO SCH ×2 (08:01→21:04)
[2021-09-16] MEDS: amLODIPine 5 MG TABLET PO SCH (08:01)
[2021-09-16] MEDS: SACCHAROMYCES BOULARDII 250 MG CAPSULE PO SCH ×2 (08:01→17:31)
[2021-09-16] MEDS: PRENATAL VITAMIN TABLET PO SCH (08:01)
[2021-09-16] MEDS: polyethylene glycoL 3350 17 GM PACKET PO SCH (08:02)
[2021-09-16] MEDS: FLUTICASONE NASAL SPRAY NAS SCH ×2 (08:02→21:04)
[2021-09-16] MEDS: NYSTATIN POWDER 15 GM TOP SCH ×2 (08:02→21:04)
[2021-09-16] MEDS: INSULIN ASPART 300 UNIT/3 ML PEN SUBQ SCH ×4 (08:11→21:05)
[2021-09-16 09:47] LABS: BASOPHILS % (AUTO) 0.1 %; HCT - HEMATOCRIT 31.1 % (42.0-52.0); HGB - HEMOGLOBIN 9.9 g/dL (14.0-18.0); LYMPHOCYTES # (AUTO) 1.1 10^3/uL (1.5-3.5); LYMPHOCYTES % (AUTO) 5.6 %; MEAN CORPUSCULAR HEMOGLOBIN 31.2 pg (27.0-31.0); MEAN CORPUSCULAR HGB CONC 31.8 g/dL (32.0-36.0); MEAN CORPUSCULAR VOLUME 98.1 fL (80.0-94.0); MEAN PLATELET VOLUME 12.4 fL (7.4-11.4); MONOCYTES # (AUTO) 1.4 10^3/uL (0.0-1.0); MONOCYTES % (AUTO) 6.8 %; NEUTROPHILS % (AUTO) 83.8 %; NRBC ABSOLUTE COUNT (AUTO) 0.04 x10^3/uL; NUCLEATED RED BLOOD CELLS AUTO 0.2 /100WBC; PLT - PLATELET COUNT 210 10^3/uL (130-450); RED BLOOD COUNT 3.17 10^6/uL (4.70-6.10); RED CELL DISTRIBUTION WIDTH 18.7 % (12.0-15.0); WHITE BLOOD COUNT 20.3 x10^3/uL (4.8-10.8)
[2021-09-16 09:55] LABS: CALCIUM 7.9 mg/dL (8.5-10.3); CREATININE 1.3 mg/dL (0.6-1.2); POTASSIUM 4.6 mmol/L (3.5-5.0)
[2021-09-16 10:04] LABS: SLIDE REVIEW? Indicated
[2021-09-16 10:24] LABS: PLATELET ESTIMATE, MANUAL NORMAL (130-450,000) (NORMAL); PLATELET MORPHOLOGY NORMAL APPEARANCE (NORMAL)
--- NOTE | 2021-09-16 10:54 | XRAY Report ---
PROCEDURE: Chest 1 View X-Ray INDICATIONS: SOB TECHNIQUE: One view of the chest was acquired. COMPARISON: 09/09/2021 FINDINGS: Surgical changes and devices: None. Lungs and pleura: Patchy bilateral airspace opacities have improved but not entirely resolved. No ple ural effusion or pneumothorax. Mediastinum: Mediastinal contours appear normal. Heart size is normal. Bones and chest wall: No suspicious bony lesions. Overlying soft tissues appear unremarkable. IMPRESSION: Improved but not entirely resolved patchy bilateral airspace opacities. Reviewed by: Zachary Carrizales MD on 09/16/2021 10:53 AM [facility] [place] Approved by: Zachary Carrizales MD on 09/16/2021 10:53 AM [facility] [place] Station ID: [id number]
--- NOTE | 2021-09-16 14:58 | PROVIDER PROGRESS NOTE ---
Assessment/Plan - Problem List (1) Respiratory failure with hypoxia Assessment/Plan: 09/16 pt still need 4-5 liter of O2, and present shortness of breath in minimal exertion. CXR reveal improved but not entirely resolved patchy bilateral Airspace opacities. pt had significantly elevated WBC 20 on today which was at normal arrange on 09/13/21. will repeat CBC. pt has no fever. pt had antibiotics for his pneumonia and now it was hold. order UA. pt had hx of chronic indwelling catheter. since pt had GI bleed, we hold his home anticoagulation but pt also had hx of DVT, since pt still present respiratory distress, we order CTA of chest to r/o PE. When he presented to the emergency room who is 88% on room air. He was needing 2 L nasal cannula. Even with remdesivir and steroids his O2 requirement has gone up to 5 L since September 10. He is remained on 5 L. We are awaiting oxygen levels to improve with decreasing O2 nasal cannula delivery. Once he is down to approximately 2 L he might be able to be discharged on nasal cannula. No change for today. Still working with PT for deconditioning and off tele. EAting. (2) Pneumonia due to COVID-19 virus Impression: He is completed remdesivir and Decadron. He is on supplemental oxygen. At this time we added antibiotics because of rising O2 requirement.Chest x-ray on September 09 had worse left lower lobe opacities when compared to his admission September 05 exam. It was suspicious for worsening pneumonia. As such he was started on azithromycin 09/10 and he completes 3 doses today. Ceftriaxone will be 5 doses and stopped today (3) GI bleed Impression: 09/16 HGB is stable, bowel movement has brown color. continue PO protonix and hold blood thinner now. Dark bloody stool September 07. Drop in hemoglobin from 7.8-5.9. Normal blood pressure, not tachycardic. 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 General surgery saw the patient in consultation. It was recommended that we just hold his blood thinner, transfusing 2 units, Protonix IV, but no EGD at this time.Hemoglobin was 9.8 yesterday. 8.5 today. He is on iron supplementation. We will continue to monitor. (4) RUDDY (acute kidney injury) resolved. Impression: 2/8 improved, as pt's baseline creatinine is 1.5. Patient's baseline is 1.6. He goes around this number over the course of the hospitalization. He was up to 2.4 on admission. On 09/13, he was 1.5. No new orders.Continue to monitor. (5) Hyponatremia Impression: 09/16 Na is 132, keep hydration, continue lab monitor On admit 153. 149 on September 07 and September 08. Normal by September 08. We have change his IV fluid and he is down to 139 on 09/13 (6) Acute blood loss anemia. resolved. We are monitoring and no need for transfusion today. (7) Hx of deep venous thrombosis Impression: Pt has a hx of DVT and was on Coumadin. With his GI bleed, anticioagulants have been hold. (5) Anemia Qualifiers: Anemia type: unspecified type Qualified Code(s): D64.9 - Anemia, unspecified - Current Meds Current Meds: Current Medications Generic Name Dose Route Start Last Admin Trade Name Freq PRN Reason Stop Dose Admin Acetaminophen 650 mg 09/05/21 17:12 09/10/21 10:12 Acetaminophen 325 Mg Tablet PO 650 mg Q4HR PRN Administration Pain 1 to 4 Albuterol 2 puffs 09/05/21 17:54 09/05/21 18:21 Albuterol 1 Puff INH 2 puffs Q6H PRN Administration Shortness of Air/Wheezing Amlodipine Besylate 5 mg 09/10/21 09:00 09/16/21 08:01 Amlodipine 5 Mg Tablet PO 5 mg DAILY DARLYN Administration Atorvastatin Calcium 10 mg 09/09/21 21:00 09/15/21 22:00 Atorvastatin 10 Mg Tablet PO 10 mg QPM DARLYN Administration Cholecalciferol 50 mcg 09/10/21 09:00 09/16/21 08:00 Cholecalciferol 25 Mcg Tablet PO 50 mcg DAILY DARLYN Administration Ferrous Sulfate 325 mg 09/10/21 08:00 09/16/21 08:00 Ferrous Sulfate 325 Mg Tablet PO 325 mg DAILYWM DARLYN Administration Fluticasone Propionate 1 sprays 09/09/21 21:00 09/16/21 08:02 Fluticasone Nasal [place] 1 spray BID DARLYN Administration Gabapentin 300 mg 09/09/21 21:00 09/16/21 08:01 Gabapentin 300 Mg Capsule PO 300 mg BID DARLYN Administration Insulin Aspart 3 - 11 unit 09/10/21 17:00 09/16/21 13:53 Insulin Aspart 300 Unit/3 Ml Pen SUBQ Not Given 0800,1200,1700,2100 [facility] Protocol Lisinopril 2.5 mg 09/10/21 09:00 09/16/21 08:01 Lisinopril 5 Mg Tablet PO 2.5 mg DAILY DARLYN Administration Nystatin 1 applic 09/05/21 19:02 09/16/21 08:02 Nystatin Powder 15 Gm TOP 1 applic BID DARLYN Administration Pantoprazole Sodium 40 mg 09/11/21 16:00 09/16/21 06:26 Pantoprazole 40 Mg Tablet PO 40 mg BIDAC DARLYN Administration Polyethylene Glycol 17 gm 09/13/21 09:00 09/16/21 08:02 Polyethylene Glycol 3350 17 Gm Packet PO 17 gm DAILY DARLYN Administration Multivit/Folic Acid/Iron 1 tab 09/11/21 09:00 09/16/21 08:01 Vitamin Tablet PO 1 tab DAILYWM DARLYN Administration Saccharomyces Boulardii 250 mg 09/10/21 08:00 09/16/21 08:01 Saccharomyces Boulardii 250 Mg Capsule PO 250 mg BIDWM DARLYN Administration Sodium Chloride 10 ml 09/05/21 17:12 09/09/21 21:38 Sodium Chloride Flush 0.9% 10 Ml Syringe IVP 10 ml PRN PRN Administration NEEDED PER PROVIDER ORDERS Sodium Chloride 10 ml 09/06/21 01:00 09/16/21 08:02 Sodium Chloride Flush 0.9% 10 Ml Syringe IVP 10 ml 0100,0900,1700 DARLYN Administration - Lab Result Fish Bone Diagrams: 09/16/21 09:35 09/16/21 09:35 - Additional Planning My Orders: My Active Orders 09/16/21 14:51 UA w/ MICROSCOPIC, CULT IF [URIN] Stat 09/16/21 14:53 ANGIO CHEST W/WO [CT] Stat 09/17/21 05:00 BMP - BASIC METABOLIC PANEL [CHEM] DAILYLAB CBC - COMP BLD CT W/AUTO DIFF [HEME] DAILYLAB 09/18/21 05:00 BMP - BASIC METABOLIC PANEL [CHEM] DAILYLAB CBC - COMP BLD CT W/AUTO DIFF [HEME] DAILYLAB 09/19/21 05:00 BMP - BASIC METABOLIC PANEL [CHEM] DAILYLAB CBC - COMP BLD CT W/AUTO DIFF [HEME] DAILYLAB 09/20/21 05:00 BMP - BASIC METABOLIC PANEL [CHEM] DAILYLAB CBC - COMP BLD CT W/AUTO DIFF [HEME] DAILYLAB 09/21/21 05:00 BMP - BASIC METABOLIC PANEL [CHEM] DAILYLAB CBC - COMP BLD CT W/AUTO DIFF [HEME] DAILYLAB 09/22/21 05:00 BMP - BASIC METABOLIC PANEL [CHEM] DAILYLAB CBC - COMP BLD CT W/AUTO DIFF [HEME] DAILYLAB 09/23/21 05:00 BMP - BASIC METABOLIC PANEL [CHEM] DAILYLAB CBC - COMP BLD CT W/AUTO DIFF [HEME] DAILYLAB 09/24/21 05:00 BMP - BASIC METABOLIC PANEL [CHEM] DAILYLAB CBC - COMP BLD CT W/AUTO DIFF [HEME] DAILYLAB Subjective - Subjective Patient Reports: Resting Comfortably Objective Vital Signs: Vital Signs - 24 hr 09/15/21 09/15/21 09/16/21 16:47 21:00 00:10 Temperature 36.3 C L 36.3 C L 36.2 C L Heart Rate [ 92 67 64 Brachial] Respiratory 18 20 18 Rate Blood Pressure 129/78 [Left Brachial artery] Blood Pressure 131/48 H [Right Radial artery] Blood Pressure 124/50 L [left arm] O2 Saturation 62 L 95 95 09/16/21 09/16/21 09/16/21 04:41 07:58 08:12 Temperature 36.2 C L 36.1 C L Heart Rate [ 59 L 58 L Brachial] Respiratory 18 18 Rate Blood Pressure [Left Brachial artery] Blood Pressure 140/52 H [Right Radial artery] Blood Pressure 148/57 H [left arm] O2 Saturation 95 96 93 09/16/21 12:31 Temperature 36.2 C L Heart Rate [ 61 Brachial] Respiratory 18 Rate Blood Pressure 134/52 H [Left Brachial artery] Blood Pressure [Right Radial artery] Blood Pressure [left arm] O2 Saturation 91 L Oxygen O2 Source Nasal cannula I&O (Last 24 Hrs): Intake and Output Totals x24h 09/14/21 09/15/21 09/16/21 23:59 23:59 23:59 Intake Total 1580 1530 880 Output Total 1950 1600 880 Balance -370 -70 0 General: Alert, Cooperative, No acute distress HEENT: Atraumatic Neck: Supple Lymphatic: no adenopathy Neuro: Alert, Non Focal Cardiovascular: Regular rate, Normal S1, Normal S2 Respiratory: Chest non-tender, No respiratory distress Abdomen: Normal bowel sounds, Soft Extremities: Normal pulses - Results Results: Laboratory Results WBC 20.3 x10^3/uL (4.8-10.8) H 09/16/21 09:35 RBC 3.17 10^6/uL (4.70-6.10) L 09/16/21 09:35 Hgb 9.9 g/dL (14.0-18.0) L 09/16/21 09:35 Hct 31.1 % (42.0-52.0) L 09/16/21 09:35 MCV 98.1 fL (80.0-94.0) H 09/16/21 09:35 MCH 31.2 pg (27.0-31.0) H 09/16/21 09:35 MCHC 31.8 g/dL (32.0-36.0) L 09/16/21 09:35 RDW 18.7 % (12.0-15.0) H 09/16/21 09:35 Plt Count 210 10^3/uL (130-450) 09/16/21 09:35 MPV 12.4 fL (7.4-11.4) H 09/16/21 09:35 Reticulocyte % (Auto) 2.99 % (0.5-2.3) H 09/05/21 19:36 Neut # (Auto) 17.0 10^3/uL (1.5-6.6) H 09/16/21 09:35 Lymph # (Auto) 1.1 10^3/uL (1.5-3.5) L 09/16/21 09:35 Hand # (Auto) 1.4 10^3/uL (0.0-1.0) H 09/16/21 09:35 Eos # (Auto) 0.0 10^3/uL (0.0-0.7) 09/16/21 09:35 Baso # (Auto) 0.0 10^3/uL (0.0-0.1) 09/16/21 09:35 Absolute Nucleated RBC 0.04 x10^3/uL 09/16/21 09:35 Total Counted 100 09/09/21 04:50 Band Neuts % (Manual) 0 % (0-10) 09/09/21 04:50 Abnorm Lymph % (Manual) 0 % 09/09/21 04:50 Nucleated RBC % 0.2 /100WBC 09/16/21 09:35 Neutrophils # (Manual) 6.2 10^3/uL (1.5-6.6) 09/09/21 04:50 Lymphocytes # (Manual) 0.4 10^3/uL (1.5-3.5) L 09/09/21 04:50 Monocytes # (Manual) 0.4 10^3/uL (0.0-1.0) 09/09/21 04:50 Eosinophils # (Manual) 0.0 10^3/uL (0-0.7) 09/09/21 04:50 Basophils # (Manual) 0.0 10^3/uL (0-0.1) 09/09/21 04:50 Nucleated RBCs 3 % 09/07/21 04:30 Differential Comment MANUAL DIFFERENTIAL 09/09/21 04:50 Manual Slide Review Indicated 09/16/21 09:35 WBC Morphology (NORMAL) 09/16/21 09:35 Platelet Estimate NORMAL (130-450,000) (NORMAL) 09/16/21 09:35 Platelet Morphology NORMAL APPEARANCE (NORMAL) 09/16/21 09:35 RBC Morph Micro Appear 1+ POLYCHROMASIA (NORMAL) 2+ OVALOCYTES (NORMAL) 1+ ANISOCYTOSIS (NORMAL) 09/16/21 09:35 RBC Morph Micro Appear 1+ POLYCHROMASIA (NORMAL) 2+ OVALOCYTES (NORMAL) 1+ ANISOCYTOSIS (NORMAL) 09/16/21 09:35 RBC Morph Micro Appear 1+ POLYCHROMASIA (NORMAL) 2+ OVALOCYTES (NORMAL) 1+ ANISOCYTOSIS (NORMAL) 09/16/21 09:35 Absolute Retic 0.065 10^6/uL (0.020-0.110) 09/05/21 19:36 PT 16.2 secs (9.9-12.6) H 09/09/21 04:50 INR 1.5 (0.8-1.2) H 09/09/21 04:50 Sodium 132 mmol/L (135-145) L 09/16/21 09:35 Potassium 4.6 mmol/L (3.5-5.0) 09/16/21 09:35 Chloride 106 mmol/L (101-111) 09/16/21 09:35 Carbon Dioxide 16 mmol/L (21-32) L 09/16/21 09:35 Anion Gap 10.0 (6-13) 09/16/21 09:35 BUN 50 mg/dL (6-20) H 09/16/21 09:35 Creatinine 1.3 mg/dL (0.6-1.2) H 09/16/21 09:35 Estimated GFR (MDRD) 52 (>89) L 09/16/21 09:35 Glucose 156 mg/dL (70-100) H 09/16/21 09:35 Estimat Average Glucose 114 mg/dL (70-100) H 09/09/21 04:50 Hemoglobin A1c % 5.6 % (4.27-6.07) 09/09/21 04:50 Lactic Acid 1.2 mmol/L (0.5-2.2) 09/05/21 15:43 Calcium 7.9 mg/dL (8.5-10.3) L 09/16/21 09:35 Phosphorus 4.6 mg/dL (2.5-4.6) 09/05/21 15:43 Magnesium 2.4 mg/dL (1.7-2.8) 09/10/21 04:48 Iron 31 ug/dL (45-182) L 09/05/21 19:36 TIBC 181 ug/dL (250-450) L 09/05/21 19:36 % Saturation 17 % (20-50) L 09/05/21 19:36 Transferrin 129 mg/dL (180-329) L 09/05/21 19:36 Ferritin 686.8 ng/mL (23.9-336.2) H 09/05/21 19:36 Total Bilirubin 0.8 mg/dL (0.2-1.0) 09/05/21 15:43 AST 32 IU/L (10-42) 09/05/21 15:43 ALT 21 IU/L (10-60) 09/05/21 15:43 Alkaline Phosphatase 46 IU/L (42-121) 09/05/21 15:43 Lactate Dehydrogenase 335 IU/L (91-225) H 09/05/21 19:36 Total Protein 6.5 g/dL (6.7-8.2) L 09/05/21 15:43 Albumin 3.3 g/dL (3.2-5.5) 09/05/21 15:43 Globulin 3.2 g/dL (2.1-4.2) 09/05/21 15:43 Albumin/Globulin Ratio 1.0 (1.0-2.2) 09/05/21 15:43 Vitamin B12 1270 pg/mL (180-914) H 09/05/21 19:36 Urine Color YELLOW 09/05/21 16:14 Urine Clarity CLEAR (CLEAR) 09/05/21 16:14 Urine pH 5.5 PH (5.0-7.5) 09/05/21 16:14 Ur Specific [place] 1.020 (1.002-1.030) 09/05/21 16:14 Urine Protein TRACE mg/dL (NEGATIVE) 09/05/21 16:14 Urine Glucose (UA) NEGATIVE mg/dL (NEGATIVE) 09/05/21 16:14 Urine Ketones TRACE mg/dL (NEGATIVE) 09/05/21 16:14 Urine Occult Blood TRACE-LYSE (NEGATIVE) 09/05/21 16:14 Urine Nitrite NEGATIVE (NEGATIVE) 09/05/21 16:14 Urine Bilirubin NEGATIVE (NEGATIVE) 09/05/21 16:14 Urine Urobilinogen 0.2 (NORMAL) E.U./dL (NORMAL) 09/05/21 16:14 Ur Leukocyte Esterase NEGATIVE (NEGATIVE) 09/05/21 16:14 Ur Microscopic Review NOT INDICATED 09/05/21 16:14 Urine Culture Comments NOT INDICATED 09/05/21 16:14 Nasal Adenovirus (PCR) NOT DETECTED 09/05/21 20:09 Nasal B. parapertussis DNA (PCR) NOT DETECTED 09/05/21 20:09 Nasal Coronavir 229E PCR NOT DETECTED 09/05/21 20:09 Nasal Coronavir HKU1 PCR NOT DETECTED 09/05/21 20:09 Nasal Coronavir NL63 PCR NOT DETECTED 09/05/21 20:09 Nasal Coronavir OC43 PCR NOT DETECTED 09/05/21 20:09 Nasal Enterovir/Rhinovir PCR NOT DETECTED 09/05/21 20:09 Nasal Influenza B PCR NOT DETECTED 09/05/21 20:09 Nasal Influenza A PCR NOT DETECTED 09/05/21 20:09 Nasal Parainfluen 1 PCR NOT DETECTED 09/05/21 20:09 Nasal Parainfluen 2 PCR NOT DETECTED 09/05/21 20:09 Nasal Parainfluen 3 PCR NOT DETECTED 09/05/21 20:09 Nasal Parainfluen 4 PCR NOT DETECTED 09/05/21 20:09 Nasal RSV (PCR) NOT DETECTED 09/05/21 20:09 Nasal B.pertussis DNA PCR NOT DETECTED 09/05/21 20:09 Nasal C.pneumoniae (PCR) NOT DETECTED 09/05/21 20:09 Louis Human Metapneumo PCR NOT DETECTED 09/05/21 20:09 Nasal M.pneumoniae (PCR) NOT DETECTED 09/05/21 20:09 Nasal SARS-CoV-2 (PCR) DETECTED A 09/05/21 20:09 Stl Occult Blood (IFOB) POSITIVE (NEGATIVE) A 09/07/21 07:50 Blood Type A NEGATIVE 09/06/21 08:45 Blood Type Recheck A NEGATIVE 09/06/21 06:55 Antibody Screen NEGATIVE 09/06/21 08:45 Crossmatch IS Only See Detail 09/06/21 08:45 ABX Reporting Has patient been on IV antibiotics over the past 48 hours?: No Current Medications - Current Medications Current Medications: Active Medications Acetaminophen (Acetaminophen 325 Mg Tablet) 650 mg PO Q4HR PRN PRN Reason: Pain 1 to 4 Last Admin: 09/10/21 10:12 Dose: 650 mg Albuterol (Albuterol 1 Puff) 2 puffs INH Q6H PRN PRN Reason: Shortness of Air/Wheezing Last Admin: 09/05/21 18:21 Dose: 2 puffs Amlodipine Besylate (Amlodipine 5 Mg Tablet) 5 mg PO DAILY [facility] Last Admin: 09/16/21 08:01 Dose: 5 mg Atorvastatin Calcium (Atorvastatin 10 Mg Tablet) 10 mg PO QPM [facility] Last Admin: 09/15/21 22:00 Dose: 10 mg Cholecalciferol (Cholecalciferol 25 Mcg Tablet) 50 mcg PO DAILY [facility] Last Admin: 09/16/21 08:00 Dose: 50 mcg Ferrous Sulfate (Ferrous Sulfate 325 Mg Tablet) 325 mg PO DAILYWM [facility] Last Admin: 09/16/21 08:00 Dose: 325 mg Fluticasone Propionate (Fluticasone Nasal [place]) 1 sprays [place] BID [facility] Last Admin: 09/16/21 08:02 Dose: 1 spray Gabapentin (Gabapentin 300 Mg Capsule) 300 mg PO BID [facility] Last Admin: 09/16/21 08:01 Dose: 300 mg Insulin Aspart (Insulin Aspart 300 Unit/3 Ml Pen) 3 - 11 unit SUBQ 0800,1200,1700,2100 [facility]; Protocol Last Admin: 09/16/21 13:53 Dose: Not Given Lisinopril (Lisinopril 5 Mg Tablet) 2.5 mg PO DAILY [facility] Last Admin: 09/16/21 08:01 Dose: 2.5 mg Nystatin (Nystatin Powder 15 Gm) 1 applic TOP BID [facility] Last Admin: 09/16/21 08:02 Dose: 1 applic Ondansetron HCl (Ondansetron 4 Mg/2 Ml Vial) 4 mg IVP Q6HR PRN PRN Reason: Nausea / Vomiting Pantoprazole Sodium (Pantoprazole 40 Mg Tablet) 40 mg PO BIDAC [facility] Last Admin: 09/16/21 06:26 Dose: 40 mg Polyethylene Glycol (Polyethylene Glycol 3350 17 Gm Packet) 17 gm PO DAILY [facility] Last Admin: 09/16/21 08:02 Dose: 17 gm Multivit/Folic Acid/Iron ( Vitamin Tablet) 1 tab PO DAILYWM [facility] Last Admin: 09/16/21 08:01 Dose: 1 tab Saccharomyces Boulardii (Saccharomyces Boulardii 250 Mg Capsule) 250 mg PO BIDWM [facility] Last Admin: 09/16/21 08:01 Dose: 250 mg Sodium Chloride (Sodium Chloride Flush 0.9% 10 Ml Syringe) 10 ml IVP PRN PRN PRN Reason: NEEDED PER PROVIDER ORDERS Last Admin: 09/09/21 21:38 Dose: 10 ml Sodium Chloride (Sodium Chloride Flush 0.9% 10 Ml Syringe) 10 ml IVP 0100,0900,1700 [facility] Last Admin: 09/16/21 08:02 Dose: 10 ml Gabapentin [Neurontin] 300 mg PO BID 02/08/13 Warfarin Sodium [Coumadin] 4 mg PO DAILY 02/08/13 Anagrelide HCl 0.5 mg PO BID 06/19/13 Fluticasone [Flonase] 1 spray [place] BID 09/03/15 Aspirin EC [Ecotrin] 81 mg PO DAILY 09/07/21 Ferrous Sulfate 325 mg PO DAILY 09/07/21 Lisinopril [Zestril] 2.5 mg PO DAILY 09/07/21 Metoprolol Succinate [Toprol Xl] 50 mg PO DAILY 09/07/21 Rosuvastatin Calcium [Crestor] 5 mg PO QPM 09/07/21 amLODIPine [Norvasc] 5 mg PO DAILY 09/07/21
[2021-09-16 15:29] LABS: BASOPHILS % (AUTO) 0.1 %; EOSINOPHILS % (AUTO) 0.1 %; HCT - HEMATOCRIT 27.5 % (42.0-52.0); HGB - HEMOGLOBIN 8.8 g/dL (14.0-18.0); LYMPHOCYTES # (AUTO) 0.5 10^3/uL (1.5-3.5); LYMPHOCYTES % (AUTO) 3.2 %; MEAN CORPUSCULAR VOLUME 96.8 fL (80.0-94.0); MEAN PLATELET VOLUME 12.6 fL (7.4-11.4); MONOCYTES # (AUTO) 1.1 10^3/uL (0.0-1.0); MONOCYTES % (AUTO) 7.8 %; NEUTROPHILS # (AUTO) 12.4 10^3/uL (1.5-6.6); NEUTROPHILS % (AUTO) 86.3 %; NRBC ABSOLUTE COUNT (AUTO) 0.03 x10^3/uL; NUCLEATED RED BLOOD CELLS AUTO 0.2 /100WBC; PLT - PLATELET COUNT 155 10^3/uL (130-450); RED BLOOD COUNT 2.84 10^6/uL (4.70-6.10); RED CELL DISTRIBUTION WIDTH 18.9 % (12.0-15.0); WHITE BLOOD COUNT 14.4 x10^3/uL (4.8-10.8)
[2021-09-16 15:44] LABS: BILIRUBIN,URINE NEGATIVE (NEGATIVE); GLUCOSE, URINE (UA) NEGATIVE (NEGATIVE); KETONES,URINE (UA) NEGATIVE (NEGATIVE); LEUKOCYTE ESTERASE, URINE MODERATE (NEGATIVE); NITRITE,URINE NEGATIVE (NEGATIVE); OCCULT BLOOD,URINE NEGATIVE (NEGATIVE); PROTEIN,URINE NEGATIVE (NEGATIVE); UROBILINOGEN,URINE 0.2 (NORMAL) E.U./dL (NORMAL)
[2021-09-16 15:48] LABS: CLARITY,URINE HAZY (CLEAR)
[2021-09-16 16:11] LABS: BACTERIA,URINE Few /HPF (None Seen); SQUAMOUS EPITHELIAL CELL,UR NONE SEEN (<= Few)
[2021-09-16] MEDS: ATORVASTATIN 10 MG TABLET PO SCH (21:04)
[2021-09-17] MEDS: SODIUM CHLORIDE FLUSH 0.9% 10 ML SYRINGE IVP SCH ×3 (02:28→16:47)
[2021-09-17] MEDS ORDERED: IOVERSOL 320 100 ML VIAL IVP ONE ×2 (03:50→04:22)
[2021-09-17 04:48] LABS: BASOPHILS % (AUTO) 0.1 %; EOSINOPHILS % (AUTO) 0.2 %; HCT - HEMATOCRIT 27.6 % (42.0-52.0); HGB - HEMOGLOBIN 8.6 g/dL (14.0-18.0); LYMPHOCYTES # (AUTO) 0.5 10^3/uL (1.5-3.5); LYMPHOCYTES % (AUTO) 4.6 %; MEAN CORPUSCULAR HEMOGLOBIN 30.7 pg (27.0-31.0); MEAN CORPUSCULAR HGB CONC 31.2 g/dL (32.0-36.0); MEAN CORPUSCULAR VOLUME 98.6 fL (80.0-94.0); MEAN PLATELET VOLUME 12.4 fL (7.4-11.4); MONOCYTES # (AUTO) 0.9 10^3/uL (0.0-1.0); MONOCYTES % (AUTO) 8.1 %; NEUTROPHILS # (AUTO) 9.7 10^3/uL (1.5-6.6); NEUTROPHILS % (AUTO) 84.3 %; NRBC ABSOLUTE COUNT (AUTO) 0.02 x10^3/uL; NUCLEATED RED BLOOD CELLS AUTO 0.2 /100WBC; PLT - PLATELET COUNT 135 10^3/uL (130-450); RED CELL DISTRIBUTION WIDTH 19.2 % (12.0-15.0); WHITE BLOOD COUNT 11.5 x10^3/uL (4.8-10.8)
[2021-09-17 04:55] LABS: CALCIUM 7.7 mg/dL (8.5-10.3); CREATININE 1.7 mg/dL (0.6-1.2); POTASSIUM 4.6 mmol/L (3.5-5.0)
[2021-09-17] MEDS: PANTOPRAZOLE 40 MG TABLET PO SCH ×2 (06:03→16:12)
[2021-09-17] MEDS: lisinopriL 5 MG TABLET PO SCH (08:23)
[2021-09-17] MEDS: SACCHAROMYCES BOULARDII 250 MG CAPSULE PO SCH ×2 (08:23→17:15)
[2021-09-17] MEDS: PRENATAL VITAMIN TABLET PO SCH (08:24)
[2021-09-17] MEDS: amLODIPine 5 MG TABLET PO SCH (08:24)
[2021-09-17] MEDS: polyethylene glycoL 3350 17 GM PACKET PO SCH (08:24)
[2021-09-17] MEDS: FERROUS SULFATE 325 MG TABLET PO SCH (08:24)
[2021-09-17] MEDS: SODIUM CHLORIDE 0.9% 1,000 ML IV SCH ×2 (08:24→21:03)
[2021-09-17] MEDS: GABAPENTIN 300 MG CAPSULE PO SCH ×2 (08:24→21:16)
[2021-09-17] MEDS: CHOLECALCIFEROL 25 MCG TABLET PO SCH (08:24)
[2021-09-17] MEDS: FLUTICASONE NASAL SPRAY NAS SCH ×2 (08:31→21:16)
[2021-09-17] MEDS: NYSTATIN POWDER 15 GM TOP SCH ×2 (08:32→21:17)
[2021-09-17] MEDS: INSULIN ASPART 300 UNIT/3 ML PEN SUBQ SCH ×4 (08:32→21:19)
--- NOTE | 2021-09-17 09:05 | CT Report ---
PROCEDURE: ANGIO CHEST W/WO INDICATIONS: SOB CONTRAST: IV CONTRAST: Optiray 320 ml: 80 PO CONTRAST: *NO PO CONTRAST TECHNIQUE: After the administration of intravenous contrast, 2 mm axial images were acquired from the pulmonary apices to the posterior costophrenic angles during the arterial phase. In addition, 1 mm lung kernel and 5 mm soft tissue kernel reconstructions were performed. 3-dimensional coronal oblique maximum int ensity projection (MIP) reformats, 8 mm axial MIP, and 5 mm coronal and sagittal MPR reformats were t hen performed through the thorax. For radiation dose reduction, the following was used: automated exp osure control, adjustment of mA and/or kV according to patient size. COMPARISON: Chest x-ray one view, 09/16/2021. FINDINGS: Image quality: Excellent. Pulmonary arteries: Pulmonary arteries are normal in size. There are small intraluminal filling defe cts in the lobar and segmental arteries consistent with pulmonary embolism. Lungs and pleura: Bilateral airspace infiltrates involving both upper lobes and lower lobes consisten t with pneumonia. No pleural effusions or pneumothorax. Central and peripheral airways are patent. Mediastinum: Heart size is normal, without pericardial effusion. No mediastinal or hilar adenopathy . Thoracic aorta is normal in caliber and enhancement. Esophagus is normal in caliber, without hiat al hernia. Bones and chest wall: No suspicious bony lesions. Ribs and thoracic spine appear intact. Degenerat michael changes noted in thoracic and lumbar spine.No axillary or supraclavicular adenopathy. The thyroi d is normal in size and there are no incidental findings. Abdomen: Visualized upper abdominal solid organs appear normal in the early arterial phase of enhanc ement. Moderate amount stool in colon. There is a 3 mm nonobstructive stone in left kidney. Bilateral renal cortical thinning. A 5 cm simple appearance cyst is noted in the superior pole of the left kid josef. IMPRESSION: 1. There are pulmonary emboli involving lobar and segmental arteries bilaterally. 2. Bilateral airspace infiltrates consistent with multifocal pneumonia. No significant discrepancy with the preliminary interpretation. Reviewed by: Tyrone Villalta MD on 09/17/2021 9:03 AM PST Approved by: Tyrone Villalta MD on 09/17/2021 9:03 AM PST Station ID: [id number]
--- NOTE | 2021-09-17 10:11 | Ultrasound Report ---
PROCEDURE: Duplex Ext Veins Bilateral INDICATIONS: Pain, history of DVT TECHNIQUE: Real-time imaging, as well as color and pulse Doppler interrogation, were performed of the deep veins of both legs from the inguinal ligament to the popliteal fossa. COMPARISON: None available FINDINGS: Deep veins of the right lower extremity demonstrate normal compressibility. The proximal gr eater saphenous vein however, is incompressible and contains intraluminal echogenic material at the s aphenofemoral confluence. There is no flow in the proximal right greater saphenous vein. Left lower extremity demonstrates partial compressibility of the mid to distal femoral vein and popli teal vein. There is full compressibility of the common femoral vein and greater saphenous vein. Color flow shows an eccentric filling defect along one wall of the mid to distal femoral vein and thickeni ng of the vessel mcgraw. There is augmentation through this area. There is augmentation in the poplite al vein. IMPRESSION: 1. Occlusive thrombus at the right greater saphenous vein at the saphenofemoral confluence. 2. 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 3. Preliminary results given by the technologist to the charge nurse Wilda. Reviewed by: Elizabeth Hassan MD on 09/17/2021 10:10 AM PST Approved by: Elizabeth Hassan MD on 09/17/2021 10:10 AM PST Station ID: [id number]
[2021-09-17 11:27] LABS: HCT - HEMATOCRIT 28.7 % (42.0-52.0); HGB - HEMOGLOBIN 9.1 g/dL (14.0-18.0); MEAN CORPUSCULAR HEMOGLOBIN 31.4 pg (27.0-31.0); MEAN CORPUSCULAR HGB CONC 31.7 g/dL (32.0-36.0); MEAN PLATELET VOLUME 11.6 fL (7.4-11.4); RED BLOOD COUNT 2.9 10^6/uL (4.70-6.10); RED CELL DISTRIBUTION WIDTH 19.3 % (12.0-15.0); WHITE BLOOD COUNT 13.4 x10^3/uL (4.8-10.8)
[2021-09-17] MEDS: HEPARIN 25000UNITS/500ML (D5W) 25,000 UNIT/500 ML BAG IV SCH (12:14)
--- NOTE | 2021-09-17 18:02 | PROVIDER PROGRESS NOTE ---
Subjective - Prog Note Date Prog Note Date: 09/17/21 - Subjective Pt reports feeling: No change Subjective: pt report he feel shortness of breath on exertion but comfortable at rest. pt had 91-94% Oxygen saturation on 5 L of oxygen. Because the patient had history of DVT, patient taking Coumadin in the home. But in the hospital patient also develop GI bleeding, hemoglobin significantly drop then patient had 2 unit blood transfusion in the hospital. Patient was consulted with GI surgeon, surgeon recommended hold his Coumadin, no EGD/Colonoscopy at this time. Patient was treated with COVID-19 and finished 5 days with remdesivir and 10 days decatron, Patient also treated with antibiotics for His pneumonia As well. But he still needed 5 L oxygen, still show shortness of breathing on exertion. CTA of chest Last night show Pulmonary emboli involved lobar and segmental arteries bilaterally, Bilaterally airspace infiltrate consistent with multifocal pneumonia. Patient may need IVC filter for his PE, at the same time with GI bleeding. I called [facility] report patient medical condition to hospitalist Dr. Mckeon and GI doctor Yamilet, both Agree patient needed high level of care and accepted patient to [place]. Dr. Woodard also recommended heparin drop without heparin bolus for pt. Now pt is waiting for bed availability of [place], per transfer center in [place], it is likely be is available at [address] Mckeon and and [place] team continue to take care of the pt. Current Medications - Current Medications Current Medications: Active Medications Acetaminophen (Acetaminophen 325 Mg Tablet) 650 mg PO Q4HR PRN PRN Reason: Pain 1 to 4 Last Admin: 09/10/21 10:12 Dose: 650 mg Albuterol (Albuterol 1 Puff) 2 puffs INH Q6H PRN PRN Reason: Shortness of Air/Wheezing Last Admin: 09/05/21 18:21 Dose: 2 puffs Amlodipine Besylate (Amlodipine 5 Mg Tablet) 5 mg PO DAILY [facility] Last Admin: 09/17/21 08:24 Dose: 5 mg Atorvastatin Calcium (Atorvastatin 10 Mg Tablet) 10 mg PO QPM [facility] Last Admin: 09/16/21 21:04 Dose: 10 mg Cefuroxime Axetil (Cefuroxime Axetil 250 Mg Tablet) 250 mg PO BID [facility] Last Admin: 09/17/21 08:24 Dose: 250 mg Cholecalciferol (Cholecalciferol 25 Mcg Tablet) 50 mcg PO DAILY [facility] Last Admin: 09/17/21 08:24 Dose: 50 mcg Ferrous Sulfate (Ferrous Sulfate 325 Mg Tablet) 325 mg PO DAILYWM [facility] Last Admin: 09/17/21 08:24 Dose: 325 mg Fluticasone Propionate (Fluticasone Nasal [place]) 1 sprays [place] BID [facility] Last Admin: 09/17/21 08:31 Dose: 2 spray Gabapentin (Gabapentin 300 Mg Capsule) 300 mg PO BID [facility] Last Admin: 09/17/21 08:24 Dose: 300 mg Heparin Sodium (Porcine) (Heparin 1,000 Unit/Ml Vial) 2,000 - 3,000 unit IVP Q6H PRN; Protocol PRN Reason: aPTT <50 Sodium Chloride (Normal Saline 0.9%) 1,000 mls @ 83.333 mls/hr IV .Q12H [facility] Stop: 09/18/21 07:59 Last Admin: 09/17/21 08:24 Dose: 83.333 mls/hr Heparin Sodium/Dextrose (Heparin Sodium/Dextrose) 25,000 unit in 500 mls @ 27 mls/hr IV .[id number] [facility]; Protocol Last Admin: 09/17/21 12:14 Dose: 18 unit/kg/hr, 27 mls/hr Insulin Aspart (Insulin Aspart 300 Unit/3 Ml Pen) 3 - 11 unit SUBQ 0800,1200,1700,2100 [facility]; Protocol Last Admin: 09/17/21 16:47 Dose: Not Given Lisinopril (Lisinopril 5 Mg Tablet) 2.5 mg PO DAILY [facility] Last Admin: 09/17/21 08:23 Dose: 2.5 mg Nystatin (Nystatin Powder 15 Gm) 1 applic TOP BID [facility] Last Admin: 09/17/21 08:32 Dose: 1 applic Ondansetron HCl (Ondansetron 4 Mg/2 Ml Vial) 4 mg IVP Q6HR PRN PRN Reason: Nausea / Vomiting Pantoprazole Sodium (Pantoprazole 40 Mg Tablet) 40 mg PO BIDAC [facility] Last Admin: 09/17/21 16:12 Dose: 40 mg Polyethylene Glycol (Polyethylene Glycol 3350 17 Gm Packet) 17 gm PO DAILY [facility] Last Admin: 09/17/21 08:24 Dose: 17 gm Multivit/Folic Acid/Iron ( Vitamin Tablet) 1 tab PO DAILYWM [facility] Last Admin: 09/17/21 08:24 Dose: 1 tab Saccharomyces Boulardii (Saccharomyces Boulardii 250 Mg Capsule) 250 mg PO BIDWM [facility] Last Admin: 09/17/21 17:15 Dose: 250 mg Sodium Chloride (Sodium Chloride Flush 0.9% 10 Ml Syringe) 10 ml IVP PRN PRN PRN Reason: NEEDED PER PROVIDER ORDERS Last Admin: 09/09/21 21:38 Dose: 10 ml Sodium Chloride (Sodium Chloride Flush 0.9% 10 Ml Syringe) 10 ml IVP 0100,0900,1700 [facility] Last Admin: 09/17/21 16:47 Dose: Not Given Gabapentin [Neurontin] 300 mg PO BID 02/08/13 Warfarin Sodium [Coumadin] 4 mg PO DAILY 02/08/13 Anagrelide HCl 0.5 mg PO BID 06/19/13 Fluticasone [Flonase] 1 spray [place] BID 09/03/15 Aspirin EC [Ecotrin] 81 mg PO DAILY 09/07/21 Ferrous Sulfate 325 mg PO DAILY 09/07/21 Lisinopril [Zestril] 2.5 mg PO DAILY 09/07/21 Metoprolol Succinate [Toprol Xl] 50 mg PO DAILY 09/07/21 Rosuvastatin Calcium [Crestor] 5 mg PO QPM 09/07/21 amLODIPine [Norvasc] 5 mg PO DAILY 09/07/21 Objective - Vital Signs/Intake & Output Vital Signs: Vital Signs x48h Temp Pulse Resp BP BP BP Pulse Ox 09/17/21 16:24 36.4 C L 77 20 104/36 L 91 L 09/17/21 12:50 36.5 C 82 20 95/41 L 95/39 L 94 Intake & Output: Intake & Output 09/14/21 09/15/21 09/16/21 09/17/21 23:59 23:59 23:59 23:59 Intake Total 1580 1530 1570 640 Output Total 1950 1600 2060 1125 Balance -370 -70 -490 -485 - Objective General Appearance: positive: No acute distress, Alert. negative: Lethargic Eyes Bilateral: positive: Normal inspection, No lid inflammation ENT: positive: ENT inspection nml, No signs of dehydration. negative: Purulent nasal drainage Neck: positive: Nml inspection, Trachea midline. negative: Tracheal deviation Respiratory: positive: Chest non-tender, No respiratory distress, Rales. negative: Wheezes Cardiovascular: positive: Regular rate & rhythm. negative: Tachycardia, Bradycardia, Systolic murmur Peripheral Pulses: 2+ Radial (R), 2+ Radial (L) Abdomen: positive: Non-tender, Nml bowel sounds, No distention. negative: Tenderness Back: positive: Nml inspection Skin: positive: Color nml, Warm, Dry. negative: Cyanosis Extremities: positive: Non-tender, No pedal edema, Other (bilateral Lower extremity without swelling, erythema or tenderness.). negative: Pedal edema, Calf tenderness Neurologic/Psychiatric: positive: Oriented x3, Sensation nml. negative: Weakness, Sensory loss, Facial droop, Slurred/abnml speech, Depressed mood/affect - Lab Results Fish Bones: 09/17/21 11:17 09/17/21 04:36 Other Labs: Lab Results x24hrs 09/17/21 09/17/21 09/17/21 Range/Units 11:17 11:17 04:36 WBC 13.4 H (4.8-10.8) x10^3/uL RBC 2.90 L (4.70-6.10) 10^6/uL Hgb 9.1 L (14.0-18.0) g/dL Hct 28.7 L (42.0-52.0) % MCV 99.0 H (80.0-94.0) fL MCH 31.4 H (27.0-31.0) pg MCHC 31.7 L (32.0-36.0) g/dL RDW 19.3 H (12.0-15.0) % Plt Count 140 (130-450) 10^3/uL MPV 11.6 H (7.4-11.4) fL Neut # (Auto) (1.5-6.6) 10^3/uL Lymph # (Auto) (1.5-3.5) 10^3/uL [place] # (Auto) (0.0-1.0) 10^3/uL Eos # (Auto) (0.0-0.7) 10^3/uL Baso # (Auto) (0.0-0.1) 10^3/uL Absolute Nucleated RBC x10^3/uL Nucleated RBC % /100WBC APTT 25.9 (24.9-33.3) secs Sodium 134 L (135-145) mmol/L Potassium 4.6 (3.5-5.0) mmol/L Chloride 108 (101-111) mmol/L Carbon Dioxide 20 L (21-32) mmol/L Anion Gap 6.0 (6-13) BUN 52 H (6-20) mg/dL Creatinine 1.7 H (0.6-1.2) mg/dL Estimated GFR (MDRD) 38 L (>89) Glucose 113 H (70-100) mg/dL Calcium 7.7 L (8.5-10.3) mg/dL 09/17/21 Range/Units 04:36 WBC 11.5 H (4.8-10.8) x10^3/uL RBC 2.80 L (4.70-6.10) 10^6/uL Hgb 8.6 L (14.0-18.0) g/dL Hct 27.6 L (42.0-52.0) % MCV 98.6 H (80.0-94.0) fL MCH 30.7 (27.0-31.0) pg MCHC 31.2 L (32.0-36.0) g/dL RDW 19.2 H (12.0-15.0) % Plt Count 135 (130-450) 10^3/uL MPV 12.4 H (7.4-11.4) fL Neut # (Auto) 9.7 H (1.5-6.6) 10^3/uL Lymph # (Auto) 0.5 L (1.5-3.5) 10^3/uL [place] # (Auto) 0.9 (0.0-1.0) 10^3/uL Eos # (Auto) 0.0 (0.0-0.7) 10^3/uL Baso # (Auto) 0.0 (0.0-0.1) 10^3/uL Absolute Nucleated RBC 0.02 x10^3/uL Nucleated RBC % 0.2 /100WBC APTT (24.9-33.3) secs Sodium (135-145) mmol/L Potassium (3.5-5.0) mmol/L Chloride (101-111) mmol/L Carbon Dioxide (21-32) mmol/L Anion Gap (6-13) BUN (6-20) mg/dL Creatinine (0.6-1.2) mg/dL Estimated GFR (MDRD) (>89) Glucose (70-100) mg/dL Calcium (8.5-10.3) mg/dL ABX Reporting Has patient been on IV antibiotics over the past 48 hours?: Yes Assessment/Plan - Problem List (1) Respiratory failure with hypoxia Impression: 09/17 pt still need 5 liter of O2 with 91-94% O2 sat but comfortable breath at rest, and present shortness of breath on exertion. CTA reveal bilateral PE and Multifocal pneumonia. Patient finished COVID-19 treatment course and patient also had antibiotics treated for pneumonia. [place] recommend start with heparin drop without bolus to treat pt's PE. continue supplement O2 as needed. pt is accepted by [facility] for high level of care. pt will be transferred to [place] and wait for hospital bed available. 09/16 pt still need 4-5 liter of O2, and present shortness of breath in minimal exertion. CXR reveal improved but not entirely resolved patchy bilateral Airspace opacities. pt had significantly elevated WBC 20 on today which was at normal arrange on 09/13/21. will repeat CBC. pt has no fever. pt had antibiotics for his pneumonia and now it was hold. order UA. pt had hx of chronic indwelling catheter. since pt had GI bleed, we hold his home anticoagulation but pt also had hx of DVT, since pt still present respiratory distress, we order CTA of chest to r/o PE. When he presented to the emergency room who is 88% on room air. He was needing 2 L nasal cannula. Even with remdesivir and steroids his O2 requirement has gone up to 5 L since September 10. He is remained on 5 L. We are awaiting oxygen levels to improve with decreasing O2 nasal cannula delivery. Once he is down to approximately 2 L he might be able to be discharged on nasal cannula. No change for today. Still working with PT for deconditioning and off tele. EAting. (2) Pneumonia due to COVID-19 virus Impression: Patient finished COVID-19 treatment course and patient also had antibiotics treated for pneumonia. pt still need 5 liter of O2 with 91-94% O2 sat but comfortable breath at rest, and present shortness of breath on exertion. CTA reveal Multifocal pneumonia. will continue support with O2 supplement, closely monitor pt's respiratory status to see pt if need further Bipap or even incubate support if worsening (3)pulmonary emboli CTA reveal bilateral PE, start with heparin drop without heparin bolus per [place] recommendation. (4)DVT US reveal right occlusive thrombus at right greater saphenous vein and left nonocclusive chronic thrombus. pt's bilateral leg and foot are warm and has pause. update pt's conditions to [place] (5) GI bleed Impression: 09/17 HGB is stable, bowel movement has brown color. continue protonix Dark bloody stool September 07. Drop in hemoglobin from 7.8-5.9. Normal blood pressure, not tachycardic. 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 General surgery saw the patient in consultation. It was recommended that we just hold his blood thinner, transfusing 2 units, Protonix IV, but no EGD at this time.Hemoglobin was 9.8 yesterday. 8.5 today. He is on iron supplementation. We will continue to monitor. (6) RUDDY (acute kidney injury) resolved. Impression: 09/17 creatinine is 1.7, as pt's baseline creatinine is 1.5. continue gentle IVF, lab monitor, and avoid nephrotoxic agents Patient's baseline is 1.6. He goes around this number over the course of the hospitalization. He was up to 2.4 on admission. On 09/13, he was 1.5. No new orders.Continue to monitor. (7) Hypernatremia Impression: 09/16 Na is 132, keep hydration, continue lab monitor On admit 153. 149 on September 07 and September 08. Normal by September 08. We have change his IV fluid and he is down to 139 on 09/13 (8) Acute blood loss anemia. resolved. We are monitoring and no need for transfusion . (9) Hx of deep venous thrombosis Impression: Pt has a hx of DVT and was on Coumadin at home. With his GI bleed, anticioagulants have been hold. now with PE, and HGB is stable, no more GI bleed, start with heparin drop for PE (10)UTI UA culture show positive enterococcus, start with Cipro and IVF, and check lactic acid. we will closely monitor if pt has sepsis as well. updated pt's this new conditions to [place] as well. 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 UA culture show positive for UTI, treat with antibiotics, continue cath care, followup with urologist as out-pt (5) Anemia Qualifiers: Anemia type: unspecified type Qualified Code(s): D64.9 - Anemia, unspecified
[2021-09-17] MEDS ORDERED: cefTRIAXone 1 GM in SODIUM CHLORIDE 0.9% MINIBAG 100 ML IV SCH (18:12)
[2021-09-17 18:54] LABS: HCT - HEMATOCRIT 27.3 % (42.0-52.0); HGB - HEMOGLOBIN 8.8 g/dL (14.0-18.0)
[2021-09-17] MEDS ORDERED: CIPROFLOXACIN IV 400 MG/200 ML IV SCH (19:00)
[2021-09-17] MEDS: ATORVASTATIN 10 MG TABLET PO SCH (21:16)
[2021-09-18] MEDS: SODIUM CHLORIDE FLUSH 0.9% 10 ML SYRINGE IVP SCH ×3 (01:02→17:32)
[2021-09-18 05:35] LABS: BASOPHILS % (AUTO) 0.1 %; EOSINOPHILS # (AUTO) 0.1 10^3/uL (0.0-0.7); EOSINOPHILS % (AUTO) 0.5 %; HCT - HEMATOCRIT 26.6 % (42.0-52.0); HGB - HEMOGLOBIN 8.5 g/dL (14.0-18.0); LYMPHOCYTES # (AUTO) 0.6 10^3/uL (1.5-3.5); LYMPHOCYTES % (AUTO) 4.6 %; MEAN CORPUSCULAR HEMOGLOBIN 31.7 pg (27.0-31.0); MEAN CORPUSCULAR VOLUME 99.3 fL (80.0-94.0); MEAN PLATELET VOLUME 11.9 fL (7.4-11.4); MONOCYTES # (AUTO) 1.2 10^3/uL (0.0-1.0); MONOCYTES % (AUTO) 9.3 %; NEUTROPHILS # (AUTO) 10.7 10^3/uL (1.5-6.6); NEUTROPHILS % (AUTO) 83.4 %; PLT - PLATELET COUNT 143 10^3/uL (130-450); RED BLOOD COUNT 2.68 10^6/uL (4.70-6.10); RED CELL DISTRIBUTION WIDTH 19.8 % (12.0-15.0); WHITE BLOOD COUNT 12.9 x10^3/uL (4.8-10.8)
[2021-09-18 05:42] LABS: CALCIUM 7.4 mg/dL (8.5-10.3); CREATININE 1.5 mg/dL (0.6-1.2); POTASSIUM 4.4 mmol/L (3.5-5.0)
[2021-09-18] MEDS: PANTOPRAZOLE 40 MG TABLET PO SCH ×2 (06:14→16:53)
[2021-09-18] MEDS: INSULIN ASPART 300 UNIT/3 ML PEN SUBQ SCH ×4 (08:22→20:29)
[2021-09-18 08:44] LABS: HCT - HEMATOCRIT 28.1 % (42.0-52.0); HGB - HEMOGLOBIN 8.7 g/dL (14.0-18.0); MEAN CORPUSCULAR HEMOGLOBIN 30.6 pg (27.0-31.0); MEAN CORPUSCULAR VOLUME 98.9 fL (80.0-94.0); MEAN PLATELET VOLUME 11.3 fL (7.4-11.4); RED BLOOD COUNT 2.84 10^6/uL (4.70-6.10); RED CELL DISTRIBUTION WIDTH 19.4 % (12.0-15.0)
[2021-09-18] MEDS: NITROFURANTOIN MACRO 100 MG CAPSULE PO SCH ×2 (10:20→20:35)
[2021-09-18] MEDS: FERROUS SULFATE 325 MG TABLET PO SCH (10:20)
[2021-09-18] MEDS: GABAPENTIN 300 MG CAPSULE PO SCH ×2 (10:20→20:35)
[2021-09-18] MEDS: SACCHAROMYCES BOULARDII 250 MG CAPSULE PO SCH ×2 (10:20→17:32)
[2021-09-18] MEDS: FLUTICASONE NASAL SPRAY NAS SCH ×2 (10:21→20:35)
[2021-09-18] MEDS: NYSTATIN POWDER 15 GM TOP SCH ×2 (10:21→20:35)
[2021-09-18] MEDS: PRENATAL VITAMIN TABLET PO SCH (10:21)
[2021-09-18] MEDS: polyethylene glycoL 3350 17 GM PACKET PO SCH (10:22)
[2021-09-18] MEDS: CHOLECALCIFEROL 25 MCG TABLET PO SCH (10:28)
[2021-09-18] MEDS: SODIUM CHLORIDE FLUSH 0.9% 10 ML SYRINGE IVP PRN (10:30)
[2021-09-18 12:05] LABS: HCT - HEMATOCRIT 25.7 % (42.0-52.0); HGB - HEMOGLOBIN 8.1 g/dL (14.0-18.0)
[2021-09-18] MEDS: HEPARIN 25000UNITS/500ML (D5W) 25,000 UNIT/500 ML BAG IV SCH (12:40)
--- NOTE | 2021-09-18 14:28 | PROVIDER PROGRESS NOTE ---
Assessment/Plan - Problem List (1) Respiratory failure with hypoxia Assessment/Plan: 09/18 pt ate 100% of his breakfast, pt is rest comfortable. pt had 90% sat on 5 Liter of oxygen, discussed with RT, we may increase Oxygen supplement, continue pulse oximetry. Called [facility], transfer center report they may take the patient on today to [facility] for high level of care. 09/17 pt still need 5 liter of O2 with 91-94% O2 sat but comfortable breath at rest, and present shortness of breath on exertion. CTA reveal bilateral PE and Multifocal pneumonia. Patient finished COVID-19 treatment course and patient also had antibiotics treated for pneumonia. [facility] recommend start with heparin drop without bolus to treat pt's PE. continue supplement O2 as needed. pt is accepted by [facility] for high level of care. pt will be transferred to [facility] and wait for hospital bed available. 09/16 pt still need 4-5 liter of O2, and present shortness of breath in minimal exertion. CXR reveal improved but not entirely resolved patchy bilateral Airspace opacities. pt had significantly elevated WBC 20 on today which was at normal arrange on 09/13/21. will repeat CBC. pt has no fever. pt had antibiotics for his pneumonia and now it was hold. order UA. pt had hx of chronic indwelling catheter. since pt had GI bleed, we hold his home anticoagulation but pt also had hx of DVT, since pt still present respiratory distress, we order CTA of chest to r/o PE. When he presented to the emergency room who is 88% on room air. He was needing 2 L nasal cannula. Even with remdesivir and steroids his O2 requirement has gone up to 5 L since September 10. He is remained on 5 L. We are awaiting oxygen levels to improve with decreasing O2 nasal cannula delivery. Once he is down to approximately 2 L he might be able to be discharged on nasal cannula. No change for today. Still working with PT for deconditioning and off tele. EAting. (2) Pneumonia due to COVID-19 virus Impression: 09/18 CTA still reveal Multifocal pneumonia. pt was not vaccinated. pt finished Covid 19 treatment in hospital. will continue support with O2 supplement, closely monitor pt's respiratory status Patient finished COVID-19 treatment course and patient also had antibiotics treated for pneumonia. pt still need 5 liter of O2 with 91-94% O2 sat but comfortable breath at rest, and present shortness of breath on exertion. CTA reveal Multifocal pneumonia. will continue support with O2 supplement, closely monitor pt's respiratory status to see pt if need further Bipap or even incubate support if worsening (3)pulmonary emboli 09/18 CTA reveal bilateral PE. pt has hx of DVT, pt's home Coumadin was hold due to GI bleeding per our GI surgeon's recommendation. Covid 19 self can cause blood emboli as well. start with heparin drop without heparin bolus per [facility] recommendation. followup protocol for heparin drop (4)DVT 09/18 pt has hx of DVT but pt had Covid 19 infection which can cause DVT. pt's home Coumadin was hold due to GI bleeding per our GI surgeon's recommendation. pt's US reveal right occlusive thrombus at right greater saphenous vein and left nonocclusive chronic thrombus. pt's bilateral leg and foot are warm and has pause. update pt's conditions to [facility] (5) GI bleed Impression: 09/18, pt has no bowel movement on today, but HGB is slight reduced. continue H&H monitor hemoglobin 09/17 HGB is stable, bowel movement has brown color. continue protonix Dark bloody stool September 07. Drop in hemoglobin from 7.8-5.9. Normal blood pressure, not tachycardic. 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 General surgery saw the patient in consultation. It was recommended that we just hold his blood thinner, transfusing 2 units, Protonix IV, but no EGD at this time.Hemoglobin was 9.8 yesterday. 8.5 today. He is on iron supplementation. We will continue to monitor. (6) RUDDY (acute kidney injury) resolved. Impression: 09/18 creatinine is 1.5, stable, continue lab monitor, and avoid nephrotoxic agents 09/17 creatinine is 1.7, as pt's baseline creatinine is 1.5. continue gentle IVF, lab monitor, and avoid nephrotoxic agents Patient's baseline is 1.6. He goes around this number over the course of the hospitalization. He was up to 2.4 on admission. On 09/13, he was 1.5. No new orders.Continue to monitor. (7) Hypernatremia Impression: 09/16 Na is 132, keep hydration, continue lab monitor On admit 153. 149 on September 07 and September 08. Normal by September 08. We have change his IV fluid and he is down to 139 on 09/13 (8) Hx of deep venous thrombosis Impression: Pt has a hx of DVT and was on Coumadin at home. With his GI bleed, anticioagulants have been hold. now with PE, and HGB is stable, no more GI bleed, start with heparin drop for PE (9)UTI 09/18 Your culture show multiple drug resistance Enterococcus, Macrobid is sensitivity to this bacteria, order macrobid for pt. UA culture show positive enterococcus, start with Cipro and IVF, and check lactic acid. we will closely monitor if pt has sepsis as well. updated pt's this new conditions to [facility] as well. (10)chronic indwell urinary catheter pt has chronic indwell urinary catheter. UA culture show positive for UTI, treat with antibiotics, continue cath care, followup with urologist as out-pt - Current Meds Current Meds: Current Medications Generic Name Dose Route Start Last Admin Trade Name Freq PRN Reason Stop Dose Admin Acetaminophen 650 mg 09/05/21 17:12 09/10/21 10:12 Acetaminophen 325 Mg Tablet PO 650 mg Q4HR PRN Administration Pain 1 to 4 Albuterol 2 puffs 09/05/21 17:54 09/05/21 18:21 Albuterol 1 Puff INH 2 puffs Q6H PRN Administration Shortness of Air/Wheezing Atorvastatin Calcium 10 mg 09/09/21 21:00 09/17/21 21:16 Atorvastatin 10 Mg Tablet PO 10 mg QPM DARLYN Administration Cholecalciferol 50 mcg 09/10/21 09:00 09/18/21 10:28 Cholecalciferol 25 Mcg Tablet PO 50 mcg DAILY DARLYN Administration Ferrous Sulfate 325 mg 09/10/21 08:00 09/18/21 10:20 Ferrous Sulfate 325 Mg Tablet PO 325 mg DAILYWM DARLYN Administration Fluticasone Propionate 1 sprays 09/09/21 21:00 09/18/21 10:21 Fluticasone Nasal [place] LOIUS 1 spray BID DARLYN Administration Gabapentin 300 mg 09/09/21 21:00 09/18/21 10:20 Gabapentin 300 Mg Capsule PO 300 mg BID DARLYN Administration Heparin Sodium/Dextrose 25,000 unit in 500 mls @ 27 mls/hr 09/17/21 11:00 09/18/21 12:40 Heparin Sodium/Dextrose IV 12 unit/kg/hr .[id number] DARLYN 18 mls/hr Administration Protocol 18 UNIT/KG/HR Insulin Aspart 3 - 11 unit 09/10/21 17:00 09/18/21 12:26 Insulin Aspart 300 Unit/3 Ml Pen SUBQ 3 unit 0800,1200,1700,2100 DARLYN Administration Protocol Nitrofurantoin 100 mg 09/18/21 09:00 09/18/21 10:20 Nitrofurantoin Macro 100 Mg Capsule PO 100 mg BID DARLYN Administration Nystatin 1 applic 09/05/21 19:02 09/18/21 10:21 Nystatin Powder 15 Gm TOP 1 applic BID DARLYN Administration Pantoprazole Sodium 40 mg 09/11/21 16:00 09/18/21 06:14 Pantoprazole 40 Mg Tablet PO 40 mg BIDAC DARLYN Administration Polyethylene Glycol 17 gm 09/13/21 09:00 09/18/21 10:22 Polyethylene Glycol 3350 17 Gm Packet PO 17 gm DAILY DARLYN Administration Multivit/Folic Acid/Iron 1 tab 09/11/21 09:00 09/18/21 10:21 Vitamin Tablet PO 1 tab DAILYWM DARLYN Administration Saccharomyces Boulardii 250 mg 09/10/21 08:00 09/18/21 10:20 Saccharomyces Boulardii 250 Mg Capsule PO 250 mg BIDWM DARLYN Administration Sodium Chloride 10 ml 09/05/21 17:12 09/18/21 10:30 Sodium Chloride Flush 0.9% 10 Ml Syringe IVP 10 ml PRN PRN Administration NEEDED PER PROVIDER ORDERS Sodium Chloride 10 ml 09/06/21 01:00 09/18/21 10:22 Sodium Chloride Flush 0.9% 10 Ml Syringe IVP Not Given 0100,0900,1700 DARLYN - Lab Result Fish Bone Diagrams: 09/18/21 12:00 09/18/21 05:24 - Additional Planning My Orders: My Active Orders 09/18/21 09:00 Nitrofurantoin [Macrobid] 100 mg PO BID 09/18/21 18:00 H&H [HEMOGLOBIN AND HEMATOCRIT] [HEME] Q6H 09/19/21 05:00 BMP - BASIC METABOLIC PANEL [CHEM] DAILYLAB CBC - COMP BLD CT W/AUTO DIFF [HEME] DAILYLAB 09/20/21 05:00 BMP - BASIC METABOLIC PANEL [CHEM] DAILYLAB CBC - COMP BLD CT W/AUTO DIFF [HEME] DAILYLAB 09/21/21 05:00 BMP - BASIC METABOLIC PANEL [CHEM] DAILYLAB CBC - COMP BLD CT W/AUTO DIFF [HEME] DAILYLAB 09/22/21 05:00 BMP - BASIC METABOLIC PANEL [CHEM] DAILYLAB CBC - COMP BLD CT W/AUTO DIFF [HEME] DAILYLAB 09/23/21 05:00 BMP - BASIC METABOLIC PANEL [CHEM] DAILYLAB CBC - COMP BLD CT W/AUTO DIFF [HEME] DAILYLAB 09/24/21 05:00 BMP - BASIC METABOLIC PANEL [CHEM] DAILYLAB CBC - COMP BLD CT W/AUTO DIFF [HEME] DAILYLAB Subjective - Subjective Patient Reports: Resting Comfortably Objective Vital Signs: Vital Signs - 24 hr 09/17/21 09/17/21 09/17/21 16:24 19:39 23:14 Temperature 36.4 C L 36.1 C L 37.3 C Heart Rate [ Brachial] Heart Rate [ 77 84 78 Radial] Respiratory 20 22 18 Rate Blood Pressure 109/44 L 101/53 L [Right Brachial artery] Blood Pressure 104/36 L [Right Radial artery] O2 Saturation 91 L 92 90 L 09/18/21 09/18/21 05:00 07:47 Temperature 35.4 C L 36.6 C Heart Rate [ 75 Brachial] Heart Rate [ 74 75 Radial] Respiratory 16 18 Rate Blood Pressure 126/49 L 117/70 [Right Brachial artery] Blood Pressure [Right Radial artery] O2 Saturation 92 90 L Oxygen O2 Source Nasal cannula I&O (Last 24 Hrs): Intake and Output Totals x24h 09/16/21 09/17/21 09/18/21 23:59 23:59 23:59 Intake Total 1570 2333.95 2146.05 Output Total 2060 1125 650 Balance -490 1208.95 1496.05 General: Alert, No acute distress HEENT: Atraumatic Neck: Supple Lymphatic: no adenopathy Neuro: Alert, Non Focal Cardiovascular: Regular rate, Normal S1, Normal S2 Respiratory: Chest non-tender, No respiratory distress Abdomen: Normal bowel sounds, Soft Extremities: Normal pulses - Results Results: Laboratory Results WBC 14.0 x10^3/uL (4.8-10.8) H 09/18/21 08:37 RBC 2.84 10^6/uL (4.70-6.10) L 09/18/21 08:37 Hgb 8.1 g/dL (14.0-18.0) L 09/18/21 12:00 Hct 25.7 % (42.0-52.0) L 09/18/21 12:00 MCV 98.9 fL (80.0-94.0) H 09/18/21 08:37 MCH 30.6 pg (27.0-31.0) 09/18/21 08:37 MCHC 31.0 g/dL (32.0-36.0) L 09/18/21 08:37 RDW 19.4 % (12.0-15.0) H 09/18/21 08:37 Plt Count 137 10^3/uL (130-450) 09/18/21 08:37 MPV 11.3 fL (7.4-11.4) 09/18/21 08:37 Reticulocyte % (Auto) 2.99 % (0.5-2.3) H 09/05/21 19:36 Neut # (Auto) 10.7 10^3/uL (1.5-6.6) H 09/18/21 05:24 Lymph # (Auto) 0.6 10^3/uL (1.5-3.5) L 09/18/21 05:24 [place] # (Auto) 1.2 10^3/uL (0.0-1.0) H 09/18/21 05:24 Eos # (Auto) 0.1 10^3/uL (0.0-0.7) 09/18/21 05:24 Baso # (Auto) 0.0 10^3/uL (0.0-0.1) 09/18/21 05:24 Absolute Nucleated RBC 0.00 x10^3/uL 09/18/21 05:24 Total Counted 100 09/09/21 04:50 Band Neuts % (Manual) 0 % (0-10) 09/09/21 04:50 Abnorm Lymph % (Manual) 0 % 09/09/21 04:50 Nucleated RBC % 0.0 /100WBC 09/18/21 05:24 Neutrophils # (Manual) 6.2 10^3/uL (1.5-6.6) 09/09/21 04:50 Lymphocytes # (Manual) 0.4 10^3/uL (1.5-3.5) L 09/09/21 04:50 Monocytes # (Manual) 0.4 10^3/uL (0.0-1.0) 09/09/21 04:50 Eosinophils # (Manual) 0.0 10^3/uL (0-0.7) 09/09/21 04:50 Basophils # (Manual) 0.0 10^3/uL (0-0.1) 09/09/21 04:50 Nucleated RBCs 3 % 09/07/21 04:30 Differential Comment MANUAL DIFFERENTIAL 09/09/21 04:50 Manual Slide Review Indicated 09/16/21 09:35 WBC Morphology (NORMAL) 09/16/21 09:35 Platelet Estimate NORMAL (130-450,000) (NORMAL) 09/16/21 09:35 Platelet Morphology NORMAL APPEARANCE (NORMAL) 09/16/21 09:35 RBC Morph Micro Appear 1+ POLYCHROMASIA (NORMAL) 2+ OVALOCYTES (NORMAL) 1+ ANISOCYTOSIS (NORMAL) 09/16/21 09:35 RBC Morph Micro Appear 1+ POLYCHROMASIA (NORMAL) 2+ OVALOCYTES (NORMAL) 1+ ANISOCYTOSIS (NORMAL) 09/16/21 09:35 RBC Morph Micro Appear 1+ POLYCHROMASIA (NORMAL) 2+ OVALOCYTES (NORMAL) 1+ ANISOCYTOSIS (NORMAL) 09/16/21 09:35 Absolute Retic 0.065 10^6/uL (0.020-0.110) 09/05/21 19:36 PT 16.2 secs (9.9-12.6) H 09/09/21 04:50 INR 1.5 (0.8-1.2) H 09/09/21 04:50 APTT 133.0 secs (24.9-33.3) H* 09/18/21 08:37 Sodium 136 mmol/L (135-145) 09/18/21 05:24 Potassium 4.4 mmol/L (3.5-5.0) 09/18/21 05:24 Chloride 110 mmol/L (101-111) 09/18/21 05:24 Carbon Dioxide 20 mmol/L (21-32) L 09/18/21 05:24 Anion Gap 6.0 (6-13) 09/18/21 05:24 BUN 39 mg/dL (6-20) H 09/18/21 05:24 Creatinine 1.5 mg/dL (0.6-1.2) H 09/18/21 05:24 Estimated GFR (MDRD) 44 (>89) L 09/18/21 05:24 Glucose 141 mg/dL (70-100) H 09/18/21 05:24 Estimat Average Glucose 114 mg/dL (70-100) H 09/09/21 04:50 Hemoglobin A1c % 5.6 % (4.27-6.07) 09/09/21 04:50 Lactic Acid 1.7 mmol/L (0.5-2.2) 09/17/21 18:39 Calcium 7.4 mg/dL (8.5-10.3) L 09/18/21 05:24 Phosphorus 4.6 mg/dL (2.5-4.6) 09/05/21 15:43 Magnesium 2.4 mg/dL (1.7-2.8) 09/10/21 04:48 Iron 31 ug/dL (45-182) L 09/05/21 19:36 TIBC 181 ug/dL (250-450) L 09/05/21 19:36 % Saturation 17 % (20-50) L 09/05/21 19:36 Transferrin 129 mg/dL (180-329) L 09/05/21 19:36 Ferritin 686.8 ng/mL (23.9-336.2) H 09/05/21 19:36 Total Bilirubin 0.8 mg/dL (0.2-1.0) 09/05/21 15:43 AST 32 IU/L (10-42) 09/05/21 15:43 ALT 21 IU/L (10-60) 09/05/21 15:43 Alkaline Phosphatase 46 IU/L (42-121) 09/05/21 15:43 Lactate Dehydrogenase 335 IU/L (91-225) H 09/05/21 19:36 Total Protein 6.5 g/dL (6.7-8.2) L 09/05/21 15:43 Albumin 3.3 g/dL (3.2-5.5) 09/05/21 15:43 Globulin 3.2 g/dL (2.1-4.2) 09/05/21 15:43 Albumin/Globulin Ratio 1.0 (1.0-2.2) 09/05/21 15:43 Vitamin B12 1270 pg/mL (180-914) H 09/05/21 19:36 Urine Color YELLOW 09/16/21 15:05 Urine Clarity HAZY (CLEAR) 09/16/21 15:05 Urine pH 6.0 PH (5.0-7.5) 09/16/21 15:05 Ur Specific [place] 1.010 (1.002-1.030) 09/16/21 15:05 Urine Protein NEGATIVE mg/dL (NEGATIVE) 09/16/21 15:05 Urine Glucose (UA) NEGATIVE mg/dL (NEGATIVE) 09/16/21 15:05 Urine Ketones NEGATIVE mg/dL (NEGATIVE) 09/16/21 15:05 Urine Occult Blood NEGATIVE (NEGATIVE) 09/16/21 15:05 Urine Nitrite NEGATIVE (NEGATIVE) 09/16/21 15:05 Urine Bilirubin NEGATIVE (NEGATIVE) 09/16/21 15:05 Urine Urobilinogen 0.2 (NORMAL) E.U./dL (NORMAL) 09/16/21 15:05 Ur Leukocyte Esterase MODERATE (NEGATIVE) H 09/16/21 15:05 Urine RBC 6-10 /HPF (0-5) H 09/16/21 15:05 Urine WBC 11-25 /HPF (0-3) H 09/16/21 15:05 Ur Squamous Epith Cells NONE SEEN (<= Few) 09/16/21 15:05 Urine Bacteria Few /HPF (None Seen) 09/16/21 15:05 Ur Microscopic Review NOT INDICATED 09/05/21 16:14 Urine Culture Comments INDICATED 09/16/21 15:05 Nasal Adenovirus (PCR) NOT DETECTED 09/05/21 20:09 Nasal B. parapertussis DNA (PCR) NOT DETECTED 09/05/21 20:09 Nasal Coronavir 229E PCR NOT DETECTED 09/05/21 20:09 Nasal Coronavir HKU1 PCR NOT DETECTED 09/05/21 20:09 Nasal Coronavir NL63 PCR NOT DETECTED 09/05/21 20:09 Nasal Coronavir OC43 PCR NOT DETECTED 09/05/21 20:09 Nasal Enterovir/Rhinovir PCR NOT DETECTED 09/05/21 20:09 Nasal Influenza B PCR NOT DETECTED 09/05/21 20:09 Nasal Influenza A PCR NOT DETECTED 09/05/21 20:09 Nasal Parainfluen 1 PCR NOT DETECTED 09/05/21 20:09 Nasal Parainfluen 2 PCR NOT DETECTED 09/05/21 20:09 Nasal Parainfluen 3 PCR NOT DETECTED 09/05/21 20:09 Nasal Parainfluen 4 PCR NOT DETECTED 09/05/21 20:09 Nasal RSV (PCR) NOT DETECTED 09/05/21 20:09 Nasal B.pertussis DNA PCR NOT DETECTED 09/05/21 20:09 Nasal C.pneumoniae (PCR) NOT DETECTED 09/05/21 20:09 [place] Human Metapneumo PCR NOT DETECTED 09/05/21 20:09 Nasal M.pneumoniae (PCR) NOT DETECTED 09/05/21 20:09 Nasal SARS-CoV-2 (PCR) DETECTED A 09/05/21 20:09 Stl Occult Blood (IFOB) POSITIVE (NEGATIVE) A 09/07/21 07:50 Blood Type A NEGATIVE 09/06/21 08:45 Blood Type Recheck A NEGATIVE 09/06/21 06:55 Antibody Screen NEGATIVE 09/06/21 08:45 Crossmatch IS Only See Detail 09/06/21 08:45 ABX Reporting Has patient been on IV antibiotics over the past 48 hours?: Yes Current Medications - Current Medications Current Medications: Active Medications Acetaminophen (Acetaminophen 325 Mg Tablet) 650 mg PO Q4HR PRN PRN Reason: Pain 1 to 4 Last Admin: 09/10/21 10:12 Dose: 650 mg Albuterol (Albuterol 1 Puff) 2 puffs INH Q6H PRN PRN Reason: Shortness of Air/Wheezing Last Admin: 09/05/21 18:21 Dose: 2 puffs Atorvastatin Calcium (Atorvastatin 10 Mg Tablet) 10 mg PO QPM [facility] Last Admin: 09/17/21 21:16 Dose: 10 mg Cholecalciferol (Cholecalciferol 25 Mcg Tablet) 50 mcg PO DAILY [facility] Last Admin: 09/18/21 10:28 Dose: 50 mcg Ferrous Sulfate (Ferrous Sulfate 325 Mg Tablet) 325 mg PO DAILYWM [facility] Last Admin: 09/18/21 10:20 Dose: 325 mg Fluticasone Propionate (Fluticasone Nasal [place]) 1 sprays [place] BID [facility] Last Admin: 09/18/21 10:21 Dose: 1 spray Gabapentin (Gabapentin 300 Mg Capsule) 300 mg PO BID [facility] Last Admin: 09/18/21 10:20 Dose: 300 mg Heparin Sodium (Porcine) (Heparin 1,000 Unit/Ml Vial) 2,000 - 3,000 unit IVP Q6H PRN; Protocol PRN Reason: aPTT <50 Heparin Sodium/Dextrose (Heparin Sodium/Dextrose) 25,000 unit in 500 mls @ 27 mls/hr IV .[id number] [facility]; Protocol Last Admin: 09/18/21 12:40 Dose: 12 unit/kg/hr, 18 mls/hr Insulin Aspart (Insulin Aspart 300 Unit/3 Ml Pen) 3 - 11 unit SUBQ 0800,1200,1700,2100 [facility]; Protocol Last Admin: 09/18/21 12:26 Dose: 3 unit Nitrofurantoin (Nitrofurantoin Macro 100 Mg Capsule) 100 mg PO BID [facility] Last Admin: 09/18/21 10:20 Dose: 100 mg Nystatin (Nystatin Powder 15 Gm) 1 applic TOP BID [facility] Last Admin: 09/18/21 10:21 Dose: 1 applic Ondansetron HCl (Ondansetron 4 Mg/2 Ml Vial) 4 mg IVP Q6HR PRN PRN Reason: Nausea / Vomiting Pantoprazole Sodium (Pantoprazole 40 Mg Tablet) 40 mg PO BIDAC [facility] Last Admin: 09/18/21 06:14 Dose: 40 mg Polyethylene Glycol (Polyethylene Glycol 3350 17 Gm Packet) 17 gm PO DAILY [facility] Last Admin: 09/18/21 10:22 Dose: 17 gm Multivit/Folic Acid/Iron ( Vitamin Tablet) 1 tab PO DAILYWM [facility] Last Admin: 09/18/21 10:21 Dose: 1 tab Saccharomyces Boulardii (Saccharomyces Boulardii 250 Mg Capsule) 250 mg PO BIDWM [facility] Last Admin: 09/18/21 10:20 Dose: 250 mg Sodium Chloride (Sodium Chloride Flush 0.9% 10 Ml Syringe) 10 ml IVP PRN PRN PRN Reason: NEEDED PER PROVIDER ORDERS Last Admin: 09/18/21 10:30 Dose: 10 ml Sodium Chloride (Sodium Chloride Flush 0.9% 10 Ml Syringe) 10 ml IVP 0100,0900,1700 [facility] Last Admin: 09/18/21 10:22 Dose: Not Given Gabapentin [Neurontin] 300 mg PO BID 07/03/13 Warfarin Sodium [Coumadin] 4 mg PO DAILY 02/08/13 Anagrelide HCl 0.5 mg PO BID 06/19/13 Fluticasone [Flonase] 1 spray [place] BID 09/03/15 Aspirin EC [Ecotrin] 81 mg PO DAILY 09/07/21 Ferrous Sulfate 325 mg PO DAILY 09/07/21 Lisinopril [Zestril] 2.5 mg PO DAILY 09/07/21 Metoprolol Succinate [Toprol Xl] 50 mg PO DAILY 09/07/21 Rosuvastatin Calcium [Crestor] 5 mg PO QPM 09/07/21 amLODIPine [Norvasc] 5 mg PO DAILY 09/07/21
[2021-09-18 18:05] LABS: HCT - HEMATOCRIT 28.8 % (42.0-52.0)
[2021-09-18] MEDS: ATORVASTATIN 10 MG TABLET PO SCH (20:35)
[2021-09-19] MEDS: SODIUM CHLORIDE FLUSH 0.9% 10 ML SYRINGE IVP SCH ×3 (00:04→18:10)
[2021-09-19 05:08] LABS: EOSINOPHILS % (AUTO) 0.4 %; HCT - HEMATOCRIT 25.2 % (42.0-52.0); LYMPHOCYTES # (AUTO) 0.6 10^3/uL (1.5-3.5); MEAN CORPUSCULAR HGB CONC 31.7 g/dL (32.0-36.0); MEAN CORPUSCULAR VOLUME 97.7 fL (80.0-94.0); MEAN PLATELET VOLUME 10.9 fL (7.4-11.4); MONOCYTES # (AUTO) 0.8 10^3/uL (0.0-1.0); MONOCYTES % (AUTO) 7.8 %; NEUTROPHILS # (AUTO) 8.5 10^3/uL (1.5-6.6); NEUTROPHILS % (AUTO) 84.1 %; PLT - PLATELET COUNT 132 10^3/uL (130-450); RED BLOOD COUNT 2.58 10^6/uL (4.70-6.10); RED CELL DISTRIBUTION WIDTH 19.3 % (12.0-15.0); WHITE BLOOD COUNT 10.1 x10^3/uL (4.8-10.8)
[2021-09-19 05:19] LABS: CALCIUM 7.5 mg/dL (8.5-10.3); CREATININE 1.5 mg/dL (0.6-1.2); POTASSIUM 4.4 mmol/L (3.5-5.0)
[2021-09-19] MEDS: PANTOPRAZOLE 40 MG TABLET PO SCH ×2 (06:00→16:30)
[2021-09-19] MEDS: INSULIN ASPART 300 UNIT/3 ML PEN SUBQ SCH ×3 (08:00→18:07)
[2021-09-19] MEDS ORDERED: DOCUSATE SODIUM 250 MG CAPSULE PO SCH (09:00)
[2021-09-19] MEDS: NITROFURANTOIN MACRO 100 MG CAPSULE PO SCH (10:34)
[2021-09-19] MEDS: FERROUS SULFATE 325 MG TABLET PO SCH (10:34)
[2021-09-19] MEDS: CHOLECALCIFEROL 25 MCG TABLET PO SCH (10:37)
[2021-09-19] MEDS: GABAPENTIN 300 MG CAPSULE PO SCH (10:38)
[2021-09-19] MEDS: polyethylene glycoL 3350 17 GM PACKET PO SCH (10:41)
[2021-09-19] MEDS: PRENATAL VITAMIN TABLET PO SCH (10:46)
[2021-09-19] MEDS: SACCHAROMYCES BOULARDII 250 MG CAPSULE PO SCH ×2 (10:46→18:10)
[2021-09-19] MEDS: FLUTICASONE NASAL SPRAY NAS SCH (10:51)
[2021-09-19] MEDS: NYSTATIN POWDER 15 GM TOP SCH (10:55)
--- NOTE | 2021-09-19 13:22 | PROVIDER PROGRESS NOTE ---
Subjective - Prog Note Date Prog Note Date: 09/19/21 - Subjective Pt reports feeling: No change Subjective: pt ate most of his breakfast, he feel shortness of breath on exertion. I called [facility] lisha and updated pt's medical condition, to try to fasten the process of transferring pt. pt was accepted by both hospitalist and [facility] of [place], unfortunately pt still is not transferred due to hospital bed is not availability in [place]. Thank [facility] and Patti to take care of the pt. Current Medications - Current Medications Current Medications: Active Medications Acetaminophen (Acetaminophen 325 Mg Tablet) 650 mg PO Q4HR PRN PRN Reason: Pain 1 to 4 Last Admin: 09/10/21 10:12 Dose: 650 mg Albuterol (Albuterol 1 Puff) 2 puffs INH Q6H PRN PRN Reason: Shortness of Air/Wheezing Last Admin: 09/05/21 18:21 Dose: 2 puffs Atorvastatin Calcium (Atorvastatin 10 Mg Tablet) 10 mg PO QPM [facility] Last Admin: 09/18/21 20:35 Dose: 10 mg Cholecalciferol (Cholecalciferol 25 Mcg Tablet) 50 mcg PO DAILY [facility] Last Admin: 09/19/21 10:37 Dose: 50 mcg Docusate Sodium (Docusate Sodium 250 Mg Capsule) 250 - 500 mg PO DAILY [facility] Last Admin: 09/19/21 10:37 Dose: Not Given Ferrous Sulfate (Ferrous Sulfate 325 Mg Tablet) 325 mg PO DAILYWM [facility] Last Admin: 09/19/21 10:34 Dose: 325 mg Fluticasone Propionate (Fluticasone Nasal [place]) 1 sprays [place]OU[place] BID [facility] Last Admin: 09/19/21 10:51 Dose: 1 spray Gabapentin (Gabapentin 300 Mg Capsule) 300 mg PO BID [facility] Last Admin: 09/19/21 10:38 Dose: 300 mg Heparin Sodium (Porcine) (Heparin 1,000 Unit/Ml Vial) 2,000 - 3,000 unit IVP Q6H PRN; Protocol PRN Reason: aPTT <50 Heparin Sodium/Dextrose (Heparin Sodium/Dextrose) 25,000 unit in 500 mls @ 27 mls/hr IV .[id number] [facility]; Protocol Last Titration: 09/19/21 05:57 Dose: 12 unit/kg/hr, 18 mls/hr Insulin Aspart (Insulin Aspart 300 Unit/3 Ml Pen) 3 - 11 unit SUBQ 0800,1200,1700,2100 [facility]; Protocol Last Admin: 09/19/21 11:57 Dose: 5 unit Nitrofurantoin (Nitrofurantoin Macro 100 Mg Capsule) 100 mg PO BID [facility] Last Admin: 09/19/21 10:34 Dose: 100 mg Nystatin (Nystatin Powder 15 Gm) 1 applic TOP BID [facility] Last Admin: 09/19/21 10:55 Dose: 1 applic Ondansetron HCl (Ondansetron 4 Mg/2 Ml Vial) 4 mg IVP Q6HR PRN PRN Reason: Nausea / Vomiting Pantoprazole Sodium (Pantoprazole 40 Mg Tablet) 40 mg PO BIDAC [facility] Last Admin: 09/19/21 06:00 Dose: 40 mg Polyethylene Glycol (Polyethylene Glycol 3350 17 Gm Packet) 17 gm PO DAILY [facility] Last Admin: 09/19/21 10:41 Dose: Not Given Multivit/Folic Acid/Iron ( Vitamin Tablet) 1 tab PO DAILYWM [facility] Last Admin: 09/19/21 10:46 Dose: 1 tab Saccharomyces Boulardii (Saccharomyces Boulardii 250 Mg Capsule) 250 mg PO BIDWM [facility] Last Admin: 09/19/21 10:46 Dose: 250 mg Sodium Chloride (Sodium Chloride Flush 0.9% 10 Ml Syringe) 10 ml IVP PRN PRN PRN Reason: NEEDED PER PROVIDER ORDERS Last Admin: 09/18/21 10:30 Dose: 10 ml Sodium Chloride (Sodium Chloride Flush 0.9% 10 Ml Syringe) 10 ml IVP 0100,0900,1700 [facility] Last Admin: 09/19/21 11:49 Dose: Not Given Gabapentin [Neurontin] 300 mg PO BID 02/08/13 Warfarin Sodium [Coumadin] 4 mg PO DAILY 02/08/13 Anagrelide HCl 0.5 mg PO BID 06/19/13 Fluticasone [Flonase] 1 spray LOUIS BID 09/03/15 Aspirin EC [Ecotrin] 81 mg PO DAILY 09/07/21 Ferrous Sulfate 325 mg PO DAILY 09/07/21 Lisinopril [Zestril] 2.5 mg PO DAILY 09/07/21 Metoprolol Succinate [Toprol Xl] 50 mg PO DAILY 09/07/21 Rosuvastatin Calcium [Crestor] 5 mg PO QPM 09/07/21 amLODIPine [Norvasc] 5 mg PO DAILY 09/07/21 Objective - Vital Signs/Intake & Output Vital Signs: Vital Signs x48h Temp Pulse Resp BP Pulse Ox 09/19/21 11:50 36.0 C L 75 20 127/48 L 94 09/19/21 08:30 20 93 09/19/21 07:56 35.7 C L 72 22 139/47 H 89 L Intake & Output: Intake & Output 09/16/21 09/17/21 09/18/21 09/19/21 23:59 23:59 23:59 23:59 Intake Total 1570 2333.95 2442.55 592.6 Output Total 2060 1125 1925 875 Balance -490 1208.95 517.55 -282.4 - Objective General Appearance: positive: No acute distress, Alert. negative: Lethargic Eyes Bilateral: positive: Normal inspection, No lid inflammation ENT: positive: ENT inspection nml, No signs of dehydration. negative: Purulent nasal drainage Neck: positive: Nml inspection, Trachea midline. negative: Tracheal deviation Respiratory: positive: Chest non-tender, No respiratory distress. negative: Wheezes Cardiovascular: positive: Regular rate & rhythm. negative: Tachycardia, Bradycardia, Systolic murmur Peripheral Pulses: 2+ Radial (R), 2+ Radial (L) Abdomen: positive: Non-tender, Nml bowel sounds, No distention Back: positive: Nml inspection Skin: positive: Color nml, Warm, Dry. negative: Cyanosis Extremities: positive: Non-tender, Nml appearance Neurologic/Psychiatric: positive: Sensation nml. negative: Sensory loss, Facial droop, Slurred/abnml speech, Depressed mood/affect - Lab Results Fish Bones: 09/19/21 13:55 09/19/21 04:58 Other Labs: Lab Results x24hrs 09/19/21 09/19/21 09/19/21 Range/Units 04:58 04:58 04:58 WBC 10.1 (4.8-10.8) x10^3/uL RBC 2.58 L (4.70-6.10) 10^6/uL Hgb 8.0 L (14.0-18.0) g/dL Hct 25.2 L (42.0-52.0) % MCV 97.7 H (80.0-94.0) fL MCH 31.0 (27.0-31.0) pg MCHC 31.7 L (32.0-36.0) g/dL RDW 19.3 H (12.0-15.0) % Plt Count 132 (130-450) 10^3/uL MPV 10.9 (7.4-11.4) fL Neut # (Auto) 8.5 H (1.5-6.6) 10^3/uL Lymph # (Auto) 0.6 L (1.5-3.5) 10^3/uL [place] # (Auto) 0.8 (0.0-1.0) 10^3/uL Eos # (Auto) 0.0 (0.0-0.7) 10^3/uL Baso # (Auto) 0.0 (0.0-0.1) 10^3/uL Absolute Nucleated RBC 0.00 x10^3/uL Nucleated RBC % 0.0 /100WBC APTT 86.4 H (24.9-33.3) secs Sodium 136 (135-145) mmol/L Potassium 4.4 (3.5-5.0) mmol/L Chloride 109 (101-111) mmol/L Carbon Dioxide 20 L (21-32) mmol/L Anion Gap 7.0 (6-13) BUN 32 H (6-20) mg/dL Creatinine 1.5 H (0.6-1.2) mg/dL Estimated GFR (MDRD) 44 L (>89) Glucose 120 H (70-100) mg/dL Calcium 7.5 L (8.5-10.3) mg/dL 09/18/21 09/18/21 09/18/21 Range/Units 21:58 17:59 15:50 WBC (4.8-10.8) x10^3/uL RBC (4.70-6.10) 10^6/uL Hgb 9.0 L (14.0-18.0) g/dL Hct 28.8 L (42.0-52.0) % MCV (80.0-94.0) fL MCH (27.0-31.0) pg MCHC (32.0-36.0) g/dL RDW (12.0-15.0) % Plt Count (130-450) 10^3/uL MPV (7.4-11.4) fL Neut # (Auto) (1.5-6.6) 10^3/uL Lymph # (Auto) (1.5-3.5) 10^3/uL [place] # (Auto) (0.0-1.0) 10^3/uL Eos # (Auto) (0.0-0.7) 10^3/uL Baso # (Auto) (0.0-0.1) 10^3/uL Absolute Nucleated RBC x10^3/uL Nucleated RBC % /100WBC APTT 88.9 H 77.6 H (24.9-33.3) secs Sodium (135-145) mmol/L Potassium (3.5-5.0) mmol/L Chloride (101-111) mmol/L Carbon Dioxide (21-32) mmol/L Anion Gap (6-13) BUN (6-20) mg/dL Creatinine (0.6-1.2) mg/dL Estimated GFR (MDRD) (>89) Glucose (70-100) mg/dL Calcium (8.5-10.3) mg/dL ABX Reporting Has patient been on IV antibiotics over the past 48 hours?: Yes Assessment/Plan - Problem List (1) Respiratory failure with hypoxia Impression: 09/19 pt had 94% Oxygen saturation on 6 L of oxygen 09/18 pt ate 100% of his breakfast, pt is rest comfortable. pt had 90% sat on 5 Liter of oxygen, discussed with RT, we may increase Oxygen supplement, continue pulse oximetry. Called [facility], transfer center report they may take the patient on today to [facility] for high level of care. 09/17 pt still need 5 liter of O2 with 91-94% O2 sat but comfortable breath at rest, and present shortness of breath on exertion. CTA reveal bilateral PE and Multifocal pneumonia. Patient finished COVID-19 treatment course and patient also had antibiotics treated for pneumonia. [facility] recommend start with heparin drop without bolus to treat pt's PE. continue supplement O2 as needed. pt is accepted by [facility] for high level of care. pt will be transferred to [facility] and wait for hospital bed available. 09/16 pt still need 4-5 liter of O2, and present shortness of breath in minimal exertion. CXR reveal improved but not entirely resolved patchy bilateral Airspace opacities. pt had significantly elevated WBC 20 on today which was at normal arrange on 09/13/21. will repeat CBC. pt has no fever. pt had antibiotics for his pneumonia and now it was hold. order UA. pt had hx of chronic indwelling catheter. since pt had GI bleed, we hold his home anticoagulation but pt also had hx of DVT, since pt still present respiratory distress, we order CTA of chest to r/o PE. When he presented to the emergency room who is 88% on room air. He was needing 2 L nasal cannula. Even with remdesivir and steroids his O2 requirement has gone up to 5 L since September 10. He is remained on 5 L. We are awaiting oxygen levels to improve with decreasing O2 nasal cannula delivery. Once he is down to approximately 2 L he might be able to be discharged on nasal cannula. No change for today. Still working with PT for deconditioning and off tele. EAting. (2) Pneumonia due to COVID-19 virus Impression: 09/18 CTA still reveal Multifocal pneumonia. pt was not vaccinated. pt finished Covid 19 treatment in hospital. will continue support with O2 supplement, closely monitor pt's respiratory status Patient finished COVID-19 treatment course and patient also had antibiotics treated for pneumonia. pt still need 5 liter of O2 with 91-94% O2 sat but c omfortable breath at rest, and present shortness of breath on exertion. CTA reveal Multifocal pneumonia. will continue support with O2 supplement, closely monitor pt's respiratory status to see pt if need further Bipap or even incubate support if worsening (3)pulmonary emboli 09/18 CTA reveal bilateral PE. pt has hx of DVT, pt's home Coumadin was hold due to GI bleeding per our GI surgeon's recommendation. Covid 19 self can cause blood emboli as well. start with heparin drop without heparin bolus per [facility] recommendation. followup protocol for heparin drop (4)DVT 09/18 pt has hx of DVT but pt had Covid 19 infection which can cause DVT. pt's home Coumadin was hold due to GI bleeding per our GI surgeon's recommendation. pt's US reveal right occlusive thrombus at right greater saphenous vein and left nonocclusive chronic thrombus. pt's bilateral leg and foot are warm and has pause. update pt's conditions to [facility] (5) GI bleed Impression: 09/18, pt has no bowel movement on today, but HGB is slight reduced. continue H&H monitor hemoglobin 09/17 HGB is stable, bowel movement has brown color. continue protonix Dark bloody stool September 07. Drop in hemoglobin from 7.8-5.9. Normal blood pressure, not tachycardic. 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 General surgery saw the patient in consultation. It was recommended that we just hold his blood thinner, transfusing 2 units, Protonix IV, but no EGD at this time.Hemoglobin was 9.8 yesterday. 8.5 today. He is on iron supplementation. We will continue to monitor. (6) RUDDY (acute kidney injury) resolved. Impression: 09/18 creatinine is 1.5, stable, continue lab monitor, and avoid nephrotoxic agents 09/17 creatinine is 1.7, as pt's baseline creatinine is 1.5. continue gentle IVF, lab monitor, and avoid nephrotoxic agents Patient's baseline is 1.6. He goes around this number over the course of the hospitalization. He was up to 2.4 on admission. On 09/13, he was 1.5. No new orders.Continue to monitor. (7) Hypernatremia Impression: 09/16 Na is 132, keep hydration, continue lab monitor On admit 153. 149 on September 07 and September 08. Normal by September 08. We have change his IV fluid and he is down to 139 on 09/13 (8) Hx of deep venous thrombosis Impression: Pt has a hx of DVT and was on Coumadin at home. With his GI bleed, anticioagulants have been hold. now with PE, and HGB is stable, no more GI bleed, start with heparin drop for PE (9)UTI 09/18 Your culture show multiple drug resistance Enterococcus, Macrobid is sensitivity to this bacteria, order macrobid for pt. UA culture show positive enterococcus, start with Cipro and IVF, and check lactic acid. we will closely monitor if pt has sepsis as well. updated pt's this new conditions to [facility] as well. (10)chronic indwell urinary catheter pt has chronic indwell urinary catheter. UA culture show positive for UTI, treat with antibiotics, continue cath care, followup with urologist as out-pt
[2021-09-19 14:00] LABS: HCT - HEMATOCRIT 26.2 % (42.0-52.0); HGB - HEMOGLOBIN 8.2 g/dL (14.0-18.0)
--- NOTE | 2021-09-19 14:55 | DISCHARGE SUMMARY ---
Discharge Summary Admit Date: 09/05/21 Discharge Date: 09/19/21 Discharging Provider: Thierry Prado Primary Care Provider: Asher Andrew Condition at Discharge: Serious Discharge Facility Name: [facility] - DIAGNOSES Discharge Diagnoses with Status of Each Condition: (1) Respiratory failure with hypoxia pt has 94% O2 sat on 6 liter of O2 now. CTA on 09/17 show Multifocal pneumonia and bilaterally PE. Patient was COVID-19 positive on test on 09/05/21, patient is unvaccinated. (2) Pneumonia due to COVID-19 virus Patient was COVID-19 positive on 09/05, patient was unvaccinated. CTA on 09/17 still show Multifocal pneumonia. Patient finished COVID-19 treatment. pt has 94% O2 sat on 6 liter of O2 now. (3)pulmonary emboli CTA reveal bilateral PE. pt has hx of DVT, pt's home Coumadin was hold due to GI bleeding. but Covid 19 itself can cause blood emboli as well. start with heparin drop without heparin bolus per [place]'s recommendation on 09/17 (4)DVT Duplex show bilateral lower extremities DVT, not indicated acute or chronict in image study, but pt has hx of DVT however, Covid 19 infection itself can cause DVT as well. pt's home Coumadin was hold due to GI bleeding per our GI surgeon's recommendation. pt's US reveal right occlusive thrombus at right greater saphenous vein and left nonocclusive chronic thrombus. pt's bilateral leg and foot are warm and has pause. (5) GI bleed black stool and occult test positive at 09/07. pt's HGB was drop from 7.8 to 5.9 then pt had two unit of blood transfusion. now His hemoglobin is 8.2. Patient was treated with Protonix twice daily. Patient was consulted with GI, no EGD done but the patient's home medication Coumadin was on hold since patient had GI bleeding. repeat occult stool test on today 09/19 is negative. (6) RUDDY (acute kidney injury) resolved. resolved. creatinine is 1.5, as pt's baseline. pt has severe dehydration at the admission (7) Hypernatremia resolved. Na is 136 now, On admit Na was 153. (8)UTI pt has hx of chronic indwell urinary catheter. Your culture show multiple drug resistance Enterococcus, Macrobid is sensitivity to this bacteria, order macrobid for pt on 09/17. (9)chronic indwell urinary catheter pt has chronic indwell urinary catheter. continue catheter care and followup with urologist as out-pt Updated pt's all medical conditions to Dr. Nnuez in [facility]. pt is accepted by Dr. Nunez for high level at [facility]. Thank Dr. Nunez and other team members to take care of this pt! - HPI History of Present Illness: This is a 86-year-old gentleman with a medical history significant of prostate cancer, Essential thrombocythemia, chronic indwelling Watt, CKD, chronic a nemia, anticoagulation with warfarin for history of recurrent DVT who present ER complain of shortness of breath. pt was not vaccinated for Covid. he was test positive for Covid at 08/29/21. pt is a poor historian. Patient was brought in by EMS. pt report he felt short of air for past several days. Per EMS patient does not use oxygen at baseline. He denies chest pain. pt visited ER a week ago for m alaise and fatigue. At the time pt was found to have UTI as well. pt was prescribed antibiotics for home. Pt continue to have shortness of breath, dry cough and dry mouth. In the ER patient is afebrile but patient present tachycardia, tachypnea, 88% oxygen saturation on room air. Routine laboratory tests significantly show patient had hemoglobin 7.8, platelets 330, INR is 3.2, Sodium 153, Chloride 120, creatinine 2.4, BUN 59, Urinalysis is clear. pt hope to have full code. - ALLERGIES Allergies/Adverse Reactions: Allergies Allergy/AdvReac Type Severity Reaction Status Date / Time amoxicillin [Amoxicillin] Allergy Intermediate Rash Verified 09/05/21 15:21 dimethicone AdvReac Mild Rash Verified 09/07/21 08:57 [From [employer]] - MEDICATIONS Home Medications: Ambulatory Orders Medication Instructions Recorded Confirmed Gabapentin [Neurontin] 300 mg PO BID 02/08/13 09/07/21 Warfarin Sodium [Coumadin] 4 mg PO DAILY 02/08/13 09/07/21 Anagrelide HCl 0.5 mg PO BID 06/19/13 09/07/21 Fluticasone [Flonase] 1 spray [place] BID 09/03/15 09/07/21 Aspirin EC [Ecotrin] 81 mg PO DAILY 09/07/21 09/07/21 Ferrous Sulfate 325 mg PO DAILY 09/07/21 09/07/21 Lisinopril [Zestril] 2.5 mg PO DAILY 09/07/21 09/07/21 Metoprolol Succinate [Toprol Xl] 50 mg PO DAILY 09/07/21 09/07/21 Rosuvastatin Calcium [Crestor] 5 mg PO QPM 09/07/21 09/07/21 amLODIPine [Norvasc] 5 mg PO DAILY 09/07/21 09/07/21 - PHYSICAL EXAM AT DISCHARGE General Appearance: positive: No acute distress, Alert. negative: Lethargic Eyes Bilateral: positive: Normal inspection, No lid inflammation ENT: positive: ENT inspection nml, No signs of dehydration. negative: Purulent nasal drainage Neck: positive: Nml inspection, Trachea midline. negative: Tracheal deviation Respiratory: positive: Chest non-tender, No respiratory distress. negative: Wheezes Cardiovascular: positive: Regular rate & rhythm. negative: Tachycardia, Bradycardia, Systolic murmur Peripheral Pulses: positive: 2+ Abdomen: positive: Non-tender, Nml bowel sounds, No distention Back: positive: Nml inspection Skin: positive: Color nml, Warm, Dry. negative: Cyanosis Extremities: positive: Non-tender, Full ROM Neurologic/Psychiatric: positive: Sensation nml. negative: Weakness, Sensory loss, Facial droop, Slurred/abnml speech - LABS Result Diagrams: 09/19/21 13:55 09/19/21 04:58 - FOLLOW UP Follow Up: pt is transferring to [facility] for high level of care. - TIME SPENT Time Spent in Discharge (Minutes): 30
[2021-09-19 15:29] VITALS: BP 138/49
[2021-09-19 16:44] LABS: B. PARAPERTUSSIS- RESP PCR PAN NOT DETECTED; B. PERTUSSIS- RESP PCR PANEL NOT DETECTED; C. PNEUMONIAE- RESP PCR PANEL NOT DETECTED; CORONAVIRUS 229E-RESP PCR NOT DETECTED; CORONAVIRUS HKU1-RESP PCR NOT DETECTED; CORONAVIRUS NL63-RESP PCR NOT DETECTED; CORONAVIRUS OC43-RESP PCR NOT DETECTED; HUMAN METAPNEUMOVIRUS NOT DETECTED; INFLUENZA A- RESP PCR PANEL NOT DETECTED; INFLUENZA B - RESP PCR PANEL NOT DETECTED; M. PNEUMONIAE- RESP PCR PANEL NOT DETECTED; PARAINFLUENZA VIRUS 1 NOT DETECTED; PARAINFLUENZA VIRUS 2 NOT DETECTED; PARAINFLUENZA VIRUS 3 NOT DETECTED; PARAINFLUENZA VIRUS 4 NOT DETECTED; RHINOVIRUS/ENTEROVIRUS NOT DETECTED; RSV- RESP PCR PANEL NOT DETECTED
[2021-09-19 16:48] LABS: SARS-CoV-2 -RESP PCR PANEL DETECTED
[2021-09-19] MEDS: HEPARIN 25000UNITS/500ML (D5W) 25,000 UNIT/500 ML BAG IV SCH (18:03)
== END 2021-09-19 19:55 | disposition short-term general hospital (02) | DRG 177 ==
LOC: EDUNIT# → ED 15:13 → MS3 17:12
PROVIDERS: ADMIT Nurse Practitioner Gerontology; ATTEND Nurse Practitioner Gerontology
PROC: 3E0333Z Introduction of Anti-inflammatory into Peripheral Vein, Percutaneous Approach (ICD-10-PCS; 2021-09-05)
PROC: 30233N1 Transfusion of Nonautologous Red Blood Cells into Peripheral Vein, Percutaneous Approach (ICD-10-PCS; principal; 2021-09-06)
PROC: XW033E5 Introduction of Remdesivir Anti-infective into Peripheral Vein, Percutaneous Approach, New Technology Group 5 (ICD-10-PCS; 2021-09-06)
DX: U07.1 COVID-19 (principal); R09.02 Hypoxemia; J12.82 Pneumonia due to coronavirus disease 2019; J96.01 Acute respiratory failure with hypoxia; I26.99 Other pulmonary embolism without acute cor pulmonale; E87.8 Other disorders of electrolyte and fluid balance, not elsewhere classified; N17.9 Acute kidney failure, unspecified; Z86.711 Personal history of pulmonary embolism; Z86.718 Personal history of other venous thrombosis and embolism; F32.A Depression, unspecified; F41.9 Anxiety disorder, unspecified; E87.0 Hyperosmolality and hypernatremia; I82.491 Acute embolism and thrombosis of other specified deep vein of right lower extremity; I82.592 Chronic embolism and thrombosis of other specified deep vein of left lower extremity; N39.0 Urinary tract infection, site not specified; Z16.24 Resistance to multiple antibiotics; D62 Acute posthemorrhagic anemia; K92.1 Melena; D68.8 Other specified coagulation defects; Z79.01 Long term (current) use of anticoagulants; B95.2 Enterococcus as the cause of diseases classified elsewhere; D64.9 Anemia, unspecified; N18.9 Chronic kidney disease, unspecified; Z85.46 Personal history of malignant neoplasm of prostate; R53.1 Weakness; R26.89 Other abnormalities of gait and mobility; R41.0 Disorientation, unspecified; D75.839 Thrombocytosis, unspecified
CPT/HCPCS: 36415; 71045; 71275; 80048; 80053; 81001; 81003; 82272; 82274; 82607; 82728; 83036; 83540; 83605; 83615; 83735; 84100; 84466; 85014; 85018; 85025; 85027; 85045; 85610; 85730; 86850; 86900; 86901; 86920; 87040; 87077; 87086; 87181; 87631; 93970; 97116; 97162; 97165; 97530; 97535; 99285; A9270; J2354; J7040; J8540; P9016; Q9967; 0202U; 85520; 99231; 99232

== ENCOUNTER 2021-09-19 19:59 | Outpatient (CLI) | payer MEDICARE, OTHER | END 2021-09-19 20:00 | disposition short-term general hospital (02) | LOC: EMS 19:59 | PROVIDERS: ATTEND Internal Medicine | DX: I26.99 Other pulmonary embolism without acute cor pulmonale (principal); U07.1 COVID-19; K92.2 Gastrointestinal hemorrhage, unspecified; R09.02 Hypoxemia | CPT/HCPCS: A0425; A0426 ==

== ENCOUNTER 2022-01-17 09:58 | Outpatient (CLI) | payer MEDICARE, OTHER | END 2022-01-17 09:59 | disposition critical access hospital (66) | LOC: EMS 09:58 | DX: R11.2 Nausea with vomiting, unspecified (principal); R19.7 Diarrhea, unspecified; R82.90 Unspecified abnormal findings in urine | CPT/HCPCS: A0425; A0427 ==

== ENCOUNTER 2022-01-21 18:13 | Outpatient (CLI) | payer MEDICARE, OTHER | END 2022-01-21 18:14 | disposition critical access hospital (66) | LOC: EMS 18:13 | DX: R41.0 Disorientation, unspecified (principal) | CPT/HCPCS: A0425; A0429 ==

== ENCOUNTER 2022-01-21 18:31 | Emergency (ER) | payer MEDICARE, OTHER ==
[2022-01-21 19:06] LABS: BASOPHILS % (AUTO) 0.2 %; EOSINOPHILS # (AUTO) 0.1 10^3/uL (0.0-0.7); EOSINOPHILS % (AUTO) 1.8 %; HCT - HEMATOCRIT 37.8 % (42.0-52.0); HGB - HEMOGLOBIN 12.1 g/dL (14.0-18.0); LYMPHOCYTES # (AUTO) 1.7 10^3/uL (1.5-3.5); LYMPHOCYTES % (AUTO) 30.1 %; MEAN CORPUSCULAR VOLUME 96.9 fL (80.0-94.0); MEAN PLATELET VOLUME 10.6 fL (7.4-11.4); MONOCYTES # (AUTO) 0.6 10^3/uL (0.0-1.0); MONOCYTES % (AUTO) 10.5 %; NEUTROPHILS # (AUTO) 3.3 10^3/uL (1.5-6.6); PLT - PLATELET COUNT 357 10^3/uL (130-450); RED CELL DISTRIBUTION WIDTH 16.8 % (12.0-15.0); WHITE BLOOD COUNT 5.7 x10^3/uL (4.8-10.8)
--- NOTE | 2022-01-21 19:18 | ED Physician Documentation ---
History of Present Illness - Stated complaint Stated Complaint: NOT ACTING RIGHT - Chief complaint Chief Complaint: Neuro - Additonal information Additional information: 87-year-old male is brought to the emergency department from [facility] for concerns that he has a decreased level of consciousness and increased confusion. The patient is alert and does appear well. He is oriented to being at [place]. He is irritated that he has been poked with IVs. He is aware that the year is 2021. He is able to state that it is Summer but feels like winter. Patient is known to have a history of pulmonary embolus for which she is anticoagulated He was seen in this emergency department on 17 January and diagnosed with a urinary tract infection. He was started on Keflex and his Eddy catheter which is chronic indwelling was changed. At that time he had complained of some nausea and lower abdominal bloating. Review of Systems Unable to obtain: Confused Constitutional: denies: Fever, Chills Ears: reports: Reviewed and negative Nose: reports: Reviewed and negative Throat: reports: Reviewed and negative Cardiac: reports: Reviewed and negative GI: reports: Reviewed and negative : reports: Reviewed and negative Skin: reports: Reviewed and negative PD PAST MEDICAL HISTORY - Past Medical History Past Medical History: Yes Cardiovascular: High cholesterol, Deep vein thrombosis, Pulmonary embolism Respiratory: None Neuro: None Endocrine/Autoimmune: None GI: GERD : Other HEENT: Other Psych: Depression, Anxiety Musculoskeletal: None Derm: None - Past Surgical History Past Surgical History: Yes 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 - Present Medications Home Medications: Ambulatory Orders Medication Instructions Recorded Confirmed Gabapentin [Neurontin] 600 mg PO HS 02/08/13 01/17/22 Fluticasone [Flonase] 1 spray LOUIS BID 09/03/15 01/17/22 Ferrous Sulfate 256 mg PO DAILY 09/07/21 01/17/22 Metoprolol Succinate [Toprol Xl] 12.5 mg PO BID 09/07/21 01/17/22 Acetaminophen [Tylenol] 650 mg PO Q4HR PRN 01/17/22 01/17/22 Apixaban [Eliquis] 5 mg PO BID 01/17/22 01/17/22 Ascorbic Acid 250 mg PO DAILY 01/17/22 01/17/22 Atorvastatin [Lipitor] 10 mg PO HS 01/17/22 01/17/22 Bisacodyl Supp [Dulcolax Supp] 10 mg PO DAILY PRN 01/17/22 01/17/22 Calcium Carbonate [Tums (Calcium 500 mg PO Q4HR PRN 01/17/22 01/17/22 Carbonate 500mg)] Cetirizine [ZyrTEC] 10 mg PO DAILY 01/17/22 01/17/22 Cholecalciferol [Vitamin D3] 1 tab PO DAILY 01/17/22 01/17/22 Ipratropium [Atrovent] 2 puffs INH Q6HR PRN 01/17/22 01/17/22 Loperamide HCl [Imodium A-D] 2 mg PO Q6H PRN #16 tablet 01/17/22 Loperamide HCl [Imodium A-D] 2 mg PO Q6HR PRN 01/17/22 01/17/22 Magnesium Hydroxide [Milk of 30 ml PO DAILY PRN 01/17/22 01/17/22 Magnesia] Ondansetron HCl 4 mg PO Q6HR PRN 01/17/22 01/17/22 Ondansetron Odt [Zofran] 4 mg TL Q6H PRN #15 tablet 01/17/22 Pantoprazole [Protonix] 40 mg PO BID 01/17/22 01/17/22 Senna [Senokot] 8.6 mg PO DAILY PRN 01/17/22 01/17/22 cephALEXin [Keflex] 500 mg PO TID #20 cap 01/17/22 oxyCODONE [Roxicodone] 5 mg PO BID PRN 01/17/22 01/17/22 - Allergies Allergies/Adverse Reactions: Allergies Allergy/AdvReac Type Severity Reaction Status Date / Time amoxicillin [Amoxicillin] Allergy Intermediate Rash Verified 01/21/22 18:47 dimethicone AdvReac Mild Rash Verified 01/21/22 18:47 [From Cavilon Durable Barrier] - Social History Does the pt smoke?: No Smoking Status: Never smoker Does the pt drink ETOH?: Yes Does the pt have substance abuse?: No - Immunizations Immunizations are current?: No - POLST Patient has POLST: No PD ED PE NORMAL - General General: Alert and oriented X 3, No acute distress, Well developed/nourished - HEENT HEENT: Atraumatic, Moist mucous membranes - Neck Neck: Supple, no meningeal sign, No adenopathy - Cardiac Cardiac: RRR, No murmur - Respiratory Respiratory: No respiratory distress - Abdomen Abdomen: Normal bowel sounds, Soft, Non tender, Non distended - Male Male : Other (indwelling eddy catheter) - Back Back: No CVA TTP - Derm Derm: Normal color, Warm and dry, No rash - Extremities Extremities: No deformity - Neuro Neuro: Alert and oriented X 3, 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 Aware that it is summer but feels like winter.) GCS Score: 15 Results - Vitals Vitals: Vital Signs - 24 hr 01/21/22 01/21/22 01/21/22 18:41 18:56 19:34 Temperature 37.5 C Heart Rate 74 75 73 Respiratory 20 21 16 Rate Blood Pressure 115/60 110/54 L O2 Saturation 91 L 93 01/21/22 20:37 Temperature Heart Rate 72 Respiratory 17 Rate Blood Pressure 130/48 L O2 Saturation 92 Oxygen O2 Source Room air - EKG (time done) 1906 Rate: Rate (enter#) (73) Rhythm: NSR Compare to prior EKG: Unchanged from prior EKG Computer interpretation: Agree with computer - Labs Labs: Laboratory Tests 01/21/22 01/21/22 01/21/22 19:01 19:01 19:01 WBC 5.7 RBC 3.90 L Hgb 12.1 L Hct 37.8 L MCV 96.9 H MCH 31.0 MCHC 32.0 RDW 16.8 H Plt Count 357 MPV 10.6 Neut # (Auto) 3.3 Lymph # (Auto) 1.7 Creek # (Auto) 0.6 Eos # (Auto) 0.1 Baso # (Auto) 0.0 Absolute Nucleated RBC 0.00 Nucleated RBC % 0.0 Sodium 141 Potassium 4.9 Chloride 106 Carbon Dioxide 25 Anion Gap 10.0 BUN 31 H Creatinine 2.0 H Estimated GFR (MDRD) 32 L Glucose 118 H Calcium 8.7 Total Bilirubin 0.5 AST 25 ALT 22 Alkaline Phosphatase 56 Troponin I High Sens 22.8 H* Total Protein 6.4 L Albumin 3.5 Globulin 2.9 Albumin/Globulin Ratio 1.2 Lipase 28 Urine Color Urine Clarity Urine pH Ur Specific [place] Urine Protein Urine Glucose (UA) Urine Ketones Urine Occult Blood Urine Nitrite Urine Bilirubin Urine Urobilinogen Ur Leukocyte Esterase Urine RBC Urine WBC Ur Squamous Epith Cells Urine Crystals Urine Bacteria Ur Microscopic Review Urine Culture Comments 01/21/22 19:57 WBC RBC Hgb Hct MCV MCH MCHC RDW Plt Count MPV Neut # (Auto) Lymph # (Auto) Creek # (Auto) Eos # (Auto) Baso # (Auto) Absolute Nucleated RBC Nucleated RBC % Sodium Potassium Chloride Carbon Dioxide Anion Gap BUN Creatinine Estimated GFR (MDRD) Glucose Calcium Total Bilirubin AST ALT Alkaline Phosphatase Troponin I High Sens Total Protein Albumin Globulin Albumin/Globulin Ratio Lipase Urine Color YELLOW Urine Clarity HAZY Urine pH 6.0 Ur Specific [place] 1.020 Urine Protein 30 H Urine Glucose (UA) NEGATIVE Urine Ketones NEGATIVE Urine Occult Blood NEGATIVE Urine Nitrite NEGATIVE Urine Bilirubin NEGATIVE Urine Urobilinogen 0.2 (NORMAL) Ur Leukocyte Esterase NEGATIVE Urine RBC None Seen Urine WBC 6-10 H Ur Squamous Epith Cells NONE SEEN Urine Crystals >50 Uric Acid Urine Bacteria Rare Ur Microscopic Review INDICATED Urine Culture Comments NOT INDICATED - Rads (name of study) CT head Radiology: Final report received (No acute intracranial process. Moderate atrophy and chronic microvascular ischemic changes) PD MEDICAL DECISION MAKING - ED course Complexity details: reviewed results, re-evaluated patient, considered dif ferential ED course: 87-year-old male was brought to the emergency department for evaluation of thought to be confusion and altered mental status. Seen recently on the and diagnosed with a UTI. He does have a chronic indwelling Eddy catheter. On presentation the patient is alert and well-appearing. He is oriented to person place. He has no focal neurodeficits. He is known to be wheelchair- bound. Screening CBC and electrolytes were obtained. There is no leukocytosis. He does have some baseline essentially unchanged chronic kidney disease with a BUN of 30 and a creatinine of 2.0. He was repleted with a liter of fluids. UA was obtained today. It appears markedly improved which is in farfan contrast to the urine completed on 17 January. He is on Keflex for which the antibiotic culture is sensitive. CT of this gentleman's head was also negative for acute focal findings. At this time no emergent medical diagnosis is seen and patient is stable for discharge back to his care facility. Departure - Departure Disposition: Home, Self Care Clinical Impression: Confusion Chronic kidney disease Qualifiers: Chronic kidney disease stage: stage 3 (moderate) Chronic kidney disease stage 3 subtype: unspecified whether 3a or 3b Qualified Code(s): N18.30 - Chronic kidney disease, stage 3 unspecified Condition: Stable Comments: Gil was advised to come to the emergency department today because staff at his care facility felt he was confused. On presentation to the emergency department here he is alert oriented to person and place. He reports that he feels well. He was seen recently in the emergency department and diagnosed with a urinary tract infection. Today his screening CBC and electrolytes do not show any new findings. He has some mild chronic kidney disease which is essentially unchanged. We did give him a liter of IV fluids in the ER and he is feeling better. We did resample his urine and the previously diagnosed urinary infection appears to be now nearly fully resolved. There is no emergent medical findings today on exam and he is stable for discharge home
[2022-01-21] MEDS ORDERED: SODIUM CHLORIDE 0.9% 1,000 ML IV STA (19:19)
[2022-01-21 19:20] LABS: ALBUMIN 3.5 g/dL (3.2-5.5); ALBUMIN/GLOBULIN RATIO 1.2 (1.0-2.2); BILIRUBIN,TOTAL 0.5 mg/dL (0.2-1.0); CALCIUM 8.7 mg/dL (8.5-10.3); POTASSIUM 4.9 mmol/L (3.5-5.0); TOTAL PROTEIN 6.4 g/dL (6.7-8.2)
--- NOTE | 2022-01-21 20:02 | CT Report ---
PROCEDURE: HEAD WO INDICATIONS: confusion TECHNIQUE: Noncontrast 4.5 mm thick angled axial sections acquired from the foramen magnum to the vertex. For r adiation dose reduction, the following was used: automated exposure control, adjustment of mA and/or kV according to patient size. COMPARISON: Head CT 09/03/2015. FINDINGS: Image quality: Excellent. The ventricular system and cortical sulci demonstrate atrophy, consistent for patient's stated age. There are areas of hypodensity in the periventricular and subcortical white matter. There is no acut e intra or extra-axial fluid collection. No acute hemorrhage, mass lesion or midline shift. Brainst em is unremarkable. Globes are symmetrical. Sinuses demonstrate trace dependent fluid in the left maxillary sinus. Osseou s structures are intact. IMPRESSION: 1. No acute intracranial process. 2. Moderate atrophy and chronic microvascular ischemic changes. Reviewed by: Katy Marino MD on 01/21/2022 8:01 PM PDT Approved by: Katy Marino MD on 01/21/2022 8:01 PM PDT Station ID: [id number]
[2022-01-21 20:08] LABS: BILIRUBIN,URINE NEGATIVE (NEGATIVE); GLUCOSE, URINE (UA) NEGATIVE (NEGATIVE); KETONES,URINE (UA) NEGATIVE (NEGATIVE); LEUKOCYTE ESTERASE, URINE NEGATIVE (NEGATIVE); NITRITE,URINE NEGATIVE (NEGATIVE); OCCULT BLOOD,URINE NEGATIVE (NEGATIVE); PROTEIN,URINE 30 mg/dL (NEGATIVE); UROBILINOGEN,URINE 0.2 (NORMAL) E.U./dL (NORMAL)
[2022-01-21 20:11] LABS: CLARITY,URINE HAZY (CLEAR)
[2022-01-21 20:50] LABS: BACTERIA,URINE Rare /HPF (None Seen); CRYSTALS,URINE >50 Uric Acid /LPF; RBC,URINE None Seen /HPF (0-5); SQUAMOUS EPITHELIAL CELL,UR NONE SEEN (<= Few)
[2022-01-21 22:02] VITALS: BP 132/55
== END 2022-01-21 22:40 | disposition home or self-care (01) ==
LOC: EDUNIT# → ED 18:31
DX: N18.32 Chronic kidney disease, stage 3b (principal); Z86.711 Personal history of pulmonary embolism; Z79.01 Long term (current) use of anticoagulants
CPT/HCPCS: 36415; 80053; 81001; 81003; 83690; 84484; 85025; 87086; 93005; 96360; 99283

== ENCOUNTER 2022-01-21 22:50 | Outpatient (CLI) | payer MEDICARE, OTHER | END 2022-01-21 23:59 | disposition home or self-care (01) | LOC: EMS 22:50 | PROVIDERS: ATTEND Registered Nurse | DX: R41.0 Disorientation, unspecified (principal); Z74.01 Bed confinement status | CPT/HCPCS: A0425; A0428 ==

== ENCOUNTER 2022-02-27 13:22 | Outpatient (CLI) | payer MEDICARE, OTHER | END 2022-02-27 13:23 | disposition EMS.NT | LOC: EMS 13:22 | DX: S61.412A Laceration without foreign body of left hand, initial encounter (principal); V00.811A Fall from moving wheelchair (powered), initial encounter; Y93.89 Activity, other specified; Y92.199 Unspecified place in other specified residential institution as the place of occurrence of the external cause ==

== ENCOUNTER 2022-04-29 08:02 | Outpatient (CLI) | payer MEDICARE, OTHER ==
[2022-04-29 12:32] LABS: BASOPHILS # (AUTO) 0.1 10^3/uL (0.0-0.1); BASOPHILS % (AUTO) 0.8 %; EOSINOPHILS # (AUTO) 0.1 10^3/uL (0.0-0.7); EOSINOPHILS % (AUTO) 1.4 %; HCT - HEMATOCRIT 26.9 % (42.0-52.0); HGB - HEMOGLOBIN 8.9 g/dL (14.0-18.0); LYMPHOCYTES # (AUTO) 1.4 10^3/uL (1.5-3.5); LYMPHOCYTES % (AUTO) 20.8 %; MEAN CORPUSCULAR HEMOGLOBIN 31.6 pg (27.0-31.0); MEAN CORPUSCULAR HGB CONC 33.1 g/dL (32.0-36.0); MEAN CORPUSCULAR VOLUME 95.4 fL (80.0-94.0); MEAN PLATELET VOLUME 13.1 fL (7.4-11.4); MONOCYTES # (AUTO) 0.5 10^3/uL (0.0-1.0); MONOCYTES % (AUTO) 7.3 %; NEUTROPHILS # (AUTO) 4.5 10^3/uL (1.5-6.6); NEUTROPHILS % (AUTO) 67.9 %; NRBC ABSOLUTE COUNT (AUTO) 0.03 x10^3/uL; NUCLEATED RED BLOOD CELLS AUTO 0.5 /100WBC; PLT - PLATELET COUNT 159 10^3/uL (130-450); RED BLOOD COUNT 2.82 10^6/uL (4.70-6.10); WHITE BLOOD COUNT 6.6 x10^3/uL (4.8-10.8)
[2022-04-29 12:58] LABS: THYROID STIMULATING HORMONE 3.42 uIU/mL (0.34-5.60)
[2022-04-29 13:04] LABS: ALBUMIN 3.8 g/dL (3.2-5.5); ALBUMIN/GLOBULIN RATIO 1.5 (1.0-2.2); ALKALINE PHOSPHATASE 63 IU/L (42-121); ALT ALANINE AMINOTRANSFERASE < 10 IU/L (10-60); AST ASPARTATE AMINOTRANSFERASE 16 IU/L (10-42); BILIRUBIN,TOTAL 0.7 mg/dL (0.2-1.0); BUN - BLOOD UREA NITROGEN 33 mg/dL (6-20); CALCIUM 9.3 mg/dL (8.5-10.3); CARBON DIOXIDE - CO2 24 mmol/L (21-32); CHLORIDE 109 mmol/L (101-111); CHOL/HDL RATIO 3.7 (<5.0); CHOLESTEROL 133 mg/dL; CREATININE 1.6 mg/dL (0.6-1.2); GFR - MDRD 41 (>89); GLUCOSE 141 mg/dL (70-100); HDL CHOLESTEROL 36 mg/dL; LDL CHOLESTEROL,CALCULATED 69 mg/dL; LDL/HDL RATIO 1.9 (<3.6); POTASSIUM 4.1 mmol/L (3.5-5.0); SODIUM 141 mmol/L (135-145); TOTAL PROTEIN 6.4 g/dL (6.7-8.2); TRIGLYCERIDES 142 mg/dL; VLDL CHOLESTEROL 28 mg/dL
[2022-04-29 13:08] LABS: CREATININE,URINE 75.8 mg/dL; MICROALBUM/CREATININE RATIO,UR 126.6 ug/mg (<30.0); MICROALBUMIN,URINE 9.6 mg/dL (0-300.0)
[2022-04-29 13:35] LABS: ESTIMATED AVERAGE GLUCOSE 105 mg/dL (70-100); HEMOGLOBIN A1c% 5.3 % (4.27-6.07)
== END 2022-04-29 08:03 | disposition home or self-care (01) ==
LOC: LAB.N 08:02
PROVIDERS: ATTEND Nurse Practitioner
DX: I10 Essential (primary) hypertension (principal); E78.5 Hyperlipidemia, unspecified; R53.83 Other fatigue; R73.03 Prediabetes
CPT/HCPCS: 36415; 80053; 80061; 82043; 82570; 83036; 83721; 84443; 85025

== ENCOUNTER 2022-07-08 23:11 | Emergency (ER) | payer MEDICARE, OTHER ==
--- NOTE | 2022-07-09 00:11 | CT Report ---
PROCEDURE: HEAD WO INDICATIONS: fall/head injury/eliquis TECHNIQUE: Noncontrast 4.5 mm thick angled axial sections acquired from the foramen magnum to the vertex. For r adiation dose reduction, the following was used: automated exposure control, adjustment of mA and/or kV according to patient size. COMPARISON: CT head 01/21/2022 5 radiology of the cav[facility]. FINDINGS: Image quality: Excellent. CSF spaces: There is mild cerebral volume loss with prominence of the ventricles and sulci. Basal ci sterns are patent. No extra-axial fluid collections. Brain: There is a minimal amount of subarachnoid hemorrhage within a sulcus along the posterior righ t frontal lobe at the vertex. No mass or mass effect. Chirinos-white matter interface is preserved. There are subcortical and periventricular white matter hypodensities consistent with mild chronic small ve ssel ischemic changes. Skull and face: Calvarium and visualized facial bones are intact, without suspicious lesions. Sinuses: Visualized sinuses and mastoids are clear. IMPRESSION: 1. Minimal right paracentral subarachnoid hemorrhage within a right frontal lobe sulcus at the vertex . Findings discussed Dr. Mcduffie on 07/09/2022 at 12:05 AM. Reviewed by: Myke Richmond MD on 07/09/2022 12:19 AM PST Approved by: Myke Richmond MD on 07/09/2022 12:19 AM PST Station ID: [id number]
--- NOTE | 2022-07-09 01:17 | ED Physician Documentation ---
PD HPI HEAD INJURY - Stated complaint Stated Complaint: FALL - Chief complaint Chief Complaint: Laceration - History obtained from History obtained from: Patient, EMS - Additional information Additional information: The patient is brought to the emergency department by EMS for chief complaint of ground-level fall and head injury. The patient lives at home by himself and is wheelchair dependent, and was trying to pivot into bed when he fell out of his wheelchair. He hit his head on the nightstand next to his bed. He states he did not lose consciousness and was not hurt in any other way. He states he just wants to go home. Medics noted a laceration on his posterior scalp. They report the patient has been alert and, oriented, and conversant during the transport. Review of Systems Ten Systems: 10 systems reviewed and negative Constitutional: reports: Reviewed and negative Eyes: reports: Reviewed and negative Ears: reports: Reviewed and negative Nose: reports: Reviewed and negative Throat: reports: Reviewed and negative Cardiac: reports: Reviewed and negative Respiratory: reports: Reviewed and negative GI: reports: Reviewed and negative : reports: Reviewed and negative Skin: reports: Laceration (s) Musculoskeletal: reports: Reviewed and negative Neurologic: reports: Head injury Psychiatric: reports: Reviewed and negative Endocrine: reports: Reviewed and negative Immunocompromised: reports: Reviewed and negative PD PAST MEDICAL HISTORY - Past Medical History Past Medical History: Yes Cardiovascular: High cholesterol, Deep vein thrombosis, Pulmonary embolism Respiratory: None Neuro: None Endocrine/Autoimmune: None GI: GERD : Other HEENT: Other Psych: Depression, Anxiety Musculoskeletal: None Derm: None Other Past Medical History: WHEELCHAIR/HOME BOUND... 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 - Present Medications Home Medications: Ambulatory Orders Medication Instructions Recorded Confirmed Gabapentin [Neurontin] 600 mg PO HS 02/08/13 01/17/22 Fluticasone [Flonase] 1 spray LOUIS BID 09/03/15 01/17/22 Ferrous Sulfate 256 mg PO DAILY 09/07/21 01/17/22 Metoprolol Succinate [Toprol Xl] 12.5 mg PO BID 09/07/21 01/17/22 Acetaminophen [Tylenol] 650 mg PO Q4HR PRN 01/17/22 01/17/22 Apixaban [Eliquis] 5 mg PO BID 01/17/22 01/17/22 Ascorbic Acid 250 mg PO DAILY 01/17/22 01/17/22 Atorvastatin [Lipitor] 10 mg PO HS 01/17/22 01/17/22 Bisacodyl Supp [Dulcolax Supp] 10 mg PO DAILY PRN 01/17/22 01/17/22 Calcium Carbonate [Tums (Calcium 500 mg PO Q4HR PRN 01/17/22 01/17/22 Carbonate 500mg)] Cetirizine [ZyrTEC] 10 mg PO DAILY 01/17/22 01/17/22 Cholecalciferol [Vitamin D3] 1 tab PO DAILY 01/17/22 01/17/22 Ipratropium [Atrovent] 2 puffs INH Q6HR PRN 01/17/22 01/17/22 Loperamide HCl [Imodium A-D] 2 mg PO Q6H PRN #16 tablet 01/17/22 Loperamide HCl [Imodium A-D] 2 mg PO Q6HR PRN 01/17/22 01/17/22 Magnesium Hydroxide [Milk of 30 ml PO DAILY PRN 01/17/22 01/17/22 Magnesia] Ondansetron HCl 4 mg PO Q6HR PRN 01/17/22 01/17/22 Ondansetron Odt [Zofran] 4 mg TL Q6H PRN #15 tablet 01/17/22 Pantoprazole [Protonix] 40 mg PO BID 01/17/22 01/17/22 Senna [Senokot] 8.6 mg PO DAILY PRN 01/17/22 01/17/22 cephALEXin [Keflex] 500 mg PO TID #20 cap 01/17/22 oxyCODONE [Roxicodone] 5 mg PO BID PRN 01/17/22 01/17/22 - Allergies Allergies/Adverse Reactions: Allergies Allergy/AdvReac Type Severity Reaction Status Date / Time amoxicillin [Amoxicillin] Allergy Intermediate Rash Verified 07/08/22 23:20 dimethicone AdvReac Mild Rash Verified 07/08/22 23:20 [From Cavilon Durable Barrier] - Social History Does the pt smoke?: No Smoking Status: Never smoker Does the pt drink ETOH?: Yes Does the pt have substance abuse?: No - Immunizations Immunizations are current?: No Immunizations: TDAP >10years/unknown - POLST Patient has POLST: No PD ED PE NORMAL - Vitals Vital signs reviewed: Yes - General General: Alert and oriented X 3, No acute distress, Well developed/nourished - HEENT HEENT: PERRL, EOMI, Moist mucous membranes, Other (2 cm laceration vertically in superior occipital area. Bleeding controlled.) - Neck Neck: Supple, no meningeal sign - Cardiac Cardiac: RRR, No murmur, Strong equal pulses - Respiratory Respiratory: No respiratory distress, Clear bilaterally - Abdomen Abdomen: Soft, Non tender, Non distended - Derm Derm: Normal color, Warm and dry, No rash, Other (Laceration scalp as above otherwise unremarkable.) - Extremities Extremities: No deformity - Neuro Neuro: Alert and oriented X 3 - Psych Psych: Normal mood, Normal affect Results - Vitals Vitals: Vital Signs - 24 hr 07/08/22 07/08/22 07/09/22 23:18 23:22 00:09 Temperature 36.9 C Heart Rate 72 68 Respiratory 16 16 19 Rate Blood Pressure 136/76 H 153/65 H O2 Saturation 100 99 07/09/22 07/09/22 07/09/22 02:00 02:51 03:30 Temperature Heart Rate 66 64 100 Respiratory 13 16 15 Rate Blood Pressure 147/62 H 147/62 H 172/76 H O2 Saturation 92 100 100 07/09/22 07/09/22 05:00 05:26 Temperature 36.8 C Heart Rate 73 72 Respiratory 17 18 Rate Blood Pressure 183/97 H 183/96 H O2 Saturation 98 99 Oxygen O2 Source Room air - Rads (name of study) Head CT Radiology: Final report received, EMP read indepedently, See rad report (Minimal subarachnoid hemorrhage the right paracentral area within the right frontal lobe sulcus at the vertex.) head CT Radiology: Final report received, EMP read indepedently, See rad report (No significant change in SAH) Procedures - Laceration (location) scalp Length in cm: 2 Wound type: Linear, Into subcut fat Neurovascular status: Sensory intact, Motor intact, Vascular intact Anesthesia: Lidocaine 1% Wound preparation: Hibiclens, Irrigated copiously NS, Wound explored, To the base Skin layer closure: Griffin, Sutures - enter # (3 radha) Other: Patient tolerated well, No complications, Neurovascular intact, Dressing applied, Tetanus UTD PD MEDICAL DECISION MAKING - ED course Complexity details: reviewed results, re-evaluated patient, considered differential, d/w patient ED course: The pt was very well-appearing, and was neurologically intact. Head CT was read by radiology as a tiny SAH at the vertex of the R frontal lobe. I consulted neurosurgery at [facility]/, and spoke with Dr. Haas. He viewed the images and recommended a 4-hour CT. If that was unchanged, pt could be discharged with no further intervention. THe pt was kept in the ED for 4 more hours, during which time he had no deterioration. His repeat CT was unchanged. Laceration was repaired with radha. We have discussed wound care, timeline for staple removal, and the usual indications for return. Departure - Departure Disposition: 01 Home, Self Care Clinical Impression: Laceration, Subarachnoid hemorrhage Closed head injury Qualifiers: Encounter type: initial encounter Qualified Code(s): S09.90XA - Unspecified injury of head, initial encounter Condition: Stable Instructions: ED Head Injury Closed, ED Laceration Scalp Stitch Or Stap Comments: Your CT scan showed a very slight amount of possible bleeding at the very top of your brain. As such, your case had to be discussed with the on-call neurosurgeon at [facility], who said that if a repeat CAT scan looked good in 4 hours, You would be free to go home. Your repeat CT scan was not significantly changed from the first 1, and you are not expected to have further bleeding in your brain. The small amount of blood that is there should be reabsorbed by the brain without further incident. As far as her cut, it was repaired with 3 radha, which will need to be removed by a medical professional in 10 days. Please plan to follow-up either with your primary care doctor, the walk-in clinic, or the ER to have these taken out. You may let water and soap run over the wound but please do not rub, scrub, or immerse the wound until the radha are removed. This is to help prevent infection. Discharge Date/Time: 07/09/22 05:37
[2022-07-09 06:01] VITALS: BP 183/96
--- NOTE | 2022-07-09 08:07 | CT Report ---
PROCEDURE: HEAD WO INDICATIONS: subarachnoid hemorrhage f/u TECHNIQUE: Noncontrast 4.5 mm thick angled axial sections acquired from the foramen magnum to the vertex. For r adiation dose reduction, the following was used: automated exposure control, adjustment of mA and/or kV according to patient size. COMPARISON: CT head 07/08/2022. FINDINGS: Image quality: Excellent. CSF spaces: Basal cisterns are patent. No extra-axial fluid collections. Ventricles are normal in size and shape. Brain: There is trace subarachnoid hemorrhage in the right parietal lobe, unchanged. No midline shift . No intracranial masses or hemorrhage. There is moderate cerebral volume loss. Mild periventricular white matter chronic small vessel treatment changes are present.. Skull and face: Calvarium and visualized facial bones are intact, without suspicious lesions. Sinuses: Visualized sinuses and mastoids are clear. IMPRESSION: Stable exam. Trace right parietal subarachnoid hemorrhage appears unchanged. No significant discrepancy with the preliminary interpretation. Reviewed by: Tyrone Villalta MD on 07/09/2022 8:05 AM PST Approved by: Tyrone Villalta MD on 07/09/2022 8:05 AM PST Station ID: [id number]
== END 2022-07-09 05:37 | disposition home or self-care (01) ==
LOC: EDUNIT# → ED 23:11
DX: S01.01XA Laceration without foreign body of scalp, initial encounter (principal); W07.XXXA Fall from chair, initial encounter; Z99.3 Dependence on wheelchair
CPT/HCPCS: 12001; 99283; 99284

== ENCOUNTER → 2022-07-08 | Outpatient (CLI) | payer MEDICARE, OTHER | END | disposition critical access hospital (66) | LOC: EMS 22:46 | DX: S01.01XA Laceration without foreign body of scalp, initial encounter (principal); W06.XXXA Fall from bed, initial encounter; Y92.003 Bedroom of unspecified non-institutional (private) residence as the place of occurrence of the external cause | CPT/HCPCS: A0425; A0429 ==

== ENCOUNTER → 2022-07-09 | Outpatient (CLI) | payer MEDICARE, OTHER | END | disposition home or self-care (01) | LOC: EMS 05:35 | PROVIDERS: ATTEND Emergency Medicine | DX: S01.01XA Laceration without foreign body of scalp, initial encounter (principal); S09.90XA Unspecified injury of head, initial encounter; W06.XXXA Fall from bed, initial encounter; G82.20 Paraplegia, unspecified | CPT/HCPCS: A0425; A0428 ==

== ENCOUNTER 2022-08-04 11:04 | Outpatient (CLI) | payer MEDICARE, OTHER | END 2022-08-04 11:05 | disposition critical access hospital (66) | LOC: EMS 11:04 | DX: R33.9 Retention of urine, unspecified (principal); R53.1 Weakness | CPT/HCPCS: A0425; A0429 ==

== ENCOUNTER 2022-08-04 11:16 | Emergency (ER) | payer MEDICARE, OTHER ==
--- NOTE | 2022-08-04 11:35 | ED Physician Documentation ---
History of Present Illness - Stated complaint Stated Complaint: - Chief complaint Chief Complaint: General - History obtained from History obtained from: Patient, EMS - History of Present Illness Timing: Today Pain level max: 0 Pain level now: 0 - Additonal information Additional information: Patient is an 87-year-old male brought in by EMS with complaint of catheter not draining. He has a chronic indwelling Watt catheter. He lives at home. He is wheelchair/bedbound. No fevers. No chills. Nothing makes it better or worse. He also had a fall on July 08 and still has the radha in his head. No headache or vomiting. He is requesting a catheter change and staple removal. Review of Systems Constitutional: denies: Fever, Chills Respiratory: denies: Cough GI: denies: Vomiting, Diarrhea Skin: denies: Rash Musculoskeletal: denies: Neck pain, Back pain Neurologic: denies: Confused, Head injury, LOC PD PAST MEDICAL HISTORY - Past Medical History Cardiovascular: High cholesterol, Deep vein thrombosis, Pulmonary embolism Respiratory: None Neuro: None Endocrine/Autoimmune: None GI: GERD : Other HEENT: Other Psych: Depression, Anxiety Musculoskeletal: None Derm: None - Past Surgical History Past Surgical History: Yes Ortho: Other /[employer]PER[employer]: Other - Present Medications Home Medications: Ambulatory Orders Medication Instructions Recorded Confirmed Gabapentin [Neurontin] 600 mg PO HS 02/08/13 01/17/22 Fluticasone [Flonase] 1 spray [place] BID 09/03/15 01/17/22 Ferrous Sulfate 256 mg PO DAILY 09/07/21 01/17/22 Metoprolol Succinate [Toprol Xl] 12.5 mg PO BID 09/07/21 01/17/22 Acetaminophen [Tylenol] 650 mg PO Q4HR PRN 01/17/22 01/17/22 Apixaban [Eliquis] 5 mg PO BID 01/17/22 01/17/22 Ascorbic Acid 250 mg PO DAILY 01/17/22 01/17/22 Atorvastatin [Lipitor] 10 mg PO HS 01/17/22 01/17/22 Bisacodyl Supp [Dulcolax Supp] 10 mg PO DAILY PRN 01/17/22 01/17/22 Calcium Carbonate [Tums (Calcium 500 mg PO Q4HR PRN 01/17/22 01/17/22 Carbonate 500mg)] Cetirizine [ZyrTEC] 10 mg PO DAILY 01/17/22 01/17/22 Cholecalciferol [Vitamin D3] 1 tab PO DAILY 01/17/22 01/17/22 Ipratropium [Atrovent] 2 puffs INH Q6HR PRN 01/17/22 01/17/22 Loperamide HCl [Imodium A-D] 2 mg PO Q6H PRN #16 tablet 01/17/22 Loperamide HCl [Imodium A-D] 2 mg PO Q6HR PRN 01/17/22 01/17/22 Magnesium Hydroxide [Milk of 30 ml PO DAILY PRN 01/17/22 01/17/22 Magnesia] Ondansetron HCl 4 mg PO Q6HR PRN 01/17/22 01/17/22 Ondansetron Odt [Zofran] 4 mg TL Q6H PRN #15 tablet 01/17/22 Pantoprazole [Protonix] 40 mg PO BID 01/17/22 01/17/22 Senna [Senokot] 8.6 mg PO DAILY PRN 01/17/22 01/17/22 cephALEXin [Keflex] 500 mg PO TID #20 cap 01/17/22 oxyCODONE [Roxicodone] 5 mg PO BID PRN 01/17/22 01/17/22 - Allergies Allergies/Adverse Reactions: Allergies Allergy/AdvReac Type Severity Reaction Status Date / Time amoxicillin [Amoxicillin] Allergy Intermediate Rash Verified 07/08/22 23:20 dimethicone AdvReac Mild Rash Verified 07/08/22 23:20 [From [employer] 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 [place] in place. No signs of infection) - Neck Neck: Supple, no meningeal sign - Cardiac Cardiac: RRR, Strong equal pulses - Respiratory Respiratory: No respiratory distress, Clear bilaterally - Abdomen Abdomen: Soft, Non tender, Non distended - Derm Derm: Warm and dry - Neuro Neuro: Alert and oriented X 3 - Psych Psych: Normal mood, Normal affect Results - Vitals Vitals: Vital Signs - 24 hr 08/04/22 11:20 Temperature 37.2 C Heart Rate 76 Respiratory 20 Rate Blood Pressure 140/70 H O2 Saturation 99 Oxygen O2 Source Room air Procedures - Suture/staple Removal (location) - Minor Occiput Suture/staple removal: # radha (3), No complications PD Medical Decision Making - ED course Complexity details: reviewed results, re-evaluated patient, considered diffe rential, d/w patient ED course: Bedside ultrasound does show some mild debris in the bladder. There is about 150 mL of urine in the bladder as well. The Watt catheter was changed. Tolerated well. No complications. The radha were also removed from the laceration. No complications. Patient counseled regarding signs and symptoms for which I believe and urgent re-evaluation would be necessary. Patient with good understanding of and agreement to plan and is comfortable going home at this time This document was made in part using voice recognition software. While efforts are made to proofread this document, sound alike and grammatical errors may occur. Departure - Departure Disposition: 01 Home, Self Care Clinical Impression: Encounter for Watt catheter replacement, Removal of staple Condition: Good Instructions: ED Catheter Care Watt, ED Stap Removal No Complication Follow-Up: your,doctor as needed [Other] Comments: Your Watt catheter was changed today. The radha from your fall on July 08 were also removed. Please follow-up with your doctor for further care. Return if you worsen.
[2022-08-04 11:49] VITALS: BP 140/70
== END 2022-08-04 11:50 | disposition home or self-care (01) ==
LOC: EDUNIT# → ED 11:16
DX: T83.9XXA Unspecified complication of genitourinary prosthetic device, implant and graft, initial encounter (principal); Z48.02 Encounter for removal of sutures; Z99.3 Dependence on wheelchair
CPT/HCPCS: 51702; 99282; 99283

== ENCOUNTER 2022-08-04 11:45 | Outpatient (CLI) | payer MEDICARE, OTHER | END 2022-08-04 11:46 | disposition home or self-care (01) | LOC: EMS 11:45 | PROVIDERS: ATTEND Emergency Medicine | DX: Z74.01 Bed confinement status (principal) | CPT/HCPCS: A0425; A0428 ==

== ENCOUNTER 2022-11-11 09:51 | Outpatient (CLI) | payer MEDICARE, OTHER ==
--- NOTE | 2022-11-11 11:21 | XRAY Report ---
PROCEDURE: Knee 4 View LT INDICATIONS: KNEE PAIN TECHNIQUE: 4 views of the left knee(s) were acquired. COMPARISON: X-ray knee 06/17/2022 FINDINGS: Bones: No fractures or dislocations. No suspicious bony lesions. Left knee demonstrates moderate to severe tricompartmental arthritic change with progression most notable in the medial compartment. Small periarticular osteophytes are present. No erosions. The right knee demonstrates moderate medial and lateral compartment narrowing without erosions. Soft tissues: Mild effusion. No suspicious soft tissue calcifications or masses. 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 Reviewed by: Katy Marino MD on 11/11/2022 11:20 AM PDT Approved by: Katy Marino MD on 11/11/2022 11:20 AM PDT Station ID: [id number]
== END 2022-11-11 09:52 | disposition home or self-care (01) ==
LOC: DI 09:51
PROVIDERS: ATTEND Physician Assistant Surgical
DX: M17.0 Bilateral primary osteoarthritis of knee (principal)